=== PATIENT | female | born 1935 | race Caucasian/White ===

== ENCOUNTER 2019-06-05 12:50 | Outpatient (RCR) | payer MEDICARE, OTHER, SELFPAY ==
[2019-06-05 15:26] LABS: Basophils # 0.1 10^3/uL (0.0-0.1); Basophils % 0.3 %; Eosinophils # 0.2 10^3/uL (0.0-0.8); Eosinophils % 0.9 %; Lymphocytes % 74.9 %; Mean Corpuscular HGB Conc 31.4 g/dL (30.0-36.0); Mean Corpuscular Hemoglobin 31.4 pg (28.0-34.0); Mean Platelet Volume 12.2 fL (7.4-10.4); Monocytes # 0.7 10^3/uL (0.2-0.9); Monocytes % 2.7 %; Neutrophils # 5.6 10^3/uL (1.8-7.7); Nucleated Red Blood Cells % 0 %; Platelet Count 197 10^3/cmm (130-400); White Blood Count 26.7 10^3/uL (4.0-10.0)
[2019-06-05 22:53] LABS: Alanine Aminotransferase 21 U/L (0-33); Albumin Level 4.8 g/dL (3.5-5.2); Alkaline Phosphatase 53 IU/L (35-105); Anion Gap 19.1 (5-19); Aspartate Amino Transferase 25 U/L (0-32); Blood Urea Nitrogen 33 mg/dL (8-23); Calcium 10.5 mg/Dl (8.8-10.2); Carbon Dioxide 30 mmol/L (22-29); Chloride 95 mmol/L (98-107); Glucose 93 mg/dL (74-106); Lactate Dehydrogenase 206 U/L (135-214); Potassium 3.1 mmol/L (3.5-5.1); Sodium 141 mmol/L (136-145); Total Bilirubin 0.4 mg/dL (0.15-1.2); Total Protein 6.8 g/dL (6.6-8.7)
[2019-06-06 04:58] LABS: Iron 75 ug/dL (37-145); Percent Saturation 22.7 % (20-50); Total Iron Binding Capacity 330 mg/dL; Unsaturated Iron Binding 255 ug/dL (112-347)
== END 2019-07-04 23:59 | disposition home or self-care (01) ==
LOC: ONCMED 12:50
PROVIDERS: Family Provider Electrodiagnostic Medicine; Visit Provider Internal Medicine Medical Oncology
DX: C91.10 Chronic lymphocytic leukemia of B-cell type not having achieved remission (principal)
CPT/HCPCS: 80053; 83010; 83540; 83550; 83615; 85025; 85045

== ENCOUNTER 2019-07-30 05:49 | Outpatient (RCR) | payer MEDICARE, OTHER, SELFPAY ==
[2019-07-30 09:41] LABS: Basophils % 0.2 %; Eosinophils # 0.2 10^3/uL (0.0-0.8); Eosinophils % 0.7 %; Hematocrit 35.7 % (37.0-47.0); Hemoglobin 11.8 g/dL (11.5-15.3); Lymphocytes # 19.3 10^3/uL (0.8-4.8); Lymphocytes % 74.1 %; Mean Corpuscular HGB Conc 33.1 g/dL (30.0-36.0); Mean Corpuscular Hemoglobin 31.7 pg (28.0-34.0); Mean Platelet Volume 11.3 fL (7.4-10.4); Monocytes # 0.8 10^3/uL (0.2-0.9); Monocytes % 3.1 %; Neutrophils # 5.7 10^3/uL (1.8-7.7); Neutrophils % 21.7 %; Nucleated Red Blood Cells % 0 %; Platelet Count 191 10^3/cmm (130-400); Red Blood Count 3.72 10^6/uL (4.1-5.3); Red Cell Distribution Width 12.9 % (12.1-15.1); White Blood Count 26.1 10^3/uL (4.0-10.0)
[2019-07-30 09:57] LABS: Alanine Aminotransferase 20 U/L (0-33); Albumin Level 4.2 g/dL (3.5-5.2); Alkaline Phosphatase 56 IU/L (35-105); Anion Gap 16.5 (5-19); Aspartate Amino Transferase 23 U/L (0-32); Blood Urea Nitrogen 27 mg/dL (8-23); Calcium 10.3 mg/dL (8.5-10.5); Carbon Dioxide 28 mmol/L (22-29); Chloride 96 mmol/L (98-107); Globulin 2.7 g/dL (1.3-4.6); Glucose 109 mg/dL (65-115); Iron 86 ug/dL (37-145); Lactate Dehydrogenase 169 U/L (135-214); Percent Saturation 27.5 % (20-50); Potassium 3.5 mmol/L (3.5-5.1); Sodium 137 mmol/L (136-145); Total Bilirubin 0.6 mg/dL (0.15-1.2); Total Iron Binding Capacity 312 mcg/dl; Total Protein 6.9 g/dL (6.6-8.7); Unsaturated Iron Binding 226 ug/dL (112-347)
[2019-07-30 10:24] LABS: Slide Review Slide Review Perform
--- NOTE | 2019-07-31 07:32 | ONC FU_ITS ---
Dr. Peck Patient Follow-Up Note Patient: Carlota Sesay Unit #: [id number]: 1935 Dicatated By: Feroz Peck M.D.Date of Visit:Jul 30, 2019 Onc Med Follow-up/Prog Note Chief Complaint: Chronic lymphocytic leukemia. History of Present Illness: This is an 84 year-old woman with chronic lymphocytic leukemia, Varghese stage 0 at initial diagnosis in December 2008. She had presented with a mild leukocytosis. 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 By clinical evaluation she had early stage disease. Observation/expectant management was recommended. Her other medical illnesses include hypertension, hypercholesterolemia, and mild chronic kidney disease. She also has fibromyalgia and she has osteoporosis with associated kyphosis and scoliosis. A bone density study in May 2014 showed a T score of -3.1 in the lumbar spine, -2.9 in the left femoral neck, and -3.1 in the right femoral neck. She started treatment with Prolia in March 2015. In February 2017 she had presented with fairly acute onset of lower back pain. X-ray of the lumbar spine showed disc space narrowing at L4-L5. MRI of the lumbar spine and 02/22/2017 showed subacute L4 inferior endplate compression fracture of about 50%. There was mild to moderate central canal stenosis L4-L5 secondary to the compression fracture, to disc bulging, and to facet joint and ligamentum flavum hypertrophy. She underwent lumbar laminectomy in March 2017. INTERIM HISTORY: On her followup in April 2017 her white blood cell count had increased to 27,300 and her hemoglobin was down slightly to 11.6 g. She was still recovering from the surgery. She otherwise appeared stable clinically, and I opted to just continue her on observation/expectant management. During subsequent follow-up her blood counts had basically remained stable. She is seen for a scheduled visit. She continues have limited activity, mainly due to the back pain. Her ECOG score 3. She has good appetite. She has no fever, night sweats, or hot flashes. She has no shortness of breath, cough, or chest pain. She has no GI or complaints. She has pain in the lower back which radiates into the left leg. She also complains that she has arthritis all over. She has no focal neurologic symptoms. She does complain that she is sometimes shaky. Medications: Acetaminophen 2 Tablet (of 325 mg) Oral b.i.d. PRN, AmLODIPine Besylate 10 mg - Take 1 Tablet Oral daily, Atorvastatin Calcium 1 Tablet (of 20 mg) Oral daily, Chlorthalidone 1 Tablet (of 25 mg) Oral daily, Cholecalciferol 1 (2000 Units) Tablet Oral daily, Furosemide 1 Tablet (of 20 mg) Oral daily, Glucosamine Chondr 1500 Complx Take 1 Capsule Oral daily, Metoprolol Succinate ER 1 Tablet (of 100 mg) Tablet SR 24 HR Oral daily, Olmesartan Medoxomil 1 Tablet (of 40 mg) Oral daily, PreserVision AREDS 2 Tablet Oral daily, Prolia 1 (60 mg/mL) Subcutaneous q 26 weeks Allergies: No Known Allergies. Review of Systems: Constitutional - Her energy is low. She is mainly sedentary at home. Her appetite is good and her weight is down slightly. No fever, chills, hot flashes, or night sweats. ECOG score is 3, ENMT - No sinus congestion/drainage. No mouth sores. No sore throat or difficulty swallowing, Hematologic/Lymphatic - She bruises easily, Respiratory - No shortness of breath. No cough. No pleuritic pain or hemoptysis, Cardiovascular - No angina pain. No palpitations, Gastrointestinal - No nausea or vomiting. No heartburn or acid reflux. No diarrhea or constipation. No blood in the stool or black stools, Genitourinary (F) - No dysuria or hematuria. No urinary frequency. No urgency or incontinence, Musculoskeletal - She has generalized arthritis. Most of her pain is in her back and left leg. She is unable to stand for a prolonged period of time. It has been worse with the colder weather, Integumentary - No skin complications, Neurologic - No headache or dizziness. No numbness/paresthesias or other focal neurologic symptoms, Psychiatric - No anxiety or depression. No insomnia. Vital Signs: Performed on Jul 30, 2019 13:34 Height - 66.50 in Weight - 151.4 lbs (LOW) BSA - 1.79 sq.m BMI - 24.07 Temperature - 98.4 F Pulse - 68 /min Respiration - 20 /min BP - 187/76 mm(hg) (HIGH) O2 Sat - 98 % Pain - 6 Physical Examination: Constitutional - She appears somewhat frail, but not acutely ill, Eyes - Sclerae nonicteric. Conjunctivae clear, ENMT - No lesions noted in the oral cavity, Hematologic/Lymphatic - No cervical, clavicular, or axillary adenopathy, Respiratory - Lungs are clear with good air movement bilaterally, Cardiovascular - Heart rhythm is regular. There is no murmur, gallop, or rub noted, Abdomen - Mildly distended but soft. Liver and spleen are not enlarged. There is no abdominal mass or ascites noted and there is no inguinal adenopathy, Extremities - No edema, Neurologic - No focal neurologic deficits noted. Lab/Imaging: Test performed on Jul 30, 2019 09:30 Iron 86 ug/dL LDH (Total) 169 U/L Sodium 137 mmol/L Potassium 3.5 mmol/L Chloride 96 mmol/L CO2 28 mmol/L UIBC 226 ug/dL Anion Gap 16.5 BUN 27 mg/dL Creatinine 1.3 mg/dL Cr Clearance (Est) 34.92 mL/min Glucose 109 mg/dL Calcium 10.3 mg/dL Protein, Total 6.9 g/dL Albumin 4.2 g/dL Globulin 2.7 g/dL Bilirubin, Total 0.6 mg/dL ALT (SGPT) 20 U/L AST (SGOT) 23 U/L Alkaline Phosphatase 56 IU/L WBC 26.1 10 3/uL RBC 3.72 10 6/uL HGB 11.8 g/dL HCT 35.7 % MCV 96.0 fL MCH 31.7 pg MCHC 33.1 g/dL RDW 12.9 % Platelet Count 191 10 3/cmm MPV 11.3 fL Neutrophils 5.7 10 3/uL Lymphocytes 19.3 10 3/uL Monocytes 0.8 10 3/uL Eosinophils 0.2 10 3/uL Basophils 0.0 10 3/uL Neutrophil % 21.7 % Lymphocyte % 74.1 % Monocyte % 3.1 % Eosinophil % 0.7 % Basophils % 0.2 % CBC Slide Review Slide Review Perform SLIDE REVIEW AGREES WITH AUTOMATED RESULTS ST Test performed on May 05, 2019 09:25 % Iron Saturation 26.8 % Impression: 1. The patient has early stage chronic lymphocytic leukemia, initially diagnosed in 2008. She has just been followed on observation. Her other medical illnesses include: 2. Hypertension. 3. Hyperlipidemia. 4. Chronic kidney disease. 5. Osteoporosis. 6. Fibromyalgia. A CBC in May 2015 had shown a significant increase in her white blood cell count, to 37,000 compared to white blood cell count of 11,800 in January. The specific cause for that was not determined. As of 09/12/2016 the white blood cell count was back down to 16,000, and she just continued on observation. In February 2017 she suffered an L4 vertebral compression fracture. There was associated disc protrusion and mild to moderate central canal stenosis. She underwent lumbar laminectomy in March 2017. On her followup visit in April her white count had increased to 27,000 and her hemoglobin was slightly low 11.6 g. She otherwise appeared stable clinically, and she continued on observation/expectant management. During subsequent follow-up she did show gradual improvement in her clinical status, though she continues to have very limited activity. She has been mildly anemic, but her hemoglobin/hematocrit levels have remained stable. Her lymphocyte count had returned to baseline, and that also remains stable. She has continued to have limited activity due to the problems with her back and left leg. During followup there has been a gradual increase in her lymphocytosis, and she has become mildly anemic. In the absence of any evidence of iron deficiency, it appears that the anemia is most likely due to the chronic lymphocytic leukemia. Plan: She continues on observation/expectant management. She will be scheduled for a follow-up visit in 4 months, at which time she will be due for her next Prolia injection. Signed By: Feroz Peck M.D. <<Signature on File>>
== END 2019-08-02 23:59 | disposition home or self-care (01) ==
LOC: ONCMED 05:49
PROVIDERS: Family Provider Electrodiagnostic Medicine; Visit Provider Internal Medicine Medical Oncology
DX: C91.10 Chronic lymphocytic leukemia of B-cell type not having achieved remission (principal); M81.0 Age-related osteoporosis without current pathological fracture; E78.00 Pure hypercholesterolemia, unspecified; I12.9 Hypertensive chronic kidney disease with stage 1 through stage 4 chronic kidney disease, or unspecified chronic kidney disease; N18.2 Chronic kidney disease, stage 2 (mild); M79.7 Fibromyalgia
CPT/HCPCS: 80053; 83010; 83540; 83550; 83615; 85025; 85045; G0463

== ENCOUNTER 2019-08-22 13:53 | Outpatient (CLI) | payer MEDICARE, OTHER, SELFPAY ==
--- NOTE | 2019-08-22 14:08 | XR_ITS ---
WS: [id number] Lumbar spine, 3 views, 08/22/2019 Clinical Data: BACK PAIN, ACCIDENTAL FALL Comparison: Lumbar spine, 02/15/2017. Findings: No new compression fractures or subluxation is seen. No disc space narrowing is seen. The transverse processes and SI joints are normal. There is a slight dextroscoliosis. There is a posterior lumbar fusion at the L4-L5 level. There are bilateral pedicle screws connected w ith rods There is an old compression fracture with loss of more than 50% of the vertebral body height of L4. There is retropulsion of the posterior inferior aspect of L4 is 0.5 cm. There is an old compr ession fracture of the T11 vertebral body. XR/XR lumbar spine 2-3V* [id number] Impression: 1. Posterior lumbar fusion at L4-L5 which appears stable. 2. Old compression fracture of L4 and also of T11. 3. Osteoporosis. 4. Subluxation of the posterior inferior aspect of L4 is 0.5 cm.
--- NOTE | 2019-08-22 14:08 | XR_ITS ---
WS: [id number] Thoracic spine, 3 views, today Clinical Data: BACK PAIN ACCIDENTAL FALL Comparison: None. Findings: There is osteoporosis and osteoarthritis. There is a slight levoscoliosis. There is disc space narrowing at T11-T12. The paravertebral areas are normal. There is slight loss of the vertebral body height of T12 which could represent a minimal fracture of the superior margin of the vertebral body. XR/XR thoracic spine 3V* [id number] Impression: 1. Slight loss of superior vertebral body height of the T12 vertebral body whic h could indicate a minimal fracture. 2. Degenerative disc disease at T11-T12. 3. Osteoporosis and osteoarthritis.
== END 2019-08-22 13:54 | disposition home or self-care (01) ==
LOC: RADWPI 13:58
PROVIDERS: Family Provider Electrodiagnostic Medicine; PCP Family Medicine; Visit Provider Family Medicine
DX: M54.6 Pain in thoracic spine (principal); M47.894 Other spondylosis, thoracic region; M81.0 Age-related osteoporosis without current pathological fracture; Z98.1 Arthrodesis status
CPT/HCPCS: 72072; 72100

== ENCOUNTER 2019-09-09 10:15 | Outpatient (CLI) | payer MEDICARE, OTHER, SELFPAY ==
--- NOTE | 2019-09-09 | MR_ITS ---
WS: [id number] MRI THORACIC SPINE WITHOUT CONTRAST TECHNIQUE: Sagittal T1, T2 and STIR imaging. Axial T2 imaging. Noncontrast imaging obtained. CLINICAL INFORMATION: COMPRESSION FRACTURE, THORACIC VERTEBRAE COMPARISON: None. FINDINGS: Moderate thoracic kyphosis. Cord signal is normal. T11 compression fracture with biconcave compressio n loss of approximately 60% vertebral body height centrally. Moderate repulsion of the posterior supe rior cortex with mild to moderate central canal stenosis and slight contact of the thoracic cord. Cor d signal is normal. Findings consistent with acute compression. Fracture appears to extend into the r ight proximal pedicle with edema extending into both pedicles. No other acute appearing compression fractures. Small disc protrusions the mid thoracic spine with sl ight effacement of the ventral thecal sac more prominent at T7-T8, T8-T9. Small bilateral pleural effusions. Partially visualized T2 hyperintense lesions in the liver likely h epatic cysts. MR/MR thoracic spin wo con* [id number] IMPRESSION: 1. Acute compression fracture T11 vertebral body with loss of approximately 60 % vertebral body height centrally. Biconcave compression. 2. Retropulsion of the posterior superior cortex with mild/moderate central ca nal stenosis and slight contact of the thoracic cord. Cord signal is normal. 3. Fracture extends into the right proximal T11 pedicle with edema extending i nto both pedicles. 4. A few small central protrusions more prominent at T8-T9.
--- NOTE | 2019-09-09 | MR_ITS ---
WS: [id number] MRI LUMBAR SPINE NONCONTRAST TECHNIQUE: Sagittal T1, T2 and STIR imaging. Axial T1 and T2 imaging. CLINICAL INFORMATION: BACK PAIN, COMPARISON: MRI February 22, 2017 FINDINGS: Mild lumbar curve. Postoperative changes pedicle screw fixation L4-5. Chronic compression of the L4 v ertebral body. Acute compression fracture T11 vertebral body with fracture cleft and moderate retropu lsion described on the thoracic spine MRI. This results in mild to moderate central canal stenosis an d slightly contacts the thoracic cord. No acute appearing lumbar spine compression fractures. Edema within the distal midline sacrum extending into the coccyx consistent with posttraumatic fractu re with edema. Mild irregularity at the sacrococcygeal junction. Edema extends into the left sacral a la. These findings are only partially included. Presacral soft tissue edema. L1-L2: Minimal annular bulging. Mild facet arthropathy. Spinal canal and foramen are patent. L2-L3: Mild disc bulging with narrowing of the subarticular recess bilaterally. Moderate facet arthro nando. Mild right and no significant left foraminal narrowing. L3-L4: Mild disc bulging with moderate central canal stenosis. Moderate facet arthropathy with small facet effusions. Moderate right and mild left foraminal narrowing. L4-L5: Postoperative changes pedicle screw fixation L4-5. Chronic compression L4 vertebral body sligh tly progressed from 2017. Disc osteophyte complex at this level with chronic retropulsion results in mild central canal stenosis. Partially decompressive laminectomy Mild to moderate bilateral foraminal narrowing. Moderate facet arthropathy. L5-S1: Mild disc bulging and osteophytic ridging. Moderate facet arthropathy. Small facet effusions. Mild right and no significant left foraminal narrowing. Partially visualized cholelithiasis with prominent gallstone measuring 1.8 cm. MR/MR lumbar spine wo con* [id number] IMPRESSION: 1. Acute compression fracture involving the T11 vertebral body with mild to mo derate central canal stenosis and fracture cleft. Loss of approximately 60% andrey tebral body height described on the thoracic spine MRI. Edema extends into both pedicles. 2. Edema involving the distal sacrum extending into the sacrococcygeal junctio n consistent with posttraumatic fracture or insufficiency fracture extending in to the left sacral ala. This is only partially visualized. Mild presacral soft tissue edema. 3. Chronic compression L4 vertebral body with mild central canal stenosis and prior partial decompressive laminectomy. Pedicle screw fixation L4-5. 4. Moderate central canal stenosis L3-4 due to disc bulging with facet arthrop athy and ligament flavum hypertrophy. Moderate right L3-4 foraminal narrowing. 5. Mild to moderate bilateral L4-5 foraminal narrowing. 6. Cholelithiasis
== END 2019-09-09 10:16 | disposition home or self-care (01) ==
LOC: RADSHAW 10:15
PROVIDERS: Family Provider Electrodiagnostic Medicine; PCP Electrodiagnostic Medicine; Visit Provider Electrodiagnostic Medicine
DX: M48.54XA Collapsed vertebra, not elsewhere classified, thoracic region, initial encounter for fracture (principal); X58.XXXA Exposure to other specified factors, initial encounter; M51.24 Other intervertebral disc displacement, thoracic region
CPT/HCPCS: 72146; 72148

== ENCOUNTER 2019-11-19 06:47 | Outpatient (RCR) | payer MEDICARE, OTHER, SELFPAY ==
[2019-11-18 10:35] LABS: Basophils % 0.2 %; Eosinophils # 0.3 10^3/uL (0.0-0.8); Eosinophils % 1.5 %; Hematocrit 33.4 % (37.0-47.0); Hemoglobin 10.4 g/dL (11.5-15.3); Lymphocytes % 59.3 %; Mean Corpuscular HGB Conc 31.1 g/dL (30.0-36.0); Mean Corpuscular Hemoglobin 30.3 pg (28.0-34.0); Mean Corpuscular Volume 97.4 fL (81-99); Mean Platelet Volume 11.9 fL (7.4-10.4); Monocytes # 0.9 10^3/uL (0.2-0.9); Monocytes % 4.7 %; Neutrophils # 6.4 10^3/uL (1.8-7.7); Neutrophils % 34.1 %; Nucleated Red Blood Cells % 0 %; Platelet Count 171 10^3/cmm (130-400); Red Blood Count 3.43 10^6/uL (4.1-5.3); Red Cell Distribution Width 14.1 % (12.1-15.1); White Blood Count 18.6 10^3/uL (4.0-10.0)
[2019-11-18 11:22] LABS: 25 Hydroxy Vitamin D 67 ng/mL (30-100); Alanine Aminotransferase 17 U/L (0-33); Albumin Level 4.1 g/dL (3.5-5.2); Alkaline Phosphatase 58 IU/L (35-105); Anion Gap 17.7 (5-19); Aspartate Amino Transferase 19 U/L (0-32); Blood Urea Nitrogen 35 mg/dL (8-23); Calcium 9.7 mg/dL (8.5-10.5); Carbon Dioxide 30 mmol/L (22-29); Chloride 100 mmol/L (98-107); Globulin 2.4 g/dL (1.3-4.6); Glucose 109 mg/dL (65-115); Iron 66 ug/dL (37-145); Lactate Dehydrogenase 199 U/L (135-214); Osmolality Calculated 296 mOsm/kg (285-295); Percent Saturation 25.7 % (20-50); Potassium 3.7 mmol/L (3.5-5.1); Sodium 144 mmol/L (136-145); Total Bilirubin 0.5 mg/dL (0.15-1.2); Total Iron Binding Capacity 256 mcg/dl; Total Protein 6.5 g/dL (6.6-8.7); Unsaturated Iron Binding 190 ug/dL (112-347)
[2019-11-19] MEDS: denosumab 60 mg SDV SUBCUT (13:22)
--- NOTE | 2019-11-23 14:02 | ONC FU_ITS ---
Dr. Peck Patient Follow-Up Note Patient: Carlota Sesay Unit #: [id number]: [id number] Dicatated By: Feroz Peck M.D.Date of Visit:Nov 19, 2019 Onc Med Follow-up/Prog Note Chief Complaint: Chronic lymphocytic leukemia. History of Present Illness: This is an 84 year-old woman with chronic lymphocytic leukemia, Varghese stage 0 at initial diagnosis in December 2008. She had presented with a mild leukocytosis. 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 By clinical evaluation she had early stage disease. Observation/expectant management was recommended. Her other medical illnesses include hypertension, hypercholesterolemia, and mild chronic kidney disease. She also has fibromyalgia and she has osteoporosis with associated kyphosis and scoliosis. A bone density study in May 2014 showed a T score of -3.1 in the lumbar spine, -2.9 in the left femoral neck, and -3.1 in the right femoral neck. She started treatment with Prolia in March 2015. In February 2017 she had presented with fairly acute onset of lower back pain. X-ray of the lumbar spine showed disc space narrowing at L4-L5. MRI of the lumbar spine and 02/22/2017 showed subacute L4 inferior endplate compression fracture of about 50%. There was mild to moderate central canal stenosis L4-L5 secondary to the compression fracture, to disc bulging, and to facet joint and ligamentum flavum hypertrophy. She underwent lumbar laminectomy in March 2017. INTERIM HISTORY: On her followup in April 2017 her white blood cell count had increased to 27,300 and her hemoglobin was down slightly to 11.6 g. She was still recovering from the surgery. She otherwise appeared stable clinically, and I opted to just continue her on observation/expectant management. During subsequent follow-up her blood counts had basically remained stable. As of May 2019 there was again a significant increase in her white blood cell count, to 60,000. Hemoglobin was slightly low at 10.9 g but with normal platelet count of 221,000. On her repeat CBC in June 2019 the white count had come back down to 26,000. She is seen for a scheduled visit. She has continued to have very limited activity due to pain in her back and left leg. She gets around going from chair to chair. Her ECOG score is 3. She has good appetite. She has no fever or night sweats. She has no shortness of breath, cough, or chest pain. She has no GI/ complaints other than acid reflux, but that is being managed adequately with medication. Her pain is mainly in the left leg. She has no associated neurologic symptoms. She is having some depression, mainly related to her inactivity. Medications: Acetaminophen 2 Tablet (of 325 mg) Oral b.i.d. PRN, AmLODIPine Besylate 10 mg - Take 1 Tablet Oral daily, Atorvastatin Calcium 1 Tablet (of 20 mg) Oral daily, Chlorthalidone 1 Tablet (of 25 mg) Oral daily, Cholecalciferol 1 (2000 Units) Tablet Oral daily, Furosemide 1 Tablet (of 20 mg) Oral daily, Gabapentin 2 Capsule (of 100 mg) Oral t.i.d., Glucosamine Chondr 1500 Complx Take 1 Capsule Oral daily, hydrALAZINE HCl 1 Tablet (of 50 mg) Oral b.i.d., Metoprolol Succinate ER 1 Tablet (of 100 mg) Tablet SR 24 HR Oral daily, Olmesartan Medoxomil 1 Tablet (of 40 mg) Oral daily, Omeprazole 1 Caplet (of 40 mg) Capsule Delayed Release Oral daily, PreserVision AREDS 2 Tablet Oral daily, Prolia 1 (60 mg/mL) Subcutaneous q 26 weeks Allergies: No Known Allergies. Review of Systems: Constitutional - She has no energy. She is mainly sitting in her chair at home. She has activity restriction due to her leg pain. She ambulates only with a wheeled walker. Her appetite is good and weight is down a few pounds. No fever, night sweats, or hot flashes. ECOG score is 3, ENMT - No sinus congestion/drainage. No mouth sores. No sore throat or difficulty swallowing, Hematologic/Lymphatic - No abnormal bruising or bleeding, Respiratory - No shortness of breath. No cough. No pleuritic pain or hemoptysis, Cardiovascular - No angina pain. No palpitations, Gastrointestinal - No nausea or vomiting. She was having frequent heartburn, her PCP started her on omeprazole yesterday. No diarrhea or constipation. No blood in the stool or black stools, Genitourinary (F) - No dysuria or hematuria. No urinary frequency. No urgency or incontinence, Musculoskeletal - She is having pain in her left leg related to a pinched nerve in her back, Integumentary - No skin complications, Neurologic - No headache. She occasionally has dizziness. No numbness or tingling. No other focal neurologic symptoms, Psychiatric - She has anxiety/depression. No insomnia. Vital Signs: Performed on Nov 19, 2019 12:44 Height - 66.50 in Weight - 148.4 lbs (LOW) BSA - 1.77 sq.m BMI - 23.59 Temperature - 98.5 F Pulse - 68 /min Respiration - 20 /min BP - 162/69 mm(hg) (HIGH) O2 Sat - 98 % Pain - 8 Physical Examination: Constitutional - She appears generally weak and frail, Eyes - Sclerae nonicteric. Conjunctivae clear, ENMT - No lesions noted in the oral cavity, Hematologic/Lymphatic - No cervical, clavicular, or axillary adenopathy, Respiratory - Lungs are clear with good air movement bilaterally, Cardiovascular - Heart rhythm is regular. There is no murmur, gallop, or rub noted, Abdomen - Soft. Liver and spleen are not enlarged. There is no abdominal mass or ascites noted and there is no inguinal adenopathy, Extremities - No edema, Neurologic - No focal neurologic deficits noted. Lab/Imaging: CBC shows hemoglobin 10.4 g, white blood cell count 18,600, and platelet count 171,000. Comprehensive metabolic profile is unremarkable except for elevated BUN and creatinine at 35 and 1.7 mg/dL. LDH is normal at 199 U/L. Her serum iron studies show normal transferrin saturation at 25%. Impression: 1. The patient has early stage chronic lymphocytic leukemia, initially diagnosed in 2008. She has just been followed on observation. Her other medical illnesses include: 2. Hypertension. 3. Hyperlipidemia. 4. Chronic kidney disease. 5. Osteoporosis. 6. Fibromyalgia. A CBC in May 2015 had shown a significant increase in her white blood cell count, to 37,000 compared to white blood cell count of 11,800 in January. The specific cause for that was not determined. As of 09/12/2016 the white blood cell count was back down to 16,000, and she just continued on observation. In February 2017 she suffered an L4 vertebral compression fracture. There was associated disc protrusion and mild to moderate central canal stenosis. She underwent lumbar laminectomy in March 2017. On her followup visit in April her white count had increased to 27,000 and her hemoglobin was slightly low 11.6 g. She otherwise appeared stable clinically, and she continued on observation/expectant management. During subsequent follow-up she did show gradual improvement in her clinical status, though she continued to have very limited activity. As of May 2019 there was a significant increase in her white blood cell count, to 60,000, but her subsequent studies have been back to baseline. She has continued to have a mild anemia. Her platelet count remains normal. Plan: She continues on observation/expectant management for the chronic lymphocytic leukemia. She will be given Prolia 60 mg by subcutaneous injection for the osteoporosis. She will be scheduled for a follow-up visit in 3 months. Signed By: Feroz Peck M.D. <<Signature on File>>
== END 2019-12-02 23:59 | disposition home or self-care (01) ==
LOC: ONCMED 06:47
PROVIDERS: PCP Electrodiagnostic Medicine; Visit Provider Internal Medicine Medical Oncology
DX: Z08 Encounter for follow-up examination after completed treatment for malignant neoplasm (principal); Z85.6 Personal history of leukemia; M81.0 Age-related osteoporosis without current pathological fracture; I10 Essential (primary) hypertension; E78.5 Hyperlipidemia, unspecified; N18.9 Chronic kidney disease, unspecified; M79.7 Fibromyalgia
CPT/HCPCS: 80053; 82306; 83540; 83550; 83615; 85025; 96372; 99214; J0897

== ENCOUNTER 2019-12-03 09:29 | Outpatient (CLI) | payer MEDICARE, OTHER, SELFPAY ==
--- NOTE | 2019-12-03 09:37 | XR_ITS ---
WS: [id number] LEFT RIBS, MULTIPLE VIEWS WITH PA CHEST HISTORY: RIB PAIN, LEFT, COMPRESSION FRACTURE, THORACIC VERTEBRA COMPARISON: None available. Lungs and mediastinum: Minimal blunting of the LEFT costophrenic angle. No pneumothorax. Ribs: Multiple rib fractures are identified in the lateral thorax. There are numerous contiguous rib fractures. Rib fractures posteriorly are displaced and extend from the fourth rib the ninth rib. Sev eral of these ribs are fractured in anteriorly also. There are at least 3 contiguous rib fractures an teriorly. XR/XR ribs LT mn 3V w [id number] IMPRESSION: 1. Numerous contiguous, displaced left-sided rib fractures. Several ribs are f ractured posteriorly and anterolaterally. Fractures are contiguous posteriorly from the fourth and ninth rib. Anterolateral rib fractures involving at least 3 contiguous ribs. Suspect third through fifth rib fractures. 2. No pneumothorax. 3. Minimal blunting of the LEFT costophrenic angle is probably from hemothorax .
--- NOTE | 2019-12-03 09:37 | XR_ITS ---
WS: [id number] THORACIC SPINE TECHNIQUE: AP and lateral views are performed. HISTORY: RIB PAIN, LEFT, COMPRESSION FRACTURE, THORACIC VERTEBRA COMPARISON: 08/22/2019 New burst fracture at T12. Vertebral planar compression with 3.9 mm retropulsion of the posterior sup erior endplate. Fracture is new since 08/22/2019. Increase in thoracic kyphosis with osteopenia. Reverse S-shaped thoracolumbar scoliosis. XR/XR thoracic spine 3V* [id number] IMPRESSION: 1. Burst fracture at T12 with 3.9 mm retropulsion of the posterior superior en dplate. Loss of vertebral body height approaching 90%. Fracture is new since . 2. Increase in thoracic kyphosis and osteopenia.
== END 2019-12-03 09:30 | disposition home or self-care (01) ==
LOC: RADOUTREAD 09:34 → RADWPI 09:36
PROVIDERS: Family Provider Electrodiagnostic Medicine; PCP Electrodiagnostic Medicine; Visit Provider Electrodiagnostic Medicine
DX: S22.081A Stable burst fracture of T11-T12 vertebra, initial encounter for closed fracture (principal); S22.42XA Multiple fractures of ribs, left side, initial encounter for closed fracture; X58.XXXA Exposure to other specified factors, initial encounter
CPT/HCPCS: 71101; 72072

== ENCOUNTER 2019-12-04 18:26 | Inpatient (IN) | payer MEDICARE, OTHER, SELFPAY ==
[2019-12-04 18:57] VITALS: BP 158/74; PULSE 77; RESP 16; TEMP 37.6; O2SAT 93; BMI 23.3
--- NOTE | 2019-12-04 19:40 | XR_ITS ---
WS: [id number] CHEST XRAY TECHNIQUE: Portable chest. CLINICAL INFORMATION: fall/injury COMPARISON: December 03, 2019 FINDINGS: Heart: Normal cardiac silhouette. Lungs: Moderate chronic emphysematous changes. Small left greater than right pleural effusions. Bibas ilar atelectasis. No pneumothorax. Bones: Mild thoracic curve convex left. Minimally displaced left upper and mid posterior rib fracture s. XR/XR chest 1V portable [id number] IMPRESSION: 1. Minimally displaced left upper and mid posterior rib fractures. 2. Small left greater than right pleural effusions. No pneumothorax.
[2019-12-04 20:04] VITALS: RESP 18
[2019-12-04] MEDS: morphine 4 mg/mL SDV 1 mL 2 MG IVP (20:04)
[2019-12-04] MEDS: sodium chloride 0.9% 1,000 ML 100 ML IV (20:04)
[2019-12-04 20:08] VITALS: BP 184/80; PULSE 84; RESP 18; TEMP 37.3; O2SAT 94
[2019-12-04 20:10] LABS: Basophils # 0.1 10^3/uL (0.0-0.1); Basophils % 0.2 %; Eosinophils # 0.1 10^3/uL (0.0-0.8); Eosinophils % 0.3 %; Hematocrit 34.3 % (37.0-47.0); Hemoglobin 10.6 g/dL (11.5-15.3); Lymphocytes # 19.4 10^3/uL (0.8-4.8); Lymphocytes % 62.7 %; Mean Corpuscular HGB Conc 30.9 g/dL (30.0-36.0); Mean Corpuscular Volume 97.2 fL (81-99); Mean Platelet Volume 11.2 fL (7.4-10.4); Monocytes # 1.6 10^3/uL (0.2-0.9); Monocytes % 5.1 %; Neutrophils # 9.7 10^3/uL (1.8-7.7); Neutrophils % 31.3 %; Nucleated Red Blood Cells % 0 %; Platelet Count 226 10^3/cmm (130-400); Red Blood Count 3.53 10^6/uL (4.1-5.3); Red Cell Distribution Width 14.4 % (12.1-15.1)
[2019-12-04 20:15] LABS: INR 0.96 (0.8-1.2)
--- NOTE | 2019-12-04 20:20 | CTR_ITS ---
PROCEDURE INFORMATION: Exam: CT Thoracic Spine Without Contrast Exam date and time: 12/04/2019 8:32 PM Age: 84 years old Clinical indication: Injury or trauma; Fall; Initial encounter; Blunt trauma (contusions or hematomas); Additional info: Fall/injury TECHNIQUE: Imaging protocol: Computed tomography images of the thoracic spine without contrast. Radiation optimization: All CT scans at this facility use at least one of these dose optimization techniques: automated exposure control; mA and/or kV adjustment per patient size (includes targeted exams where dose is matched to clinical indication); or iterative reconstruction. COMPARISON: MR thoracic spin wo con* [id number] 09/09/2019 11:12 AM RADIATION DOSE METRICS: Total DLP (mGy-cm): 1591.39 FINDINGS: Vertebrae: There is levoscoliosis. Unchanged chronic fracture deformity of T11 is noted. No acute fracture of the thoracic spine. Unchanged kyphosis. Discs/Spinal canal/Neural foramina: There are diffuse moderate to severe degenerative changes. Other bones/joints: There is osteopenia. There are overriding fractures of multiple left ribs including the posterior left 5th through 9th ribs. No acute right rib fracture. Soft tissues: Unremarkable. Lungs: Nonspecific bibasilar opacity is present, consistent with atelectasis, edema, or pneumonia. Pleural space: There is a moderate size left pleural effusion. CT/CT thoracic spin wo con* [id number] IMPRESSION: 1. Acute overriding fractures of the left 5th through 9th ribs. 2. Nonspecific bibasilar opacity is present, consistent with atelectasis, edema, or pneumonia. 3. No acute fracture of the thoracic vertebra. Unchanged old fracture deformity of T11 with kyphosis. 4. Left pleural effusion. Radiation Dose CTDIVOL = (mGy): DLP = 1591.39 (mGy-cm)
--- NOTE | 2019-12-04 20:20 | CTR_ITS ---
PROCEDURE INFORMATION: Exam: CT Chest Without Contrast Exam date and time: 12/04/2019 8:32 PM Age: 84 years old Clinical indication: Injury or trauma; Fall; Initial encounter; Generalized; Blunt trauma (contusions or hematomas); Prior surgery; Surgery type: Back, hysterectomy TECHNIQUE: Imaging protocol: Computed tomography of the chest without contrast. Radiation optimization: All CT scans at this facility use at least one of these dose optimization techniques: automated exposure control; mA and/or kV adjustment per patient size (includes targeted exams where dose is matched to clinical indication); or iterative reconstruction. COMPARISON: No relevant prior studies available. RADIATION DOSE METRICS: Total DLP (mGy-cm): 1755.59 FINDINGS: Lungs: Nonspecific bibasilar consolidation is present, consistent with atelectasis, edema, or pneumonia. There are moderate emphysematous changes. Pleural space: There is a small to moderate size left pleural effusion and trace right pleural effusion. There is no pneumothorax. Heart: The heart is enlarged. The heart is enlarged. Aorta: Unremarkable. No aortic aneurysm. Lymph nodes: Unremarkable. No enlarged lymph nodes. Bones/joints: There is kyphosis with unchanged fracture of T11 is compared to the prior thoracic MRI of September 09, 2019. Unchanged retropulsed bone at the T11 fracture. There are overriding fractures of the posterior left 5th through 10th ribs. Nondisplaced fractures of the anterior lateral left 3rd through 6th ribs are noted. The bilateral scapula are intact. No acute right rib fracture. No acute fracture in the thoracic spine or sternum. Soft tissues: Unremarkable. IMPRESSION: 1. Nonspecific bibasilar consolidation is present, consistent with atelectasis, edema, or pneumonia. There is a left pleural effusion. No pneumothorax. 2. There are overriding fractures of the posterior left 5th through 10th ribs. Nondisplaced fractures of the anterior lateral left 3rd through 6th ribs are noted. PROCEDURE INFORMATION: Exam: CT Abdomen And Pelvis Without Contrast Exam date and time: 12/04/2019 8:32 PM Age: 84 years old Clinical indication: Injury or trauma; Fall; Initial encounter; Generalized; Blunt trauma (contusions or hematomas); Prior surgery; Surgery type: Back, hysterectomy TECHNIQUE: Imaging protocol: Computed tomography of the abdomen and pelvis without contrast. Radiation optimization: All CT scans at this facility use at least one of these dose optimization techniques: automated exposure control; mA and/or kV adjustment per patient size (includes targeted exams where dose is matched to clinical indication); or iterative reconstruction. COMPARISON: No relevant prior studies available. RADIATION DOSE METRICS: Total DLP (mGy-cm): 1755.59 FINDINGS: Liver: There are several liver cysts with the largest measuring 4.5 cm in size image 15. Gallbladder and bile ducts: There is cholelithiasis. No cholecystitis. There is no common bile duct dilation. Pancreas: Normal. No ductal dilation. Spleen: Normal. No splenomegaly. Adrenals: Normal. No mass. Kidneys and ureters: There is no evidence of hydronephrosis. There is no evidence of renal calcifications. Stomach and bowel: There is no evidence of intestinal perforation or obstruction. Appendix: No evidence of appendicitis. Intraperitoneal space: Unremarkable. No free air. No significant fluid collection. Vasculature: The aorta demonstrates moderate atherosclerotic calcification. Lymph nodes: Unremarkable.No enlarged lymph nodes. Bladder: Unremarkable as visualized. Reproductive: Unremarkable as visualized. Bones/joints: There is unchanged chronic compression fracture deformity of L4 with retropulsed bone as compared to the prior lumbar MRI of September 09, 2019. There is a satisfactory appearance of the postoperative changes in the lower lumbar spine. No acute fracture in the sacrum or pelvis. No acute hip fracture. Old healed transverse fracture of the sacrum is noted. This is healed compared to the old MRI. Soft tissues: There is abundant edema and hyperdensity in the subcutaneous fat lateral to the left hip compatible with hematoma and contusion. CT/CT chest abd pel wo con IMPRESSION: 1. There is abundant edema and hyperdensity in the subcutaneous fat lateral to the left hip compatible with hematoma and contusion. No acute hip fracture. Unchanged chronic fracture deformity of L4 is noted as compared to the prior old MRI. 2. The solid organs are intact. No free fluid and no free intraperitoneal air. Radiation Dose CTDIVOL = (mGy): DLP = 1755.59~1755.59 (mGy-cm)
--- NOTE | 2019-12-04 20:20 | CTR_ITS ---
PROCEDURE INFORMATION: Exam: CT Head Without Contrast Exam date and time: 12/04/2019 8:32 PM Age: 84 years old Clinical indication: Injury or trauma; Fall; Initial encounter; Concussion / head injury; Without loss of consciousness TECHNIQUE: Imaging protocol: Computed tomography of the head without contrast. Radiation optimization: All CT scans at this facility use at least one of these dose optimization techniques: automated exposure control; mA and/or kV adjustment per patient size (includes targeted exams where dose is matched to clinical indication); or iterative reconstruction. COMPARISON: No relevant prior studies available. RADIATION DOSE METRICS: Total DLP (mGy-cm): 869.37 FINDINGS: Brain: There is volume loss and periventricular low density compatible with chronic small vessel disease changes. There is no acute hemorrhage, edema or mass effect. Ventricles: Normal. No ventriculomegaly. Bones/joints: Unremarkable. No acute fracture. Sinuses: There is mild mucosal thickening in the sinuses. No air-fluid levels. Mastoid air cells: There is patchy opacification the right mastoid air cells. The left mastoid air cells are clear. Soft tissues: Unremarkable. CT/CT head wo con* [id number] IMPRESSION: No acute intracranial abnormality. Radiation Dose CTDIVOL = (mGy): DLP = 869.37 (mGy-cm)
--- NOTE | 2019-12-04 20:20 | CTR_ITS ---
PROCEDURE INFORMATION: Exam: CT Lumbar Spine Without Contrast Exam date and time: 12/04/2019 8:32 PM Age: 84 years old Clinical indication: Injury or trauma; Fall; Initial encounter; Blunt trauma (contusions or hematomas); Prior surgery; Surgery date: 6+ months; Surgery type: Lower back; Additional info: Fall/injury TECHNIQUE: Imaging protocol: Computed tomography images of the lumbar spine without contrast. Radiation optimization: All CT scans at this facility use at least one of these dose optimization techniques: automated exposure control; mA and/or kV adjustment per patient size (includes targeted exams where dose is matched to clinical indication); or iterative reconstruction. COMPARISON: MR lumbar spine wo con* [id number] 09/09/2019 11:39 AM RADIATION DOSE METRICS: Total DLP (mGy-cm): 2329.82 FINDINGS: Vertebrae: There is unchanged fracture deformity of T11 is compared to the old lumbar MRI. Unchanged old fracture of L4 is also noted. Both the fracture of T11 and L4 involve the anterior and middle columns with unchanged retropulsed bone. No acute fracture is identified in the lumbar spine. There is diffuse osteopenia. No subluxation. Discs/Spinal canal/Neural foramina: Postoperative changes at L4-L5 are noted and have a satisfactory appearance. There is unchanged stenosis of the spinal canal posterior to the fracture deformities of T11 and L4. Pleural space: There is a left pleural effusion. Reproductive: No acute fracture in the visualized sacrum or pelvis. Soft tissues: Unremarkable. CT/CT lumbar spine wo con* [id number] IMPRESSION: Unchanged old fractures of T11 and L4. No new fracture or bony destruction. Unchanged stenosis of the spinal canal posterior to the fractures of T11 and L4 compared to the prior MRI. Radiation Dose CTDIVOL = (mGy): DLP = 2329.82 (mGy-cm)
[2019-12-04 20:21] LABS: Alanine Aminotransferase 15 U/L (0-33); Albumin Level 4.8 g/dL (3.5-5.2); Alkaline Phosphatase 80 IU/L (35-105); Anion Gap 18.6 (5-19); Blood Urea Nitrogen 39 mg/dL (8-23); Calcium 8.4 mg/dL (8.5-10.5); Carbon Dioxide 26 mmol/L (22-29); Chloride 94 mmol/L (98-107); Globulin 2.3 g/dL (1.3-4.6); Glucose 130 mg/dL (65-115); Osmolality Calculated 279 mOsm/kg (285-295); Potassium 3.6 mmol/L (3.5-5.1); Sodium 135 mmol/L (136-145); Total Bilirubin 0.9 mg/dL (0.15-1.2); Total Protein 7.1 g/dL (6.6-8.7)
[2019-12-04 20:37] LABS: Aspartate Amino Transferase 21 U/L (0-32)
[2019-12-04 20:43] LABS: White Blood Count 30.9 10^3/uL (4.0-10.0)
[2019-12-04 20:44] LABS: Slide Review Slide Review Perform
[2019-12-04 21:05] VITALS: BP 180/74; PULSE 90; RESP 20; O2SAT 92
--- NOTE | 2019-12-04 21:18 | ED_ITS ---
HPI - Fall General: Chief Complaint: Fall Stated Complaint: FALL Time Seen by Provider: 12/04/19 19:21 Source: patient Mode of arrival: ambulatory Limitations: no limitations History of Present Illness: HPI Narrative: Carlota is a nice 84-year-old female who comes in after she fell at home. She states she fell at 4 AM Sunday morning after she got tangled up with her walker. She went and saw Dr. Lin who ordered outpatient x-rays who thought there was several rib fractures and because of this she was sent to the ER. The patient says it hurts to take a deep breath or hurts to move in certain positions. Otherwise she denies any complaints such as head injury or otherwise. Patient denies being on blood thinners and states primarily she has pain when she moves or takes a deep breath. She denies any abdominal or low back pain. Associated symptoms-after fall: Denies abdominal pain, confusion, difficulty walking, headache(s), hematuria, lightheadedness, neck pain or vertigo Review of Systems Const: Denies: fever(s), chills, body aches, fatigue, malaise or diaphoresis Eyes: Denies: change in vision, blurry vision, blind spots, photophobia, eye discharge or eye redness ENMT: Denies: throat pain, odynophagia, hoarseness, swelling of lips/tongue, oral sores, ear or mastoid pain, ear discharge, change in hearing or nasal discharge Card: Denies: palpitations, irregular heart rhythm, edema, lightheadedness, syncope, pre-syncope, dyspnea on exertion or orthopnea Resp: Denies: dyspnea, productive cough, non-productive cough, wheezing, hemoptysis or chest congestion GI: Denies: abdominal pain, nausea, vomiting, hematemesis, coffee ground emesis, heartburn, diarrhea, constipation, GI cramping, hematochezia or melena : Denies: flank pain, dysuria, urinary frequency, urinary urgency or hematuria Musc: Denies: neck pain, back pain, extremity pain, extremity swelling, joint pain, joint swelling, joint redness, joint warmth or joint stiffness Skin/Breast: Denies: rash, pruritus, erythema, skin tenderness or jaundice Neuro: Denies: headache(s), numbness in extremities, weakness in extremities, sensory changes, lack of coordination, difficulty walking, dizziness, vertigo, confusion, Slurred speech present or seizure-like activity Tony/Lymph: Denies: easy bruising, easy bleeding, petechiae, purpura or enlarged lymph nodes All/Imm: Denies: urticaria, throat swelling, tongue swelling, facial swelling or acute wheezing PFSH ED PFSH: Medical History CKD (chronic kidney disease) CLL (chronic lymphocytic leukemia) Essential hypertension Fibromyalgia Hyperlipidemia Osteoporosis Surgical History Previous back surgery S/P cataract extraction S/P hysterectomy Family History Denies family history of Clotting disorder Hypertension Social History Smoking and tobacco status: never smoked Alcohol intake: never Household members: spouse Marital status: service: No Current occupational status: retired Current gender identity: Female Yuki/Rastafari: [employer] Physical Exam Const: COMMON NORMALS: no acute distress, patient oriented x3, no limitations, healthy appearing and well nourished GENERAL APPEARANCE: cooperative, well kempt and well developed HENMT: COMMON NORMALS: normocephalic, atraumatic, external ears normal, EAC's normal and Normal external nose present HEAD & SCALP: normal to inspection, normocephalic and atraumatic FACE & SINUS: normal facial exam and face symmetric NOSE: Normal external nose present and Normal nares present EXTERNAL EAR: Yes external ears normal EXTERNAL AUDITORY CANAL: EAC's normal MOUTH: Normal oral and palatal mucosa present, lip normal and tongue normal Eye: COMMON NORMALS: Equal, round and reactive pupils present and conjunctivae normal GENERAL EYE: appearance normal, both eyes and all related structures ALIGNMENT: Yes alignment normal PERIORBITAL: periorbital findings normal EYELID: eyelids normal CONJUNCTIVA: Yes conjunctivae normal SCLERA: sclerae normal PUPIL: Yes Equal, round and reactive pupils present Neck/C-Spine: COMMON NORMALS: full ROM, no lymphadenopathy, supple, no meningeal signs and no JVD GENERAL: Yes normal visual inspection and Yes trachea midline Chest: OTHER: Tenderness to palpation but no crepitance noted along left-sided chest wall. Resp: COMMON NORMALS: normal respiratory effort, No retractions and No use of accessory muscles EFFORT & INSPECTION: Yes able to speak in complete sentences and Yes symmetric chest movement AUSCULTATION: no crackles, no rales, no rhonchi and no wheezes Cardio: COMMON NORMALS: no JVD, regular rate, regular rhythm, S1 normal heart sound present and S2 normal heart sound present RATE: regular rate RHYTHM: regular rhythm HEART SOUNDS: S1 normal heart sound present, S2 normal heart sound present, no click, no gallops, no murmurs, no rubs and abnormal split S2 GI: COMMON NORMALS: Soft to palpation and No hepatosplenomegaly present PALPATION: Yes Soft to palpation, No Tenderness to palpation present (GI), No Guarding due to palpation present (GI), No Rigid due to palpation, Yes No hepatosplenomegaly present, No Hernia present, No Palpable mass present and No Pulsatile mass present : COMMON NORMALS: Yes no CVA tenderness BLADDER/KIDNEY EXAM: Yes no CVA tenderness EXTERNAL FEMALE EXAM: No Hernia present Back/Pelvis: COMMON NORMALS: no CVA tenderness, thoracic and lumbar spine normal to inspection, no thoracic nor lumbar tenderness and thoraco-lumbar ROM normal Extremity: COMMON NORMALS: normal to inspection, full ROM, capillary refill normal, no joint enlargement, no clubbing, cyanosis or edema and no calf tenderness NARRATIVE EXTREMITY EXAM: Swelling and ecchymosis noted to the left hip. Neuro: COMMON NORMALS: patient oriented x3, CN's II-XII intact bilaterally, moves all extremities, no focal motor deficits and no sensory deficits noted MENINGEAL SIGNS: Yes no meningeal signs SPEECH: speech normal Psych: COMMON NORMALS: mental status grossly normal, Normal thought process present, cooperative, normal affect, speech normal and activity/motor behavior normal APPEARANCE: Yes well kempt SPEECH: Yes normal speech THOUGHT PROCESS: Normal thought process present Skin: COMMON NORMALS: no rashes or lesions noted, turgor normal, no jaundice, no petechiae and no mottling GENERAL SKIN EXAM: no rashes or lesions noted and turgor normal Course Vital Signs: Vital signs: Vital Signs Temperature 99.1 F 12/04/19 20:08 Pulse Rate 90 12/04/19 21:05 Respiratory Rate 20 H 12/04/19 22:43 Blood Pressure 180/74 12/04/19 21:05 Pulse Oximetry 92 12/04/19 22:43 MDM - Fall MDM Narrative: Medical decision making narrative: Patient had a mechanical fall at 4 AM Sunday morning. Outpatient x-rays revealed rib fractures but the acute thoracic spine fractures are old. The patient has severe pain anytime she tries to move or take a deep breath. CT scan shows a possible small hemothorax but not amenable to chest tube drainage. There are multiple rib fractures. I reviewed the case in full twice with Dr. Zuleta and he is agreeable to consult and agrees at this time this far out the patient likely just needs pain control, pulmonary toilet and oxygen support. The patient does not have a flail segment clinically. Patient is stable in bed but I believe she is going to need a good deal of respiratory therapy and incentive spirometry so she can maintain her oxygen adequately. Her white count is significantly elevated but that is likely chronic due to her CLL. The case was reviewed in full with Dr. Ramsey and he is agreeable to admission and Dr. Zuleta has been consulted. Lab Data: Attestation: I reviewed the patient's lab results. Labs: Lab Results 12/04/19 12/04/19 12/04/19 Range/Units 20:00 20:00 20:00 WBC 30.9 H* (4.0-10.0) 10^3/ uL RBC 3.53 L (4.1-5.3) 10^6/u L Hgb 10.6 L (11.5-15.3) g/dL Hct 34.3 L (37.0-47.0) % MCV 97.2 (81-99) fL MCH 30.0 (28.0-34.0) pg MCHC 30.9 (30.0-36.0) g/dL RDW 14.4 (12.1-15.1) % Plt Count 226 (130-400) 10^3/c mm MPV 11.2 H (7.4-10.4) fL Neut % (Auto) 31.3 % Lymph % (Auto) 62.7 % Willacy % (Auto) 5.1 % Eos % (Auto) 0.3 % Baso % (Auto) 0.2 % Neut # (Auto) 9.7 H (1.8-7.7) 10^3/u L Lymph # (Auto) 19.4 H (0.8-4.8) 10^3/u L Willacy # (Auto) 1.6 H (0.2-0.9) 10^3/u L Eos # (Auto) 0.1 (0.0-0.8) 10^3/u L Baso # (Auto) 0.1 (0.0-0.1) 10^3/u L Nucleated RBC % (a uto) 0 % Nucleated RBCs # 0.0 /100WBC PT 13.10 (10.5-13.3) SECO NDS INR 0.96 (0.8-1.2) Sodium 135 L (136-145) mmol/L Potassium 3.6 (3.5-5.1) mmol/L Chloride 94 L (98-107) mmol/L Carbon Dioxide 26 (22-29) mmol/L Anion Gap 18.6 (5-19) BUN 39 H (8-23) mg/dL Creatinine 2.1 H (0.5-0.9) mg/dL Glucose 130 H (65-115) mg/dL Calculated Osmolal ity 279 L (285-295) mOsm/k g Calcium 8.4 L (8.5-10.5) mg/dL Total Bilirubin 0.9 (0.15-1.2) mg/dL AST 21 (0-32) U/L ALT 15 (0-33) U/L Alkaline Phosphata se 80 (35-105) IU/L Total Protein 7.1 (6.6-8.7) g/dL Albumin 4.8 (3.5-5.2) g/dL Globulin 2.3 (1.3-4.6) g/dL Urine Color (Yellow) Urine Appearance (CLEAR) Urine pH (5-7) Ur Specific Gravit y (1.005-1.030) Urine Protein (Negative) Urine Glucose (UA) (Normal) Urine Ketones (Negative) Urine Blood (Negative) Urine Nitrate (Negative) Urine Bilirubin (NEGATIVE) Urine Urobilinogen (Negative) mg/dL Ur Leukocyte Melissa ase (Negative) Urine RBC (0-2) /hpf Urine WBC (0-5) /hpf Ur Squamous Epith Cells (0-5) Urine Bacteria (NONE) Hyaline Casts Urine Mucus 12/04/19 Range/Units 22:13 WBC (4.0-10.0) 10^3/ uL RBC (4.1-5.3) 10^6/u L Hgb (11.5-15.3) g/dL Hct (37.0-47.0) % MCV (81-99) fL MCH (28.0-34.0) pg MCHC (30.0-36.0) g/dL RDW (12.1-15.1) % Plt Count (130-400) 10^3/c mm MPV (7.4-10.4) fL Neut % (Auto) % Lymph % (Auto) % Willacy % (Auto) % Eos % (Auto) % Baso % (Auto) % Neut # (Auto) (1.8-7.7) 10^3/u L Lymph # (Auto) (0.8-4.8) 10^3/u L Willacy # (Auto) (0.2-0.9) 10^3/u L Eos # (Auto) (0.0-0.8) 10^3/u L Baso # (Auto) (0.0-0.1) 10^3/u L Nucleated RBC % (a uto) % Nucleated RBCs # /100WBC PT (10.5-13.3) SECO NDS INR (0.8-1.2) Sodium (136-145) mmol/L Potassium (3.5-5.1) mmol/L Chloride (98-107) mmol/L Carbon Dioxide (22-29) mmol/L Anion Gap (5-19) BUN (8-23) mg/dL Creatinine (0.5-0.9) mg/dL Glucose (65-115) mg/dL Calculated Osmolal ity (285-295) mOsm/k g Calcium (8.5-10.5) mg/dL Total Bilirubin (0.15-1.2) mg/dL AST (0-32) U/L ALT (0-33) U/L Alkaline Phosphata se (35-105) IU/L Total Protein (6.6-8.7) g/dL Albumin (3.5-5.2) g/dL Globulin (1.3-4.6) g/dL Urine Color Yellow (Yellow) Urine Appearance Clear (CLEAR) Urine pH 5 (5-7) Ur Specific Gravit y 1.015 (1.005-1.030) Urine Protein Neg (Negative) Urine Glucose (UA) Norm (Normal) Urine Ketones Negative (Negative) Urine Blood Neg (Negative) Urine Nitrate Negative (Negative) Urine Bilirubin Neg (NEGATIVE) Urine Urobilinogen Norm (Negative) mg/dL Ur Leukocyte Melissa ase Negative (Negative) Urine RBC 0-4 H (0-2) /hpf Urine WBC 10-15 H (0-5) /hpf Ur Squamous Epith Cells 0-4 H (0-5) Urine Bacteria Trace (NONE) Hyaline Casts 0-4 H Urine Mucus Trace Imaging Data^: CXR: My impression: Left-sided pleural effusion and multiple rib fractures present. No obvious pneumothorax. CT Head: Radiologist's impression: [place] [address] CT Scan Report Signed Patient: Carlota Sesay Unit #: [id number] : 1935 Age/Sex: 84 / F ADM Date: 12/04/19 Loc: ER Room/Bed: Attending Dr: Ordering Provider/Ordering MD: Brunilda Aguirre DO Date of Service: 12/04/19 Procedure(s): CT head wo con* [id number] Accession Number(s): [id number] Report Number: [id number] PROCEDURE INFORMATION: Exam: CT Head Without Contrast Exam date and time: 12/04/2019 8:32 PM Age: 84 years old Clinical indication: Injury or trauma; Fall; Initial encounter; Concussion / head injury; Without loss of consciousness TECHNIQUE: Imaging protocol: Computed tomography of the head without contrast. Radiation optimization: All CT scans at this facility use at least one of these dose optimization techniques: automated exposure control; mA and/or kV adjustment per patient size (includes targeted exams where dose is matched to clinical indication); or iterative reconstruction. COMPARISON: No relevant prior studies available. RADIATION DOSE METRICS: Total DLP (mGy-cm): 869.37 FINDINGS: Brain: There is volume loss and periventricular low density compatible with chronic small vessel disease changes. There is no acute hemorrhage, edema or mass effect. Ventricles: Normal. No ventriculomegaly. Bones/joints: Unremarkable. No acute fracture. Sinuses: There is mild mucosal thickening in the sinuses. No air-fluid levels. Mastoid air cells: There is patchy opacification the right mastoid air cells. The left mastoid air cells are clear. Soft tissues: Unremarkable. CT/CT head wo con* [id number] IMPRESSION: No acute intracranial abnormality. Radiation Dose CTDIVOL = (mGy): DLP = 869.37 (mGy-cm) Dictated By: Destiny Moody Signed By: Destiny Moody Signed Date/Time: 12/04/192055 DD/ 54 CT Chest/Abdomen/Pelvis: Radiologist's impression: [place] [address] CT Scan Report Signed Patient: Carlota Sesay Unit #: [id number] : 1935 Age/Sex: 84 / F ADM Date: 12/04/19 Loc: ER Room/Bed: Attending Dr: Ordering Provider/Ordering MD: Brunilda Aguirre DO Date of Service: 12/04/19 Procedure(s): CT chest abd pel wo con Accession Number(s): [id number] Report Number: [id number] PROCEDURE INFORMATION: Exam: CT Chest Without Contrast Exam date and time: 12/04/2019 8:32 PM Age: 84 years old Clinical indication: Injury or trauma; Fall; Initial encounter; Generalized; Blunt trauma (contusions or hematomas); Prior surgery; Surgery type: Back, hysterectomy TECHNIQUE: Imaging protocol: Computed tomography of the chest without contrast. Radiation optimization: All CT scans at this facility use at least one of these dose optimization techniques: automated exposure control; mA and/or kV adjustment per patient size (includes targeted exams where dose is matched to clinical indication); or iterative reconstruction. COMPARISON: No relevant prior studies available. RADIATION DOSE METRICS: Total DLP (mGy-cm): 1755.59 FINDINGS: Lungs: Nonspecific bibasilar consolidation is present, consistent with atelectasis, edema, or pneumonia. There are moderate emphysematous changes. Pleural space: There is a small to moderate size left pleural effusion and trace right pleural effusion. There is no pneumothorax. Heart: The heart is enlarged. The heart is enlarged. Aorta: Unremarkable. No aortic aneurysm. Lymph nodes: Unremarkable. No enlarged lymph nodes. Bones/joints: There is kyphosis with unchanged fracture of T11 is compared to the prior thoracic MRI of September 09, 2019. Unchanged retropulsed bone at the T11 fracture. There are overriding fractures of the posterior left 5th through 10th ribs. Nondisplaced fractures of the anterior lateral left 3rd through 6th ribs are noted. The bilateral scapula are intact. No acute right rib fracture. No acute fracture in the thoracic spine or sternum. Soft tissues: Unremarkable. IMPRESSION: 1. Nonspecific bibasilar consolidation is present, consistent with atelectasis, edema, or pneumonia. There is a left pleural effusion. No pneumothorax. 2. There are overriding fractures of the posterior left 5th through 10th ribs. Nondisplaced fractures of the anterior lateral left 3rd through 6th ribs are noted. PROCEDURE INFORMATION: Exam: CT Abdomen And Pelvis Without Contrast Exam date and time: 12/04/2019 8:32 PM Age: 84 years old Clinical indication: Injury or trauma; Fall; Initial encounter; Generalized; Blunt trauma (contusions or hematomas); Prior surgery; Surgery type: Back, hysterectomy TECHNIQUE: Imaging protocol: Computed tomography of the abdomen and pelvis without contrast. Radiation optimization: All CT scans at this facility use at least one of these dose optimization techniques: automated exposure control; mA and/or kV adjustment per patient size (includes targeted exams where dose is matched to clinical indication); or iterative reconstruction. COMPARISON: No relevant prior studies available. RADIATION DOSE METRICS: Total DLP (mGy-cm): 1755.59 FINDINGS: Liver: There are several liver cysts with the largest measuring 4.5 cm in size image 15. Gallbladder and bile ducts: There is cholelithiasis. No cholecystitis. There is no common bile duct dilation. Pancreas: Normal. No ductal dilation. Spleen: Normal. No splenomegaly. Adrenals: Normal. No mass. Kidneys and ureters: There is no evidence of hydronephrosis. There is no evidence of renal calcifications. Stomach and bowel: There is no evidence of intestinal perforation or obstruction. Appendix: No evidence of appendicitis. Intraperitoneal space: Unremarkable. No free air. No significant fluid collection. Vasculature: The aorta demonstrates moderate atherosclerotic calcification. Lymph nodes: Unremarkable.No enlarged lymph nodes. Bladder: Unremarkable as visualized. Reproductive: Unremarkable as visualized. Bones/joints: There is unchanged chronic compression fracture deformity of L4 with retropulsed bone as compared to the prior lumbar MRI of September 09, 2019. There is a satisfactory appearance of the postoperative changes in the lower lumbar spine. No acute fracture in the sacrum or pelvis. No acute hip fracture. Old healed transverse fracture of the sacrum is noted. This is healed compared to the old MRI. Soft tissues: There is abundant edema and hyperdensity in the subcutaneous fat lateral to the left hip compatible with hematoma and contusion. CT/CT chest abd pel wo con IMPRESSION: 1. There is abundant edema and hyperdensity in the subcutaneous fat lateral to the left hip compatible with hematoma and contusion. No acute hip fracture. Unchanged chronic fracture deformity of L4 is noted as compared to the prior old MRI. 2. The solid organs are intact. No free fluid and no free intraperitoneal air. Radiation Dose CTDIVOL = (mGy): DLP = 1755.59 1755.59 (mGy-cm) Dictated By: Destiny Moody Signed By: Destiny Moody Signed Date/Time: 12/04/192132 DD/ 31 CT Thoracic Spine: Radiologist's impression: [place] [address] CT Scan Report Signed Patient: Carlota Sesay Unit #: [id number] : 1935 Age/Sex: 84 / F ADM Date: 12/04/19 Loc: ER Room/Bed: Attending Dr: Ordering Provider/Ordering MD: Brunilda Aguirre DO Date of Service: 12/04/19 Procedure(s): CT thoracic spin wo con* [id number] Accession Number(s): [id number] Report Number: [id number] PROCEDURE INFORMATION: Exam: CT Thoracic Spine Without Contrast Exam date and time: 12/04/2019 8:32 PM Age: 84 years old Clinical indication: Injury or trauma; Fall; Initial encounter; Blunt trauma (contusions or hematomas); Additional info: Fall/injury TECHNIQUE: Imaging protocol: Computed tomography images of the thoracic spine without contrast. Radiation optimization: All CT scans at this facility use at least one of these dose optimization techniques: automated exposure control; mA and/or kV adjustment per patient size (includes targeted exams where dose is matched to clinical indication); or iterative reconstruction. COMPARISON: MR thoracic spin wo con* [id number] 09/09/2019 11:12 AM RADIATION DOSE METRICS: Total DLP (mGy-cm): 1591.39 FINDINGS: Vertebrae: There is levoscoliosis. Unchanged chronic fracture deformity of T11 is noted. No acute fracture of the thoracic spine. Unchanged kyphosis. Discs/Spinal canal/Neural foramina: There are diffuse moderate to severe degenerative changes. Other bones/joints: There is osteopenia. There are overriding fractures of multiple left ribs including the posterior left 5th through 9th ribs. No acute right rib fracture. Soft tissues: Unremarkable. Lungs: Nonspecific bibasilar opacity is present, consistent with atelectasis, edema, or pneumonia. Pleural space: There is a moderate size left pleural effusion. CT/CT thoracic spin wo con* [id number] IMPRESSION: 1. Acute overriding fractures of the left 5th through 9th ribs. 2. Nonspecific bibasilar opacity is present, consistent with atelectasis, edema, or pneumonia. 3. No acute fracture of the thoracic vertebra. Unchanged old fracture deformity of T11 with kyphosis. 4. Left pleural effusion. Radiation Dose CTDIVOL = (mGy): DLP = 1591.39 (mGy-cm) Dictated By: Destiny Moody Signed By: Destiny Moody Signed Date/Time: 12/04/192099 DD/ 58 CT Lumbar Spine: Radiologist's impression: [address] [address] [address] Scan Report Signed Patient: Carlota Sesay Unit #: [id number] : 1935 Age/Sex: 84 / F ADM Date: 12/04/19 Loc: ER Room/Bed: Attending Dr: Ordering Provider/Ordering MD: Brunilda Aguirre DO Date of Service: 12/04/19 Procedure(s): CT lumbar spine wo con* [id number] Accession Number(s): [id number] Report Number: [id number] PROCEDURE INFORMATION: Exam: CT Lumbar Spine Without Contrast Exam date and time: 12/04/2019 8:32 PM Age: 84 years old Clinical indication: Injury or trauma; Fall; Initial encounter; Blunt trauma (contusions or hematomas); Prior surgery; Surgery date: 6+ months; Surgery type: Lower back; Additional info: Fall/injury TECHNIQUE: Imaging protocol: Computed tomography images of the lumbar spine without contrast. Radiation optimization: All CT scans at this facility use at least one of these dose optimization techniques: automated exposure control; mA and/or kV adjustment per patient size (includes targeted exams where dose is matched to clinical indication); or iterative reconstruction. COMPARISON: MR lumbar spine wo con* [id number] 09/09/2019 11:39 AM RADIATION DOSE METRICS: Total DLP (mGy-cm): 2329.82 FINDINGS: Vertebrae: There is unchanged fracture deformity of T11 is compared to the old lumbar MRI. Unchanged old fracture of L4 is also noted. Both the fracture of T11 and L4 involve the anterior and middle columns with unchanged retropulsed bone. No acute fracture is identified in the lumbar spine. There is diffuse osteopenia. No subluxation. Discs/Spinal canal/Neural foramina: Postoperative changes at L4-L5 are noted and have a satisfactory appearance. There is unchanged stenosis of the spinal canal posterior to the fracture deformities of T11 and L4. Pleural space: There is a left pleural effusion. Reproductive: No acute fracture in the visualized sacrum or pelvis. Soft tissues: Unremarkable. CT/CT lumbar spine wo con* [id number] IMPRESSION: Unchanged old fractures of T11 and L4. No new fracture or bony destruction. Unchanged stenosis of the spinal canal posterior to the fractures of T11 and L4 compared to the prior MRI. Radiation Dose CTDIVOL = (mGy): DLP = 2329.82 (mGy-cm) Dictated By: Destiny Moody Signed By: Destiny Moody Signed Date/Time: 12/04/192102 DD/ 00 Lt. Hip: My impression: Lt. Hip -no acute fractures. Discharge Plan Discharge Patient Disposition: Placed in Observation Admit Provider: Bakari Ramsey Clinical Impression: Hemothorax on left Fracture, ribs Qualifiers: Encounter type: initial encounter Rib fracture type: multiple ribs Fracture type: closed Laterality: left Qualified Code(s): S22.42XA - Multiple fractures of ribs, left side, initial encounter for closed fracture Condition: Stable Referrals: Nithin Lin DO [Primary Care Provider] - Coding Level of Care Code ED Compounding Assistant for Chg Fwd Exam Comprehensive
--- NOTE | 2019-12-04 22:24 | XR_ITS ---
WS: [id number] HIP WITH PELVIS LEFT TECHNIQUE: 3 views of the left hip with pelvis CLINICAL INFORMATION: fall/injury COMPARISON: None. FINDINGS: Postoperative changes pedicle screw fixation L4-5 interconnecting rods. Left hip is normal in appeara nce. Soft tissue edema. XR/XR hip LT 2-3V wo/w pel* [id number] IMPRESSION: Normal left hip
--- NOTE | 2019-12-04 22:28 | P.HP_ITS ---
Providers/Chief Complaint Primary Care Provider: Nithin Lin DO Chief Complaint: FALL History of Present Illness Carlota Sesay is a 84 year old female who carries history of CLL, hypertension, fibromyalgia came in after sustaining a fall on Sunday for worsening left-sided pain. Patient is stating that she was using her walker when she lost her balance and fell on her walker, immediately started experiencing excruciating pain on the left side, she waited about 24 hours because her PCP was not in the office, she was evaluated yesterday, chest x-ray showed rib fracture. For worsening left-sided rib cage pain she came to the hospital. She is denying fever, nausea, vomiting, diarrhea. Her breathing is shallow. In the ER she has been giving 1 mg of morphine. She is complaining of left-sided hip pain, she has noticed a lot of bruising. She is able to tolerate weight on her leg. Imaging in the ER revealed fracture of left rib 5 through 9 Hematoma of left hip without any acute fracture Old T1 fracture Left-sided pleural effusion Hemodynamically stable No Splenic injury Review of Systems Const: Reports: body aches and fatigue; Denies: fever(s) or chills Eyes: Denies: change in vision or blurry vision ENMT: Denies: throat pain Card: Denies: chest pain Resp: Reports: dyspnea and pain on inspiration GI: Denies: abdominal pain or nausea : Denies: flank pain Musc: Reports: joint pain, joint swelling and joint redness Skin/Breast: Reports: skin pain, skin tenderness and changes in skin color; Denies: rash Neuro: Denies: headache(s) Psych: Denies: anxiety or depression Endo: Denies: polyuria Tony/Lymph: Reports: easy bruising; Denies: easy bleeding All/Imm: Denies: urticaria Medications/Allergies Home Medications Medication Instructions Recorded Confirmed Last Taken Type amlodipine 10 mg tablet 10 mg PO BEDTIME tab 06/18/19 12/04/19 12/03/19 History atorvastatin 20 mg tablet 20 mg PO DAILY tab 06/18/19 12/04/19 12/04/19 History glucosamine HCl 1,500 mg tablet 1,500 mg PO DAILY tab 06/18/19 12/04/19 12/04/19 History metoprolol succinate 100 mg 100 mg PO DAILY tab 06/18/19 12/04/19 12/03/19 History tablet,extended release 24 hr vit 1 cap PO DAILY cap 06/18/19 12/04/19 12/04/19 History C,E,zinc,Dr-zgcnr-7-lutein-zeaxanthin 250 mg-2.5 mg-0.5 mg capsule furosemide 20 mg tablet 20 mg PO DAILY tab 06/19/19 12/04/19 12/04/19 History hydralazine 50 mg tablet 50 mg PO BID #180 tab 06/19/19 12/04/19 12/04/19 Rx chlorthalidone 25 mg tablet 25 mg PO DAILY 90 Days #90 tab 07/21/19 12/04/19 12/04/19 Rx acetaminophen [Tylenol] 650 mg PO BID 12/04/19 12/04/19 12/04/19 History cholecalciferol (vitamin D3) 50 mcg PO DAILY 12/04/19 12/04/19 12/04/19 History [Vitamin D3] denosumab [Prolia] See Rx Instructions .ROUTE .COMPLEX 12/04/19 12/04/19 Unknown History gabapentin 200 mg PO TID 12/04/19 12/04/19 12/04/19 History olmesartan [Benicar] 40 mg PO DAILY 12/04/19 12/04/19 12/04/19 History omeprazole 40 mg PO QAM 12/04/19 12/04/19 12/04/19 History Allergies Allergy/AdvReac Type Severity Reaction Status Date / Time No Known Allergies Allergy Verified 12/04/19 21:56 PFSH Acute PFSH: Medical History CKD (chronic kidney disease) CLL (chronic lymphocytic leukemia) Essential hypertension Fibromyalgia Hyperlipidemia Osteoporosis Surgical History Previous back surgery S/P cataract extraction S/P hysterectomy Family History Denies family history of Clotting disorder Hypertension Social History Smoking and tobacco status: never smoked Alcohol intake: never Household members: spouse Marital status: service: No Current occupational status: retired Current gender identity: Female Yuki/Rastafarian: Rastafarian Vitals/I&O/Wt Last Vital Signs Temp 99.1 F 12/04/19 20:08 Pulse 90 12/04/19 21:05 Resp 20 H 12/04/19 21:05 BP 180/74 12/04/19 21:05 Pulse Ox 92 12/04/19 21:05 Weight last 48 hrs Weight 65.771 kg Physical Exam Narrative: EXAM NARRATIVE: Head to toe examination Patient is laying in her bed in acute distress because of left-sided rib cage pain which gets worse on inspiration S1-S2 no tachycardia or heart failure Abdomen soft nontender nondistended Neurologically nonfocal exam Lungs bilateral breath sounds with diminished air entry on the left side EOMI, PERRLA Left hip hematoma No active bleeding, no gross fractures No vascular compromise Appropriate mood and affect No sign ischemia gangrene ulcer on skin Data : 12/04/19 20:00 12/04/19 20:00 A&P Assessment and plan (1) Fracture, ribs: Status: Acute Qualifiers: Encounter type: initial encounter Fracture type: closed Laterality: left Rib fracture type: multiple ribs Qualified Code(s): S22.42XA - Multiple fractures of ribs, left side, initial encounter for closed fracture (2) Essential hypertension: Status: Acute (3) Hyperlipidemia: Status: Acute Qualifiers: Hyperlipidemia type: familial hypercholesterolemia Qualified Code(s): E78.01 - Familial hypercholesterolemia (4) Pleural effusion: Status: Acute (5) Hematoma: Status: Acute (6) Compression fracture: Status: Acute Additional A&P Information Adjacent left-sided rib fractures 5-9 Patient sustained a fall, no syncopal or seizure event No splenic Hemoglobin stable Pleurisy Adequate analgesic control with Dilaudid 2 mg IV every 4hr, bowel regimen Incentive spirometry, pulmonary toilet Currently saturating well on 2 L nasal cannula, taking shallow breaths Left-sided pleural effusion Currently hemodynamically stable, hemoglobin stable, concern for hemothorax Dr. Zuleta is available if needed Would avoid DVT prophylaxis with anticoagulation Left hip hematoma without any fracture CLL No splenomegaly on exam or CT abdomen No splenic injury Full code DVT prophylaxis SCD Cardiac diet Attestations Medical Necessity Statement*: Anticipating discharge in less than 48 hours continued management for pain management for rib fracture Time Spent in Patient Care: (>than 50% of time spent in counselling and/or direct pt care on unit) . 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
[2019-12-04 22:35] LABS: Bilirubin Urine Neg (NEGATIVE); Blood Urine Neg (Negative); Glucose Urine UA Norm (Normal); Ketones Urine Negative (Negative); Leukocyte Esterase Urine Negative (Negative); Nitrate Urine Negative (Negative); Protein Urine Neg (Negative); Specific Gravity, Urine 1.015 (1.005-1.030); Urine Appearance Clear (CLEAR); Urine Color Yellow (Yellow); Urobilinogen Urine Norm (Negative); pH Urine 5 (5-7)
[2019-12-04 22:37] LABS: RBC Urine 0-4 /hpf (0-2)
[2019-12-04 22:38] LABS: Add Urine Culture? No; Bacteria Urine TRACE; Hyaline Casts Urine 0-4; Mucus Urine TRACE; Squamous Epithelial Cell Urine 0-4 (0-5)
[2019-12-04 22:43] VITALS: RESP 20; O2SAT 92
[2019-12-04] MEDS: HYDROmorphone 1 mg/mL INJ 1 mL 2 MG IVP (22:43)
[2019-12-05] VITALS (13 sets, daily range): BP systolic 150–188; BP diastolic 65–77; PULSE 68–91; RESP 6–22; TEMP 36.5–37.2; O2SAT 90–98
[2019-12-05] MEDS: HYDROmorphone 1 mg/mL INJ 1 mL 2 MG IVP (02:01)
[2019-12-05] MEDS: sodium chloride 0.9% 1,000 ML 75 ML IV (02:01)
--- NOTE | 2019-12-05 02:56 | PC.NURSE ---
Respirations Pt. respirations following Dilaudid administration have decreased down to 5-6bpm. Pt. is easily awakened and talks to staff. Patient does seem to have slight confusion from pain medication and from being exhausted. Pt. is on continuous pulse ox and O2 at 3L/NC satting in the upper 90s.
[2019-12-05 05:41] LABS: Basophils % 0.2 %; Eosinophils % 0.1 %; Hematocrit 32.3 % (37.0-47.0); Lymphocytes # 13.5 10^3/uL (0.8-4.8); Lymphocytes % 57.3 %; Mean Platelet Volume 11.3 fL (7.4-10.4); Monocytes # 1.1 10^3/uL (0.2-0.9); Monocytes % 4.7 %; Neutrophils # 8.8 10^3/uL (1.8-7.7); Neutrophils % 37.4 %; Nucleated Red Blood Cells % 0 %; Platelet Count 196 10^3/cmm (130-400); Red Blood Count 3.33 10^6/uL (4.1-5.3); Red Cell Distribution Width 13.9 % (12.1-15.1); White Blood Count 23.5 10^3/uL (4.0-10.0)
[2019-12-05 06:07] LABS: Anion Gap 17.4 (5-19); Blood Urea Nitrogen 32 mg/dL (8-23); Calcium 7.5 mg/dL (8.5-10.5); Carbon Dioxide 26 mmol/L (22-29); Chloride 99 mmol/L (98-107); Glucose 145 mg/dL (65-115); Osmolality Calculated 288 mOsm/kg (285-295); Potassium 3.4 mmol/L (3.5-5.1); Sodium 139 mmol/L (136-145)
[2019-12-05] MEDS: sennosides-docusate Tablet 1 TAB PO ×2 (08:57→18:09)
[2019-12-05] MEDS: metoprolol succinate ER (24 HR) 100 mg Tablet PO (08:57)
[2019-12-05] MEDS: gabapentin 100 mg Capsule 200 MG PO ×3 (08:57→21:07)
[2019-12-05] MEDS: atorvastatin 40 mg Tablet 20 MG PO (08:58)
[2019-12-05] MEDS: pantoprazole DR 40 mg Tablet PO (08:59)
[2019-12-05] MEDS: hyDRALAzine 50 mg Tablet PO ×2 (09:09→18:09)
[2019-12-05] MEDS: losartan 50 mg Tablet 100 MG PO (09:09)
--- NOTE | 2019-12-05 10:10 | PC.CHAP ---
Pastoral Care Encounter/Spiritual Assessment Type of Contact [] Declined marine reporter visit [] Patient/Family/Request visit [] Outpatient visit [] Follow-up visit [] Physician referral [] Code/Alert [x] Routine visit [] Staff referral [] Actively dying [] Patient sleeping [] Family support [] [] Out of room [] Palliative care [] [] Receiving care in room [] Pre-surgical visit [] Trauma [] Long length of stay [] ICU visit [] Other: Relational/Emotional Strength [] Patient feels connected with others/family/visitors/staff [] Distress [] Loneliness/isolation [] Abandonment Spirituality of Patient [] Person of Yuki [] Attends Orthodoxy of their Yuki [] Believes in Prayer [] Reads Bible or Evangelical materials [] There are Spiritual issues to be addressed Night Filler Interventions [x] Prayer [x] Active listening [x] Non-anxious presence [x] Spiritual/emotional support [] Crisis/trauma care [] Spiritual counseling [] Bereavement support [] Provided bereavement packet [] Provided Bible/devotional materials [] Provided toy/stuffed animal, coloring book to patient or family member [] Provided Communion [] Anointing/[place] [] Salvation [x] Completed spiritual assessment [] Other: Impact on Illness or Injury [] Angry [] Fearful [] Anxious [] Often cries [] Exhaustion [] Unable to work [] Unable to attend religion [] Unable to walk/stand [] Unable to read [] Unable to drive [] Unable to eat/drink [] Unable to sleep [] Unable to be with family [] Patient intubated [] Other: Summary patient seems somewhat confused. broken ribs from fall. good spirits Time spent with patient 15 min
--- NOTE | 2019-12-05 10:36 | P.CONIM_ITS ---
Providers/Reason For Consult Consulting Physican/Specialty*: Dr. Zuleta, cardiothoracic surgery Reason for Consult*: Multiple traumatic rib fractures Requesting Physcian: Dr. Marte Attending Physician: Kenton Crawford Primary Care Provider: Nithin Lin DO History of Present Illness History of Present Illness Carlota Sesay is a 84 year old female who was admitted following presentation with dyspnea and left-sided chest wall discomfort. Apparently, she fell out of bed in the early hours of Sunday striking her wheelchair at bedside. She had acute left-sided chest discomfort and dyspnea though she felt this was related only to contusion. As symptoms did not improve, she subsequently presented with stable vital signs and and underwent extensive evaluation including several radiographic studies. These revealed: CT scan of chest December 2: 1. Nonspecific bibasilar consolidation is present, consistent with atelectasis, edema, or pneumonia. There is a left pleural effusion. No pneumothorax. 2. There are overriding fractures of the posterior left 5th through 10th ribs. Nondisplaced fractures of the anterior lateral left 3rd through 6th ribs are noted. CT scan of abdomen December 2: 1. There is abundant edema and hyperdensity in the subcutaneous fat lateral to the left hip compatible with hematoma and contusion. No acute hip fracture. Unchanged chronic fracture deformity of L4 is noted as compared to the prior old MRI. 2. The solid organs are intact. No free fluid and no free intraperitoneal air. CT scan of lumbar spine December 2: Unchanged old fractures of T11 and L4. No new fracture or bony destruction. Unchanged stenosis of the spinal canal posterior to the fractures of T11 and L4 compared to the prior MRI. CT scan of thoracic spine December 2: 1. Acute overriding fractures of the left 5th through 9th ribs. 2. Nonspecific bibasilar opacity is present, consistent with atelectasis, edema, or pneumonia. 3. No acute fracture of the thoracic vertebra. Unchanged old fracture deformity of T11 with kyphosis. 4. Left pleural effusion. Ms. Sesay has been resting comfortably on the medical surgical paige. She appears reasonably comfortable though would benefit from more pulmonary toilet and being up out of bed in chair. Vital signs remained stable. I have personally reviewed the radiographic studies. Review of Systems Card: Reports: chest pain (Left chest wall consistent with the noted rib fractures) Resp: Reports: dyspnea; Denies: productive cough or hemoptysis Musc: Reports: joint pain (Left hip discomfort since fall) Neuro: Denies: headache(s), confusion or seizure-like activity Meds/Allergies Home Medications and Allergies Home Medications Medication Instructions Recorded Confirmed Last Taken Type amlodipine 10 mg tablet 10 mg PO BEDTIME tab 06/18/19 12/04/19 12/03/19 History atorvastatin 20 mg tablet 20 mg PO DAILY tab 06/18/19 12/04/19 12/04/19 History glucosamine HCl 1,500 mg tablet 1,500 mg PO DAILY tab 06/18/19 12/04/19 12/04/19 History metoprolol succinate 100 mg 100 mg PO DAILY tab 06/18/19 12/04/19 12/03/19 History tablet,extended release 24 hr vit 1 cap PO DAILY cap 06/18/19 12/04/19 12/04/19 History C,E,zinc,Go-uenwo-0-lutein-zeaxanthin 250 mg-2.5 mg-0.5 mg capsule furosemide 20 mg tablet 20 mg PO DAILY tab 06/19/19 12/04/19 12/04/19 History hydralazine 50 mg tablet 50 mg PO BID #180 tab 06/19/19 12/04/19 12/04/19 Rx chlorthalidone 25 mg tablet 25 mg PO DAILY 90 Days #90 tab 07/21/19 12/04/19 12/04/19 Rx acetaminophen [Tylenol] 650 mg PO BID 12/04/19 12/04/19 12/04/19 History cholecalciferol (vitamin D3) 50 mcg PO DAILY 12/04/19 12/04/19 12/04/19 History [Vitamin D3] denosumab [Prolia] See Rx Instructions .ROUTE .COMPLEX 12/04/19 12/04/19 Unknown History gabapentin 200 mg PO TID 12/04/19 12/04/19 12/04/19 History olmesartan [Benicar] 40 mg PO DAILY 12/04/19 12/04/19 12/04/19 History omeprazole 40 mg PO QAM 12/04/19 12/04/19 12/04/19 History Allergies Allergy/AdvReac Type Severity Reaction Status Date / Time No Known Allergies Allergy Verified 12/04/19 21:56 Current Medications Current Medications Generic Name Dose Route Start Last Admin Trade Name Freq PRN Reason Stop Dose Admin Atorvastatin Calcium 20 mg 12/05/19 09:00 12/05/19 08:58 Lipitor PO 20 mg DAILY SCOTT Administration Gabapentin 200 mg 12/05/19 09:00 12/05/19 08:57 Neurontin PO 200 mg TID SCOTT Administration Hydralazine HCl 50 mg 12/05/19 09:00 12/05/19 09:09 Apresoline PO 50 mg BID SCOTT Administration Sodium Chloride 1,000 mls @ 100 mls/hr 12/04/19 20:00 12/04/19 20:04 Sodium Chloride 0.9% IV 100 mls/hr .Q10H SCOTT Administration Sodium Chloride 1,000 mls @ 75 mls/hr 12/05/19 01:28 12/05/19 02:01 Sodium Chloride 0.9% IV 75 mls/hr .[id number] SCOTT Administration Lidocaine 1 patch 12/05/19 09:00 12/05/19 09:10 Lidoderm 5% Patch TOPICAL Not Given [id number] SCOTT Losartan Potassium 100 mg 12/05/19 09:00 12/05/19 09:09 Cozaar PO 100 mg DAILY SCOTT Administration Metoprolol Succinate 100 mg 12/05/19 09:00 12/05/19 08:57 Toprol Xl PO 100 mg DAILY SCOTT Administration Pantoprazole Sodium 40 mg 12/05/19 06:00 12/05/19 08:59 Protonix PO 40 mg QAM SCOTT Administration Senna/Docusate Sodium 1 tab 12/05/19 09:00 12/05/19 08:57 Senna-S PO 1 tab BID SCOTT Administration PFSH Acute PFSH: Medical History CKD (chronic kidney disease) CLL (chronic lymphocytic leukemia) Essential hypertension Fibromyalgia Hyperlipidemia Osteoporosis Surgical History Previous back surgery S/P cataract extraction S/P hysterectomy Family History Denies family history of Clotting disorder Hypertension Social History Smoking and tobacco status: never smoked Alcohol intake: never Household members: spouse Marital status: service: No Current occupational status: retired Current gender identity: Female Yuki/Gnosticist: Yarsani Vitals/I&O/Wt Last Vital Signs Temp 97.8 F 12/05/19 07:52 Pulse 81 12/05/19 07:52 Resp 16 12/05/19 07:52 BP 188/73 12/05/19 09:09 Pulse Ox 94 12/05/19 07:52 12/04/19 12/05/19 12/05/19 22:59 06:59 14:59 Intake Total 60 / 60 240 / 240 Output Total Balance 60 / 60 220 / 220 Weight last 48 hrs Weight 145 lb Physical Exam Const: COMMON NORMALS: patient oriented x3 and alert ORIENTATION/CONSCIOUSNESS: Yes oriented to person, Yes oriented to place and Yes oriented to time HENMT: COMMON NORMALS: normocephalic HEAD & SCALP: normocephalic and cranial bruits Neck/C-Spine: COMMON NORMALS: no lymphadenopathy, supple, no JVD and No carotid bruits; negative for full ROM GENERAL: Yes trachea midline CERVICAL SPINE: Yes cervical ROM normal Chest: COMMONS NORMALS: normal palpation of entire chest wall; negative for normal inspection of the chest CHEST: Yes abnormal inspection of the chest and No Sternal flail present OTHER: Market ecchymoses along the lateral mid and lower chest wall with no tenderness to palpation. No subcutaneous emphysema. Minimal abrasion. Resp: COMMON NORMALS: normal respiratory effort, No use of accessory muscles, clear to auscultation bilaterally and percussion normal EFFORT & INSPECTION: Yes able to speak in complete sentences and Yes symmetric chest movement AUSCULTATION: clear to auscultation bilaterally PERCUSSION: percussion normal Cardio: COMMON NORMALS: no JVD, regular rate, regular rhythm, S1 normal heart sound present, S2 normal heart sound present, No gallops present (Cardio), No murmurs present (Cardio), No rub (Cardio) and Peripheral pulses 2+ throughout JUGULAR VENOUS DISTENTION: no JVD RATE: regular rate RHYTHM: regular rhythm HEART SOUNDS: S1 normal heart sound present and S2 normal heart sound present PERIPHERAL PULSES: Peripheral pulses 2+ throughout Extremity: NARRATIVE EXTREMITY EXAM: Left hip tenderness with palpation and modest lateral ecchymoses Neuro: COMMON NORMALS: patient oriented x3, no focal motor deficits and no sensory deficits noted SENSORIUM/ORIENTATION: Yes alert, Yes oriented to person, Yes oriented to place and Yes oriented to time GAIT: Yes Unable to assess gait A&P Assessment and plan (1) Fracture, ribs: Multiple left-sided rib fractures related to fall approximate 48 hours ago. Modest probable left hemothorax. Some the bleeding appears to probably be extrapleural and related to rib fractures. Her development of probable pulmonary contusion with associated atelectasis. Recommendation: Patient will need aggressive pulmonary toilet, which might be uncomfortable for her. She also should be out of bed in chair as much as reasonably possible. I would consider the use of a lounger chair if possible to assist with the position changes and provide more comfort. Status: Acute Qualifiers: Encounter type: initial encounter Fracture type: closed Laterality: left Rib fracture type: multiple ribs Qualified Code(s): S22.42XA - Multiple fractures of ribs, left side, initial encounter for closed fracture Consult Attestations Medical Necessity Statement: Multiple traumatic rib fractures with associated small hemothorax, pulmonary contusion, and atelectasis. 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
--- NOTE | 2019-12-05 11:20 | PC.NURSE ---
Spoke with Arsalan patient's and updated him on patient's condition. Arsalan states he will call patient later
--- NOTE | 2019-12-05 12:43 | PM.PN ---
Subjective Subjective: Interval history: She is in pain in her left chest, but otherwise doing okay. Breathing feels comfortable with the nasal cannula. Instructed her on how to use incentive respirometer. Vitals/I&O/Wt Last Vital Signs Temp 98.1 F 12/05/19 11:55 Pulse 85 12/05/19 11:55 Resp 16 12/05/19 11:55 BP 150/65 12/05/19 11:55 Pulse Ox 92 12/05/19 11:55 12/04/19 12/05/19 12/05/19 22:59 06:59 14:59 Intake Total 60 / 60 240 / 240 Output Total 320 / 320 Balance 60 / 60 -80 / -80 Weight last 48 hrs Weight 65.771 kg Physical Exam Const: COMMON NORMALS: no acute distress and patient oriented x3 GENERAL APPEARANCE: frail appearing HENMT: COMMON NORMALS: oropharynx normal Neck/C-Spine: COMMON NORMALS: no JVD Chest: OTHER: Tender L side in multiple locations. Pain on deep inspiration. Resp: COMMON NORMALS: normal respiratory effort and clear to auscultation bilaterally AUSCULTATION: clear to auscultation bilaterally Cardio: COMMON NORMALS: no JVD, regular rhythm, S1 normal heart sound present, S2 normal heart sound present and No murmurs present (Cardio) RHYTHM: regular rhythm HEART SOUNDS: S1 normal heart sound present and S2 normal heart sound present GI: COMMON NORMALS: Normal to inspection, nondistended, normoactive bowel sounds present, Soft to palpation and non-tender PALPATION: Yes Soft to palpation Extremity: COMMON NORMALS: no joint enlargement and no pedal edema Neuro: COMMON NORMALS: patient oriented x3 and moves all extremities Skin: COMMON NORMALS: no rashes or lesions noted GENERAL SKIN EXAM: no rashes or lesions noted Data : 12/05/19 04:56 12/05/19 04:56 A&P Assessment and plan (1) Fracture, ribs: Appreciate thoracic surgery recommendations. Concern for pulmonary contusion. Monitor oxygenation and condition closely. Will admit as this is a potentially dangerous condition. Continue oxygen support. Mobilize as tolerating. Given multiple rib fractures, hypoxia, overall frailty, would benefit from rehabilitation prior to discharge home. Will request discharge planning consult. She is agreeable to consider this option. Instructed her on use of incentive spirometry. Continue pain control. Monitor for any signs of PNA. Status: Acute Qualifiers: Encounter type: initial encounter Fracture type: closed Laterality: left Rib fracture type: multiple ribs Qualified Code(s): S22.42XA - Multiple fractures of ribs, left side, initial encounter for closed fracture (2) Essential hypertension: Monitor blood pressures. Discontinue IV fluids. Status: Acute (3) Hyperlipidemia: Status: Acute Qualifiers: Hyperlipidemia type: familial hypercholesterolemia Qualified Code(s): E78.01 - Familial hypercholesterolemia (4) Pleural effusion: Suspected hemothorax. Appreciate thoracic surgery assessment. Status: Acute (5) Hematoma: Left hip hematoma. Symptomatic management this time. Monitor for expansion. SCDs for DVT prophylaxis. Status: Acute (6) Compression fracture: L4 compression fracture suspected possibly chronic. Continue conservative management at this time as above. Would benefit from rehabilitation. Status: Acute Additional A&P Information Adjacent left-sided rib fractures 5-9 CLL CKD Attestations Medical Necessity Statement*: Requiring admission of over 2 midnights due to extensive rib fractures on the left side, with underlying hemothorax, and concern for pulmonary contusion, with hypoxia, overall frailty requiring ongoing reassessments. 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
[2019-12-05] MEDS: lidocaine 5% Patch 1 PATCH TOPICAL (14:30)
[2019-12-05] MEDS: amlodipine 10 mg Tablet PO (21:07)
[2019-12-05] MEDS: HYDROmorphone 1 mg/mL INJ 1 mL IVP (21:18)
[2019-12-06] VITALS (9 sets, daily range): BP systolic 113–167; BP diastolic 69–80; PULSE 70–84; RESP 16–18; TEMP 36.9–37.4; O2SAT 90–96
[2019-12-06 05:48] LABS: Basophils % 0.2 %; Eosinophils # 0.1 10^3/uL (0.0-0.8); Eosinophils % 0.3 %; Hematocrit 30.3 % (37.0-47.0); Hemoglobin 9.4 g/dL (11.5-15.3); Lymphocytes # 14.9 10^3/uL (0.8-4.8); Lymphocytes % 64.8 %; Mean Corpuscular Hemoglobin 29.7 pg (28.0-34.0); Mean Corpuscular Volume 95.9 fL (81-99); Mean Platelet Volume 11.7 fL (7.4-10.4); Monocytes # 1.4 10^3/uL (0.2-0.9); Monocytes % 5.9 %; Neutrophils # 6.6 10^3/uL (1.8-7.7); Neutrophils % 28.5 %; Nucleated Red Blood Cells % 0 %; Platelet Count 187 10^3/cmm (130-400); Red Blood Count 3.16 10^6/uL (4.1-5.3); Red Cell Distribution Width 13.8 % (12.1-15.1); White Blood Count 23.1 10^3/uL (4.0-10.0)
[2019-12-06] MEDS: pantoprazole DR 40 mg Tablet PO (05:52)
[2019-12-06 07:26] LABS: Anion Gap 15.8 (5-19); Blood Urea Nitrogen 26 mg/dL (8-23); Carbon Dioxide 26 mmol/L (22-29); Chloride 100 mmol/L (98-107); Glucose 95 mg/dL (65-115); Osmolality Calculated 285 mOsm/kg (285-295); Sodium 139 mmol/L (136-145)
--- NOTE | 2019-12-06 07:26 | PM.PN ---
Subjective Subjective: Interval history: Ms. Sesay is resting well and sleeping on rounds this morning. Monitor reports heart rate of 72 and O2 saturation of 93%. Nursing service reports no difficulties overnight. Vitals/I&O/Wt Last Vital Signs Temp 99.3 F 12/06/19 04:00 Pulse 78 12/06/19 04:00 Resp 17 12/06/19 04:00 BP 162/76 12/06/19 04:00 Pulse Ox 93 12/06/19 04:00 12/05/19 12/06/19 12/06/19 22:59 06:59 14:59 Intake Total 200 / 560 Output Total 700 / 1020 Balance -500 / -460 Weight last 48 hrs Weight 145 lb Data : 12/06/19 03:17 12/06/19 03:35 A&P Assessment and plan (1) Fracture, ribs: Multiple traumatic rib fractures on the left secondary to fall approximate 4 days ago. I would recommend repeating chest x-ray today. I will place this order. Continue pulmonary toilet. Up in chair and ambulate with assistance as much as possible. Frequent use of incentive spirometry. 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
--- NOTE | 2019-12-06 07:31 | XRR_ITS ---
PROCEDURE INFORMATION: Exam: XR Chest, 1 View Exam date and time: 12/06/2019 7:32 AM Age: 84 years old Clinical indication: Condition or disease; Other: Multiple rib FX from fall 4 days ago resulted in hemothorax; Additional info: Multiple rib fractures from fall with hemothorax, 4 days ago TECHNIQUE: Imaging protocol: XR of the chest Views: 1 view. COMPARISON: CR XR chest 1V portable [id number] 12/04/2019 8:01 PM FINDINGS: Lungs: Alveolar airspace consolidation within the left lower lobe. Left pleural effusion some of which is layering. Pleural space: See Lungs finding. Heart/Mediastinum: The cardiac silhouette appears enlarged, some of which is magnification related to the AP projection. Bones/joints: Rib fractures inferior aspect normal left hemithorax previously described. XR/XR chest 1V portable [id number] IMPRESSION: Alveolar airspace consolidation within the left lower lobe. Left pleural effusion some of which is layering.
[2019-12-06 07:35] LABS: Potassium 2.8 mmol/L (3.5-5.1)
[2019-12-06] MEDS: potassium chloride oral liq 20 mEq/15 mL UDC 40 MEQ PO ×2 (08:12→20:27)
[2019-12-06] MEDS: HYDROcodone-acetaminophen 5-325 mg Tablet 1 TAB PO ×2 (08:14→20:26)
[2019-12-06] MEDS: gabapentin 100 mg Capsule 200 MG PO ×3 (08:15→20:26)
[2019-12-06] MEDS: atorvastatin 40 mg Tablet 20 MG PO (08:15)
[2019-12-06] MEDS: hyDRALAzine 50 mg Tablet PO ×2 (08:16→17:13)
[2019-12-06] MEDS: losartan 50 mg Tablet 100 MG PO (08:16)
[2019-12-06] MEDS: sennosides-docusate Tablet 1 TAB PO (08:16)
[2019-12-06] MEDS: lidocaine 5% Patch 1 PATCH TOPICAL (08:16)
[2019-12-06] MEDS: metoprolol succinate ER (24 HR) 100 mg Tablet PO (08:16)
[2019-12-06 09:28] LABS: Albumin Level 3.7 g/dL (3.5-5.2); Magnesium 2.6 mg/dL (1.7-2.3)
--- NOTE | 2019-12-06 09:28 | PC.NURSE ---
Patient up to the bedside commode with one assist. Patient tolerated well.
--- NOTE | 2019-12-06 13:02 | PC.CHAP ---
Pastoral Care Encounter/Spiritual Assessment Type of Contact [] Declined staffing mgr visit [] Patient/Family/Request visit [] Outpatient visit [] Follow-up visit [] Physician referral [] Code/Alert [] Routine visit [] Staff referral [] Actively dying [X] Patient sleeping [] Family support [] [] Out of room [] Palliative care [] [] Receiving care in room [] Pre-surgical visit [] Trauma [] Long length of stay [] ICU visit [] Other: Relational/Emotional Strength [] Patient feels connected with others/family/visitors/staff [] Distress [] Loneliness/isolation [] Abandonment Spirituality of Patient [] Person of Yuki [] Attends Yarsanism of their Yuki [] Believes in Prayer [] Reads Bible or Confucianist materials [] There are Spiritual issues to be addressed Grain Origination Specialist Interventions [] Prayer [] Active listening [] Non-anxious presence [] Spiritual/emotional support [] Crisis/trauma care [] Spiritual counseling [] Bereavement support [] Provided bereavement packet [] Provided Bible/devotional materials [] Provided toy/stuffed animal, coloring book to patient or family member [] Provided Communion [] Anointing/[place] [] Salvation [] Completed spiritual assessment [] Other: Impact on Illness or Injury [] Angry [] Fearful [] Anxious [] Often cries [] Exhaustion [] Unable to work [] Unable to attend jainism [] Unable to walk/stand [] Unable to read [] Unable to drive [] Unable to eat/drink [] Unable to sleep [] Unable to be with family [] Patient intubated [] Other: Summary FOLLOW UP NEXT SHIFT Time spent with patient
--- NOTE | 2019-12-06 18:49 | P.PN_ITS ---
Subjective Subjective: Interval history: Still bothered by pain with deep inspiration, movement. Denies cough. Vitals/I&O/Wt Last Vital Signs Temp 98.4 F 12/06/19 16:00 Pulse 76 12/06/19 16:00 Resp 18 12/06/19 16:00 BP 160/74 12/06/19 16:00 Pulse Ox 91 12/06/19 16:00 12/06/19 12/06/19 12/06/19 06:59 14:59 22:59 Intake Total 200 / 560 360 / 360 360 / 720 Output Total 700 / 1020 2 / 2 Balance -500 / -460 360 / 360 358 / 718 Weight last 48 hrs Weight 65.771 kg Physical Exam Const: COMMON NORMALS: no acute distress and patient oriented x3 GENERAL APPEARANCE: frail appearing HENMT: COMMON NORMALS: oropharynx normal Neck/C-Spine: COMMON NORMALS: no JVD Chest: OTHER: Tender L side in multiple locations. Pain on deep inspiration. Resp: COMMON NORMALS: normal respiratory effort and clear to auscultation bilaterally AUSCULTATION: clear to auscultation bilaterally Cardio: COMMON NORMALS: no JVD, regular rhythm, S1 normal heart sound present, S2 normal heart sound present and No murmurs present (Cardio) RHYTHM: regular rhythm HEART SOUNDS: S1 normal heart sound present and S2 normal heart sound present GI: COMMON NORMALS: Normal to inspection, nondistended, normoactive bowel sounds present, Soft to palpation and non-tender PALPATION: Yes Soft to palpation Extremity: COMMON NORMALS: no joint enlargement and no pedal edema Neuro: COMMON NORMALS: patient oriented x3 and moves all extremities Skin: COMMON NORMALS: no rashes or lesions noted GENERAL SKIN EXAM: no rashes or lesions noted Data : 12/06/19 03:17 12/06/19 03:35 A&P Assessment and plan (1) Fracture, ribs: Encouraged her to mobilize up to chair. Continue incentive spirometry. Will request PT evaluation. Appreciate thoracic surgery recommendations. Concern for pulmonary contusion. Monitor oxygenation and condition closely. Continue oxygen support. Mobilize as tolerating. Given multiple rib fractures, hypoxia, overall frailty, would benefit from rehabilitation prior to discharge home. Instructed her on use of incentive spirometry. Continue pain control. Monitor for any signs of PNA. With persistent leukocytosis, although afebrile, without any cough. Status: Acute Qualifiers: Encounter type: initial encounter Fracture type: closed Laterality: le ft Rib fracture type: multiple ribs Qualified Code(s): S22.42XA - Multiple fractures of ribs, left side, initial encounter for closed fracture (2) Essential hypertension: Monitor blood pressures. Better after stopping fluids. Status: Acute (3) Hyperlipidemia: Status: Acute Qualifiers: Hyperlipidemia type: familial hypercholesterolemia Qualified Code(s): E78.01 - Familial hypercholesterolemia (4) Pleural effusion: Suspected hemothorax. Appreciate thoracic surgery assessment. Status: Acute (5) Hematoma: Left hip hematoma. Symptomatic management this time. Monitor for expansion. SCDs for DVT prophylaxis. Status: Acute (6) Compression fracture: L4 compression fracture suspected possibly chronic. Continue conservative management at this time as above. Would benefit from rehabilitation. Status: Acute Additional A&P Information Seveer hypokalemia: replace. Mg checked, is not low. 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 Coding Level of Care Code Acute Chemist Instrumentation for [facility] Fwd Diagnoses Fracture, ribs S22.42XA Encounter type: initial encounter Fracture type: closed Laterality: left Rib fracture type: multiple ribs Essential hypertension I10 Hyperlipidemia E78.01 Hyperlipidemia type: familial hypercholesterolemia Pleural effusion J90 Hematoma T14.8XXA Compression fracture
[2019-12-06] MEDS: amlodipine 10 mg Tablet PO (20:25)
[2019-12-06] MEDS: magnesium sulfate premix 2 GM/50 ML PIGGYBACK IV (20:25)
[2019-12-07] VITALS (8 sets, daily range): BP systolic 137–151; BP diastolic 66–73; PULSE 70–74; RESP 16–20; TEMP 36.7–36.9; O2SAT 92–96
[2019-12-07] MEDS: HYDROcodone-acetaminophen 5-325 mg Tablet 1 TAB PO ×2 (00:21→14:37)
[2019-12-07 05:21] LABS: Basophils # 0.1 10^3/uL (0.0-0.1); Basophils % 0.2 %; Eosinophils # 0.3 10^3/uL (0.0-0.8); Hematocrit 32.3 % (37.0-47.0); Hemoglobin 10.1 g/dL (11.5-15.3); Lymphocytes # 18.6 10^3/uL (0.8-4.8); Lymphocytes % 71.4 %; Mean Corpuscular HGB Conc 31.3 g/dL (30.0-36.0); Mean Corpuscular Hemoglobin 30.5 pg (28.0-34.0); Mean Corpuscular Volume 97.6 fL (81-99); Mean Platelet Volume 11.7 fL (7.4-10.4); Monocytes # 1.3 10^3/uL (0.2-0.9); Monocytes % 4.9 %; Neutrophils # 5.8 10^3/uL (1.8-7.7); Neutrophils % 22.2 %; Nucleated Red Blood Cells % 0 %; Platelet Count 204 10^3/cmm (130-400); Red Blood Count 3.31 10^6/uL (4.1-5.3)
[2019-12-07 05:42] LABS: Anion Gap 16.6 (5-19); Blood Urea Nitrogen 23 mg/dL (8-23); Calcium 7.2 mg/dL (8.5-10.5); Carbon Dioxide 25 mmol/L (22-29); Chloride 101 mmol/L (98-107); Glucose 106 mg/dL (65-115); Osmolality Calculated 285 mOsm/kg (285-295); Potassium 3.6 mmol/L (3.5-5.1); Sodium 139 mmol/L (136-145)
[2019-12-07] MEDS: pantoprazole DR 40 mg Tablet PO (05:44)
[2019-12-07 08:06] LABS: Slide Review Slide Review Perform
[2019-12-07] MEDS: metoprolol succinate ER (24 HR) 100 mg Tablet PO (08:21)
[2019-12-07] MEDS: sennosides-docusate Tablet 1 TAB PO (08:21)
[2019-12-07] MEDS: atorvastatin 40 mg Tablet 20 MG PO (08:21)
[2019-12-07] MEDS: gabapentin 100 mg Capsule 200 MG PO ×3 (08:21→22:02)
[2019-12-07] MEDS: hyDRALAzine 50 mg Tablet PO ×2 (08:21→17:11)
[2019-12-07] MEDS: losartan 50 mg Tablet 100 MG PO (08:21)
[2019-12-07] MEDS: lidocaine 5% Patch 1 PATCH TOPICAL ×2 (08:22→22:03)
--- NOTE | 2019-12-07 14:51 | PM.PN ---
Subjective Subjective: Interval history: She is very gradually improving. Making more progress on the status parameter. Pain is still there, but is slightly less limiting to her now. With assistance from physical therapy walked over to the chair from the bed. Happy about making progress. Vitals/I&O/Wt Last Vital Signs Temp 98.1 F 12/07/19 12:00 Pulse 74 12/07/19 12:00 Resp 18 12/07/19 12:00 BP 137/68 12/07/19 12:00 Pulse Ox 92 12/07/19 12:00 12/06/19 12/07/19 12/07/19 22:59 06:59 14:59 Intake Total 360 / 720 480 / 1200 480 / 480 Output Total / 350 / 352 250 / 250 Balance 358 / 718 130 / 848 230 / 230 Physical Exam Const: COMMON NORMALS: no acute distress and patient oriented x3 GENERAL APPEARANCE: frail appearing HENMT: COMMON NORMALS: oropharynx normal Neck/C-Spine: COMMON NORMALS: no JVD Chest: OTHER: Tender L side in multiple locations. Pain on deep inspiration. Resp: COMMON NORMALS: normal respiratory effort and clear to auscultation bilaterally AUSCULTATION: clear to auscultation bilaterally Cardio: COMMON NORMALS: no JVD, regular rhythm, S1 normal heart sound present, S2 normal heart sound present and No murmurs present (Cardio) RHYTHM: regular rhythm HEART SOUNDS: S1 normal heart sound present and S2 normal heart sound present GI: COMMON NORMALS: Normal to inspection, nondistended, normoactive bowel sounds present, Soft to palpation and non-tender PALPATION: Yes Soft to palpation Extremity: COMMON NORMALS: no joint enlargement and no pedal edema Neuro: COMMON NORMALS: patient oriented x3 and moves all extremities Skin: COMMON NORMALS: no rashes or lesions noted GENERAL SKIN EXAM: no rashes or lesions noted Data : 12/07/19 03:54 12/07/19 03:54 A&P Assessment and plan (1) Fracture, ribs: Gradually improving. She is trying to work with incentive spirometry. With PT. Up to chair today. Appreciate thoracic surgery recommendations. Concern for pulmonary contusion. Monitor oxygenation and condition closely. Weaning off oxygen to room air. Given multiple rib fractures, hypoxia, overall frailty, would benefit from rehabilitation prior to discharge home. Continue pain control. Monitor for any signs of PNA. With persistent leukocytosis, although afebrile, without any cough. Diminished lung sounds at L base. Suspected small hemothorax. Repeat CXR in AM. Status: Acute Qualifiers: Encounter type: initial encounter Fracture type: closed Laterality: left Rib fracture type: multiple ribs Qualified Code(s): S22.42XA - Multiple fractures of ribs, left side, initial encounter for closed fracture (2) Essential hypertension: Monitor blood pressures. Better after stopping fluids. Status: Acute (3) Hyperlipidemia: Status: Acute Qualifiers: Hyperlipidemia type: familial hypercholesterolemia Qualified Code(s): E78.01 - Familial hypercholesterolemia (4) Pleural effusion: Suspected hemothorax. Appreciate thoracic surgery assessment. Status: Acute (5) Hematoma: Left hip hematoma. Symptomatic management this time. Monitor for expansion. SCDs for DVT prophylaxis. Status: Acute (6) Compression fracture: L4 compression fracture suspected possibly chronic. Continue conservative management at this time as above. Would benefit from rehabilitation. Status: Acute Additional A&P Information Seveer hypokalemia: replaced. Mg not low. 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 Disposition arrangements. 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
[2019-12-07] MEDS: amlodipine 10 mg Tablet PO (22:03)
[2019-12-08] VITALS (8 sets, daily range): BP systolic 122–183; BP diastolic 60–76; PULSE 69–87; RESP 16–18; TEMP 36.6–37.5; O2SAT 90–97
[2019-12-08 05:56] LABS: Basophils # 0.1 10^3/uL (0.0-0.1); Basophils % 0.2 %; Eosinophils # 0.3 10^3/uL (0.0-0.8); Eosinophils % 1.2 %; Hematocrit 32.9 % (37.0-47.0); Hemoglobin 10.2 g/dL (11.5-15.3); Lymphocytes # 21.6 10^3/uL (0.8-4.8); Lymphocytes % 75.3 %; Mean Corpuscular Hemoglobin 29.7 pg (28.0-34.0); Mean Corpuscular Volume 95.9 fL (81-99); Mean Platelet Volume 11.4 fL (7.4-10.4); Monocytes # 1.1 10^3/uL (0.2-0.9); Monocytes % 3.8 %; Neutrophils # 5.6 10^3/uL (1.8-7.7); Neutrophils % 19.3 %; Nucleated Red Blood Cells % 0 %; Platelet Count 219 10^3/cmm (130-400); Red Blood Count 3.43 10^6/uL (4.1-5.3); Red Cell Distribution Width 13.8 % (12.1-15.1); White Blood Count 28.7 10^3/uL (4.0-10.0)
--- NOTE | 2019-12-08 06:00 | XR_ITS ---
WS: [id number] PORTABLE CHEST HISTORY: Hypoxia COMPARISON: 12/06/2019 Increased haziness and consolidation over the LEFT lung. Similar to 12/06/2019 but increased since 2019. Small layering LEFT pleural effusion. Tiny LEFT apical pneumothorax is not excluded. RIGHT lung is clear. Cardiac size: Normal. Mediastinum/Aorta: Mild atherosclerosis aorta. Osteopenia. Patient has known left-sided rib fractures. XR/XR chest 1V portable [id number] IMPRESSION: 1. Layering LEFT pleural effusion. Stable since 12/06/2019 with slight increase since 12/04/2019. 2. Tiny LEFT apical pneumothorax is suspected. 3. Known LEFT rib fractures.
[2019-12-08 06:10] LABS: Anion Gap 16.6 (5-19); Blood Urea Nitrogen 21 mg/dL (8-23); Calcium 7.4 mg/dL (8.5-10.5); Carbon Dioxide 25 mmol/L (22-29); Chloride 97 mmol/L (98-107); Glucose 110 mg/dL (65-115); Osmolality Calculated 277 mOsm/kg (285-295); Potassium 3.6 mmol/L (3.5-5.1); Sodium 135 mmol/L (136-145)
[2019-12-08] MEDS: pantoprazole DR 40 mg Tablet PO (06:34)
--- NOTE | 2019-12-08 10:32 | PC.SOCIAL ---
Pg 2 IMM Explained to pt Pg 2 IMM. Pt verbally understands. Provided pt a copy. Signed, dated, & timed a copy & placed in pt's chart.
[2019-12-08] MEDS: hyDRALAzine 50 mg Tablet PO ×2 (10:35→18:11)
[2019-12-08] MEDS: metoprolol succinate ER (24 HR) 100 mg Tablet PO (10:36)
[2019-12-08] MEDS: sennosides-docusate Tablet 1 TAB PO (10:36)
[2019-12-08] MEDS: gabapentin 100 mg Capsule 200 MG PO ×3 (10:41→21:27)
[2019-12-08] MEDS: losartan 50 mg Tablet 100 MG PO (10:41)
[2019-12-08] MEDS: atorvastatin 40 mg Tablet 20 MG PO (10:42)
[2019-12-08] MEDS: lidocaine 5% Patch 1 PATCH TOPICAL (10:42)
[2019-12-08 16:00] LABS: Add Urine Microscopic? NO
[2019-12-08 16:26] LABS: Bilirubin Urine Neg (NEGATIVE); Blood Urine Neg (Negative); Glucose Urine UA Norm (Normal); Ketones Urine Negative (Negative); Leukocyte Esterase Urine Negative (Negative); Nitrate Urine Negative (Negative); Protein Urine Neg (Negative); Urine Appearance Clear (CLEAR); Urine Color Yellow (Yellow); Urobilinogen Urine Norm (Negative); pH Urine 6 (5-7)
--- NOTE | 2019-12-08 17:09 | PM.PN ---
Subjective Subjective: Interval history: This morning patient sitting up in bed, states that she is doing a bit better, but has left-sided chest wall pain when laughing or speaking or taking deep breaths, overall improving, awaiting long-term placement, no fevers, no chills Vitals/I&O/Wt Last Vital Signs Temp 99.2 F 12/08/19 12:00 Pulse 77 12/08/19 16:54 Resp 16 12/08/19 16:54 BP 139/66 12/08/19 12:00 Pulse Ox 95 12/08/19 16:54 Physical Exam Const: COMMON NORMALS: no acute distress and patient oriented x3 HENMT: COMMON NORMALS: normocephalic HEAD & SCALP: normocephalic Neck/C-Spine: COMMON NORMALS: no JVD Resp: COMMON NORMALS: normal respiratory effort, No retractions, No use of accessory muscles and clear to auscultation bilaterally AUSCULTATION: clear to auscultation bilaterally Cardio: COMMON NORMALS: no JVD, regular rate, regular rhythm, S1 normal heart sound present and S2 normal heart sound present RATE: regular rate RHYTHM: regular rhythm HEART SOUNDS: S1 normal heart sound present and S2 normal heart sound present GI: COMMON NORMALS: Normal to inspection, nondistended, normoactive bowel sounds present, Soft to palpation, non-tender, No hepatosplenomegaly present, no masses and no bruits PALPATION: Yes Soft to palpation and Yes No hepatosplenomegaly present Extremity: COMMON NORMALS: capillary refill normal, no clubbing, cyanosis or edema, no calf tenderness and no pedal edema Neuro: COMMON NORMALS: patient oriented x3 Psych: COMMON NORMALS: mental status grossly normal Data : 12/08/19 05:12 12/08/19 05:12 A&P Assessment and plan (1) Fracture, ribs: Gradually improving. She is trying to work with incentive spirometry. With PT. Up to chair today. Appreciate thoracic surgery recommendations. Concern for pulmonary contusion. Monitor oxygenation and condition closely. Weaning off oxygen to room air. Given multiple rib fractures, hypoxia, overall frailty, would benefit from rehabilitation prior to discharge home. Continue pain control with [place] Monitor for any signs of PNA. With persistent leukocytosis, although afebrile, without any cough. Diminished lung sounds at L base. Suspected small hemothorax. Repeat CXR in AM. Status: Acute Qualifiers: Encounter type: initial encounter Fracture type: closed Laterality: left Rib fracture type: multiple ribs Qualified Code(s): S22.42XA - Multiple fractures of ribs, left side, initial encounter for closed fracture (2) Essential hypertension: Monitor blood pressures. Better after stopping fluids. Status: Acute (3) Hyperlipidemia: Status: Acute Qualifiers: Hyperlipidemia type: familial hypercholesterolemia Qualified Code(s): E78.01 - Familial hypercholesterolemia (4) Pleural effusion: Suspected hemothorax. Appreciate thoracic surgery assessment. Status: Acute (5) Hematoma: Left hip hematoma. Symptomatic management this time. Monitor for expansion. SCDs for DVT prophylaxis. Status: Acute (6) Compression fracture: L4 compression fracture suspected possibly chronic. Continue conservative management at this time as above. Would benefit from rehabilitation. Status: Acute Additional A&P Information Seveer hypokalemia: replaced. Mg not low. 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
[2019-12-08] MEDS: amlodipine 10 mg Tablet PO (21:27)
[2019-12-09] VITALS: BP 133/70; PULSE 78; RESP 18; TEMP 36.6; O2SAT 95
--- NOTE | 2019-12-09 | US_ITS ---
WS: [id number] Ultrasound chest. HISTORY: Evaluate for pleural fluid. Ultrasound is performed of the LEFT chest. There is a small complex LEFT pleural effusion. There are a few septations and atelectatic lung moving within the fluid. US/US chest [id number] IMPRESSION: 1. Small complex LEFT pleural effusion. 2. Dr. Thomas has canceled the LEFT thoracentesis at this time.
[2019-12-09 01:06] VITALS: PULSE 78; RESP 17; O2SAT 96
[2019-12-09 04:00] VITALS: BP 132/80; PULSE 70; RESP 18; TEMP 36.4; O2SAT 92
[2019-12-09 04:26] LABS: Basophils # 0.1 10^3/uL (0.0-0.1); Basophils % 0.2 %; Eosinophils # 0.3 10^3/uL (0.0-0.8); Eosinophils % 1.1 %; Hematocrit 32.1 % (37.0-47.0); Hemoglobin 10.1 g/dL (11.5-15.3); Lymphocytes # 23.7 10^3/uL (0.8-4.8); Lymphocytes % 77.9 %; Mean Corpuscular HGB Conc 31.5 g/dL (30.0-36.0); Mean Corpuscular Hemoglobin 30.3 pg (28.0-34.0); Mean Corpuscular Volume 96.4 fL (81-99); Mean Platelet Volume 11.3 fL (7.4-10.4); Monocytes # 1.1 10^3/uL (0.2-0.9); Monocytes % 3.7 %; Neutrophils # 5.1 10^3/uL (1.8-7.7); Neutrophils % 16.9 %; Nucleated Red Blood Cells % 0 %; Platelet Count 248 10^3/cmm (130-400); Red Blood Count 3.33 10^6/uL (4.1-5.3); Red Cell Distribution Width 13.7 % (12.1-15.1)
[2019-12-09 05:12] LABS: Alanine Aminotransferase 21 U/L (0-33); Albumin Level 3.7 g/dL (3.5-5.2); Alkaline Phosphatase 70 IU/L (35-105); Anion Gap 13.4 (5-19); Aspartate Amino Transferase 24 U/L (0-32); Blood Urea Nitrogen 18 mg/dL (8-23); Calcium 7.8 mg/dL (8.5-10.5); Carbon Dioxide 26 mmol/L (22-29); Chloride 100 mmol/L (98-107); Globulin 2.3 g/dL (1.3-4.6); Glucose 104 mg/dL (65-115); Magnesium 3.2 mg/dL (1.7-2.3); Osmolality Calculated 279 mOsm/kg (285-295); Phosphorus 2.7 mg/dL (2.5-4.5); Potassium 3.4 mmol/L (3.5-5.1); Sodium 136 mmol/L (136-145); Total Bilirubin 0.8 mg/dL (0.15-1.2)
[2019-12-09] MEDS: pantoprazole DR 40 mg Tablet PO (05:44)
[2019-12-09 06:21] LABS: Slide Review Slide Review Perform; White Blood Count 30.5 10^3/uL (4.0-10.0)
[2019-12-09 07:48] VITALS: BP 175/73; PULSE 75; RESP 16; TEMP 37.2; O2SAT 96
[2019-12-09] MEDS: losartan 50 mg Tablet 100 MG PO (09:00)
[2019-12-09] MEDS: lidocaine 5% Patch 1 PATCH TOPICAL (09:00)
[2019-12-09] MEDS: metoprolol succinate ER (24 HR) 100 mg Tablet PO (09:01)
[2019-12-09] MEDS: sennosides-docusate Tablet 1 TAB PO (09:01)
[2019-12-09] MEDS: gabapentin 100 mg Capsule 200 MG PO (09:01)
[2019-12-09] MEDS: hyDRALAzine 50 mg Tablet PO (09:02)
[2019-12-09] MEDS: atorvastatin 40 mg Tablet 20 MG PO (09:02)
[2019-12-09 11:08] VITALS: BP 155/67; PULSE 82; RESP 18; TEMP 36.7; O2SAT 95
--- NOTE | 2019-12-09 12:07 | PM.DCS ---
Discharge Providers Date of Admission: 12/05/19 13:15 Date of Discharge: December 09, 2019 Attending Provider at Admission: Bakari Ramesy MD Attending Provider at Discharge: Franko Aguilar MD Primary Care Provider: Nithin Lin DO Diagnoses at Discharge Discharge Diagnosis (1) Fracture, ribs: Status: Acute Qualifiers: Encounter type: initial encounter Fracture type: closed Laterality: left Rib fracture type: multiple ribs Qualified Code(s): S22.42XA - Multiple fractures of ribs, left side, initial encounter for closed fracture (2) Essential hypertension: Status: Acute (3) Hyperlipidemia: Status: Acute Qualifiers: Hyperlipidemia type: familial hypercholesterolemia Qualified Code(s): E78.01 - Familial hypercholesterolemia (4) Pleural effusion: Status: Acute (5) Hematoma: Status: Acute (6) Compression fracture: Status: Acute Reason for Visit Reason for Visit: FALL Hospital Course Discharge Summary: This is a 84-year-old female with a past medical history of chronic lymphocytic leukemia, hypertension, fibromyalgia who presents [facility] after sustaining a fall with left-sided chest pain. Patient was admitted to [facility] for left-sided rib fractures, L4 compression fracture, left-sided hemothorax, concerns for pulmonary contusion. Fractures on the left with posterior left fifth through 10th ribs, Nondisplaced fracture of the anterior lateral 3rd-6th ribs, with left hemothorax, pulmonary contusion. Patient was monitored on the general medical floors, remained afebrile, did not require any oxygen, pain was well controlled, she clinically improved. Upon discharge, she was still to some degree having chest wall pain during respirations, but all in all doing well. [facility], she will receive rehab, discharge to the [facility] with pain control, instructions on an aggressive incentive spirometer use, and follow-ups as scheduled. For her left-sided hemothorax, Dr. Zuleta was consulted, initially she was considered for medical management, but given her persistent left hemothorax ultrasound of the thorax was ordered, I went over this with Dr. Meyer, it seems like on the left side she has 100 to 200 cc of complex fluid, likely representing hemothorax. Patient also had a small apical pneumothorax. Patient will at this point was clinically doing well, not requiring any oxygen, remained afebrile. given the risks and benefits, and as she was doing well currently, after discussion with the patient, we elected for medical management, with repeat chest x-ray and ultrasound of the thorax in 1 week with a close follow-up with Dr. Zuleta as outpatient. For her chronic lymphocytic leukemia, patient's white blood cell count got as high as 30,000, primary lymphocytic, I spoke to Dr. Peck, he will see her as outpatient. Physical Exam Const: COMMON NORMALS: no acute distress and patient oriented x3 HENMT: COMMON NORMALS: normocephalic HEAD & SCALP: normocephalic Neck/C-Spine: COMMON NORMALS: no JVD Resp: COMMON NORMALS: normal respiratory effort, No retractions, No use of accessory muscles and clear to auscultation bilaterally AUSCULTATION: clear to auscultation bilaterally Cardio: COMMON NORMALS: no JVD, regular rate, regular rhythm, S1 normal heart sound present and S2 normal heart sound present RATE: regular rate RHYTHM: regular rhythm HEART SOUNDS: S1 normal heart sound present and S2 normal heart sound present GI: COMMON NORMALS: Normal to inspection, nondistended, normoactive bowel sounds present, Soft to palpation, non-tender, No hepatosplenomegaly present, no masses and no bruits PALPATION: Yes Soft to palpation and Yes No hepatosplenomegaly present Extremity: COMMON NORMALS: capillary refill normal, no clubbing, cyanosis or edema, no calf tenderness and no pedal edema Neuro: COMMON NORMALS: patient oriented x3 Psych: COMMON NORMALS: mental status grossly normal Discharge Data Data Completed and Pending: Completed Studies During Hospitalization Category Date Time Status CT chest abd pel wo con Stat Cat Scan 12/04/19 20:[address] head wo con* 7 0450 Stat Cat Scan 12/04/19 20:[address] lumbar spine w o con* 40396 Stat Cat Scan 12/04/19 20:[address] thoracic spin wo con* [id number] Stat Cat Scan 12/04/19 20:20 Completed XR chest 1V [place] ble [id number] Routine Exams 12/06/19 07:31 Completed XR chest 1V [place] ble [id number] Routine Exams 12/08/19 06:00 Completed XR chest 1V [place] ble [id number] Stat Exams 12/04/19 19:40 Completed XR hip LT 2-3V wo /w pel* [id number] Stat Exams 12/04/19 22:24 Completed [place] chest 23635 Ro utine Ultrasound 12/09/19 Completed Pending at discharge Category Date Time Status Complete Blood Co unt w/Auto AM LABS Lab 12/10/19 04:00 Ordered Complete Blood Co unt w/Auto AM LABS Lab 12/11/19 04:00 Ordered Comprehensive Met abolic Panel AM LA BS Lab 12/10/19 04:00 Ordered Comprehensive Met abolic Panel AM LA BS Lab 12/11/19 04:00 Ordered Magnesium AM LABS Lab 12/10/19 04:00 Ordered Magnesium AM LABS Lab 12/11/19 04:00 Ordered Phosphorus AM LAB S Lab 12/10/19 04:00 Ordered Phosphorus AM LAB S Lab 12/11/19 04:00 Ordered Labs from last 24 hours 12/09/19 12/09/19 12/08/19 03:12 03:12 15:00 WBC 30.5 H* RBC 3.33 L Hgb 10.1 L Hct 32.1 L MCV 96.4 MCH 30.3 MCHC 31.5 RDW 13.7 Plt Count 248 MPV 11.3 H Neut % (Auto) 16.9 Lymph % (Auto) 77.9 Cochran % (Auto) 3.7 Eos % (Auto) 1.1 Baso % (Auto) 0.2 Neut # (Auto) 5.1 Lymph # (Auto) 23.7 H Cochran # (Auto) 1.1 H Eos # (Auto) 0.3 Baso # (Auto) 0.1 Nucleated RBC % (a uto) 0 Nucleated RBCs # 0.0 Sodium 136 Potassium 3.4 L Chloride 100 Carbon Dioxide 26 Anion Gap 13.4 BUN 18 Creatinine 1.1 H Glucose 104 Calculated Osmolal ity 279 L Calcium 7.8 L Phosphorus 2.7 Magnesium 3.2 H Total Bilirubin 0.8 AST 24 ALT 21 Alkaline Phosphata se 70 Total Protein 6.0 L Albumin 3.7 Globulin 2.3 Urine Color Yellow Urine Appearance Clear Urine pH 6 Ur Specific Gravit y 1.010 Urine Protein Neg Urine Glucose (UA) Norm Urine Ketones Negative Urine Blood Neg Urine Nitrate Negative Urine Bilirubin Neg Urine Urobilinogen Norm Ur Leukocyte Melissa ase Negative Vitals: Last Vital Signs Temp 98.0 F 12/09/19 11:08 Pulse 82 12/09/19 11:08 Resp 18 12/09/19 11:08 BP 155/67 12/09/19 11:08 Pulse Ox 95 12/09/19 11:08 Discharge Plan Discharge Patient Disposition: Xfer SNF Condition: Stable Prescriptions: New hydrocodone-acetaminophen 5-325 mg Tablet 1 tab PO Q6H PRN (Reason: Moderate Pain) 7 Days Qty: 28 RF: 0 Lidoderm 5 % Adhesive Patch,Medicated 1 patch topical O12O12 PRN (Reason: pain) 15 Days Qty: 3 RF: 0 Continued amlodipine 10 mg tablet 10 mg PO BEDTIME RF: 0 metoprolol succinate 100 mg tablet extended release 24 hr 100 mg PO DAILY RF: 0 atorvastatin 20 mg tablet 20 mg PO DAILY RF: 0 glucosamine HCl 1,500 mg tablet 1,500 mg PO DAILY RF: 0 vit C,E,Zn,Wc-oqcjr9-ihe-zeax 250-2.5-0.5 mg capsule 1 cap PO DAILY RF: 0 hydralazine 50 mg tablet 50 mg PO BID Qty: 180 RF: 4 chlorthalidone 25 mg tablet 25 mg PO DAILY 90 Days Qty: 90 RF: 3 Tylenol 325 mg Tablet 650 mg PO BID RF: 0 omeprazole 40 mg capsule,delayed release(DR/EC) 40 mg PO QAM RF: 0 gabapentin 100 mg capsule 200 mg PO TID RF: 0 Vitamin D3 50 mcg (2,000 unit) Tablet 50 mcg PO DAILY RF: 0 Prolia 60 mg/mL Syringe See Rx Instructions .ROUTE .COMPLEX RF: 0 Benicar 40 mg tablet 40 mg PO DAILY RF: 0 Held furosemide 20 mg tablet 20 mg PO DAILY RF: 0 Hold Instructions: Resume on 12/16/19. until creatinine normalizes Discharge Orders: Discharge Order (Routine); Ordered 12/09/19 Ordered By: Franko Aguilar Other Ambulatory Orders: Complete Blood Count w/Auto (Routine) Timeframe: 1 Week Location: Determined by Patient Ordered By: Franko Aguilar Comprehensive Metabolic Panel (Routine) Timeframe: 1 Week Facility: [facility] - Location: Lab - Main Lab Ordered By: Franko Aguilar XR chest 2V* 87669 (Routine) Timeframe: 1 Week Facility: [facility] - Location: Radiology [place] [facility] Ordered By: Franko Aguilar US thoracentesis 19462 (Routine) Timeframe: 1 Week Facility: [facility] - Location: Radiology Ordered By: Franko Aguilar Referrals: Ángel Zuleta MD [Physician] - 2 weeks Feroz Peck MD [Hospitalist] - 1 month ([facility]) Nithin Lin DO [Primary Care Provider] - Discharge Diet: Regular Discharge Activity: Resume usual activity Patient Instructions: Hydrocodone/Acetaminophen (By mouth), Lidocaine Patch (On the skin), Fractures - Rib Activity Restrictions/Additional Instructions: -If you have fevers, shortness of breath, please come back to the emergency room -Please use [place] and lidocaine sparingly Please follow-up with Dr. 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
--- NOTE | 2019-12-09 15:18 | PC.NURSE ---
let know that pt would be moving to [facility] soon. States he will meet them there with her cell phone and ipad
--- NOTE | 2019-12-09 15:21 | PC.NURSE ---
report called to Marek Paez
== END 2019-12-09 15:00 | disposition skilled nursing facility (03) | DRG 183 ==
LOC: ER 22:38 → MEDSURG 22:40
PROVIDERS: Emergency Medicine; Internal Medicine; Admitting Provider Internal Medicine; PCP Electrodiagnostic Medicine; Visit Provider Family Medicine
DX: S22.42XA Multiple fractures of ribs, left side, initial encounter for closed fracture (principal); S27.1XXA Traumatic hemothorax, initial encounter; J90 Pleural effusion, not elsewhere classified; M48.50XA Collapsed vertebra, not elsewhere classified, site unspecified, initial encounter for fracture; C91.11 Chronic lymphocytic leukemia of B-cell type in remission; N17.9 Acute kidney failure, unspecified; W19.XXXA Unspecified fall, initial encounter; E78.01 Familial hypercholesterolemia; M79.7 Fibromyalgia; E86.0 Dehydration; N18.9 Chronic kidney disease, unspecified; I12.9 Hypertensive chronic kidney disease with stage 1 through stage 4 chronic kidney disease, or unspecified chronic kidney disease; M81.0 Age-related osteoporosis without current pathological fracture
CPT/HCPCS: 12345; 32555; 36415; 70450; 71045; 71101; 71250; 72072; 72128; 72131; 73502; 74176; 76604; 80048; 80053; 81001; 81003; 82040; 83735; 84100; 85025; 85610; 94660; 94762; 96375; 97110; 97116; 97161; 97530; 99283; G0378; J1170; J2270; J3475; J7030

== ENCOUNTER → 2019-12-16 10:39 | Day surgery (SDC) | payer MEDICARE, OTHER, SELFPAY ==
[2019-12-16 12:30] VITALS: BP 169/94; PULSE 75; RESP 20; TEMP 36.2; O2SAT 97
[2019-12-16 13:08] VITALS: BMI 23.3
[2019-12-16 13:13] LABS: Hematocrit 32.3 % (37.0-47.0); Hemoglobin 9.9 g/dL (11.5-15.3); Mean Corpuscular HGB Conc 30.7 g/dL (30.0-36.0); Mean Corpuscular Hemoglobin 30.7 pg (28.0-34.0); Mean Platelet Volume 10.4 fL (7.4-10.4); Platelet Count 303 10^3/cmm (130-400); Red Blood Count 3.23 10^6/uL (4.1-5.3); Red Cell Distribution Width 14.4 % (12.1-15.1)
--- NOTE | 2019-12-16 13:14 | US_ITS ---
WS: [id number] ULTRASOUND-GUIDED THORACENTESIS CLINICAL INFORMATION: FRACTURED RIBS COMPARISON: None. PROCEDURE: Informed consent: The risks, benefits, and alternatives of the procedure were discussed with the nani ent. Verbal and written consent was obtained. Timeout: A timeout was performed to confirm the correct patient, procedure, and site. Site: Left chest Preparation: A suitable skin site was identified. The patient was prepped and draped in usual sterile fashion. Lidocaine 1% was used for local anesthesia. Catheter: 4 [place] One-Step catheter. Fluid Volume: 300 ml Color: Bloody dark red. Discarded safely. Complications: None. Patient disposition: Discharged from the department in stable condition. / thoracentesis [id number] IMPRESSION: 1. Uncomplicated ultrasound-guided thoracentesis with removal of 300 cc bloody fluid 2. Postthoracentesis radiograph demonstrates improved left pleural effusion. N o visualized pneumothorax.
--- NOTE | 2019-12-16 13:49 | XR_ITS ---
WS: [id number] CHEST XRAY TECHNIQUE: Portable chest. CLINICAL INFORMATION: POST THORACENTESIS COMPARISON: December 08, 2019 FINDINGS: Heart: Normal cardiac silhouette. Lungs: Improved small left pleural effusion with left basilar atelectasis. Previously described tiny pneumothorax not definitely visualized today. No progressed pneumothorax. Stable previously described left lateral rib fractures. Right lung is well aerated. Bones: Normal visualized bony structures. XR/XR chest 1V portable [id number] IMPRESSION: 1. Improved small left pleural effusion with left basilar atelectasis. 2. No visualized pneumothorax. 3. Stable left lateral rib fractures.
[2019-12-16 13:55] LABS: White Blood Count 32.1 10^3/uL (4.0-10.0)
[2019-12-16 13:58] LABS: Absolute Eosinophils 0.6 10^3/cmm (0.0-0.7); Absolute Segmented Neutrophil 6.7 10/cmm (1.6-7.1); Band Neutrophils Absolute 1.3 10^3/cmm (0.0-1.2); Basophils Absolute 0.3 10^3/cmm (0.0-0.2); Eosinophils 2 %; Lymphocytes 64 %; Monocytes Absolute 2.6 10^3/cmm (0.1-0.6); Platelet Estimate Normal (Normal); Segmented Neutrophils 21 %; Total Cells Counted 100 (0-100)
--- NOTE | 2019-12-16 14:22 | SUR.OPER ---
1420. THORACENTESIS PERFORMED BY DOCTOR GARCÍA. PATIENT TOLARED WELL. NO DYSPNEA NOTED. STERILE OCCLUSIVE DRESSING APPLIED. CHEST X RAY PERFORMED.
[2019-12-16 14:37] LABS: Alanine Aminotransferase 23 U/L (0-33); Albumin Level 4.4 g/dL (3.5-5.2); Alkaline Phosphatase 83 IU/L (35-105); Anion Gap 16.1 (5-19); Aspartate Amino Transferase 21 U/L (0-32); Blood Urea Nitrogen 28 mg/dL (8-23); Calcium 8.8 mg/dL (8.5-10.5); Carbon Dioxide 25 mmol/L (22-29); Chloride 102 mmol/L (98-107); Globulin 1.8 g/dL (1.3-4.6); Glucose 102 mg/dL (65-115); Osmolality Calculated 283 mOsm/kg (285-295); Potassium 5.1 mmol/L (3.5-5.1); Sodium 138 mmol/L (136-145); Total Bilirubin 0.4 mg/dL (0.15-1.2); Total Protein 6.2 g/dL (6.6-8.7)
[2019-12-16 14:44] VITALS: BP 140/92; PULSE 71; RESP 18; TEMP 36.6; O2SAT 97
--- NOTE | 2019-12-16 15:30 | SUR.PREOP ---
DISCHARGED IN STABLE CONDITION VIA [facility]. REPORT GIVEN TO [facility] RN.
== END ==
PROVIDERS: Family Medicine; PCP Electrodiagnostic Medicine; Visit Provider Radiology Neuroradiology
DX: S22.39XA Fracture of one rib, unspecified side, initial encounter for closed fracture (principal); X58.XXXA Exposure to other specified factors, initial encounter
CPT/HCPCS: 32555; 36415; 71045; 80053; 85007; 85027

== ENCOUNTER 2019-12-25 11:55 | Inpatient (IN) | payer MEDICARE, OTHER, SELFPAY ==
[2019-12-25] VITALS (17 sets, daily range): BP systolic 108–205; BP diastolic 65–110; PULSE 80–93; RESP 16–29; TEMP 36.6–37.4; O2SAT 91–97; BMI 26.2
--- NOTE | 2019-12-25 | SCC_ITS ---
Procedure Done: Left pleural [place] drain placement 27.3 seconds of fluoroscopic guidance, for a cumulative dose of 3.59 mGy, was provided to Dr. Zuleta by the radiology department. C-arm images of the chest were saved for the patient's permanent record. [facility] CENTERAdilia
--- NOTE | 2019-12-25 11:05 | XR_ITS ---
WS: [id number] PA chest, 12/25/2019 Clinical Data: dyspnea Comparison: Portable chest, 12/16/2019. Findings: The left pleural effusion has increased significantly and the inferior two thirds of the le ft lung are obscured. The right lung remains clear. The heart size is difficult to evaluate. The aort ic arch shows calcification. There is a levoscoliosis. There may be a hiatal hernia. The patient has had a lumbar fusion and the superior aspects of the rods are visible. XR/XR chest 1V 19540 Impression: 1. Significant increase in left pleural effusion. 2. Atherosclerosis and hiatal hernia.
--- NOTE | 2019-12-25 11:37 | ECG_ITS ---
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 Measurements Intervals [place] Rate: -1 P: NE: -1 QRS: 0 QRSD: -1 T: 0 QT: -1 QTc: Interpretive Statements Sinus rhythm Normal axis and intervals WARNING: DATA QUALITY MAY AFFECT INTERPRETATION No previous ECG available for comparison Electronically Signed On 12-25-2019 17:12:10 CDT by Baron Gunn M.D. [id number]
--- NOTE | 2019-12-25 11:41 | P.HP_ITS ---
Providers/Chief Complaint Primary Care Provider: Nithin Lin DO Chief Complaint: DYSPNEA History of Present Illness Carlota Sesay is an 84 year old female whom I was seen today in heart care clinic upon follow-up for multiple rib fractures. Original presenting CT scan of December 03 revealed overriding fracture of the posterior left fifth through 10th ribs on the left side. There was also nondisplaced fractures of the anterior lateral third through sixth ribs. I was originally consulted back on December 03 after her presentation with these multiple rib fractures on the left side after a fall. She was hospitalized from December 03 through December 08. She developed a very small effusion and some atelectasis which improved with pulmonary toilet. She was discharged to [facility] nursing [facility] and follows up today in clinic. She has given a recent history of several days of increasing shortness of breath and I suspected that she may have an delayed effusion. Indeed, chest x-ray, single view today, revealed moderately large left pleural effusion encompassing about half of the left hemithorax. I have recommended direct admission for planned left pleural drain versus left chest tube placement for the delayed traumatic probable left hemothorax. She presents today in a wheelchair and is surprisingly comfortable though clearly has some dyspnea with prolonged conversation and she stated with any type of activity, particular over the past 3 days. Review of Systems Const: Denies: fever(s), chills, change in appetite, change in weight, fatigue or night sweats Eyes: Denies: change in vision or blurry vision ENMT: Denies: odynophagia or hoarseness Card: Reports: dyspnea on exertion; Denies: palpitations or irregular heart rhythm Resp: Reports: dyspnea and non-productive cough; Denies: hemoptysis GI: Denies: abdominal pain : Denies: dysuria, urinary frequency, urinary urgency or urinary hesitancy Musc: Denies: extremity pain or extremity swelling Skin/Breast: Denies: rash Neuro: Denies: headache(s), numbness in extremities, weakness in extremities or sensory changes Psych: Denies: anxiety, depression or change in appetite Endo: Denies: polyuria, polydipsia or cold intolerance Tony/Lymph: Reports: petechiae and other (Left chest wall ecchymosis); Denies: easy bruising, easy bleeding or enlarged lymph nodes Medications/Allergies Home Medications Medication Instructions Recorded Confirmed Last Taken Type amlodipine 10 mg tablet 10 mg PO BEDTIME tab 06/18/19 12/16/19 12/16/19 12:34 History atorvastatin 20 mg tablet 20 mg PO DAILY tab 06/18/19 12/16/19 12/15/19 20:00 History glucosamine HCl 1,500 mg tablet 1,500 mg PO DAILY tab 06/18/19 12/16/19 12/16/19 08:00 History metoprolol succinate 100 mg 100 mg PO DAILY tab 06/18/19 12/16/19 12/16/19 08:00 History tablet,extended release 24 hr vit 1 cap PO DAILY cap 06/18/19 12/16/19 12/04/19 History C,E,zinc,Du-qhxgd-0-lutein-zeaxanthin 250 mg-2.5 mg-0.5 mg capsule furosemide 20 mg tablet 20 mg PO DAILY tab 06/19/19 12/16/19 12/16/19 08:00 History hydralazine 50 mg tablet 50 mg PO BID #180 tab 06/19/19 12/16/19 12/16/19 08:00 Rx chlorthalidone 25 mg tablet 25 mg PO DAILY 90 Days #90 tab 07/21/19 12/16/19 12/16/19 08:00 Rx Prolia See Rx Instructions .ROUTE .COMPLEX 12/04/19 12/16/19 Unknown History acetaminophen [Tylenol] 650 mg PO BID 12/04/19 12/16/19 12/16/19 08:00 History cholecalciferol (vitamin D3) 50 mcg PO DAILY 12/04/19 12/16/19 12/16/19 12:43 History [Vitamin D3] gabapentin 200 mg PO TID 12/04/19 12/16/19 12/16/19 08:00 History olmesartan [Benicar] 40 mg PO DAILY 12/04/19 12/16/19 12/16/19 08:00 History omeprazole 40 mg PO QAM 12/04/19 12/16/19 12/16/19 08:00 History Allergies Allergy/AdvReac Type Severity Reaction Status Date / Time No Known Allergies Allergy Verified 12/04/19 21:56 PFSH Acute PFSH: Medical History (Updated 12/10/19 @ 00:00 by ) CKD (chronic kidney disease) CLL (chronic lymphocytic leukemia) Essential hypertension Fibromyalgia Hyperlipidemia Osteoporosis Surgical History Previous back surgery S/P cataract extraction S/P hysterectomy Family History Denies family history of Clotting disorder Hypertension Social History Smoking and tobacco status: never smoked Alcohol intake: never Household members: spouse Marital status: service: No Current occupational status: retired Current gender identity: Female Yuki/Buddhism: Mormonism Vitals/I&O/Wt Weight last 48 hrs Weight 154 lb Physical Exam HENMT: COMMON NORMALS: normocephalic and atraumatic HEAD & SCALP: normal to inspection, normocephalic and atraumatic Neck/C-Spine: COMMON NORMALS: no lymphadenopathy and No carotid bruits; negative for full ROM (Decreased range of motion) GENERAL: Yes trachea midline CAROTIDS: No bruit Chest: COMMONS NORMALS: normal inspection of the chest (No chest wall ecchymosis); negative for normal palpation of entire chest wall (Left chest wall tenderness) Resp: COMMON NORMALS: negative for clear to auscultation bilaterally and negative for percussion normal AUSCULTATION: not clear to auscultation bilaterally and diminished lung sounds on the left PERCUSSION: percussion abnormal and dullness Mid: left and Lower: left Cardio: COMMON NORMALS: regular rate and regular rhythm Extremity: COMMON NORMALS: no clubbing, cyanosis or edema Neuro: COMMON NORMALS: no focal motor deficits and no sensory deficits noted A&P Assessment and plan (1) Pleural effusion: Delayed traumatic left pleural effusion status post multiple rib fractures back during early hospitalization of December 04. Plan: We will have Ms. Sesay directly admitted from the clinic to the [facility] for planned left chest tube placement versus left pleural drain placement this afternoon. Rationale for this was carefully discussed with her and she is in agreement. She has contacted her by phone here in the clinic and informed him of our plans. He also is in agreement. Status: Acute Attestations Medical Necessity Statement*: Delayed presentation of a traumatic left pleural effusion with multiple rib fractures Time Spent in Patient Care: Greater than 35 minutes Time for initial evaluation and contacting appropriate hospital personnel to allow for direct admission for planned procedure this afternoon. Coding Level of Care Code Acute Public Health Dietitian for Chg Fwd Diagnoses Pleural effusion J90
--- NOTE | 2019-12-25 12:33 | P.CONIM_ITS ---
Providers/Reason For Consult Consulting Physican/Specialty*: Dottie Blackwell DO/Hospitalist Reason for Consult*: Medical management Requesting Physcian: Dr. Zuleta Attending Physician: Ángel Zuleta MD Primary Care Provider: Nithin Lin DO History of Present Illness History of Present Illness Carlota Sesay is a 84 year old female that presented to the hospital for admission from provider clinic after noted to have increasing left-sided pleural effusion. Patient was recently hospitalized from 12/04/2019 to 12/09/2019. She had a fall at home which led to her admission, falling onto her walker and she began noticing increasing left-sided pain, noted to have multiple rib fractures, left-sided pleural effusion, and pulmonary contusion. Dr. Zuleta was consulted due to concern for her traumatic event with multiple left-sided rib fractures and left-sided pleural effusion. Patient was monitored with aggressive pulmonary toilet and pain control and continued to improve and was ultimately discharged to retirement facility, she has remained at retirement facility working with therapies until today. She was seen in follow-up in the clinic setting noted to have concern for increasing effusion and admitted for further evaluation and treatment. Patient denies any recent illness, no fevers or chills. She denies any chest pain. She reports some continued rib pain with deep inspiration. Patient denies any significant cough or sputum production. She denies any abdominal pain or nausea, denies constipation or diarrhea. She reported that she had been doing well working with therapies at retirement facility, continues to have occasional trouble with balance but is improved with therapy. Review of Systems Const: Denies: fever(s) or chills Eyes: Denies: change in vision ENMT: Denies: nasal congestion Card: Reports: other (Chest pain that is related to the ribs, no chest heaviness); Denies: palpitations or edema Resp: Reports: other (Reports pain with deep inspiration and shortness of breath with exertion due to inability to take deep breath); Denies: productive cough or hemoptysis GI: Denies: abdominal pain, nausea, vomiting, diarrhea, constipation, hematochezia or melena : Denies: dysuria or hematuria Musc: Denies: extremity pain or muscle cramps Skin/Breast: Denies: rash or new lesions Neuro: Denies: headache(s) or dizziness Psych: Denies: anxiety or depression Endo: Denies: polyuria or hot flashes Tony/Lymph: Denies: easy bruising or easy bleeding Meds/Allergies Home Medications and Allergies Home Medications Medication Instructions Recorded Confirmed Last Taken Type amlodipine 10 mg tablet 10 mg PO BEDTIME tab 06/18/19 12/16/19 12/16/19 12:34 History atorvastatin 20 mg tablet 20 mg PO DAILY tab 06/18/19 12/16/19 12/15/19 20:00 History glucosamine HCl 1,500 mg tablet 1,500 mg PO DAILY tab 06/18/19 12/16/19 12/16/19 08:00 History metoprolol succinate 100 mg 100 mg PO DAILY tab 06/18/19 12/16/19 12/16/19 08:00 History tablet,extended release 24 hr vit 1 cap PO DAILY cap 06/18/19 12/16/19 12/04/19 History C,E,zinc,Bg-bovqy-6-lutein-zeaxanthin 250 mg-2.5 mg-0.5 mg capsule furosemide 20 mg tablet 20 mg PO DAILY tab 06/19/19 12/16/19 12/16/19 08:00 History hydralazine 50 mg tablet 50 mg PO BID #180 tab 06/19/19 12/16/19 12/16/19 08:00 Rx chlorthalidone 25 mg tablet 25 mg PO DAILY 90 Days #90 tab 07/21/19 12/16/19 12/16/19 08:00 Rx Prolia See Rx Instructions .ROUTE .COMPLEX 12/04/19 12/16/19 Unknown History acetaminophen [Tylenol] 650 mg PO BID 12/04/19 12/16/19 12/16/19 08:00 History cholecalciferol (vitamin D3) 50 mcg PO DAILY 12/04/19 12/16/19 12/16/19 12:43 History [Vitamin D3] gabapentin 200 mg PO TID 12/04/19 12/16/19 12/16/19 08:00 History olmesartan [Benicar] 40 mg PO DAILY 12/04/19 12/16/19 12/16/19 08:00 History omeprazole 40 mg PO QAM 12/04/19 12/16/19 12/16/19 08:00 History Allergies Allergy/AdvReac Type Severity Reaction Status Date / Time No Known Allergies Allergy Verified 12/04/19 21:56 PFSH Acute 2 PFSH: Medical History CKD (chronic kidney disease) CLL (chronic lymphocytic leukemia) Essential hypertension Fibromyalgia Hyperlipidemia Osteoporosis Surgical History Previous back surgery S/P cataract extraction S/P hysterectomy Family History Denies family history of Clotting disorder Hypertension Social History Smoking and tobacco status: never smoked Alcohol intake: never Household members: spouse Marital status: service: No Current occupational status: retired Current gender identity: Female Yuki/Anglican: Mosque Vitals/I&O/Wt Weight last 48 hrs Weight 69.853 kg Physical Exam Const: COMMON NORMALS: patient oriented x3 and alert GENERAL APPEARANCE: cooperative ORIENTATION/CONSCIOUSNESS: Yes awake, Yes oriented to person, Yes oriented to place and Yes oriented to time HENMT: COMMON NORMALS: normocephalic and atraumatic HEAD & SCALP: normocephalic and atraumatic Eye: COMMON NORMALS: Equal, round and reactive pupils present PUPIL: Yes Equal, round and reactive pupils present Neck/C-Spine: COMMON NORMALS: supple GENERAL: Yes normal visual inspection Resp: OTHER: No acute respiratory distress, however patient noted to have shallow respirations, diminished breath sounds in the left side of the chest, right side is clear without wheezing or rhonchi Cardio: COMMON NORMALS: regular rate, regular rhythm and No murmurs present (Cardio) RATE: regular rate RHYTHM: regular rhythm GI: COMMON NORMALS: Soft to palpation and non-tender INSPECTION: No abdominal distension AUSCULTATION: Yes normoactive bowel sounds PALPATION: Yes Soft to palpation : COMMON NORMALS: Yes no CVA tenderness BLADDER/KIDNEY EXAM: Yes no CVA tenderness Back/Pelvis: COMMON NORMALS: no CVA tenderness Extremity: COMMON NORMALS: no clubbing, cyanosis or edema and no calf tenderness Neuro: COMMON NORMALS: patient oriented x3, CN's II-XII intact bilaterally, moves all extremities and no focal motor deficits SENSORIUM/ORIENTATION: Yes alert, Yes oriented to person, Yes oriented to place and Yes oriented to time SPEECH: speech normal Psych: COMMON NORMALS: mental status grossly normal and cooperative Skin: COMMON NORMALS: no rashes or lesions noted GENERAL SKIN EXAM: no rashes or lesions noted Data Imaging^: CXR: I personally reviewed and interpreted this imaging study as follows: My impression: Chest x-ray from today reviewed shows large left-sided pleural effusion A&P Assessment and plan (1) Pleural effusion: Large left-sided pleural effusion with left-sided rib fractures Concern for hemothorax We will follow along with primary attending, cardiothoracic surgeon Dr. Zuleta Plan for patient to go to the OR today for drain placement Would recommend pleural fluid studies Patient also has CLL, however no pleural effusion in the past, believe this is secondary to trauma Status: Acute (2) Fracture, ribs: fracture Posterior left ribs 5-10 Nondisplaced fractures of the anterior lateral left 3rd through 6th ribs IS Pain control Status: Acute Qualifiers: Encounter type: initial encounter Fracture type: closed Laterality: left Rib fracture type: multiple ribs Qualified Code(s): S22.42XA - Multiple fractures of ribs, left side, initial encounter for closed fracture (3) Essential hypertension: continue with metoprolol succinate 100 mg daily Amlodipine 10 mg at bedtime Chlorthalidone 25 mg daily We will continue to hold on Lasix 20 mg at this time Status: Acute (4) Hyperlipidemia: Continue home statin Status: Acute Qualifiers: Hyperlipidemia type: familial hypercholesterolemia Qualified Code(s): E78.01 - Familial hypercholesterolemia (5) Compression fracture: Continue PT/OT and pain control Status: Acute (6) Hemothorax on left: S/P thoracentesis on the L by radiology with 300mL bloody dark red fluid Plan as above, will follow up with surgical recommendations from Dr. Zuleta Status: Acute Additional A&P Information Chronic lymphocytic leukemia: Followed closely by Dr. 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 due to anticipated surgery CODE STATUS: Full code Consult Attestations Medical Necessity Statement: Patient requires hospitalization due to concern for hemothorax with increasing left-sided effusion Coding Level of Care Code Acute Computer Security Coordinator for Chg Fwd Exam Comprehensive Diagnoses Pleural effusion J90 Fracture, ribs S22.42XA Encounter type: initial encounter Fracture type: closed Laterality: left Rib fracture type: multiple ribs Essential hypertension I10 Hyperlipidemia E78.01 Hyperlipidemia type: familial hypercholesterolemia Compression fracture Hemothorax on left J94.2
--- NOTE | 2019-12-25 12:54 | P.ANESASSM_ITS ---
Pre-Anesthetic Assessment Pre-Anesthetic Assessment: Height/Weight: Height 1.65 m Weight 71.412 kg Pulse Resp Pulse Ox 80 17 94 12/25/19 12:47 12/25/19 12:47 12/25/19 12:47 Preop Diagnosis: pleural effusion Proposed Procedure: pleural drain cathter Familial anesthetic complications: none Was Beta Beau taken within 24 hours: Yes Last intake: 0800 - oatmeal and orange juice Social: Social History: No alcohol and No tobacco Exam: Pre-Anes Outpt Exam: alert, oriented x 3, clear to auscultation bilaterally and regular rate & rhythm Additional Exam Findings (including area of procedure): L side decrease coaorse Airway: Cervical ROM: WNL MP: 2 Dentition: Full Pulmonary: Comments: hemothorax/L Rib fractures Anesthetic Plan: Anesthesia: MAC Risk of > 500 ml blood loss (7ml/kg in children): No PFSH Anesthesia PFSH: Medical History CKD (chronic kidney disease) CLL (chronic lymphocytic leukemia) Essential hypertension Fibromyalgia Hyperlipidemia Osteoporosis Surgical History Previous back surgery S/P cataract extraction S/P hysterectomy Family History Denies family history of Clotting disorder Hypertension Social History Smoking and tobacco status: never smoked Alcohol intake: never Household members: spouse Marital status: service: No Current occupational status: retired Current gender identity: Female Yuki/Advent: Mandaeism Data Anesthesia Cardiac Studies: No Data to Display
[2019-12-25] MEDS: dextrose 5%-sod chloride 0.45% 1,000 ML 100 ML IV ×2 (13:00→20:39)
[2019-12-25] MEDS: sodium chloride 0.9% 1,000 ML 30 ML IV (15:41)
--- NOTE | 2019-12-25 15:55 | SC_ITS ---
WS: [id number] C-ARM RADIOGRAPHS CHEST; 2 IMAGES HISTORY: jerod drain COMPARISON: 12/26/2019 Intraoperative imaging during [place] drain placement. [place] drain enters the LEFT lateral thorax. De struction of one of the lateral ribs. SC/C-arm FL for Drainage [id number] IMPRESSION: Intraoperative imaging during Jerod drain placement.
[2019-12-25] MEDS: ceFAZolin 1,000 MG in sodium chloride 0.9% (plus) 50 ML 100 MG IV (16:20)
--- NOTE | 2019-12-25 16:56 | XR_ITS ---
WS: [id number] PORTABLE CHEST HISTORY: POST GABRIELLA PLEURAL CATHETER INSERTION COMPARISON: 12/25/2019 Intraoperative imaging of the chest tube with tip directed to the apex. Previously described moderate pleural effusion significantly improved. Minimal persistent atelectasis in the mid and lower LEFT tabatha ng with pleural thickening. RIGHT lung is clear. No pneumothorax. Small residual LEFT pleural effusion. Cardiac size: Mildly enlarged cardiac silhouette. Mediastinum/Aorta: Moderate atherosclerosis aorta. Patient has known LEFT lateral rib fractures. XR/XR chest 1V portable [id number] IMPRESSION: 1. Interval insertion of a LEFT chest tube with tip directed superiorly. 2. Near complete resolution of the LEFT pleural effusion with resolving atelec tasis throughout the LEFT lung.
--- NOTE | 2019-12-25 17:03 | P.OP_ITS ---
Operative Report Date of procedure: December 25, 2019 Pre-op Diagnosis: Left pleural effusion status post traumatic left rib fractures Post-op diagnosis: same Procedure Done: Left pleural [place] drain placement Specimens removed/disposition: 60 cc of pleural fluid collected for cytologic examination Surgeon: Ángel Zuleta Anesthesia: MAC and Local (10 cc 1% lidocaine infiltrated locally) Complications: None: Post procedure chest x-ray pending Findings: Fluoroscopy utilized for needle aspiration, guidewire placement, dilator, and subsequent drain placement. Condition: stable Disposition: PACU Brief History: 84-year-old female presents to clinic today for follow-up of multiple rib fractures from a fall earlier this month. X-ray revealed a moderately large left pleural effusion versus hemothorax. Operative drainage was recommended. Details the risk of the procedure were carefully and frankly discussed. Proper consents have been reviewed and signed. Procedure: The entire left chest was sterilely prepped and draped. 1% lidocaine was infiltrated in the posterior axillary line approximately at the seventh interspace level. Introducer needle was then placed with return of bill- colored pleural fluid. Fluoroscopy was subsequently utilized throughout the procedure for guidewire and dilator advancement and subsequent introducer positioning and [place] catheter drain placement. Lidocaine was utilized to infiltrate the subcutaneous layer continuing anteriorly. A #11 scalpel blade was used to incise the skin on the guidewire and also anteriorly. Tunneler was utilized to pass the drain anteriorly to posteriorly in the subcutaneous fashion. Dilators were then placed over the guidewire to dilate the tract into the pleural space. Dilator and tear away sheath was then placed. Dilator was removed and pleural drain was placed to the tear-away sheath and the tear-away sheath was then removed. Drain was easily aspirated of large volume of pleural fluid, which was mostly serous and minimal sanguinous, totaling 1100 cc. 60 cc was collected for cytology, given her prior history for lymphoma. Once completed, the incisions were closed with 3-0 Vicryl suture. A silk suture was utilized to secure the drain to the skin. Patient tolerated procedure well. Sterile dressings were applied. Ms. Sesay taken to the PACU where a chest x-ray is pending. I did financial services counselor with her at the completion of the procedure.
[2019-12-25] MEDS: fentaNYL 50 mcg/mL INJ 2mL IVP ×2 (17:12→17:17)
[2019-12-25 19:24] LABS: INR 1.03 (0.8-1.2)
[2019-12-25] MEDS: HYDROcodone-acetaminophen 5-325 mg Tablet 1 TAB PO (19:26)
[2019-12-25 19:35] LABS: Basophils # 0.1 10^3/uL (0.0-0.1); Basophils % 0.3 %; Eosinophils # 0.2 10^3/uL (0.0-0.8); Eosinophils % 0.6 %; Hematocrit 34.2 % (37.0-47.0); Hemoglobin 10.2 g/dL (11.5-15.3); Mean Corpuscular HGB Conc 29.8 g/dL (30.0-36.0); Mean Corpuscular Hemoglobin 29.5 pg (28.0-34.0); Mean Corpuscular Volume 98.8 fL (81-99); Mean Platelet Volume 10.8 fL (7.4-10.4); Monocytes # 0.9 10^3/uL (0.2-0.9); Monocytes % 3.8 %; Neutrophils # 8.54 10^3/uL (1.8-7.7); Nucleated Red Blood Cells % 0 %; Platelet Count 268 10^3/cmm (130-400); Red Blood Count 3.46 10^6/uL (4.1-5.3); Red Cell Distribution Width 13.8 % (12.1-15.1); White Blood Count 23.7 10^3/uL (4.0-10.0)
[2019-12-25 19:36] LABS: Alanine Aminotransferase 16 U/L (0-33); Albumin Level 3.9 g/dL (3.5-5.2); Alkaline Phosphatase 77 IU/L (35-105); Anion Gap 14.9 (5-19); Aspartate Amino Transferase 16 U/L (0-32); Blood Urea Nitrogen 24 mg/dL (8-23); Calcium 7.8 mg/dL (8.5-10.5); Carbon Dioxide 25 mmol/L (22-29); Chloride 101 mmol/L (98-107); Glucose 119 mg/dL (65-115); Osmolality Calculated 282 mOsm/kg (285-295); Potassium 3.9 mmol/L (3.5-5.1); Sodium 137 mmol/L (136-145); Total Bilirubin 0.4 mg/dL (0.15-1.2); Total Protein 5.9 g/dL (6.6-8.7)
[2019-12-25 20:37] LABS: Slide Review Slide Review Perform
[2019-12-25] MEDS: hyDRALAzine 20 mg/mL INJ 1 mL 5 MG IVP (20:39)
[2019-12-26] VITALS: BP 146/69; PULSE 92; RESP 17; TEMP 37.2; O2SAT 93
[2019-12-26] MEDS: HYDROcodone-acetaminophen 5-325 mg Tablet 1 TAB PO (03:17)
[2019-12-26 04:00] VITALS: BP 128/69; PULSE 82; RESP 18; TEMP 37.5; O2SAT 95
[2019-12-26] MEDS: pantoprazole DR 40 mg Tablet PO (05:18)
--- NOTE | 2019-12-26 06:00 | XRR_ITS ---
PROCEDURE INFORMATION: Exam: XR Chest, 1 View Exam date and time: 12/26/2019 6:29 AM Age: 84 years old Clinical indication: Condition or disease; Other: Jerod drain placed last night; Patient HX: Left pleural drain placement last p. M. Followup; Additional info: Pod#1 left pleural drain placement TECHNIQUE: Imaging protocol: XR of the chest Views: 1 view. COMPARISON: CR XR chest 1V portable [id number] 12/25/2019 5:05 PM FINDINGS: Tubes, catheters and devices: Stable positioning of left thoracostomy tube. Lungs: Interstitial prominence and chronic granulomatous disease. Asymmetric left-sided airspace/pleural disease. Pleural space: Apical pleural thickening. Heart/Mediastinum: No cardiomegaly. Bones/joints: Osteopenia, degenerative change, and scoliosis. CT detected thoracic spine and rib fractures are poorly visualized on portable radiography. When correlating with the previous study, no significant interval changes are present. XR/XR chest 1V portable [id number] IMPRESSION: Stable appearance of the chest, not significantly changed from 12/25/2019 .
--- NOTE | 2019-12-26 06:50 | PC.NURSE ---
Dr Zuleta manual aspirated 10ml of pleural fluid.
[2019-12-26 07:48] VITALS: BP 142/64; PULSE 82; RESP 17; TEMP 36.7; O2SAT 95
--- NOTE | 2019-12-26 07:56 | PC.NURSE ---
Removed O2 and patient was sating at at 96% on room air, will reassess in 30 mins.
--- NOTE | 2019-12-26 09:01 | PM.DCS ---
Discharge Providers Date of Admission: 12/25/19 11:55 Date of Discharge: December 26, 2019 Attending Provider at Admission: Ángel Zuleta MD Attending Provider at Discharge: Ángel Zuleta MD Primary Care Provider: Nithin Lin DO Diagnoses at Discharge Discharge Diagnosis (1) Pleural effusion: Status: Acute (2) Fracture, ribs: Status: Acute Problem details: Stable Qualifiers: Encounter type: initial encounter Fracture type: closed Laterality: left Rib fracture type: multiple ribs Qualified Code(s): S22.42XA - Multiple fractures of ribs, left side, initial encounter for closed fracture (3) Essential hypertension: Status: Acute (4) Hyperlipidemia: Status: Acute Qualifiers: Hyperlipidemia type: familial hypercholesterolemia Qualified Code(s): E78.01 - Familial hypercholesterolemia (5) Compression fracture: Status: Acute (6) Hemothorax on left: Status: Acute Reason for Visit Reason for Visit: DYSPNEA Hospital Course Hospital Course: Ms. Sesay represented to clinic for f/u of multiple left sided rib fx's from earlier this month. Large left effusion noted. Admitted and left pleural drain placed with recovery of 1.1 liters of serous fluid. Another 350 cc recovered over night. Minimal output upon aspiration this morning. Will discharge back to SNF for daily aspiration until consistently less than 50cc/ day. Then will plan for outpatient removal of drain at [facility] [place] [place] surgical dept. Physical Exam Resp: COMMON NORMALS: normal respiratory effort and clear to auscultation bilaterally (much improved after effusion evacuation) EFFORT & INSPECTION: Yes able to speak in complete sentences AUSCULTATION: clear to auscultation bilaterally (much improved after effusion evacuation) Cardio: COMMON NORMALS: regular rate, regular rhythm, S1 normal heart sound present and No gallops present (Cardio) RATE: regular rate RHYTHM: regular rhythm HEART SOUNDS: S1 normal heart sound present Discharge Data Data Completed and Pending: Completed Studies During Hospitalization Category Date Time Status XR chest 1V [id number] Routine Exams 12/25/19 11:05 Completed XR chest 1V [place] ble [id number] Routine Exams 12/25/19 16:56 Completed Pending at discharge Category Date Time Status XR chest 1V [place] ble [id number] Routine Exams 12/26/19 06:00 Taken Cytology [PTH] Ro utine Pth 12/25/19 16:50 Received Labs from last 24 hours 12/25/19 12/25/19 12/25/19 18:38 18:38 18:38 WBC 23.7 H RBC 3.46 L Hgb 10.2 L Hct 34.2 L MCV 98.8 MCH 29.5 MCHC 29.8 L RDW 13.8 Plt Count 268 MPV 10.8 H Neut % (Auto) 36.0 Lymph % (Auto) 59.0 [place] % (Auto) 3.8 Eos % (Auto) 0.6 Baso % (Auto) 0.3 Neut # (Auto) 8.54 H Lymph # (Auto) 14.0 H [place] # (Auto) 0.9 Eos # (Auto) 0.2 Baso # (Auto) 0.1 Nucleated RBC % (a uto) 0 Nucleated RBCs # 0.0 PT 13.80 H INR 1.03 Sodium 137 Potassium 3.9 Chloride 101 Carbon Dioxide 25 Anion Gap 14.9 BUN 24 H Creatinine 1.4 H GFR Calculation Not Reportable Glucose 119 H Calculated Osmolal ity 282 L Calcium 7.8 L Total Bilirubin 0.4 AST 16 ALT 16 Alkaline Phosphata se 77 Total Protein 5.9 L Albumin 3.9 Globulin 2.0 Vitals: Last Vital Signs Temp 98.1 F 12/26/19 07:48 Pulse 82 12/26/19 07:48 Resp 17 12/26/19 07:48 BP 142/64 12/26/19 07:48 Pulse Ox 95 12/26/19 07:48 Discharge Plan Discharge Patient Disposition: [facility] Condition: Stable Prescriptions: Continued amlodipine 10 mg tablet 10 mg PO BEDTIME RF: 0 metoprolol succinate 100 mg tablet extended release 24 hr 100 mg PO DAILY RF: 0 atorvastatin 20 mg tablet 20 mg PO DAILY RF: 0 glucosamine HCl 1,500 mg tablet 1,500 mg PO DAILY RF: 0 vit C,E,Zn,Th--jng-zeax 250-2.5-0.5 mg capsule 1 cap PO DAILY RF: 0 furosemide 20 mg tablet 20 mg PO DAILY RF: 0 Hold Instructions: Resume on 12/16/19. until creatinine normalizes hydralazine 50 mg tablet 50 mg PO BID Qty: 180 RF: 4 chlorthalidone 25 mg tablet 25 mg PO DAILY 90 Days Qty: 90 RF: 3 acetaminophen [Tylenol] 325 mg Tablet 650 mg PO BID RF: 0 omeprazole 40 mg capsule,delayed release(DR/EC) 40 mg PO QAM RF: 0 gabapentin 100 mg capsule 200 mg PO TID RF: 0 cholecalciferol (vitamin D3) [Vitamin D3] 50 mcg (2,000 unit) Tablet 50 mcg PO DAILY RF: 0 Prolia 60 mg/mL Syringe See Rx Instructions .ROUTE .COMPLEX RF: 0 olmesartan [Benicar] 40 mg tablet 40 mg PO DAILY RF: 0 Discharge Orders: Discharge Order (Routine); Ordered 12/26/19 Ordered By: Ángel Zuleta Discharge Diet: Usual diet Discharge Activity: Resume usual activity Activity Restrictions/Additional Instructions: Nursing staff to sterilely aspirate left pleural drain once daily. Contact office when there is consistently minimal output daily for 3 days, (less than 50 cc daily). We will then plan for outpatient drain removal. Discharge Attestations Time Spent in Discharge Care*: less than 30 min Specific Discharge Activities: Specific discharge activities: educating patient, discussing with pcp/other providers, discussing with director of casework department/social workers/dc planners, documenting/other paperwork and evaluating patient/reviewing data Status at Discharge: Cognitive status at discharge: cognitively intact, Behavioral status at discharge: cooperative, Overall status at discharge: patient is progressing back to baseline Quality Metrics Clinical Quality Measures During this hospital stay, did patient experience: None Coding Level of Care Code Acute Costume Director for Raf De La Cruz Diagnoses Pleural effusion J90 Fracture, ribs S22.42XA Encounter type: initial encounter Fracture type: closed Laterality: left Rib fracture type: multiple ribs Essential hypertension I10 Hyperlipidemia E78.01 Hyperlipidemia type: familial hypercholesterolemia Compression fracture Hemothorax on left J94.2
--- NOTE | 2019-12-26 09:50 | PC.CHAP ---
Pastoral Care Encounter/Spiritual Assessment Type of Contact [] Declined workcell operator visit [] Patient/Family/Request visit [] Outpatient visit [] Follow-up visit [] Physician referral [] Code/Alert [x] Routine visit [] Staff referral [] Actively dying [] Patient sleeping [] Family support [] [] Out of room [] Palliative care [] [] Receiving care in room [] Pre-surgical visit [] Trauma [] Long length of stay [] ICU visit [] Other: Relational/Emotional Strength [] Patient feels connected with others/family/visitors/staff [] Distress [] Loneliness/isolation [] Abandonment Spirituality of Patient [] Person of Yuki [] Attends Islam of their Yuki [] Believes in Prayer [] Reads Bible or Protestant materials [] There are Spiritual issues to be addressed Marine Diesel Technician Interventions [x] Prayer [x] Active listening [x] Non-anxious presence [x] Spiritual/emotional support [] Crisis/trauma care [] Spiritual counseling [] Bereavement support [] Provided bereavement packet [] Provided Bible/devotional materials [] Provided toy/stuffed animal, coloring book to patient or family member [] Provided Communion [] Anointing/[place] [] Salvation [x] Completed spiritual assessment [] Other: Impact on Illness or Injury [] Angry [] Fearful [] Anxious [] Often cries [] Exhaustion [] Unable to work [] Unable to attend adventist [] Unable to walk/stand [] Unable to read [] Unable to drive [] Unable to eat/drink [] Unable to sleep [] Unable to be with family [] Patient intubated [] Other: Summary patient resting well Time spent with patient 5 min
--- NOTE | 2019-12-26 09:50 | PC.CHAP ---
Pastoral Care Encounter/Spiritual Assessment Type of Contact [] Declined tour driver visit [] Patient/Family/Request visit [] Outpatient visit [] Follow-up visit [] Physician referral [] Code/Alert [] Routine visit [] Staff referral [] Actively dying [] Patient sleeping [] Family support [] [] Out of room [] Palliative care [] [] Receiving care in room [] Pre-surgical visit [] Trauma [] Long length of stay [] ICU visit [] Other: Relational/Emotional Strength [] Patient feels connected with others/family/visitors/staff [] Distress [] Loneliness/isolation [] Abandonment Spirituality of Patient [] Person of Yuki [] Attends Moravian of their Yuki [] Believes in Prayer [] Reads Bible or Anabaptist materials [] There are Spiritual issues to be addressed Mining Helper Interventions [] Prayer [] Active listening [] Non-anxious presence [] Spiritual/emotional support [] Crisis/trauma care [] Spiritual counseling [] Bereavement support [] Provided bereavement packet [] Provided Bible/devotional materials [] Provided toy/stuffed animal, coloring book to patient or family member [] Provided Communion [] Anointing/[place] [] Salvation [] Completed spiritual assessment [] Other: Impact on Illness or Injury [] Angry [] Fearful [] Anxious [] Often cries [] Exhaustion [] Unable to work [] Unable to attend christian [] Unable to walk/stand [] Unable to read [] Unable to drive [] Unable to eat/drink [] Unable to sleep [] Unable to be with family [] Patient intubated [] Other: Summary Time spent with patient
--- NOTE | 2019-12-26 09:53 | PM.PN ---
Subjective Subjective: Interval history: Patient awake sitting in the chair at time of exam this morning. She reported that her breathing is feeling better. Continues to have some pain in her ribs with deep inspiration but slowly improving each day. Patient denies any chest pain, no nausea, no abdominal pain. Discussed with patient plan for discharge to the [facility] today, she verbalizes understanding and agrees with plan, no concerns at this time. Vitals/I&O/Wt Last Vital Signs Temp 98.1 F 12/26/19 07:48 Pulse 82 12/26/19 07:48 Resp 17 12/26/19 07:48 BP 142/64 12/26/19 07:48 Pulse Ox 95 12/26/19 07:48 12/25/19 12/26/19 12/26/19 22:59 06:59 14:59 Intake Total 830 / 830 240 / 1070 120 / 120 Output Total 402 / 402 1210 / 1612 Balance 428 / 428 -970 / -542 120 / 120 Weight last 48 hrs Weight 71.412 kg Weight 69.853 kg Physical Exam Const: COMMON NORMALS: patient oriented x3 and alert GENERAL APPEARANCE: cooperative ORIENTATION/CONSCIOUSNESS: Yes awake, Yes oriented to person, Yes oriented to place and Yes oriented to time HENMT: COMMON NORMALS: normocephalic and atraumatic HEAD & SCALP: normocephalic and atraumatic Eye: COMMON NORMALS: Equal, round and reactive pupils present PUPIL: Yes Equal, round and reactive pupils present Neck/C-Spine: COMMON NORMALS: supple GENERAL: Yes normal visual inspection Resp: OTHER: Respirations even and unlabored, improved breath sounds in the left side of the chest, no wheezing or rhonchi Cardio: COMMON NORMALS: regular rate, regular rhythm and No murmurs present (Cardio) RATE: regular rate RHYTHM: regular rhythm GI: COMMON NORMALS: Soft to palpation and non-tender INSPECTION: No abdominal distension AUSCULTATION: Yes normoactive bowel sounds PALPATION: Yes Soft to palpation : COMMON NORMALS: Yes no CVA tenderness BLADDER/KIDNEY EXAM: Yes no CVA tenderness Back/Pelvis: COMMON NORMALS: no CVA tenderness Extremity: COMMON NORMALS: no clubbing, cyanosis or edema and no calf tenderness Neuro: COMMON NORMALS: patient oriented x3, CN's II-XII intact bilaterally, moves all extremities and no focal motor deficits SENSORIUM/ORIENTATION: Yes alert, Yes oriented to person, Yes oriented to place and Yes oriented to time SPEECH: speech normal Psych: COMMON NORMALS: mental status grossly normal and cooperative Skin: COMMON NORMALS: no rashes or lesions noted GENERAL SKIN EXAM: no rashes or lesions noted Data : 12/25/19 18:38 12/25/19 18:38 A&P Assessment and plan (1) Pleural effusion: Patient with drain placement on 12/25/[address] Zuleta Patient improved today with improved chest x-ray findings Due to CLL patient's fluid was sent for cytology Status: Acute (2) Fracture, ribs: fracture Posterior left ribs 5-10 Nondisplaced fractures of the anterior lateral left 3rd through 6th ribs IS Pain control Status: Acute Qualifiers: Encounter type: initial encounter Fracture type: closed Laterality: left Rib fracture type: multiple ribs Qualified Code(s): S22.42XA - Multiple fractures of ribs, left side, initial encounter for closed fracture (3) Essential hypertension: continue with metoprolol succinate 100 mg daily Amlodipine 10 mg at bedtime Chlorthalidone 25 mg daily We will continue to hold on Lasix 20 mg at this time Status: Acute (4) Hyperlipidemia: Continue home statin Status: Acute Qualifiers: Hyperlipidemia type: familial hypercholesterolemia Qualified Code(s): E78.01 - Familial hypercholesterolemia (5) Compression fracture: Continue PT/OT and pain control Status: Acute (6) Hemothorax on left: Resolved Status: Acute Additional A&P Information Chronic lymphocytic leukemia: Followed closely by Dr. Peck Chronic anemia: Hemoglobin stable history of CLL Chronic kidney disease: Baseline creatinine appears to be around 1.5 Chronic compression fracture deformity of L4 with retropulsed bone Left hip contusion, improved Osteoporosis Fibromyalgia Plan for discharge today, discussed with cardiothoracic surgeon, Dr. Zuleta. Patient discharged back to [facility] Attestations Medical Necessity Statement*: Plan for discharge back to [facility] today. Coding Level of Care Code Acute Tank Tester for Chg Fwd Diagnoses Pleural effusion J90 Fracture, ribs S22.42XA Encounter type: initial encounter Fracture type: closed Laterality: left Rib fracture type: multiple ribs Essential hypertension I10 Hyperlipidemia E78.01 Hyperlipidemia type: familial hypercholesterolemia Compression fracture Hemothorax on left J94.2
[2019-12-26 11:07] VITALS: BP 142/64; PULSE 82; RESP 17; TEMP 36.7; O2SAT 95
--- NOTE | 2019-12-26 11:13 | PC.NURSE ---
Patient report called to Ana Laura SCOTT at [facility]
--- NOTE | 2019-12-26 11:19 | PC.NURSE ---
Iv Dc'd , cath intact bleeding controlled with 2x2's and coban
--- NOTE | 2019-12-26 11:24 | PC.NURSE ---
Notified patients of transfer back to [facility]
--- NOTE | 2019-12-26 12:10 | PC.NURSE ---
patient to main entrance via wheel chair with no difficulties
--- NOTE | 2019-12-26 16:46 | PC.RESP ---
PATIENT DOES NOT HAVE A QUALIFYING HX OF LUNG DISEASE AND DOES NOT QUALIFY FOR PULMONARY REHAB.
== END 2019-12-26 12:10 | disposition skilled nursing facility (03) | DRG 187 ==
LOC: MEDSURG 14:27
PROVIDERS: Admitting Provider Thoracic Surgery (Cardiothoracic Vascular Surgery); PCP Electrodiagnostic Medicine; Visit Provider Thoracic Surgery (Cardiothoracic Vascular Surgery)
PROC: 0WH Anatomical Regions, General, Insertion (ICD-10-PCS; CPT 32550; principal; 2019-12-25 16:00)
DX: J90 Pleural effusion, not elsewhere classified (principal); C91.10 Chronic lymphocytic leukemia of B-cell type not having achieved remission; S22.42XD Multiple fractures of ribs, left side, subsequent encounter for fracture with routine healing; J94.2 Hemothorax; E78.5 Hyperlipidemia, unspecified; E78.01 Familial hypercholesterolemia; I12.9 Hypertensive chronic kidney disease with stage 1 through stage 4 chronic kidney disease, or unspecified chronic kidney disease; D63.1 Anemia in chronic kidney disease; M79.7 Fibromyalgia; M81.0 Age-related osteoporosis without current pathological fracture; W19.XXXD Unspecified fall, subsequent encounter
CPT/HCPCS: 12345; 36415; 71045; 75989; 76000; 80053; 85025; 85610; 88112; 88305; 93005; 94664; C1729; J0360; J0690; J2704; J3010; J7030; J7799

== ENCOUNTER 2020-01-15 08:18 | Outpatient (CLI) | payer MEDICARE, OTHER, SELFPAY ==
--- NOTE | 2020-01-18 11:19 | ONC FU_ITS ---
Dr. Peck Patient Follow-Up Note Patient: Carlota Sesay Unit #: [id number]: 1935 Dicatated By: Feroz Peck M.D.Date of Visit:Jan 15, 2020 Onc Med Follow-up/Prog Note Chief Complaint: Chronic lymphocytic leukemia. History of Present Illness: This is an 84 year-old woman with chronic lymphocytic leukemia, Varghese stage 0 at initial diagnosis in December 2008. She had presented with a mild leukocytosis. 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 By clinical evaluation she had early stage disease. Observation/expectant management was recommended. Her other medical illnesses include hypertension, hypercholesterolemia, and mild chronic kidney disease. She also has fibromyalgia and she has osteoporosis with associated kyphosis and scoliosis. A bone density study in May 2014 showed a T score of -3.1 in the lumbar spine, -2.9 in the left femoral neck, and -3.1 in the right femoral neck. She started treatment with Prolia in March 2015. In February 2017 she had presented with fairly acute onset of lower back pain. X-ray of the lumbar spine showed disc space narrowing at L4-L5. MRI of the lumbar spine and 02/22/2017 showed subacute L4 inferior endplate compression fracture of about 50%. There was mild to moderate central canal stenosis L4-L5 secondary to the compression fracture, to disc bulging, and to facet joint and ligamentum flavum hypertrophy. She underwent lumbar laminectomy in March 2017. INTERIM HISTORY: On her followup in April 2017 her white blood cell count had increased to 27,300 and her hemoglobin was down slightly to 11.6 g. She was still recovering from the surgery. She otherwise appeared stable clinically, and I opted to just continue her on observation/expectant management. During subsequent follow-up her blood counts had basically remained stable. As of May 2019 there was again a significant increase in her white blood cell count, to 60,000. Hemoglobin was slightly low at 10.9 g but with normal platelet count of 221,000. As of her follow-up visit in November 2019 the white blood cell count was back down to 18,600. Her hemoglobin remained mildly decreased at 10.4 g with platelet count normal at 171,000. At that point she still had very limited activity, but she otherwise appeared stable clinically, and she continued observation/expectant management. On 12/04/2019 she was admitted to the hospital with multiple left rib fractures, sustained as result of a fall at home. She had gotten up at night and fell after she got her feet tangled up. She had associated hemothorax/pleural effusion. There was also CT evidence of hematoma/contusion in the lateral aspect of the left hip. Initially she was managed conservatively, but she was then readmitted to the hospital on 12/25/2019, which time she underwent placement of a Jerod drain in the left chest. She has been in [facility] for recovery. She is seen for a follow-up visit. She still has very limited activity following her recent injury. She is getting physical therapy. Her ECOG score is 3. She has good appetite. Her weight is up a few pounds. She has not had fever. She had one recent episode of sweating during the night. She does have some shortness of breath, but she says her breathing is okay. She does not complain of cough. She still has stabbing pain in her left upper chest and back. She has no GI/ complaints. She says her bowels are moving about every 2 to 3 days. She also has some chronic pain in the lower back. She does not complain of headache or dizziness. She has no focal neurologic symptoms. Medications: Acetaminophen 2 Tablet (of 325 mg) Oral b.i.d. PRN, AmLODIPine Besylate 10 mg - Take 1 Tablet Oral daily, Atorvastatin Calcium 1 Tablet (of 20 mg) Oral daily, Benicar 1 Tablet (of 40 mg) Oral daily, Chlorthalidone 1 Tablet (of 25 mg) Oral daily, Cholecalciferol 1 (2000 Units) Tablet Oral daily, Dulcolax 1 (10 mg) Suppository Rectal daily PRN, Furosemide 1 Tablet (of 20 mg) Oral daily, Gabapentin 2 Capsule (of 100 mg) Oral t.i.d., Glucosamine Chondr 1500 Complx Take 1 Capsule Oral daily, hydrALAZINE HCl 1 Tablet (of 50 mg) Oral b.i.d., HYDROcodone-Acetaminophen 1 Tablet (of 5-325 mg) Oral q 6 hours PRN, Lidoderm 1 (5 %) Patch Topical q 12 hours, Metoprolol Succinate ER 1 Tablet (of 100 mg) Tablet SR 24 HR Oral daily, Milk of Magnesia 30 mL Suspension Oral PRN, Omeprazole 1 Caplet (of 40 mg) Capsule Delayed Release Oral daily, PreserVision AREDS 1 Tablet Oral b.i.d., Prolia 1 (60 mg/mL) Subcutaneous q 26 weeks Allergies: No Known Allergies. Review of Systems: Constitutional - She has no energy. She is mainly sitting in her chair at home. She has activity restriction due to her leg pain. She ambulates only with a wheeled walker. Her appetite is good and weight is down a few pounds. No fever, night sweats, or hot flashes. ECOG score is 3, ENMT - No sinus congestion/drainage. No mouth sores. No sore throat or difficulty swallowing, Hematologic/Lymphatic - She has some bruising, Respiratory - She does have some shortness of breath, but her breathing has been pretty good. No cough or hemoptysis. She does have some discomfort in the left upper back and upper chest area. She still has a chest tube in place, Cardiovascular - No angina pain. No palpitations, Gastrointestinal - No nausea or vomiting. No heartburn or acid reflux. No diarrhea or constipation. She says her bowels move every 2 to 3 days. No blood in the stool or black stools, Genitourinary (F) - No dysuria or hematuria. No urinary frequency. No urgency or incontinence, Musculoskeletal - She also has some residual back pain. The pain she was having in the lower extremities has improved, Integumentary - No skin rash, Neurologic - No headache or dizziness. No numbness or tingling. No other focal neurologic symptoms, Psychiatric - No anxiety or depression. No insomnia. Vital Signs: Performed on Jan 15, 2020 08:26 Height - 66.50 in Weight - 152.2 lbs (HIGH) BSA - 1.79 sq.m BMI - 24.20 Temperature - 98.3 F (LOW) Pulse - 84 /min Respiration - 20 /min BP - 138/56 mm(hg) O2 Sat - 98 % Pain - 0 Physical Examination: Constitutional - She appears somewhat weak generally., Eyes - Sclerae nonicteric. Conjunctivae clear, ENMT - No lesions noted in the oral cavity, Hematologic/Lymphatic - No cervical, clavicular, or axillary adenopathy, Respiratory - Lungs show slightly diminished air movement on the left. There are a few rales present, Cardiovascular - Heart rhythm is regular. There is no murmur, gallop, or rub noted, Abdomen - Soft. Liver and spleen are not enlarged. There is no abdominal mass or ascites noted and there is no inguinal adenopathy, Extremities - No edema, Neurologic - No focal neurologic deficits noted. Lab/Imaging: Her laboratory studies from 12/25/2019 included CBC showing hemoglobin 10.2 g and hematocrit 34.2%. The red cell indices are at the upper limit of normal. The white blood cell count was 23,700 with an absolute neutrophil count of 14,000. Platelet count was 268,000. Comprehensive metabolic profile was unremarkable except for elevated BUN and creatinine at 24 and 1.4 mg/dL. The bilirubin and liver enzymes were normal. Impression: 1. Patient with early stage chronic lymphocytic leukemia, initially diagnosed in 2008. She has just been followed on observation. Her other medical illnesses include: 2. Hypertension. 3. Hyperlipidemia. 4. Chronic kidney disease. 5. Osteoporosis. 6. Fibromyalgia. A CBC in May 2015 had shown a significant increase in her white blood cell count, to 37,000 compared to white blood cell count of 11,800 in January. The specific cause for that was not determined. As of 09/12/2016 the white blood cell count was back down to 16,000, and she just continued on observation. In February 2017 she suffered an L4 vertebral compression fracture. There was associated disc protrusion and mild to moderate central canal stenosis. She underwent lumbar laminectomy in March 2017. On her followup visit in April her white count had increased to 27,000 and her hemoglobin was slightly low 11.6 g. She otherwise appeared stable clinically, and she continued on observation/expectant management. During subsequent follow-up she had gradual improvement in her clinical status, though she continued to have very limited activity. As of May 2019 there was a significant increase in her white blood cell count, to 60,000, but on subsequent studies it returned to baseline. On 12/04/2019 she was admitted to the hospital with multiple rib fractures which she sustained in a fall at home. She has had associated pleural effusion, requiring placement of Harrison drain. She does appear to be showing recovery from that injury, but at this point her activity is still very limited. The main concern with her blood counts is that she is still mildly anemic. The cause for that is uncertain. There have been no other indications of progression of her chronic lymphocytic leukemia, but that is an obvious concern. Plan: She remains on observation/expectant management for the chronic lymphocytic leukemia. I will see her again in 3 months. Signed By: Feroz Peck M.D. <<Signature on File>>
== END 2020-01-15 08:19 | disposition home or self-care (01) ==
LOC: ONCMED 08:20
PROVIDERS: PCP Electrodiagnostic Medicine; Visit Provider Internal Medicine Medical Oncology
DX: C91.10 Chronic lymphocytic leukemia of B-cell type not having achieved remission (principal); D64.9 Anemia, unspecified; I12.9 Hypertensive chronic kidney disease with stage 1 through stage 4 chronic kidney disease, or unspecified chronic kidney disease; N18.9 Chronic kidney disease, unspecified; E78.5 Hyperlipidemia, unspecified; M81.0 Age-related osteoporosis without current pathological fracture; M79.7 Fibromyalgia
CPT/HCPCS: G0463

== ENCOUNTER 2020-02-02 06:28 | Day surgery (SDC) | payer MEDICARE, OTHER, SELFPAY ==
[2020-01-30 17:06] VITALS: BMI 24.1
[2020-02-01 16:24] LABS: Coronavirus Lab Test PTC Negative
--- NOTE | 2020-02-02 06:34 | XR_ITS ---
WS: [id number] PORTABLE CHEST HISTORY: Preop for left pleural drain removal; status post rib fractures and effusion COMPARISON: 12/26/2019 Left-sided chest tube with tip directed to the apex. Improved aeration throughout the LEFT lung as compared to the prior study. Less atelectasis. Pleural- based density in the lower LEFT thorax is probably loculated effusion which is improved. Minimal blun ting of the LEFT costophrenic angle. No pneumothorax. Cardiac size: Normal. Mediastinum/Aorta: Mild atherosclerosis aorta. Osteopenia. XR/XR chest 1V portable [id number] IMPRESSION: 1. LEFT thoracostomy tube with tip directed superiorly. No pneumothorax. 2. Improved aeration throughout the LEFT lung. Minimal persistent lower thorax pleural-based opacification which may be loculated fluid.
[2020-02-02 07:09] VITALS: BP 158/70; PULSE 80; RESP 18; TEMP 37.1; O2SAT 97
--- NOTE | 2020-02-02 07:11 | ANES.PREANE2 ---
Pre-Anesthetic Assessment Pre-Anesthetic Assessment: Height/Weight: Height 1.65 m Weight 65.771 kg Temp Pulse Resp BP Pulse Ox 98.7 F 80 18 158/70 97 02/02/20 07:09 02/02/20 07:09 02/02/20 07:09 02/02/20 07:09 02/02/20 07:09 Preop Diagnosis: Left pleural Jerod drain removal Proposed Procedure: Operation Date: 02/02/20 08:00 Proposed Procedures p [place] Pleural Catheter Removal(Left) - Ángel Zuleta MD Familial anesthetic complications: None Was Beta Beau taken within 24 hours: Yes Last intake: NPO > 8 hrs Social: Social History: No alcohol and No tobacco Exam: Pre-Anes Outpt Exam: alert, oriented x 3, clear to auscultation bilaterally and regular rate & rhythm Airway: Cervical ROM: WNL MP: 3 Dentition: Full Pulmonary: Pulmonary: None reported CV/HEM: CV/HEM: HTN Anesthetic Plan: ASA status: 2 Anesthesia: MAC Risk of > 500 ml blood loss (7ml/kg in children): No PFSH Anesthesia PFSH: Medical History (Updated 12/27/19 @ 00:00 by ) CKD (chronic kidney disease) CLL (chronic lymphocytic leukemia) Essential hypertension Fibromyalgia Hyperlipidemia Osteoporosis Surgical History Previous back surgery S/P cataract extraction S/P hysterectomy Family History Denies family history of Clotting disorder Hypertension Social History Smoking and tobacco status: never smoked Alcohol intake: never Household members: spouse Marital status: service: No Current occupational status: retired Current gender identity: Female Yuki/Baptist: Roman Catholic Data Anesthesia Other Labs: Laboratory Results - last 48 hr 01/30/20 13:26 Nasal/Oral COVID-19 PCR Negative Cardiac Studies: No Data to Display
[2020-02-02] MEDS: sodium chloride 0.9% 1,000 ML 30 ML IV (07:20)
[2020-02-02 07:28] LABS: Basophils # 0.1 10^3/uL (0.0-0.1); Basophils % 0.2 %; Eosinophils # 0.2 10^3/uL (0.0-0.8); Eosinophils % 0.9 %; Hematocrit 38.4 % (37.0-47.0); Hemoglobin 11.9 g/dL (11.5-15.3); Lymphocytes % 67.6 %; Mean Corpuscular Hemoglobin 28.8 pg (28.0-34.0); Mean Platelet Volume 11.5 fL (7.4-10.4); Monocytes # 0.7 10^3/uL (0.2-0.9); Monocytes % 3.1 %; Neutrophils # 6.26 10^3/uL (1.8-7.7); Nucleated Red Blood Cells % 0 %; Platelet Count 210 10^3/cmm (130-400); Red Blood Count 4.13 10^6/uL (4.1-5.3); White Blood Count 22.3 10^3/uL (4.0-10.0)
[2020-02-02 07:44] LABS: Blood Urea Nitrogen 29 mg/dL (8-23); Calcium 9.2 mg/dL (8.5-10.5); Carbon Dioxide 25 mmol/L (22-29); Chloride 102 mmol/L (98-107); Glucose 103 mg/dL (65-115); Osmolality Calculated 289 mOsm/kg (285-295); Sodium 141 mmol/L (136-145)
[2020-02-02 07:49] LABS: Anion Gap 17.4 (5-19); Potassium 3.4 mmol/L (3.5-5.1)
--- NOTE | 2020-02-02 08:05 | PM.OPSURHP ---
Providers/Chief Complaint Primary Care Provider: Nithin Lin DO Chief Complaint: For left pleural drain removal, status post traumatic effusion, resolved History of Present Illness Carlota Sesay is an 84 year old female status post left pleural drain placement for any delayed serosanguineous effusion following a fall with left-sided rib fractures which occurred on December 03. Her drain was placed December 24. She now has minimal output of the drain. Chest x-ray is markedly improved. She presents today for planned drain removal. Review of Systems Const: Denies: fever(s), chills, change in appetite, change in weight, fatigue or night sweats Eyes: Denies: change in vision or blurry vision ENMT: Denies: odynophagia or hoarseness Card: Denies: chest pain, palpitations, irregular heart rhythm or edema Resp: Denies: dyspnea or productive cough GI: Denies: abdominal pain, nausea, vomiting, dysphagia, heartburn or change in bowel habits : Denies: dysuria, urinary frequency, urinary urgency or urinary hesitancy Musc: Denies: extremity pain or extremity swelling Skin/Breast: Denies: rash Neuro: Denies: headache(s), numbness in extremities, weakness in extremities or sensory changes Psych: Denies: anxiety, depression or change in appetite Endo: Denies: polyuria, polydipsia or cold intolerance Tony/Lymph: Denies: easy bruising, easy bleeding, petechiae or enlarged lymph nodes Medications/Allergies Home Medications Medication Instructions Recorded Confirmed Last Taken Type amlodipine 10 mg tablet 10 mg PO BEDTIME tab 06/18/19 02/02/20 02/02/20 04:30 History atorvastatin 20 mg tablet 20 mg PO DAILY tab 06/18/19 02/02/20 02/01/20 History glucosamine HCl 1,500 mg tablet 1,500 mg PO DAILY tab 06/18/19 02/02/20 02/01/20 History metoprolol succinate 100 mg 100 mg PO DAILY tab 06/18/19 02/02/20 02/02/20 04:30 History tablet,extended release 24 hr vit 1 cap PO DAILY cap 06/18/19 02/02/20 02/01/20 History C,E,zinc,Wp-nhslj-7-lutein-zeaxanthin 250 mg-2.5 mg-0.5 mg capsule furosemide 20 mg tablet 20 mg PO DAILY tab 06/19/19 02/02/20 02/01/20 History hydralazine 50 mg tablet 50 mg PO BID #180 tab 06/19/19 02/02/20 02/02/20 04:30 Rx chlorthalidone 25 mg tablet 25 mg PO DAILY 90 Days #90 tab 07/21/19 02/02/20 02/01/20 Rx Prolia See Rx Instructions .ROUTE .COMPLEX 12/04/19 02/02/20 Unknown History acetaminophen [Tylenol] 650 mg PO BID 12/04/19 02/02/20 02/01/20 History cholecalciferol (vitamin D3) 50 mcg PO DAILY 12/04/19 02/02/20 02/01/20 History [Vitamin D3] gabapentin 200 mg PO TID 12/04/19 02/02/20 02/01/20 History olmesartan [Benicar] 40 mg PO DAILY 12/04/19 02/02/20 02/01/20 History omeprazole 40 mg PO QAM 12/04/19 02/02/20 02/01/20 History Allergies Allergy/AdvReac Type Severity Reaction Status Date / Time No Known Allergies Allergy Verified 02/02/20 07:13 PFSH PFSH: Medical History CKD (chronic kidney disease) CLL (chronic lymphocytic leukemia) Essential hypertension Fibromyalgia Hyperlipidemia Osteoporosis Surgical History Previous back surgery S/P cataract extraction S/P hysterectomy Family History Denies family history of Clotting disorder Hypertension Social History Smoking and tobacco status: never smoked Alcohol intake: never Household members: spouse Marital status: service: No Current occupational status: retired Current gender identity: Female Yuki/Lutheran: Scientology Vital Signs Vitals Signs: Last Vital Signs Temp 98.7 F 02/02/20 07:09 Pulse 80 02/02/20 07:09 Resp 18 02/02/20 07:09 BP 158/70 02/02/20 07:09 Pulse Ox 97 02/02/20 07:09 Physical Exam Chest: COMMONS NORMALS: normal inspection of the chest (Left little drain remains in position. Exit point is clean.) Resp: COMMON NORMALS: normal respiratory effort, No retractions, No use of accessory muscles and clear to auscultation bilaterally (There is minimal decrease in breath sounds laterally in the left base.) EFFORT & INSPECTION: Yes able to speak in complete sentences and Yes symmetric chest movement Cardio: COMMON NORMALS: regular rate, regular rhythm, S1 normal heart sound present, No murmurs present (Cardio) and No rub (Cardio) BRUITS: no carotid bruits Extremity: COMMON NORMALS: no clubbing, cyanosis or edema A&P Assessment and plan (1) Pleural effusion, left: Left pleural effusion status post multiple left-sided rib fractures early December with status post drain placement, now with minimal drain output. Plan: We will plan for left pleural drain removal today. Status: Acute Coding Level of Care Code Acute Product Test Specialist for Raf De La Cruz Diagnoses Pleural effusion, left J90
--- NOTE | 2020-02-02 08:20 | ANE.PACU2 ---
Inpatient post-anesthesia follow up: Airway intact: Yes Vital signs: Temperature 98.7 F Pulse Rate 80 Respiratory Rate 18 Blood Pressure 158/70 Pulse Oximetry 97 Oxygen Delivery Me thod Room Air Oxygen Flow Rate Fraction of Inspir ed Oxygen Hydration adequate: Yes Nausea and vomiting: No Mental status: Baseline
[2020-02-02] MEDS: lidocaine 1% INJ 20 mL SUBCUT (08:26)
--- NOTE | 2020-02-02 08:32 | P.OP_ITS ---
Operative Report Date of procedure: February 02, 2020 Pre-op Diagnosis: Left pleural [place] drain removal Post-op diagnosis: same Procedure Done: Left pleural [place] drain removal Specimens removed/disposition: Left pleural drain removed intact Pathology: none sent Surgeon: Ángel Zuleta Anesthesia: MAC and Local Condition: stable Disposition: same day Brief History: 84-year-old female who developed posttraumatic left pleural effusion after suffering a fall with multiple rib fractures on the left side on December 03. After representing with delayed effusion, pleural drain was placed on December 24 with over 1 L recovered. This is slowly decreased and now there is essentially no output from this drain, therefore she presents for planned removal. Details risk procedure carefully and frankly discussed. Proper consents reviewed and signed. Procedure: Ms. Sesay was brought to the operating room suite and carefully positioned with her left chest wall elevated. She received conscious sedation anesthesia monitoring. Her entire left chest was sterilely prepped and draped. 1% lidocaine was infiltrated at the point of exit from the chest wall of this left pleural drain. Blunt dissection was then performed utilizing a small hemostat removed by adhesions to the Velcro cuff, particularly laterally at the skin level. Inline traction was continued until the drain was released and removed intact. Sterile dressing was then applied to the exit point. She tolerated procedure well with stable vital signs without discomfort. She is awakened from IV conscious sedation and taken to the outpatient surgery department in stable condition. Did education counselor with her at completion of the procedure.
[2020-02-02 08:35] VITALS: BP 178/80; PULSE 78; RESP 18; TEMP 36.5; O2SAT 97
--- NOTE | 2020-02-02 08:58 | ANE.PACU2 ---
Inpatient post-anesthesia follow up: Airway intact: Yes Vital signs: Temperature 97.7 F Pulse Rate 78 Respiratory Rate 18 Blood Pressure 178/80 Pulse Oximetry 97 Oxygen Delivery Me thod Room Air Oxygen Flow Rate Fraction of Inspir ed Oxygen Hydration adequate: Yes Nausea and vomiting: No Pain level: 2 Mental status: Baseline
== END 2020-02-02 09:18 | disposition home or self-care (01) ==
PROVIDERS: PCP Electrodiagnostic Medicine; Visit Provider Thoracic Surgery (Cardiothoracic Vascular Surgery)
PROC: (CPT 32552; principal; 2020-02-02 07:50)
DX: Z48.03 Encounter for change or removal of drains (principal); I12.9 Hypertensive chronic kidney disease with stage 1 through stage 4 chronic kidney disease, or unspecified chronic kidney disease; N18.9 Chronic kidney disease, unspecified; M79.7 Fibromyalgia; E78.5 Hyperlipidemia, unspecified; M81.0 Age-related osteoporosis without current pathological fracture; Z85.6 Personal history of leukemia; Z79.01 Long term (current) use of anticoagulants; Z79.899 Other long term (current) drug therapy; S22.42XD Multiple fractures of ribs, left side, subsequent encounter for fracture with routine healing; W19.XXXD Unspecified fall, subsequent encounter
CPT/HCPCS: 32552; 12345; 36415; 71045; 80048; 85025; 87635; 96365; J0690; J2704; J3010; J7030

== ENCOUNTER 2020-05-19 12:54 | Outpatient (CLI) | payer MEDICARE, OTHER, SELFPAY ==
[2020-05-19 13:31] LABS: Basophils # 0.1 10^3/uL (0.0-0.1); Basophils % 0.3 %; Eosinophils # 0.5 10^3/uL (0.0-0.8); Hematocrit 37.8 % (37.0-47.0); Hemoglobin 11.9 g/dL (11.5-15.3); Lymphocytes # 18.7 10^3/uL (0.8-4.8); Mean Corpuscular HGB Conc 31.5 g/dL (30.0-36.0); Mean Corpuscular Hemoglobin 29.8 pg (28.0-34.0); Mean Corpuscular Volume 94.7 fL (81-99); Monocytes # 0.7 10^3/uL (0.2-0.9); Monocytes % 2.9 %; Neutrophils % 19.7 %; Nucleated Red Blood Cells % 0 %; Platelet Count 211 10^3/cmm (130-400); Red Blood Count 3.99 10^6/uL (4.1-5.3)
[2020-05-19 14:33] LABS: Alanine Aminotransferase 19 U/L (0-33); Albumin Level 4.5 g/dL (3.5-5.2); Alkaline Phosphatase 74 IU/L (35-105); Anion Gap 16.3 (5-19); Aspartate Amino Transferase 20 U/L (0-32); Blood Urea Nitrogen 34 mg/dL (8-23); Calcium 10.2 mg/dL (8.5-10.5); Carbon Dioxide 30 mmol/L (22-29); Chloride 97 mmol/L (98-107); Globulin 2.1 g/dL (1.3-4.6); Glucose 133 mg/dL (65-115); Iron 66 ug/dL (37-145); Lactate Dehydrogenase 192 U/L (135-214); Osmolality Calculated 300 mOsm/kg (285-295); Percent Saturation 21.8 % (20-50); Potassium 3.3 mmol/L (3.5-5.1); Sodium 140 mmol/L (136-145); Total Bilirubin 0.5 mg/dL (0.15-1.2); Total Iron Binding Capacity 302 mcg/dl; Total Protein 6.6 g/dL (6.6-8.7); Unsaturated Iron Binding 236 ug/dL (112-347)
[2020-05-19 14:43] LABS: Vitamin B12 776 pg/mL (232-1245)
== END 2020-05-19 12:55 | disposition home or self-care (01) ==
LOC: LAB 12:58
PROVIDERS: PCP Electrodiagnostic Medicine; Visit Provider Internal Medicine Medical Oncology
DX: C91.10 Chronic lymphocytic leukemia of B-cell type not having achieved remission (principal); D64.9 Anemia, unspecified; M81.0 Age-related osteoporosis without current pathological fracture
CPT/HCPCS: 36415; 80053; 82607; 83010; 83540; 83550; 83615; 85025; 85045

== ENCOUNTER 2020-05-20 09:22 | Outpatient (CLI) | payer MEDICARE, OTHER, SELFPAY ==
[2020-05-20] MEDS: denosumab 60 mg SDV SUBCUT (10:14)
--- NOTE | 2020-05-20 19:37 | ONC FU_ITS ---
Dr. Peck Patient Follow-Up Note Patient: Carlota Sesay Unit #: [id number]: 1935 Dicatated By: Feroz Peck M.D.Date of Visit:May 20, 2020 Onc Med Follow-up/Prog Note Chief Complaint: Chronic lymphocytic leukemia. History of Present Illness: This is an 85 year-old woman with chronic lymphocytic leukemia, Varghese stage 0 at initial diagnosis in December 2008. She had presented with a mild leukocytosis. 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 By clinical evaluation she had early stage disease. Observation/expectant management was recommended. Her other medical illnesses include hypertension, hypercholesterolemia, and mild chronic kidney disease. She also has fibromyalgia and she has osteoporosis with associated kyphosis and scoliosis. A bone density study in May 2014 showed a T score of -3.1 in the lumbar spine, -2.9 in the left femoral neck, and -3.1 in the right femoral neck. She started treatment with Prolia in March 2015. In February 2017 she had presented with fairly acute onset of lower back pain. X-ray of the lumbar spine showed disc space narrowing at L4-L5. MRI of the lumbar spine and 02/22/2017 showed subacute L4 inferior endplate compression fracture of about 50%. There was mild to moderate central canal stenosis L4-L5 secondary to the compression fracture, to disc bulging, and to facet joint and ligamentum flavum hypertrophy. She underwent lumbar laminectomy in March 2017. INTERIM HISTORY: On her followup in April 2017 her white blood cell count had increased to 27,300 and her hemoglobin was down slightly to 11.6 g. She was still recovering from the surgery. She otherwise appeared stable clinically, and I opted to just continue her on observation/expectant management. During subsequent follow-up her blood counts had basically remained stable. As of May 2019 there was again a significant increase in her white blood cell count, to 60,000. Hemoglobin was slightly low at 10.9 g but with normal platelet count of 221,000. As of her follow-up visit in November 2019 the white blood cell count was back down to 18,600. Her hemoglobin remained mildly decreased at 10.4 g with platelet count normal at 171,000. At that point she still had very limited activity, but she otherwise appeared stable clinically, and she continued observation/expectant management. On 12/04/2019 she was admitted to the hospital with multiple left rib fractures, sustained as result of a fall at home. She had gotten up at night and fell after she got her feet tangled up. She had associated hemothorax/pleural effusion. There was also CT evidence of hematoma/contusion in the lateral aspect of the left hip. Initially she was managed conservatively, but she was then readmitted to the hospital on 12/25/2019, which time she underwent placement of a Jerod drain in the left chest. She was admitted to [facility] for recovery. She subsequently was able to return home. She is seen for a follow-up visit. She has been doing a little better generally. She is still slow and she has limited activity, but she is able to ambulate with a walker. ECOG score is 3. Her appetite is good. She has no fever or night sweats. She does not complain of shortness of breath or cough. She still has some discomfort in her upper left chest and upper back. She has no GI/ complaints other than occasional heartburn, which she manages with Tums. She is not having any other significant joint or bone pain at this time. She does complain that her legs are weak. She has some difficulty with balance. She has no focal neurologic symptoms. Medications: Acetaminophen 2 Tablet (of 500 mg) Oral b.i.d. PRN, AmLODIPine Besylate 10 mg - Take 1 Tablet Oral daily, Atorvastatin Calcium 1 Tablet (of 20 mg) Oral daily, Benicar 1 Tablet (of 40 mg) Oral daily, Centrum Silver 1 Tablet Oral daily, Chlorthalidone 1 Tablet (of 25 mg) Oral daily, Cholecalciferol 1 (2000 Units) Tablet Oral daily, Furosemide 1 Tablet (of 20 mg) Oral daily, Gabapentin 2 Capsule (of 100 mg) Oral t.i.d., hydrALAZINE HCl 1 Tablet (of 50 mg) Oral b.i.d., HYDROcodone-Acetaminophen 1 Tablet (of 5-325 mg) Oral q 6 hours PRN, Metoprolol Succinate ER 1 Tablet (of 100 mg) Tablet SR 24 HR Oral daily, Milk of Magnesia 30 mL Suspension Oral PRN, PreserVision AREDS 1 Tablet Oral b.i.d., Prolia 1 (60 mg/mL) Subcutaneous q 26 weeks, Zinc 1 Tablet (of 50 mg) Oral daily Allergies: No Known Allergies. Review of Systems: Constitutional - She still has very limited activity, but she is able to ambulate with a walker. She has good appetite. She has no fever or night sweats. ECOG score is 3, ENMT - No sinus congestion/drainage. No mouth sores. No sore throat or difficulty swallowing, Hematologic/Lymphatic - No abnormal bruising or bleeding, Respiratory - No shortness of breath. No cough. No pleuritic pain or hemoptysis, Cardiovascular - No angina pain. No palpitations, Gastrointestinal - No nausea or vomiting. She has occasional heartburn. She manages it adequately with Tums. No diarrhea or constipation. No blood in the stool or black stools, Genitourinary (F) - No dysuria or hematuria. No urinary frequency. No urgency or incontinence, Musculoskeletal - She still has some pain in her upper chest and upper back. She currently is not having any other joint or bone pain, she does complain that her legs are weak, Integumentary - No skin rash, Neurologic - No headache or dizziness. She does have some difficulty with balance. No numbness or tingling. No other focal neurologic symptoms, Psychiatric - No anxiety. She occasionally has depression. No insomnia. Vital Signs: Performed on May 20, 2020 09:29 Height - 66.50 in Weight - 151.6 lbs (LOW) BSA - 1.79 sq.m BMI - 24.10 Temperature - 99.2 F (HIGH) Pulse - 80 /min Respiration - 18 /min BP - 125/61 mm(hg) O2 Sat - 98 % Pain - 0 Physical Examination: Constitutional - She appears somewhat frail generally, Eyes - Sclerae nonicteric. Conjunctivae clear, ENMT - No lesions noted in the oral cavity, Hematologic/Lymphatic - No cervical, clavicular, or axillary adenopathy, Respiratory - Lungs sound clear, Cardiovascular - Heart rhythm is regular. There is a II/ systolic murmur. There is no gallop or rub noted, Abdomen - Soft. Liver and spleen are not enlarged. There is no abdominal mass or ascites noted and there is no inguinal adenopathy, Extremities - No edema, Neurologic - No focal neurologic deficits noted. Lab/Imaging: CBC shows hemoglobin 11.9 g, white blood cell count 25,000, and platelet count 211,000. The absolute lymphocyte count is 18,700. Comprehensive metabolic profile shows elevated BUN and creatinine at 34 and 1.6 mg/dL. Potassium is slightly low at 3.3 mmol/L. Liver enzymes are normal. LDH is normal at 192 U/L. Her serum iron studies show normal transferrin saturation at 21.8%. Impression: 1. Patient with early stage chronic lymphocytic leukemia, initially diagnosed in 2008. She has just been followed on observation. Her other medical illnesses include: 2. Hypertension. 3. Hyperlipidemia. 4. Chronic kidney disease. 5. Osteoporosis. 6. Fibromyalgia. A CBC in May 2015 had shown a significant increase in her white blood cell count, to 37,000 compared to white blood cell count of 11,800 in January. The specific cause for that was not determined. As of 09/12/2016 the white blood cell count was back down to 16,000, and she just continued on observation. In February 2017 she suffered an L4 vertebral compression fracture. There was associated disc protrusion and mild to moderate central canal stenosis. She underwent lumbar laminectomy in March 2017. On her followup visit in April her white count had increased to 27,000 and her hemoglobin was slightly low 11.6 g. She otherwise appeared stable clinically, and she continued on observation/expectant management. During subsequent follow-up she had gradual improvement in her clinical status, though she continued to have very limited activity. As of May 2019 there was a significant increase in her white blood cell count, to 60,000, but on subsequent studies it returned to baseline. On 12/04/2019 she was admitted to the hospital with multiple rib fractures which she sustained in a fall at home. She had associated pleural effusion, requiring placement of Jerod drain. She did require temporary fdc placement following that injury, but she recovered uneventfully. During follow-up she continued to have very limited activity. She also was noted to be mildly anemic, but that does appear to be improving. Thus far there has still been no indication for treatment of her chronic lymphocytic leukemia. Plan: She remains on observation/expectant management for the chronic lymphocytic leukemia. She will be given Prolia 60 mg by subcutaneous injection for the osteoporosis. I will see her again in 6 months. Signed By: Feroz Peck M.D. <<Signature on File>>
== END 2020-05-20 09:23 | disposition home or self-care (01) ==
LOC: ONCMED 09:25
PROVIDERS: PCP Electrodiagnostic Medicine; Visit Provider Internal Medicine Medical Oncology
DX: Z08 Encounter for follow-up examination after completed treatment for malignant neoplasm (principal); Z85.72 Personal history of non-Hodgkin lymphomas; M81.0 Age-related osteoporosis without current pathological fracture; I10 Essential (primary) hypertension; E78.5 Hyperlipidemia, unspecified; N18.9 Chronic kidney disease, unspecified; M79.7 Fibromyalgia; Z79.899 Other long term (current) drug therapy
CPT/HCPCS: 96372; G0463; J0897

== ENCOUNTER 2020-11-22 10:20 | Outpatient (CLI) | payer MEDICARE, OTHER, SELFPAY ==
[2020-11-22 11:00] LABS: Basophils # 0.1 10^3/uL (0.0-0.1); Basophils % 0.2 %; Eosinophils # 0.3 10^3/uL (0.0-0.8); Eosinophils % 1.2 %; Hemoglobin 12.1 g/dL (11.5-15.3); Lymphocytes # 17.9 10^3/uL (0.8-4.8); Lymphocytes % 71.8 %; Mean Corpuscular HGB Conc 32.7 g/dL (30.0-36.0); Mean Corpuscular Hemoglobin 30.9 pg (28.0-34.0); Mean Corpuscular Volume 94.6 fL (81-99); Mean Platelet Volume 10.8 fL (7.4-10.4); Monocytes # 0.9 10^3/uL (0.2-0.9); Monocytes % 3.6 %; Neutrophils # 5.75 10^3/uL (1.8-7.7); Nucleated Red Blood Cells % 0 %; Platelet Count 200 10^3/cmm (130-400); Red Blood Count 3.91 10^6/uL (4.1-5.3); White Blood Count 24.9 10^3/uL (4.0-10.0)
[2020-11-22 11:26] LABS: Alanine Aminotransferase 12 U/L (0-33); Albumin Level 4.4 g/dL (3.5-5.2); Alkaline Phosphatase 66 IU/L (35-105); Anion Gap 15.6 (5-19); Aspartate Amino Transferase 15 U/L (0-32); Blood Urea Nitrogen 42 mg/dL (8-23); Calcium 9.2 mg/dL (8.5-10.5); Carbon Dioxide 32 mmol/L (22-29); Chloride 96 mmol/L (98-107); Globulin 1.8 g/dL (1.3-4.6); Glucose 83 mg/dL (65-115); Lactate Dehydrogenase 169 U/L (135-214); Osmolality Calculated 300 mOsm/kg (285-295); Potassium 3.6 mmol/L (3.5-5.1); Sodium 140 mmol/L (136-145); Total Bilirubin 0.4 mg/dL (0.15-1.2); Total Protein 6.2 g/dL (6.6-8.7)
[2020-11-22 11:55] LABS: Iron 45 ug/dL (37-145); Percent Saturation 15.5 % (20-50); Total Iron Binding Capacity 290 mcg/dl; Unsaturated Iron Binding 245 ug/dL (112-347)
== END 2020-11-22 10:21 | disposition home or self-care (01) ==
LOC: ONCMED 10:26
PROVIDERS: PCP Electrodiagnostic Medicine; Visit Provider Internal Medicine Medical Oncology
DX: C91.10 Chronic lymphocytic leukemia of B-cell type not having achieved remission (principal); D50.9 Iron deficiency anemia, unspecified; Z79.899 Other long term (current) drug therapy
CPT/HCPCS: 36415; 80053; 83540; 83550; 83615; 85025

== ENCOUNTER 2020-11-23 06:03 | Outpatient (CLI) | payer MEDICARE, OTHER, SELFPAY ==
[2020-11-23] MEDS: denosumab 60 mg SDV SUBCUT (13:10)
--- NOTE | 2020-11-27 13:15 | ONC FU_ITS ---
Dr. Peck Patient Follow-Up Note Patient: Carlota Sesay Unit #: [id number]: 1935 Dicatated By: Feroz Peck M.D.Date of Visit:Nov 23, 2020 Onc Med Follow-up/Prog Note Chief Complaint: Chronic lymphocytic leukemia. History of Present Illness: This is an 85 year-old woman with chronic lymphocytic leukemia, Varghese stage 0 at initial diagnosis in December 2008. She had presented with a mild leukocytosis. 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 By clinical evaluation she had early stage disease and she was followed on bservation/expectant management. In February 2017 she had presented with fairly acute onset of lower back pain. X-ray of the lumbar spine showed disc space narrowing at L4-L5. MRI of the lumbar spine and 02/22/2017 showed subacute L4 inferior endplate compression fracture of about 50%. There was mild to moderate central canal stenosis L4-L5 secondary to the compression fracture, to disc bulging, and to facet joint and ligamentum flavum hypertrophy. She underwent lumbar laminectomy in March 2017. On her followup in April 2017 her white blood cell count had increased to 27,300 and her hemoglobin was down slightly to 11.6 g. She was still recovering from the surgery. She otherwise appeared stable clinically, and I opted to just continue her on observation/expectant management. During subsequent follow-up her blood counts had basically remained stable. As of May 2019 there was again a significant increase in her white blood cell count, to 60,000. Hemoglobin was slightly low at 10.9 g but with normal platelet count of 221,000. As of her follow-up visit in November 2019 the white blood cell count was back down to 18,600. Her hemoglobin remained mildly decreased at 10.4 g with platelet count normal at 171,000. At that point she still had very limited activity, but she otherwise appeared stable clinically, and she continued observation/expectant management. Her other medical illnesses include hypertension, hypercholesterolemia, and mild chronic kidney disease. She also has fibromyalgia and she has osteoporosis with associated kyphosis and scoliosis. A bone density study in May 2014 showed a T score of -3.1 in the lumbar spine, -2.9 in the left femoral neck, and -3.1 in the right femoral neck. She started treatment with Prolia in March 2015. INTERIM HISTORY: On 12/04/2019 she was admitted to the hospital with multiple left rib fractures, sustained as result of a fall at home. She had gotten up at night and fell after she got her feet tangled up. She had associated hemothorax/pleural effusion. There was also CT evidence of hematoma/contusion in the lateral aspect of the left hip. Initially she was managed conservatively, but she subsequently required placement of a [place] drain in the left chest. She was admitted to [facility] for recovery, but she was then able to return home. She is seen for a follow-up visit. She has been feeling pretty good generally, though she still does not have much energy and her activity remains very limited. ECOG score is 2. Her appetite has been down a lot. She complains that nothing tastes right. She has lost about 10 pounds. She does not have fever or night sweats. She has not had sore throat or difficulty swallowing. She has no shortness of breath, cough, or chest pain. She has no GI complaints. She does have some urgency with urination and some associated incontinence. She has lower back pain, which is chronic. She does not complain of headache. She has had ongoing problems with her balance, and she does use a walker for ambulation. She has no numbness/paresthesia or other focal neurologic symptoms. Medications: Acetaminophen 2 Tablet (of 500 mg) Oral b.i.d. PRN, AmLODIPine Besylate 10 mg - Take 1 Tablet Oral daily, Atorvastatin Calcium 1 Tablet (of 20 mg) Oral daily, Benicar 1 Tablet (of 40 mg) Oral daily, Centrum Silver 1 Tablet Oral daily, Chlorthalidone 1 Tablet (of 25 mg) Oral daily, Cholecalciferol 1 (2000 Units) Tablet Oral daily, Furosemide 1 Tablet (of 20 mg) Oral daily, Gabapentin 2 Capsule (of 100 mg) Oral t.i.d., hydrALAZINE HCl 1 Tablet (of 50 mg) Oral b.i.d., HYDROcodone-Acetaminophen 1 Tablet (of 5-325 mg) Oral q 6 hours PRN, Metoprolol Succinate ER 1 Tablet (of 100 mg) Tablet SR 24 HR Oral daily, Milk of Magnesia 30 mL Suspension Oral PRN, PreserVision AREDS 1 Tablet Oral b.i.d., Prolia 1 (60 mg/mL) Subcutaneous q 26 weeks, Zinc 1 Tablet (of 50 mg) Oral daily Allergies: No Known Allergies. Vital Signs: Performed on Nov 23, 2020 14:17 Height - 66.50 in Weight - 141 lbs (LOW) BSA - 1.73 sq.m BMI - 22.42 Temperature - 98.1 F (LOW) Pulse - 63 /min Respiration - 18 /min BP - 179/74 mm(hg) (HIGH) O2 Sat - 98 % Pain - 0 Fatigue - 4 Physical Examination: Constitutional - She appears somewhat frail generally, Eyes - Sclerae nonicteric. Conjunctivae clear, ENMT - No lesions noted in the oral cavity, Hematologic/Lymphatic - No cervical, clavicular, or axillary adenopathy, Respiratory - Lungs sound clear, Cardiovascular - Heart rhythm is regular. There is a II/ systolic murmur. There is no gallop or rub noted, Abdomen - Soft. Liver and spleen are not enlarged. There is no abdominal mass or ascites noted and there is no inguinal adenopathy, Extremities - No edema, Neurologic - No focal neurologic deficits noted. Lab/Imaging: CBC shows hemoglobin 12.1 g, white blood cell count 24,900, and platelet count 200,000. The differential shows 71% lymphocytes, 23% neutrophils, 3% monocytes, and 1% eosinophils. Comprehensive metabolic profile shows elevated BUN and creatinine at 42 and 1.7 mg/dL. Bilirubin and liver enzymes are normal. LDH is normal at 160 9U/L. Problem List: 1. Chronic lymphocytic leukemia, Varghese stage 0 at initial diagnosis in 2008. She has been followed expectantly. 2. Hypertension. 3. Hyperlipidemia. 4. Chronic kidney disease. 5. Osteoporosis. 6. Fibromyalgia. A CBC in May 2015 had shown a significant increase in her white blood cell count, to 37,000 compared to white blood cell count of 11,800 in January. The specific cause for that was not determined. As of 09/12/2016 the white blood cell count was back down to 16,000, and she just continued on observation. In February 2017 she suffered an L4 vertebral compression fracture. There was associated disc protrusion and mild to moderate central canal stenosis. She underwent lumbar laminectomy in March 2017. On her followup visit in April her white count had increased to 27,000 and her hemoglobin was slightly low 11.6 g. She otherwise appeared stable clinically, and she continued on observation/expectant management. During subsequent follow-up she had gradual improvement in her clinical status, though she continued to have very limited activity. As of May 2019 there was a significant increase in her white blood cell count, to 60,000, but on subsequent studies it returned to baseline. On 12/04/2019 she was admitted to the hospital with multiple rib fractures which she sustained in a fall at home. She had associated pleural effusion, requiring placement of [place] drain. She did require temporary intermediate placement following that injury, but she recovered uneventfully. During follow-up she continued to have very limited activity. She also was noted to be mildly anemic, but that does appear to be improving. Thus far there has still been no indication for treatment of her chronic lymphocytic leukemia. Problems Addressed with this Encounter and Plan: 1. Patient with chronic lymphocytic leukemia, Varghese stage 0 at initial diagnosis in 2008. She has been followed expectantly. 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 She then had additional problems with traumatic injuries she sustained as result of a fall at home in December 2019. As such, she has continued to have very limited activity, but thus far there has been no indication for treatment of the chronic lymphocytic leukemia. She remains on observation/expectant management. I will see her again in 6 months. 2. She has osteoporosis. She is due for her scheduled 6-month interval dosage of Prolia, 60 mg administered by subcutaneous injection. Signed By: Feroz Peck M.D. <<Signature on File>>
== END 2020-11-23 06:04 | disposition home or self-care (01) ==
LOC: ONCMED 06:05
PROVIDERS: PCP Electrodiagnostic Medicine; Visit Provider Internal Medicine Medical Oncology
DX: M81.0 Age-related osteoporosis without current pathological fracture (principal)
CPT/HCPCS: 96372; 99214; J0897

== ENCOUNTER 2021-05-12 13:30 | Outpatient (CLI) | payer MEDICARE, OTHER, SELFPAY ==
[2021-05-12 14:24] LABS: Alanine Aminotransferase 14 U/L (0-33); Albumin Level 4.3 g/dL (3.5-5.2); Alkaline Phosphatase 72 IU/L (35-105); Anion Gap 12.9 (5-19); Aspartate Amino Transferase 18 U/L (0-32); Blood Urea Nitrogen 36 mg/dL (8-23); Calcium 8.9 mg/dL (8.5-10.5); Carbon Dioxide 34 mmol/L (22-29); Chloride 97 mmol/L (98-107); Globulin 2.1 g/dL (1.3-4.6); Glucose 83 mg/dL (65-115); Lactate Dehydrogenase 159 U/L (135-214); Osmolality Calculated 297 mOsm/kg (285-295); Potassium 3.9 mmol/L (3.5-5.1); Sodium 140 mmol/L (136-145); Total Bilirubin 0.4 mg/dL (0.15-1.2); Total Protein 6.4 g/dL (6.6-8.7)
[2021-05-12 14:54] LABS: Basophils # 0.1 10^3/uL (0.0-0.1); Basophils % 0.3 %; Eosinophils # 0.2 10^3/uL (0.0-0.8); Eosinophils % 0.9 %; Hematocrit 36.8 % (37.0-47.0); Hemoglobin 12.2 g/dL (11.5-15.3); Lymphocytes # 19.7 10^3/uL (0.8-4.8); Lymphocytes % 76.7 %; Mean Corpuscular HGB Conc 33.2 g/dL (30.0-36.0); Mean Corpuscular Hemoglobin 31.8 pg (28.0-34.0); Mean Corpuscular Volume 95.8 fl (81-99); Mean Platelet Volume 10.9 fL (7.4-10.4); Monocytes # 0.7 10^3/uL (0.2-0.9); Monocytes % 2.7 %; Neutrophils # 4.94 10^3/uL (1.8-7.7); Neutrophils % 19.2 %; Nucleated Red Blood Cells % 0 %; Platelet Count 222 10^3/cmm (130-400); Red Blood Count 3.84 10^6/uL (4.1-5.3); Red Cell Distribution Width 13.2 % (12.1-15.1); White Blood Count 25.7 10^3/uL (4.0-10.0)
[2021-05-12 14:58] LABS: Slide Review Slide Review Perform
== END 2021-05-12 13:31 | disposition home or self-care (01) ==
LOC: ONCMED 13:34
PROVIDERS: Nurse Practitioner; PCP Electrodiagnostic Medicine; Visit Provider Internal Medicine Medical Oncology
DX: C91.10 Chronic lymphocytic leukemia of B-cell type not having achieved remission (principal); D64.9 Anemia, unspecified
CPT/HCPCS: 36415; 80053; 83615; 85025

== ENCOUNTER 2021-05-18 07:12 | Outpatient (CLI) | payer MEDICARE, OTHER, SELFPAY ==
[2021-05-18] MEDS: denosumab 60 mg SDV SUBCUT (16:03)
--- NOTE | 2021-05-22 11:24 | ONC FU_ITS ---
Dr. Peck Patient Follow-Up Note Patient: Carlota Sesay Unit #: [id number]: 1935 Dicatated By: Feroz Peck M.D.Date of Visit:May 18, 2021 Onc Med Follow-up/Prog Note Chief Complaint: Chronic lymphocytic leukemia. History of Present Illness: This is an 86 year-old woman with chronic lymphocytic leukemia, Varghese stage 0 at initial diagnosis in December 2008. She had presented with a mild leukocytosis. 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 By clinical evaluation she had early stage disease and she was followed on bservation/expectant management. In February 2017 she had presented with fairly acute onset of lower back pain. X-ray of the lumbar spine showed disc space narrowing at L4-L5. MRI of the lumbar spine and 02/22/2017 showed subacute L4 inferior endplate compression fracture of about 50%. There was mild to moderate central canal stenosis L4-L5 secondary to the compression fracture, to disc bulging, and to facet joint and ligamentum flavum hypertrophy. She underwent lumbar laminectomy in March 2017. On her followup in April 2017 her white blood cell count had increased to 27,300 and her hemoglobin was down slightly to 11.6 g. She was still recovering from the surgery. She otherwise appeared stable clinically, and I opted to just continue her on observation/expectant management. During subsequent follow-up her blood counts had basically remained stable. As of May 2019 there was again a significant increase in her white blood cell count, to 60,000. Hemoglobin was slightly low at 10.9 g but with normal platelet count of 221,000. As of her follow-up visit in November 2019 the white blood cell count was back down to 18,600. Her hemoglobin remained mildly decreased at 10.4 g with platelet count normal at 171,000. At that point she still had very limited activity, but she otherwise appeared stable clinically, and she continued observation/expectant management. Her other medical illnesses include hypertension, hypercholesterolemia, and mild chronic kidney disease. She also has fibromyalgia and she has osteoporosis with associated kyphosis and scoliosis. A bone density study in May 2014 showed a T score of -3.1 in the lumbar spine, -2.9 in the left femoral neck, and -3.1 in the right femoral neck. She started treatment with Prolia in March 2015. INTERIM HISTORY: On 12/04/2019 she was admitted to the hospital with multiple left rib fractures, sustained as result of a fall at home. She had gotten up at night and fell after she got her feet tangled up. She had associated hemothorax/pleural effusion. There was also CT evidence of hematoma/contusion in the lateral aspect of the left hip. Initially she was managed conservatively, but she subsequently required placement of a [place] drain in the left chest. She was admitted to [facility] for recovery, but she was then able to return home. She is seen for a follow-up visit. She complains that she feels tired all the time, and she says her legs get really weak with activity. She is able to do light housework. ECOG score is 1. She has good appetite. She has no fever or night sweats. She complains that she is always cold. She has not had sore mouth or throat. She has nonproductive cough. She does not complain of shortness of breath or chest pain. She has nausea, but it is adequately managed with medication. She has no other GI complaints. She does have some bladder incontinence. She has no significant joint or bone pain. She does not complain of headache or dizziness, and she has no focal neurologic symptoms. Medications: Acetaminophen 2 Tablet (of 500 mg) Oral b.i.d. PRN, AmLODIPine Besylate 10 mg - Take 1 Tablet Oral daily, Atorvastatin Calcium 1 Tablet (of 20 mg) Oral daily, Benicar 1 Tablet (of 40 mg) Oral daily, Centrum Silver 1 Tablet Oral daily, Chlorthalidone 1 Tablet (of 25 mg) Oral daily, Cholecalciferol 1 (2000 Units) Tablet Oral daily, Furosemide 1 Tablet (of 20 mg) Oral daily, Gabapentin 2 Capsule (of 100 mg) Oral t.i.d., hydrALAZINE HCl 1 Tablet (of 50 mg) Oral b.i.d., HYDROcodone-Acetaminophen 1 Tablet (of 5-325 mg) Oral q 6 hours PRN, Metoprolol Succinate ER 1 Tablet (of 100 mg) Tablet SR 24 HR Oral daily, Milk of Magnesia 30 mL Suspension Oral PRN, Omeprazole 1 Tablet (of 20 mg) Tablet, enteric coated Oral daily, PreserVision AREDS 1 Tablet Oral b.i.d., Prolia 1 (60 mg/mL) Subcutaneous q 26 weeks, Zinc 1 Tablet (of 50 mg) Oral daily Allergies: No Known Allergies. Vital Signs: Performed on May 18, 2021 16:11 Height - 66.50 in Weight - 142.6 lbs (HIGH) BSA - 1.74 sq.m BMI - 22.67 Temperature - 98.6 F Pulse - 71 /min Respiration - 18 /min BP - 137/77 mm(hg) O2 Sat - 97 % Pain - 0 Fatigue - 5 Physical Examination: Constitutional - She appears somewhat frail generally, Eyes - Sclerae nonicteric. Conjunctivae clear, ENMT - No lesions noted in the oral cavity, Hematologic/Lymphatic - No cervical, clavicular, or axillary adenopathy, Respiratory - Lungs sound clear, Cardiovascular - Heart rhythm is regular. There is a II/ systolic murmur. There is no gallop or rub noted, Abdomen - Soft. Liver and spleen are not enlarged. There is no abdominal mass or ascites noted and there is no inguinal adenopathy, Extremities - No edema, but her legs are wrapped, Neurologic - No focal neurologic deficits noted. Lab/Imaging: CBC shows hemoglobin 12.2 g, white blood cell count 25,700, and platelet count 222,000. The differential shows 19% neutrophils, 76% lymphocytes, and 2% monocytes. Comprehensive metabolic profile shows stable renal function with BUN 36 and creatinine 1.5 mg/dL. Bilirubin and liver enzymes are normal. LDH is normal at 159 U/L. Problem List: 1. Chronic lymphocytic leukemia, Varghese stage 0 at initial diagnosis in 2008. She has been followed expectantly. 2. Hypertension. 3. Hyperlipidemia. 4. Chronic kidney disease. 5. Osteoporosis. 6. Fibromyalgia. Problems Addressed with this Encounter and Plan: 1. Patient with chronic lymphocytic leukemia, Varghese stage 0 at initial diagnosis in 2008. She has been followed expectantly. 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 She then had additional problems with traumatic injuries she sustained as result of a fall at home in December 2019. She did show gradual recovery, but during follow-up she has continued to have fairly limited activity. At this point her clinical status appears stable. Thus far there has been no significant progression of the chronic lymphocytic leukemia and no indication for treatment. She continues on observation/expectant management. I will see her again in 6 months. 2. She has osteoporosis. She will be given Prolia 60 mg administered by subcutaneous injection. She will be scheduled for treatment again in 6 months. Signed By: Feroz Peck M.D. <<Signature on File>>
== END 2021-05-18 07:13 | disposition home or self-care (01) ==
LOC: ONCMED 07:13
PROVIDERS: PCP Electrodiagnostic Medicine; Visit Provider Internal Medicine Medical Oncology
DX: Z08 Encounter for follow-up examination after completed treatment for malignant neoplasm (principal); Z85.6 Personal history of leukemia; I12.9 Hypertensive chronic kidney disease with stage 1 through stage 4 chronic kidney disease, or unspecified chronic kidney disease; E78.5 Hyperlipidemia, unspecified; N18.9 Chronic kidney disease, unspecified; M81.0 Age-related osteoporosis without current pathological fracture; M79.7 Fibromyalgia; M51.36 Other intervertebral disc degeneration, lumbar region; M48.061 Spinal stenosis, lumbar region without neurogenic claudication; Z79.899 Other long term (current) drug therapy
CPT/HCPCS: 96372; 99214; J0897

== ENCOUNTER 2021-09-11 07:24 | Emergency (ER) | payer MEDICARE, SELFPAY ==
[2021-09-11 07:36] VITALS: BP 157/78; PULSE 91; RESP 15; O2SAT 96; BMI 23.3
--- NOTE | 2021-09-11 07:52 | XRR_ITS ---
PROCEDURE INFORMATION: Exam: XR Left Ankle Exam date and time: 09/11/2021 8:06 AM Age: 86 years old Clinical indication: Injury or trauma; Fall; Sprain or strain; Ankle; Left; Additional info: Injury/pain TECHNIQUE: Imaging protocol: XR Left ankle. Views: 3 or more views. COMPARISON: No relevant prior studies available. FINDINGS: Bones/joints: Osseous structures are intact. Negative for fracture. Joint spaces are preserved. Soft tissues: Normal. XR/XR ankle LT min 3V* [id number] IMPRESSION: No acute findings.
--- NOTE | 2021-09-11 07:52 | XRR_ITS ---
PROCEDURE INFORMATION: Exam: XR Left Foot Exam date and time: 09/11/2021 8:06 AM Age: 86 years old Clinical indication: Injury or trauma; Fall; Sprain or strain; Foot; Left; Additional info: Injury/pain TECHNIQUE: Imaging protocol: XR Left foot. Views: 3 or more views. COMPARISON: No relevant prior studies available. FINDINGS: Bones/joints: Osseous structures are intact. Negative for fracture. Joint spaces are preserved. Soft tissues: Normal. XR/XR foot LT min 3V* [id number] IMPRESSION: No acute findings.
--- NOTE | 2021-09-11 07:53 | W.ED.LOWEXIN ---
HPI - Extremity Injury (Lower) General: Chief Complaint: Extremity Injury, Lower Stated Complaint: Left Ankle/Foot injury, unable to walk on it Time Seen by Provider: 09/11/21 07:27 Source: patient and family () Mode of arrival: wheelchair Limitations: no limitations History of Present Illness: Patient is a nice 86-year-old female who presents to ED today along with her for concerns of a left foot and ankle injury. Patient states yesterday she was in her bathroom and states her legs buckled causing her to fall. She states she believes the foot and ankle somehow got twisted behind her. She denies any other injuries or complaints related to the fall. She states her bilateral lower extremity weakness has been present for several weeks now. She is following up with her PCP Dr. Lin as she was also having some back pain with this. She recently underwent imaging ordered by him. Patient states she will continue following up with him for this complaint. She is just requesting evaluation for her foot/ankle. MD complaint: ankle injury and foot injury Onset (ago): day(s) (yesterday) Injury: Left: ankle and foot Place: home Relieving factors: immobilization Exacerbating factors: weight bearing, movement and palpation Other symptoms: none Review of Systems Const: Denies: fever(s), chills, body aches or fatigue Card: Denies: chest pain, palpitations, lightheadedness, syncope or pre-syncope Resp: Denies: dyspnea Musc: Reports: back pain (chronic-at baseline), extremity pain (L foot) and joint pain (L ankle); Denies: neck pain, extremity swelling, joint redness or joint warmth Neuro: Reports: weakness in extremities (bilateral LEs); Denies: headache(s), numbness in extremities or sensory changes PFS ED PFSH: Medical History CKD (chronic kidney disease) CLL (chronic lymphocytic leukemia) Essential hypertension Fibromyalgia Hyperlipidemia Osteoporosis Pleural effusion, left Surgical History Previous back surgery S/P cataract extraction S/P hysterectomy Family History Denies family history of Clotting disorder Hypertension Social History Smoking and tobacco status: never smoked Alcohol intake: never Household members: spouse Marital status: service: No Current occupational status: retired Current gender identity: Female Yuki/B[employer]ist: Hinduism Physical Exam Const: COMMON NORMALS: no acute distress, average body habitus, patient oriented x3, no limitations, healthy appearing, alert and well nourished GENERAL APPEARANCE: cooperative ORIENTATION/CONSCIOUSNESS: Yes awake, Yes oriented to person, Yes oriented to place and Yes oriented to time HENMT: COMMON NORMALS: normocephalic and atraumatic HEAD & SCALP: normocephalic and atraumatic Extremity: COMMON NORMALS: normal to inspection GENERAL: Yes normal exam except as noted LEFT LOWER EXTREMITY: Yes ankle joint (TTP and mild swelling noted to lateral ankle w/o bony deformity) Left ankle: Yes neurovascular exam (normal) and Yes foot & digits (mild pain noted to dorsal mid foot w/o swelling or deformity) Neuro: COMMON NORMALS: patient oriented x3, moves all extremities, no focal motor deficits and no sensory deficits noted SENSORIUM/ORIENTATION: Yes alert, Yes oriented to person, Yes oriented to place and Yes oriented to time Skin: COMMON NORMALS: no rashes or lesions noted GENERAL SKIN EXAM: no rashes or lesions noted TRAUMA: no lacerations or abrasions Course Vital Signs: Vital signs: Vital Signs Pulse Rate 82 09/11/21 08:54 Respiratory Rate 16 09/11/21 08:04 Blood Pressure 157/78 09/11/21 08:04 Pulse Oximetry 95 09/11/21 08:54 MDM - Extremity Injury (Lower) Medical Decision Making XRs negative. Discussed weightbearing as tolerated, RICE therapy, and follow-up with Dr. Lin in 1 to 2 weeks if pain does not seem to be improving. Patient has a wheelchair and walker she can use in her home for ambulation. Discharge Plan Discharge Patient Disposition: Home Clinical Impression: Left ankle sprain Qualifiers: Encounter type: initial encounter Involved ligament of ankle: unspecified ligament Qualified Code(s): S93.402A - Sprain of unspecified ligament of left ankle, initial encounter Condition: Stable Prescriptions: No Action amlodipine 10 mg tablet 10 mg PO BEDTIME 0RF metoprolol succinate 100 mg tablet extended release 24 hr 100 mg PO DAILY 0RF atorvastatin 20 mg tablet 20 mg PO DAILY 0RF glucosamine HCl 1,500 mg tablet 1,500 mg PO DAILY 0RF vit C,E,Zn,Fp-[id number]-[id number] 250-2.5-0.5 mg capsule 1 cap PO DAILY 0RF furosemide 20 mg tablet 20 mg PO DAILY 0RF Hold Instructions: Resume on 12/16/19. until creatinine normalizes hydralazine 50 mg tablet 50 mg PO BID Qty: 180 4RF chlorthalidone 25 mg tablet 25 mg PO DAILY 90 Days Qty: 90 3RF olmesartan [Benicar] 40 mg tablet 40 mg PO DAILY Qty: 90 3RF acetaminophen [Tylenol] 325 mg Tablet 650 mg PO BID 0RF omeprazole 40 mg capsule,delayed release(DR/EC) 40 mg PO QAM 0RF gabapentin 100 mg capsule 200 mg PO TID 0RF cholecalciferol (vitamin D3) [Vitamin D3] 50 mcg (2,000 unit) Tablet 50 mcg PO DAILY 0RF Prolia 60 mg/mL Syringe See Rx Instructions .ROUTE .COMPLEX 0RF Rx Instructions: mg subcutaneously PT GETS INJECTION TWICE PER YEAR. Discharge Orders: Discharge ED (Routine); Ordered 09/11/21 Ordered By: Abi Melgar Referrals: Nithin Lin DO [Primary Care Provider] - Patient Instructions: Ankle Sprain (ED), RICE Therapy Activity Restrictions/Additional Instructions: As we discussed-weightbearing as tolerated. You need to ice and elevate the extremity. I have given you a handout sheet on RICE therapy. Please follow-up with Dr. Lin in the next 1 to 2 weeks if ankle does not seem to be improving. Continue to follow-up with him in regards to your back pain and leg weakness. I hope you begin to feel better soon. Coding Level of Care Code ED Director Of Financial Planning for Chg Fwd Exam Detailed
[2021-09-11 08:04] VITALS: BP 157/78; PULSE 85; RESP 16; O2SAT 95
[2021-09-11 08:54] VITALS: PULSE 82; O2SAT 95
== END 2021-09-11 08:56 | disposition home or self-care (01) ==
PROVIDERS: Emergency Provider Physician Assistant; PCP Electrodiagnostic Medicine
DX: S93.402A Sprain of unspecified ligament of left ankle, initial encounter (principal); X50.1XXA Overexertion from prolonged static or awkward postures, initial encounter
CPT/HCPCS: 73610; 73630; 99282

== ENCOUNTER 2021-10-22 08:27 | Inpatient (IN) | payer MEDICARE, SELFPAY ==
--- NOTE | 2021-10-22 08:46 | CTR_ITS ---
PROCEDURE INFORMATION: Exam: CT Lumbar Spine Without Contrast Exam date and time: 10/22/2021 9:04 AM Age: 86 years old Clinical indication: Low back pain; Prior surgery; Surgery date: 6+ months; Additional info: Injury TECHNIQUE: Imaging protocol: Computed tomography images of the lumbar spine without contrast. Radiation optimization: All CT scans at this facility use at least one of these dose optimization techniques: automated exposure control; mA and/or kV adjustment per patient size (includes targeted exams where dose is matched to clinical indication); or iterative reconstruction. COMPARISON: CT lumbar spine wo con* [id number] 12/04/2019 8:43 PM RADIATION DOSE METRICS: Total DLP (mGy-cm): 2132.03 FINDINGS: Vertebrae: Changes of prior posterior keith and pedicle screw fixation spanning L4-L5. Hardware appears intact. Similar appearance of a remote compression fracture of L4 with up to 75% height loss, unchanged in appearance since 12/04/2019. No evidence of progressive height loss. Stable appearance of a remote compression fracture of T11 with near complete vertebra plana. This also appears relatively unchanged from 12/04/2019. No acute fracture. Similar trace anterolisthesis of L3 on L4. Discs/Spinal canal/Neural foramina: There is again moderate to severe spinal canal stenosis at the level of T11 secondary to retropulsed bone, similar to 2020. There is at least moderate spinal canal stenosis at the level of L3 secondary to a large superiorly dissecting disc extrusion, new from 2019. This also effaces the left lateral recess and contributes to moderate left neural foraminal stenosis. There is again severe spinal canal stenosis at the level of L4 secondary to retropulsed bone, similar to 2020. Moderate to severe bilateral neural foraminal stenosis at L4-L5. Vasculature: Calcified splenic granulomas. Soft tissues: Unremarkable. CT/CT lumbar spine wo con* [id number] IMPRESSION: 1. There is at least moderate spinal canal stenosis at the level of L3 secondary to a large superiorly dissecting disc extrusion, new from 2019. 2. Stable appearance of remote T11 and L4 compression fractures with changes of posterior keith and pedicle screw fixation at L4-L5 as detailed above.
[2021-10-22 08:47] VITALS: BP 176/89; PULSE 74; RESP 18; TEMP 37.2; O2SAT 97; BMI 22.6
[2021-10-22] MEDS: diazePAM 2 mg Tablet PO (09:28)
[2021-10-22] MEDS: dexamethasone 10 mg/mL INJ IM (09:28)
--- NOTE | 2021-10-22 10:09 | MRR_ITS ---
PROCEDURE INFORMATION: Exam: MR Lumbar Spine Without Contrast Exam date and time: 10/22/2021 11:51 AM Age: 86 years old Clinical indication: Low back pain; Prior surgery; Surgery date: 6+ months; Additional info: Weakness TECHNIQUE: Imaging protocol: Multiplanar magnetic resonance images of the lumbar spine without intravenous contrast. COMPARISON: CT lumbar spine wo con* [id number] 10/22/2021 9:04 AM FINDINGS: Vertebrae: There are old compression fractures of T11 and L4 which are similar to old examination. Spinal cord: There is spinal stenosis at the level of the T11 compression fracture with stable appearance of fracture retropulsion. There is indentation of the anterior margin of the cord.. L1-L2: No significant disc disease. No significant spinal canal stenosis. No neural foraminal stenosis. L2-L3: There is mild protrusion of the L2-L3 disc but no herniation. There is no significant spinal stenosis or neural foraminal narrowing. L3-L4: There is severe spinal stenosis. There is a large extruded herniated disc fragment from L3-L4 which extends up behind the L3 vertebral body. This fragment measures about 1.8 cm in greatest diameter. There is bilateral facet and ligamentous hypertrophy. L4-L5: Status post L4-L5 lumbar laminectomy and posterior fusion with pedicle screws and rods. There is compression fracture of L4. There is stable appearance of fracture fragment retropulsion at the inferior corner of the L4 vertebral body where there is moderate spinal stenosis L5-S1: No significant disc disease. No significant spinal canal stenosis. No neural foraminal stenosis. Soft tissues: Unremarkable. MR/MR lumbar spine wo con* [id number] IMPRESSION: 1. There is large herniation of the L3-L4 disc with an extruded 1.8 cm fragment extending up behind the L3 vertebral body. There is severe spinal stenosis. 2. Old compression fracture of T11 with stable retropulsion causing moderate spinal stenosis and indentation spinal cord. 3. Status post L4-L5 lumbar laminectomy and fusion. 4. Old compression fracture of L4 with moderate spinal stenosis at L4-L5 due to fracture retropulsion unchanged since previous study.
[2021-10-22 11:18] VITALS: BP 162/93; PULSE 84; RESP 17; O2SAT 94
--- NOTE | 2021-10-22 13:53 | ED_ITS ---
HPI - Back Pain/Injury General: Chief Complaint: Back Pain/Injury Stated Complaint: LOW BACK PAIN Time Seen by Provider: 10/22/21 08:30 History of Present Illness: 86 yo female patient presents to ER with low back pain that radiates down her left leg. Pt states she fell about a month ago and has chronic back pain but pain has progressively worsened. Pt denies any loss of bowel or bladder. Pt states the pain is so severe she cant get out of bed to ambulate to the bathroom. Associated symptoms: Deny abdominal pain, chills, change in bowel habits, difficulty walking, dysuria, fatigue, fever(s), hematuria, nausea, syncope, urinary urgency or vomiting Review of Systems Const: Denies: fever(s), chills, body aches, change in appetite, change in weight, fatigue, malaise or diaphoresis Eyes: Denies: change in vision, blurry vision, blind spots, photophobia, eye discomfort, eye discharge, eye redness, floaters or seeing flashes ENMT: Denies: throat pain, uvular edema, enlarged tonsils, odynophagia, hoarseness, mouth pain, swelling of lips/tongue, oral sores, bleeding gums, dental pain, dry mouth, ear or mastoid pain, ear discharge, change in hearing, tinnitus, disequilibrium, nasal discharge, nasal congestion, post nasal drip or sinus pain Card: Denies: chest pain, palpitations, irregular heart rhythm, edema, swelling of feet/ankles, lightheadedness, syncope, pre-syncope, dyspnea on exertion, orthopnea, leg pain with exertion or acrocyanosis Resp: Denies: dyspnea, productive cough, non-productive cough, wheezing, stridor, pain on inspiration, change in phlegm color, hemoptysis or chest congestion GI: Denies: abdominal pain, nausea, vomiting, hematemesis, dysphagia, diarrhea, constipation, GI cramping, change in bowel habits or rectal pain : Denies: flank pain, difficulty voiding, dysuria, urinary frequency, urinary urgency, urinary hesitancy or hematuria Musc: Denies: neck pain, extremity pain, extremity swelling, joint pain, joint swelling, joint redness, joint warmth or deformity Skin/Breast: Denies: rash, pruritus, erythema, sores, new lesions, changes in skin color or dry skin Neuro: Denies: headache(s), numbness in extremities, weakness in extremities, sensory changes, lack of coordination, difficulty walking, frequent falls, dizziness, vertigo, confusion, behavioral changes, Slurred speech present, difficulty communicating thoughts or seizure-like activity Psych: Denies: anxiety, depression, suicidal ideation or homicidal ideation Endo: Denies: polyuria, polydipsia, tired all the time, cold intolerance, excessive sweating, flushing, hot flashes or heat intolerance Tony/Lymph: Denies: easy bruising, easy bleeding, petechiae, purpura, enlarged lymph nodes or tender lymph nodes All/Imm: Denies: urticaria, throat swelling, tongue swelling, facial swelling, acute wheezing or itchy eyes PFSH ED PFSH: Medical History CKD (chronic kidney disease) CLL (chronic lymphocytic leukemia) Essential hypertension Fibromyalgia Hyperlipidemia Osteoporosis Pleural effusion, left Surgical History Previous back surgery S/P cataract extraction S/P hysterectomy Family History Denies family history of Clotting disorder Hypertension Social History Smoking and tobacco status: never smoked Alcohol intake: never Household members: spouse Marital status: service: No Current occupational status: retired Current gender identity: Female Yuki/Spiritism: Anabaptist Physical Exam Const: COMMON NORMALS: no acute distress, patient oriented x3, healthy appearing, alert and well nourished GENERAL APPEARANCE: cooperative, comfortable, well kempt and well developed; not ill appearing ORIENTATION/CONSCIOUSNESS: Yes awake, Yes oriented to person, Yes oriented to place and Yes oriented to time HENMT: COMMON NORMALS: normocephalic, atraumatic, hearing grossly normal bilaterally, external ears normal, EAC's normal, TM's normal bilaterally, Normal external nose present, Normal nasal mucous membranes and turbinates present and moist oral mucous membranes HEAD & SCALP: normal to inspection, normocephalic and atraumatic FACE & SINUS: normal facial exam, sinuses nontender and face symmetric NOSE: Normal external nose present, Normal nares present, Normal nasal mucous membranes and turbinates present, No nasal discharge present and Abnormal external nose present EXTERNAL EAR: Yes external ears normal and Yes mastoids normal EXTERNAL AUDITORY CANAL: EAC's normal TYMPANIC MEMBRANE: TM's normal bilaterally MOUTH: Normal oral and palatal mucosa present, lip normal, tongue normal and Normal salivary glands and ducts present THROAT: no uvular edema Eye: COMMON NORMALS: Equal, round and reactive pupils present, EOMs intact bilaterally, conjunctivae normal, no scleral icterus and no papilledema GENERAL EYE: appearance normal, both eyes and all related structures EYELID: eyelids normal CONJUNCTIVA: Yes conjunctivae normal SCLERA: sclerae normal CORNEA: Yes corneas normal PUPIL: Yes Equal, round and reactive pupils present DIRECT OPHTHALMOSCOPY: Yes no papilledema Neck/C-Spine: COMMON NORMALS: full ROM, no lymphadenopathy, supple, no meningeal signs, no JVD and Thyroid normal GENERAL: Yes normal visual inspection and Yes trachea midline THYROID: Thyroid normal CERVICAL SPINE: Yes cervical ROM normal Lymph: LYMPHATIC: no lymphadenopathy noted and no lymphedema noted Chest: COMMONS NORMALS: normal inspection of the chest and normal palpation of entire chest wall Resp: COMMON NORMALS: normal respiratory effort, No retractions, No use of a ccessory muscles and clear to auscultation bilaterally EFFORT & INSPECTION: Yes able to speak in complete sentences and Yes symmetric chest movement AUSCULTATION: clear to auscultation bilaterally Cardio: COMMON NORMALS: no JVD, regular rate and regular rhythm RATE: regular rate RHYTHM: regular rhythm GI: COMMON NORMALS: Normal to inspection, nondistended, normoactive bowel sounds present, Soft to palpation, non-tender, No hepatosplenomegaly present, no masses and no bruits INSPECTION: Yes normal to inspection AUSCULTATION: Yes normoactive bowel sounds PALPATION: Yes Soft to palpation and Yes No hepatosplenomegaly present PERCUSSION: normal to percussion RECTAL EXAM: deferred : COMMON NORMALS: Yes no CVA tenderness, Yes normal external appearance, Yes normal appearance of the vagina, Yes normal appearance of the cervix, Yes normal bimanual exam, Yes No adnexal tenderness and Yes no masses BLADDER/KIDNEY EXAM: Yes no CVA tenderness BIMANUAL EXAM - VAGINA & UTERUS: Yes normal bimanual exam Back/Pelvis: COMMON NORMALS: no CVA tenderness, thoracic and lumbar spine normal to inspection, no thoracic nor lumbar tenderness, thoraco-lumbar ROM normal and straight leg raise negative bilaterally THORACIC SPINE/UPPER BACK: Yes normal to inspection LUMBAR SPINE/LOWER BACK: Yes normal to inspection Extremity: COMMON NORMALS: normal to inspection, full ROM and capillary refill normal GENERAL: Yes normal exam except as noted Neuro: COMMON NORMALS: patient oriented x3, CN's II-XII intact bilaterally, moves all extremities, no focal motor deficits, no sensory deficits noted, deep tendon reflexes 2+ bilaterally and gait normal SENSORIUM/ORIENTATION: Yes alert, Yes oriented to person, Yes oriented to place and Yes oriented to time MENINGEAL SIGNS: Yes no meningeal signs CRANIAL NERVES: Yes CN normal except as noted SPEECH: speech normal GAIT: Yes Normal gait present SENSORY EXAM: Yes extremities MOTOR EXAM: 5/5 motor strength present throughout Psych: COMMON NORMALS: mental status grossly normal, Normal thought process present, cooperative, normal affect, speech normal, activity/motor behavior normal, denies hallucinations, denies homicidal ideation and denies suicidal ideation APPEARANCE: Yes grossly normal and Yes well kempt ATTITUDE: Yes calm ACTIVITY/MOTOR BEHAVIOR: Yes appropriate eye contact SPEECH: Yes normal speech THOUGHT PROCESS: Normal thought process present THOUGHT CONTENT: Yes Normal thought content present ATTENTION/CONCENTRATION: Yes attention grossly intact MEMORY/COGNITION: Yes memory grossly intact INSIGHT: Good insight present (Psych) JUDGEMENT: Good judgement present (Psych) Skin: COMMON NORMALS: no rashes or lesions noted, no wounds, turgor normal, no jaundice, no petechiae and no mottling GENERAL SKIN EXAM: no rashes or lesions noted and turgor normal Course Vital Signs: Vital signs: Vital Signs Temperature 98.9 F 10/22/21 08:47 Pulse Rate 84 10/22/21 11:18 Respiratory Rate 17 10/22/21 11:18 Blood Pressure 162/93 10/22/21 11:18 Pulse Oximetry 94 10/22/21 11:18 MDM - Back Pain/Injury Medical Decision Making Patient is well appearing non toxic and in no acute distress. 86 yo female patient presents to ER with low back pain that radiates down her left leg. Pt states she fell about a month ago and has chronic back pain but pain has progressively worsened. Pt denies any loss of bowel or bladder. Pt states the pain is so severe she cant get out of bed to ambulate to the bathroom. Based on CT scan I called and discussed with Dr. Walton. states he can not take her home he has no way to get her home and is too weak to get her up to bathroom and patient states she is in too much pain to get up. I called and discussed with case management specialist who feels she is not appropriate for home health. I will call and discuss with hospitalist for possible admission at this time. Patient will be admitted to Dr. Willis at this time and Dr. Walton will consult Labs Radiology Impressions Lumbar Spine CT 10/22/21 08:46 IMPRESSION: 1. There is at least moderate spinal canal stenosis at the level of L3 secondary to a large superiorly dissecting disc extrusion, new from 2019. 2. Stable appearance of remote T11 and L4 compression fractures with changes of posterior keith and pedicle screw fixation at L4-L5 as detailed above. Lumbar Spine MRI 10/22/21 10:09 IMPRESSION: 1. There is large herniation of the L3-L4 disc with an extruded 1.8 cm fragment extending up behind the L3 vertebral body. There is severe spinal stenosis. 2. Old compression fracture of T11 with stable retropulsion causing moderate spinal stenosis and indentation spinal cord. 3. Status post L4-L5 lumbar laminectomy and fusion. 4. Old compression fracture of L4 with moderate spinal stenosis at L4-L5 due to fracture retropulsion unchanged since previous study. Discharge Plan Discharge Patient Disposition: Admitted As Inpatient Clinical Impression: Lumbar radiculopathy, Sciatica Condition: Stable Prescriptions: No Action amlodipine 10 mg tablet 10 mg PO BEDTIME 0RF metoprolol succinate 100 mg tablet extended release 24 hr 100 mg PO DAILY 0RF atorvastatin 20 mg tablet 20 mg PO DAILY 0RF glucosamine HCl 1,500 mg tablet 1,500 mg PO DAILY 0RF vit C,E,Zn,Pa--rtj-zeax 250-2.5-0.5 mg capsule 1 cap PO DAILY 0RF furosemide 20 mg tablet 20 mg PO DAILY 0RF Hold Instructions: Resume on 12/16/19. until creatinine normalizes hydralazine 50 mg tablet 50 mg PO BID Qty: 180 4RF chlorthalidone 25 mg tablet 25 mg PO DAILY 90 Days Qty: 90 3RF olmesartan [Benicar] 40 mg tablet 40 mg PO DAILY Qty: 90 3RF acetaminophen [Tylenol] 325 mg Tablet 650 mg PO BID 0RF omeprazole 40 mg capsule,delayed release(DR/EC) 40 mg PO QAM 0RF gabapentin 100 mg capsule 200 mg PO TID 0RF cholecalciferol (vitamin D3) [Vitamin D3] 50 mcg (2,000 unit) Tablet 50 mcg PO DAILY 0RF Prolia 60 mg/mL Syringe See Rx Instructions .ROUTE .COMPLEX 0RF Rx Instructions: mg subcutaneously PT GETS INJECTION TWICE PER YEAR. Referrals: Kei Walton DO [Physician] - Nithin Lin DO [Primary Care Provider] - Discharge Diet: Advance as tolerated Discharge Activity: Increase activity as tolerated Patient Instructions: Opioid Safety Activity Restrictions/Additional Instructions: Please continue to take your meds as prescribed Please follow up with Dr. Walton this week. Return to ER with any loss of bowel or bladder, weakness or any other concerning symptoms Coding Level of Care Code ED Porcelain Enamel Sprayer for Raf De La Cruz
[2021-10-22 15:37] VITALS: BP 160/73; PULSE 88; RESP 16; O2SAT 94
--- NOTE | 2021-10-22 16:09 | P.CONIM_ITS ---
Providers/Reason For Consult Consulting Physician/Specialty*: hospitalist Reason for Consult*: Back pain Attending Physician: Bakari Ramsey MD Primary Care Provider: Nithin Lin DO History of Present Illness History of Present Illness Carlota Sesay is a 86 year old female Review of Systems Const: Denies: fever(s), chills, body aches, change in appetite, change in weight, fatigue, malaise or diaphoresis Eyes: Denies: change in vision, blurry vision, blind spots, photophobia, eye discomfort, eye discharge, eye redness, floaters or seeing flashes ENMT: Denies: throat pain, uvular edema, enlarged tonsils, odynophagia, hoarseness, mouth pain, swelling of lips/tongue, oral sores, bleeding gums, dental pain, dry mouth, ear or mastoid pain, ear discharge, change in hearing, tinnitus, disequilibrium, nasal discharge, nasal congestion, post nasal drip or sinus pain Card: Denies: chest pain, palpitations, irregular heart rhythm, edema, swelling of feet/ankles, lightheadedness, syncope, pre-syncope, dyspnea on exertion, orthopnea, leg pain with exertion or acrocyanosis Resp: Denies: dyspnea, productive cough, non-productive cough, wheezing, stridor, pain on inspiration, change in phlegm color, hemoptysis or chest congestion GI: Denies: abdominal pain, nausea, vomiting, hematemesis, dysphagia, diarrhea, constipation, GI cramping, change in bowel habits or rectal pain : Denies: flank pain, difficulty voiding, dysuria, urinary frequency, urinary urgency, urinary hesitancy or hematuria Musc: Denies: neck pain, extremity pain, extremity swelling, joint pain, joint swelling, joint redness, joint warmth or deformity Skin/Breast: Denies: rash, pruritus, erythema, sores, new lesions, changes in skin color or dry skin Neuro: Denies: headache(s), numbness in extremities, weakness in extremities, sensory changes, lack of coordination, difficulty walking, frequent falls, dizziness, vertigo, confusion, behavioral changes, Slurred speech present, difficulty communicating thoughts or seizure-like activity Psych: Denies: anxiety, depression, suicidal ideation or homicidal ideation Endo: Denies: polyuria, polydipsia, tired all the time, cold intolerance, excessive sweating, flushing, hot flashes or heat intolerance Tony/Lymph: Denies: easy bruising, easy bleeding, petechiae, purpura, enlarged lymph nodes or tender lymph nodes All/Imm: Denies: urticaria, throat swelling, tongue swelling, facial swelling, acute wheezing or itchy eyes Medications/Allergies Home Medications Medication Instructions Recorded Confirmed Last Taken Type amlodipine 10 mg tablet 10 mg PO BEDTIME tab 06/18/19 10/22/21 10/21/21 History glucosamine HCl 1,500 mg tablet 1,500 mg PO DAILY tab 06/18/19 10/22/21 10/21/21 History metoprolol succinate 100 mg 100 mg PO DAILY tab 06/18/19 10/22/21 10/21/21 History tablet,extended release 24 hr vit 1 cap PO BID cap 06/18/19 10/22/21 10/21/21 History C,E,zinc,Qi-irxni-6-lutein-zeaxanthin 250 mg-2.5 mg-0.5 mg capsule furosemide 20 mg tablet 20 mg PO DAILY tab 06/19/19 10/22/21 10/21/21 History hydralazine 50 mg tablet 50 mg PO BID #180 tab 06/19/19 10/22/21 10/21/21 Rx acetaminophen 325 mg tablet 650 mg PO BID PRN 12/04/19 10/22/21 02/01/20 History (Tylenol) cholecalciferol (vitamin D3) 50 50 mcg PO DAILY 12/04/19 10/22/21 10/21/21 History mcg (2,000 unit) tablet (Vitamin D3) denosumab 60 mg/mL subcutaneous See Rx Instructions .ROUTE .COMPLEX 12/04/19 10/22/21 Unknown History syringe (Prolia) omeprazole 40 mg capsule,delayed 40 mg PO QAM 12/04/19 10/22/21 10/21/21 History release gabapentin 300 mg capsule 300 mg PO TID 10/22/21 10/22/21 10/21/21 History hydrocodone 5 mg-acetaminophen 325 1 tab PO Q8H PRN 10/22/21 10/22/21 10/22/21 History mg tablet Allergies Allergy/AdvReac Type Severity Reaction Status Date / Time NKDA Allergy Unknown Uncoded 02/03/20 13:43 PFSH Acute PFSH: Medical History CKD (chronic kidney disease) CLL (chronic lymphocytic leukemia) Essential hypertension Fibromyalgia Hyperlipidemia Osteoporosis Pleural effusion, left Surgical History Previous back surgery S/P cataract extraction S/P hysterectomy Family History Denies family history of Clotting disorder Hypertension Social History Smoking and tobacco status: never smoked Alcohol intake: never Household members: spouse Marital status: service: No Current occupational status: retired Current gender identity: Female Yuki/Denominational: Worship Vitals/I&O/Wt Last Vital Signs Temp 98.9 F 10/22/21 08:47 Pulse 88 10/22/21 15:37 Resp 16 10/22/21 15:37 BP 160/73 10/22/21 15:37 Pulse Ox 94 10/22/21 15:37 Weight last 48 hrs Weight 140 lb Physical Exam Narrative: CONSTITUTIONAL: The patient is a normal appearing [] in no apparent distress. GENERAL: Patient in no acute distress. CARDIAC: Regular rate and rhythm. CHEST: Normal inspiratory effort, normal respiratory rate. ABDOMEN: Soft and nontender. SKIN: Clear, warm and intact. NEURO?PSYCH: The patient is alert and oriented to person, place and time. Sensorv /SILT Motor StrengthShoulder abduction C5 5/5Wrist extension C6 5/5Elbow extension C7 5/5Hand Repairer Engine Production C8 5/5Finger abduction T15/5 Radial/ Ulnar/ Median n intact LowerSensory (SILT)Motor StrengthHin flexion L2/3Ant/inner thigh 5/5Hip adduction L2/3 5/5Knee extension L4 Lat thigh, 5/5Toe dorsiflexion L5 5/5Ankle dorsiflexion L5/ N81Emyyugh flexion S1 5/5 DTRBleeps 2+Triceps 2+Brachioradialis 2+Patellar 2+Achilles 2+ MUSCULOSKELETAL: [] UPPEREXTREMITIES: The patient had full active ROM in fingers, wrist, elbow, and shoulder. The patient demonstrated ability to fully flex/extend/abduct/ adduct fingers, make ok sign, cross 2nd/3rd digits, extend 1st digit fully.. Radial pulse 2+, CR<2 seconds. LOWER EXTREMITIES: Pt has full, active ROM of toes, ankle, knee, and hip. Dorsalis pedis/posterior tibialis pulses 2+, CR<2 seconds. SPINE: Skin warm, dry, intact. HENMT: THROAT: no uvular edema A&P Assessment and plan (1) Lumbar radiculopathy: Patient has progressively been getting worsening weakness in bilateral lower extremities. Left leg pain, radiates to her anterior thigh pain. Patient complaining mostly of back pain. At this point patient had a previous L4-5 fusion. She does have what looks to be some instability at L3-4 facets. However I think her biggest problem is the large extruded L3-4 disc herniation. She is complaining more of left-sided pain. At this point I discussed with her her and her daughter the option of doing a fusion versus decompression only versus continuing to do the same treatment versus doing injections. At this point we opted to do the decompression. I would likely do this open because she had the previous fusion. I had an open and honest discussion with the patient about the risks, benefits and alternatives to both surgical and nonsurgical treatment. The patient verbalized understanding of the inherent unpredictability associated with surgery. Risk of surgery were discussed including, but not limited to, infection, bleeding, temporary and permanent nerve damage, continued pain, stiffness, incomplete healing, need for revision surgery, blood clot and other complications. The patient verbalized understanding that there is spine is elective in nature and if they find any of these risks to be unacceptable then they should choose not to have the surgery. The patient verbalized understanding of these risks and elected to proceed with the surgery. My plan is to add her on for surgery on Sunday. At this point she has become so debilitated that she has difficulties getting out of bed. Status: Acute Consult Attestations Medical Necessity Statement: Pain progressive worsening of weakness and pain Coding Level of Care Code Acute Mining Teacher for Raf De La Cruz Diagnoses Lumbar radiculopathy M54.16
[2021-10-22] MEDS: HYDROcodone-acetaminophen 5-325 mg Tablet PO (17:12)
[2021-10-22 18:00] LABS: Add Urine Microscopic? NO; Charge for UA Resulting for Rev
[2021-10-22 18:17] LABS: Bilirubin Urine Neg (Negative); Blood Urine Neg (Negative); Glucose Urine UA Norm (Normal); Ketones Urine Negative (Negative); Leukocyte Esterase Urine Negative (Negative); Nitrate Urine Negative (Negative); Protein Urine Neg (Negative); Specific Gravity, Urine 1.005 (1.005-1.030); Urine Appearance Clear (CLEAR); Urine Color Yellow (Yellow); Urobilinogen Urine Norm (Negative); pH Urine 7 (5-7)
--- NOTE | 2021-10-22 18:18 | PM.HP ---
Providers/Chief Complaint Admitting Physician: Bakari Ramsey MD Primary Care Provider: Nithin Lin DO Chief Complaint: LOW BACK PAIN History of Present Illness Carlota Sesay is a 86 year old female who carries history of hypertension, chronic kidney disease, chronic lymphocytic leukemia follows up with Dr. Peck, presented today for debilitating back pain. Patient is stating that for last few months she has been dealing with worsening for back pain to the point now she is climbing onto the furniture in order to ambulate in her home. She has had multiple falls at home because of her unnatural posture. She is describing her posture as slumping. She has not noted any chest pain, shortness of breath, fever urine incontinence, strokelike features. Her is not able to care for her anymore and today she decided to come to the hospital for further evaluation. Her recent fall was yesterday which she described as knee buckling. She also has history of left pleural Jerod drain which was managed by Dr. Zuleta. MRI in the ER revealed IMPRESSION: 1. There is large herniation of the L3-L4 disc with an extruded 1.8 cm fragment extending up behind the L3 vertebral body. There is severe spinal stenosis. 2. Old compression fracture of T11 with stable retropulsion causing moderate spinal stenosis and indentation spinal cord. 3. Status post L4-L5 lumbar laminectomy and fusion. 4. Old compression fracture of L4 with moderate spinal stenosis at L4-L5 due to fracture retropulsion unchanged since previous study. Dr. Walton saw her and recommended decompression surgery on Sunday At the time of evaluation pain 0/10 Blood pressure 160/73 He does not have typical cauda equina syndrome Review of Systems Const: Denies: fever(s) Eyes: Denies: change in vision ENMT: Denies: throat pain Card: Denies: chest pain Resp: Denies: dyspnea GI: Denies: abdominal pain : Denies: flank pain Musc: Reports: back pain Skin/Breast: Denies: rash Neuro: Denies: headache(s) Psych: Denies: anxiety Endo: Denies: polyuria Tony/Lymph: Denies: easy bruising All/Imm: Denies: urticaria Medications/Allergies Home Medications Medication Instructions Recorded Confirmed Last Taken Type amlodipine 10 mg tablet 10 mg PO BEDTIME tab 06/18/19 10/22/21 10/21/21 History glucosamine HCl 1,500 mg tablet 1,500 mg PO DAILY tab 06/18/19 10/22/21 10/21/21 History metoprolol succinate 100 mg 100 mg PO DAILY tab 06/18/19 10/22/21 10/21/21 History tablet,extended release 24 hr vit 1 cap PO BID cap 06/18/19 10/22/21 10/21/21 History C,E,zinc,Hj-azlnm-4-lutein-zeaxanthin 250 mg-2.5 mg-0.5 mg capsule furosemide 20 mg tablet 20 mg PO DAILY tab 06/19/19 10/22/21 10/21/21 History hydralazine 50 mg tablet 50 mg PO BID #180 tab 06/19/19 10/22/21 10/21/21 Rx acetaminophen 325 mg tablet 650 mg PO BID PRN 12/04/19 10/22/21 02/01/20 History (Tylenol) cholecalciferol (vitamin D3) 50 50 mcg PO DAILY 12/04/19 10/22/21 10/21/21 History mcg (2,000 unit) tablet (Vitamin D3) denosumab 60 mg/mL subcutaneous See Rx Instructions .ROUTE .COMPLEX 12/04/19 10/22/21 Unknown History syringe (Prolia) omeprazole 40 mg capsule,delayed 40 mg PO QAM 12/04/19 10/22/21 10/21/21 History release gabapentin 300 mg capsule 300 mg PO TID 10/22/21 10/22/21 10/21/21 History hydrocodone 5 mg-acetaminophen 325 1 tab PO Q8H PRN 10/22/21 10/22/21 10/22/21 History mg tablet Allergies Allergy/AdvReac Type Severity Reaction Status Date / Time NKDA Allergy Unknown Uncoded 02/03/20 13:43 PFSH Acute PFSH: Medical History CKD (chronic kidney disease) CLL (chronic lymphocytic leukemia) Essential hypertension Fibromyalgia Hyperlipidemia Osteoporosis Pleural effusion, left Surgical History Previous back surgery S/P cataract extraction S/P hysterectomy Family History Denies family history of Clotting disorder Hypertension Social History Smoking and tobacco status: never smoked Alcohol intake: never Household members: spouse Marital status: service: No Current occupational status: retired Current gender identity: Female Yuki/Episcopalian: [employer]ar[employer] Vitals/I&O/Wt Last Vital Signs Temp 98.9 F 10/22/21 08:47 Pulse 88 10/22/21 15:37 Resp 16 10/22/21 15:37 BP 160/73 10/22/21 15:37 Pulse Ox 94 10/22/21 15:37 Weight last 48 hrs Weight 63.503 kg Physical Exam Narrative: No signs of cauda equina Very pleasant cooperative female NIH 0 EOMI, PERRLA Nonfocal neuro exam Saturating well on room air Abdomen soft No active chest pain Daughter at the bedside No signs of cellulitis Sensations intact over the lower extremities She is able to lift her leg about half feet against gravity without excruciating pain A&P Assessment and plan (1) Lumbar radiculopathy: Status: Acute (2) Sciatica: Status: Acute (3) Compression fracture: Status: Acute (4) Essential hypertension: Status: Acute Plan Lumbar radiculopathy Large extruded L3-L4 disc herniation Dr. Walton has evaluated her Plan for decompressive surgery on Sunday Pain management with Dilaudid Bowel regimen senna S Hypertensive urgency: Continue amlodipine, metoprolol and hydralazine For neuropathic pain: Continue gabapentin Chronic leukocytosis: Patient has history of CLL, no acute flare Follows up with Dr. Peck Patient is full code Cardiac diet DVT prophylaxis Heparin for now Will follow up with Dr. Watlon segmentation tomorrow Attestations Medical Necessity Statement*: Anticipating more than 2 midnights in the hospital for management of radiculopathy Time Spent in Patient Care: 35mins Coding Level of Care Code Acute Wireless Operator for Raf De La Cruz Diagnoses Lumbar radiculopathy M54.16 Sciatica M54.30 Compression fracture Essential hypertension I10
[2021-10-22 19:36] LABS: INR 1.03 (0.8-1.2); Partial Thromboplastin Time 27.6 SECONDS (23.9-36.7)
[2021-10-22 19:37] LABS: Fibrinogen 508 mg/dL (174-498)
[2021-10-22 19:39] LABS: Platelet Count 232 10^3/cmm (130-400)
[2021-10-22 19:58] VITALS: BP 156/76; PULSE 85; RESP 20; TEMP 36.6; O2SAT 95
[2021-10-22] MEDS: amlodipine 10 mg Tablet PO (20:10)
[2021-10-22] MEDS: heparin 5,000 unit/mL INJ 1 mL 5000 UNIT SUBCUT (20:11)
[2021-10-22] MEDS: hyDRALAzine 50 mg Tablet PO (20:11)
[2021-10-22] MEDS: gabapentin 300 mg Capsule PO (20:11)
[2021-10-22 20:40] VITALS: PULSE 87; RESP 16; O2SAT 95
[2021-10-23] VITALS (7 sets, daily range): BP systolic 134–157; BP diastolic 70–80; PULSE 73–85; RESP 15–18; TEMP 36.3–37.1; O2SAT 94–96
[2021-10-23] MEDS: heparin 5,000 unit/mL INJ 1 mL 5000 UNIT SUBCUT (02:15)
[2021-10-23] MEDS: HYDROcodone-acetaminophen 5-325 mg Tablet PO ×2 (02:15→17:42)
[2021-10-23 05:22] LABS: Basophils # 0.1 10^3/uL (0.0-0.1); Basophils % 0.2 %; Hematocrit 34.8 % (37.0-47.0); Hemoglobin 11.3 g/dL (11.5-15.3); Lymphocytes # 16.6 10^3/uL (0.8-4.8); Lymphocytes % 52.3 %; Mean Corpuscular HGB Conc 32.5 g/dL (30.0-36.0); Mean Corpuscular Hemoglobin 31.1 pg (28.0-34.0); Mean Corpuscular Volume 95.9 fl (81-99); Monocytes # 1.2 10^3/uL (0.2-0.9); Monocytes % 3.6 %; Neutrophils # 13.77 10^3/uL (1.8-7.7); Neutrophils % 43.4 %; Nucleated Red Blood Cells % 0 %; Platelet Count 235 10^3/cmm (130-400); Red Blood Count 3.63 10^6/uL (4.1-5.3); Red Cell Distribution Width 14.1 % (12.1-15.1)
[2021-10-23 05:36] LABS: Anion Gap 15.3 (5-19); Blood Urea Nitrogen 38 mg/dL (8-23); C Reactive Protein 6.6 mg/L (0.0-4.9); Calcium 8.1 mg/dL (8.5-10.5); Carbon Dioxide 25 mmol/L (22-29); Chloride 100 mmol/L (98-107); Glucose 118 mg/dL (65-115); Osmolality Calculated 292 mOsm/kg (285-295); Potassium 4.3 mmol/L (3.5-5.1); Sodium 136 mmol/L (136-145)
[2021-10-23 05:54] LABS: Slide Review Slide Review Perform
[2021-10-23 05:55] LABS: White Blood Count 31.8 10^3/uL (4.0-10.0)
[2021-10-23] MEDS: pantoprazole DR 40 mg Tablet PO (06:13)
[2021-10-23] MEDS: gabapentin 300 mg Capsule PO ×3 (08:22→20:48)
[2021-10-23] MEDS: metoprolol succinate ER (24 HR) 100 mg Tablet PO (08:22)
[2021-10-23] MEDS: dexamethasone 4 mg Tablet PO ×4 (08:22→20:48)
[2021-10-23] MEDS: sennosides-docusate Tablet 1 TAB PO (08:23)
[2021-10-23] MEDS: hyDRALAzine 50 mg Tablet PO ×2 (08:23→17:40)
--- NOTE | 2021-10-23 09:52 | PM.PN ---
Subjective Subjective: 86-year-old female who presented with chief complaint of worsening of back pain, debilitating radiculopathy, she is not able to get out of bed without any help MRI is showing disc herniation L3-L4 Dr. Walton is planning to do open decompression on Sunday, currently her pain is subsided, no events overnight Very pleasant and cooperative No events overnight Pain under control Bedoya catheter was placed yesterday in order to avoid aggravation of her pain No signs of cauda equina Vitals/I&O/Wt Last Vital Signs Temp 97.9 F 10/23/21 07:35 Pulse 80 10/23/21 08:00 Resp 16 10/23/21 08:00 BP 157/80 10/23/21 07:35 Pulse Ox 95 10/23/21 08:00 10/22/21 10/23/21 10/23/21 22:59 06:59 14:59 Intake Total 240 / 240 200 / 440 Output Total 450 / 450 550 / 1000 Balance -210 / -210 -350 / -560 Weight last 48 hrs Weight 63.503 kg Physical Exam Narrative: Very pleasant cooperative female Laying comfortably in her bed Was not able to sleep well last night Abdomen soft S1, S2 EOMI, PERRLA No signs of cauda equina Sensations intact of lower extremities Saturating well on room air Urinary Catheter Management: Bedoya Latex: Cath Placed During This Visit: yes Reason for Continuing Indwelling Catheter: Other Urinary Catheter Date of Insertion: 10/22/21 Urinary Catheter Time of Insertion: 22:14 Data : 10/23/21 05:00 10/23/21 05:00 A&P Assessment and plan (1) Lumbar radiculopathy: Status: Acute (2) Sciatica: Status: Acute (3) Compression fracture: Status: Acute (4) Essential hypertension: Status: Acute Plan 86-year female who carries history of CLL, presented for debilitating radiculopathy MRI showing large extruded L3-L4 disc herniation Lumbar radiculopathy:- Plan for surgery on Sunday by Dr. Walton N.p.o. after midnight On opioids Bowel regimen added For her neuropathic pain continue gabapentin No signs of cauda equina: Decadron can be discontinued tomorrow Essential hypertension: Resume her antihypertensive regimen, avoid lisinopril CLL chronic leukocytosis, patient is afebrile, Full code N.p.o. after midnight DVT prophylaxis on hold in anticipation of surgery tomorrow Follow-up with Dr. Walton Attestations Medical Necessity Statement*: Surgery tomorrow Time Spent in Patient Care: 30mins Coding Level of Care Code Acute Wallpaper Installer for Chg Fwd Diagnoses Lumbar radiculopathy M54.16 Sciatica M54.30 Compression fracture Essential hypertension I10
[2021-10-23] MEDS: amlodipine 10 mg Tablet PO (20:48)
[2021-10-23] MEDS: ketorolac 30 mg/mL INJ 15 MG IVP (20:49)
[2021-10-24] VITALS (19 sets, daily range): BP systolic 108–174; BP diastolic 56–80; PULSE 57–100; RESP 16–19; TEMP 36.2–37.1; O2SAT 92–98
--- NOTE | 2021-10-24 | SCC_ITS ---
Procedure done: L3/4 laminectomy with partial facetectomy and diskectomy 12.1 seconds of fluoroscopic guidance, for a cumulative dose of 3.0 mGy, was provided to Dr. Walton by the radiology department. C-arm images of the lumbar spine were saved for the patient's permanent record. [facility]
--- NOTE | 2021-10-24 | XR_ITS ---
WS: [id number] Exam: XR lumbar spine 1V [id number] Date/Time of Exam: 10/24/2021 12:00 AM Reason For Exam: low back pain Comparison 09/07/2021. A single anterior posterior C-arm image of the lower lumbar spine is submitted for evaluation. A meta llic port superimposes the L3-4 disc level to the left of midline. Pedicle screws and posterior rods are noted at the L4-5 disc level. No other significant finding on this limited study.
[2021-10-24 04:52] LABS: Basophils # 0.1 10^3/uL (0.0-0.1); Basophils % 0.2 %; Hematocrit 38.2 % (37.0-47.0); Lymphocytes # 22.9 10^3/uL (0.8-4.8); Lymphocytes % 70.5 %; Mean Corpuscular HGB Conc 31.4 g/dL (30.0-36.0); Mean Corpuscular Volume 98.7 fl (81-99); Mean Platelet Volume 10.8 fL (7.4-10.4); Monocytes # 0.4 10^3/uL (0.2-0.9); Monocytes % 1.4 %; Neutrophils # 8.94 10^3/uL (1.8-7.7); Neutrophils % 27.4 %; Nucleated Red Blood Cells % 0 %; Platelet Count 262 10^3/cmm (130-400); Red Blood Count 3.87 10^6/uL (4.1-5.3); Red Cell Distribution Width 14.6 % (12.1-15.1)
[2021-10-24 05:05] LABS: Anion Gap 19.6 (5-19); Blood Urea Nitrogen 45 mg/dL (8-23); Carbon Dioxide 22 mmol/L (22-29); Chloride 96 mmol/L (98-107); Glucose 141 mg/dL (65-115); Osmolality Calculated 290 mOsm/kg (285-295); Potassium 4.6 mmol/L (3.5-5.1); Sodium 133 mmol/L (136-145)
[2021-10-24 05:40] LABS: Slide Review Slide Review Perform; White Blood Count 32.5 10^3/uL (4.0-10.0)
[2021-10-24] MEDS: hyDRALAzine 50 mg Tablet PO (08:11)
[2021-10-24] MEDS: metoprolol succinate ER (24 HR) 100 mg Tablet PO (08:11)
--- NOTE | 2021-10-24 10:27 | PC.CHAP ---
Pastoral Care Encounter/Spiritual Assessment Type of Contact [] Declined manager product visit [] Patient/Family/Request visit [] Outpatient visit [] Follow-up visit [] Physician referral [] Code/Alert [x] Routine visit [] Staff referral [] Actively dying [] Patient sleeping [] Family support [] [] Out of room [] Palliative care [] [] Receiving care in room [] Pre-surgical visit [] Trauma [] Long length of stay [] ICU visit [] Other: Relational/Emotional Strength [x] Patient feels connected with others/family/visitors/staff [] Distress [] Loneliness/isolation [] Abandonment Spirituality of Patient [xc] Person of Yuki [c] Attends Yazidi of their Yuki [c] Believes in Prayer [] Reads Bible or Moravian materials [c] There are Spiritual issues to be addressed Parking Lot Manager Interventions [c] Prayer []c Active listening [c] Non-anxious presence [] Spiritual/emotional support [] Crisis/trauma care [] Spiritual counseling [] Bereavement support [] Provided bereavement packet [] Provided Bible/devotional materials [] Provided toy/stuffed animal, coloring book to patient or family member [] Provided Communion [] Anointing/Era [] Salvation [c] Completed spiritual assessment [] Other: Impact on Illness or Injury [] Angry [] Fearful [] Anxious [] Often cries [] Exhaustion [] Unable to work [] Unable to attend roman catholic [] Unable to walk/stand [] Unable to read [] Unable to drive [] Unable to eat/drink [] Unable to sleep [] Unable to be with family [] Patient intubated [] Other: Summary Time spent with patient 10 min
--- NOTE | 2021-10-24 10:47 | ANES.PREANE2 ---
Pre-Anesthetic Assessment Height/Weight: Height 1.68 m Weight 63.503 kg Temp Pulse Resp BP Pulse Ox 98.7 F 85 18 140/63 94 10/24/21 10:08 10/24/21 10:08 10/24/21 10:08 10/24/21 10:08 10/24/21 10:08 Preop Diagnosis: Left pleural [place] drain removal Operation Date: 10/24/21 10:20 Proposed Procedures p L3/4 Open Lumbar Spine Decompression with Discectomy(Not Applicable) - Kei Walton DO s Discectomy(Not Applicable) - Kei Walton DO Familial anesthetic complications: None Was Beta Beau taken within 24 hours: Yes Was Clonidine taken within 24 hours: N/A Last intake: Intake Last Liquid Date 10/23/21 Last Liquid Time 18:00 Last Solid Date 10/23/21 Last Solid Time 18:00 Social No alcohol and No tobacco Exam alert, oriented x 3, clear to auscultation bilaterally and regular rate & rhythm Airway Submandibular: within normal limits Cervical ROM: within normal limits Mallampati: Class II Dentition: full History/ROS No significant complaints Pulmonary None reported CV/HEM Hypertension CLL Chronic Renal Insufficiency Hepatic None reported GI Gastroesophageal Reflux Disease Metabolic None reported Musc/skel Fibromyalgia, Lower Back Pain and Osteoarthritis/DJD Uses wheelchair due to pain and weakness Compression fx Neuropsych Neuropathy (Radiculopathy) Anesthetic Plan ASA status: 2 Anesthesia: Anesthesia Evaluation and General Other: We discussed risk and benefits of general anesthesia including PONV, sore throat (sometimes severe), corneal abrasion, positioning and peripheral nerve injuries, life threatening allergic reaction, post operative ICU admission requiring prolonged intubation, stroke, heart attack, , and rare incidences of recall. Patient consents to proceed with general anesthesia. Risk of > 500 ml blood loss (7ml/kg in children): No Medications/Allergies Home Medications Medication Instructions Recorded Confirmed Last Taken Type amlodipine 10 mg tablet 10 mg PO BEDTIME tab 06/18/19 10/22/21 10/21/21 History glucosamine HCl 1,500 mg tablet 1,500 mg PO DAILY tab 06/18/19 10/22/21 10/21/21 History metoprolol succinate 100 mg 100 mg PO DAILY tab 06/18/19 10/22/21 10/21/21 History tablet,extended release 24 hr vit 1 cap PO BID cap 06/18/19 10/22/21 10/21/21 History C,E,zinc,Bg-nwexz-2-lutein-zeaxanthin 250 mg-2.5 mg-0.5 mg capsule furosemide 20 mg tablet 20 mg PO DAILY tab 06/19/19 10/22/21 10/21/21 History hydralazine 50 mg tablet 50 mg PO BID #180 tab 06/19/19 10/22/21 10/21/21 Rx acetaminophen 325 mg tablet 650 mg PO BID PRN 12/04/19 10/22/21 02/01/20 History (Tylenol) cholecalciferol (vitamin D3) 50 50 mcg PO DAILY 12/04/19 10/22/21 10/21/21 History mcg (2,000 unit) tablet (Vitamin D3) denosumab 60 mg/mL subcutaneous See Rx Instructions .ROUTE .COMPLEX 12/04/19 10/22/21 Unknown History syringe (Prolia) omeprazole 40 mg capsule,delayed 40 mg PO QAM 12/04/19 10/22/21 10/21/21 History release gabapentin 300 mg capsule 300 mg PO TID 10/22/21 10/22/21 10/21/21 History hydrocodone 5 mg-acetaminophen 325 1 tab PO Q8H PRN 10/22/21 10/22/21 10/22/21 History mg tablet Allergies Allergy/AdvReac Type Severity Reaction Status Date / Time NKDA Allergy Unknown Uncoded 02/03/20 13:43 Current Medications Generic Name Dose Route Start Last Admin Trade Name Freq PRN Reason Stop Dose Admin Hydrocodone Bitart/Acetaminophen 0 tab 10/22/21 16:31 10/23/21 17:42 Hydrocodone-Acetaminophen 5-325 Mg Tablet PO 1 tab Q4H PRN Administration MODERATE PAIN Amlodipine Besylate 10 mg 10/22/21 18:50 10/23/21 20:48 Amlodipine 10 Mg Tablet PO 10 mg BEDTIME SCOTT Administration Gabapentin 300 mg 10/22/21 21:00 10/24/21 08:12 Gabapentin 300 Mg Capsule PO Not Given TID SCOTT Heparin Sodium (Porcine) 5,000 unit 10/22/21 19:00 10/23/21 02:15 Heparin 5,000 Unit/Ml Inj 1 Ml SUBCUT 5,000 unit Q8H SCOTT Administration Hydralazine HCl 50 mg 10/22/21 18:50 10/24/21 08:11 Hydralazine 50 Mg Tablet PO 50 mg BID SCOTT Administration Ketorolac Tromethamine 15 mg 10/22/21 16:50 10/23/21 20:49 Ketorolac 30 Mg/Ml Inj IVP 10/27/21 16:49 15 mg Q6H PRN Administration MODERATE PAIN Metoprolol Succinate 100 mg 10/23/21 09:00 10/24/21 08:11 Metoprolol Succinate Er (24 Hr) 100 Mg Tablet PO 100 mg DAILY SCOTT Administration Pantoprazole Sodium 40 mg 10/23/21 06:00 10/24/21 04:[address] 40 Mg Tablet PO Not Given QAM SCOTT Senna/Docusate Sodium 1 tab 10/23/21 09:00 10/24/21 08:12 Sennosides-Docusate Tablet PO Not Given DAILY SCOTT PFSH Anesthesia Medical History CKD (chronic kidney disease) CLL (chronic lymphocytic leukemia) Essential hypertension Fibromyalgia Hyperlipidemia Osteoporosis Pleural effusion, left Surgical History Previous back surgery S/P cataract extraction S/P hysterectomy Family History Denies family history of Clotting disorder Hypertension Social History Smoking and tobacco status: never smoked Alcohol intake: never Household members: spouse Marital status: service: No Current occupational status: retired Current gender identity: Female Yuki/Rastafari: Scientology Data Anesthesia : 10/24/21 04:14 10/24/21 04:14 Short CBC 10/22/21 10/23/21 10/24/21 Range/Units 19:00 05:00 04:14 WBC 31.8 H* 32.5 H* (4.0-10.0) 10^3/uL Hgb 11.3 L 12.0 (11.5-15.3) g/dL Hct 34.8 L 38.2 (37.0-47.0) % MCV 95.9 98.7 (81-99) fl Plt Count 232 235 262 (130-400) 10^3/cmm Neut % (Auto) 43.4 27.4 % Neut # (Auto) 13.77 H 8.94 H (1.8-7.7) 10^3/uL BMP 10/23/21 10/24/21 05:00 04:14 Sodium 136 133 L Potassium 4.3 4.6 Chloride 100 96 L Carbon Dioxide 25 22 BUN 38 H 45 H Creatinine 1.3 H 1.3 H Glucose 118 H 141 H Calcium 8.1 L 8.0 L Urine 10/22/21 Range/Units 17:20 Urine Color Yellow (Yellow) Urine Appearance Clear (CLEAR) Urine pH 7 (5-7) Ur Specific [place] 1.005 (1.005-1.030) Urine Protein Neg (Negative) Urine Glucose (UA) Norm (Normal) Urine Ketones Negative (Negative) Urine Nitrate Negative (Negative) Urine Bilirubin Neg (Negative) Ur Leukocyte Esterase Negative (Negative) Coags 10/22/21 10/23/21 19:00 05:00 PT 13.80 INR 1.03 APTT 27.6 Fibrinogen 508 H C-Reactive Protein 6.6 H Cardiac Studies: No Data to Display
[2021-10-24] MEDS: sodium chloride 0.9% 1,000 ML 30 ML (10:54)
--- NOTE | 2021-10-24 11:20 | P.HPUD_ITS ---
Surgery/Procedure H&P Update DATE OF PROCEDURE: October 24, 2021 DATE H&P PERFORMED: 10/22/21 H&P UPDATE INFORMATION: I have reviewed H&P completed within last 30 days, I have examined patient prior to procedure and No changes to prior documentation PREOP DIAGNOSIS: Left pleural [place] drain removal PLANNED PROCEDURE: Operation Date: 10/24/21 10:20 Proposed Procedures p L3/4 Open Lumbar Spine Decompression with Discectomy(Not Applicable) - DO marilia Bernal Discectomy(Not Applicable) - Kei Walton DO
--- NOTE | 2021-10-24 12:49 | SUR.OPER ---
family updated of surgical status
--- NOTE | 2021-10-24 13:37 | PM.OP ---
Operative Report Date of procedure: October 24, 2021 Pre-op diagnosis: Preop Diagnosis L3/4 disk hernation with radiculopathyl Post-op diagnosis: same Procedure done: L3/4 laminectomy with partial facetectomy and diskectomy Surgeon: Kei Walton Anesthesia: General Estimated blood loss (mL): 5 Procedure: 1. L3/4 laminectomy with partial facetectomy Patient is brought to the operative suite. After undergoing anesthesia they are placed in the prone position. All areas of impingement are well padded. Patient is then prepped and draped in the normal sterile fashion. A skin incision is made over the L3/4 level. This is confirmed under c-arm guidance. A series of dilators are passed and the tubular retractor is docked on the L3 lamina. A bovie is used to clear the soft tissue off the lamina and the L 3/4 facet joint. A high speed ashley is then used to perform the laminectomy and take down the medial aspect of the L 3/4 facet joint. A kerrison rongeure was then used to take down the remaining lamina and smooth the edge of the laminectomy up to the point where the ligamentum flavum attaches. Attention was then brought to the medial aspect of the facet joint. The remaining medial aspect of the superior and inferior aspect of the facet joint were taken down with the kerrison from the pedicle of L3 to L 4. The facet joint had significant hypertrophy. Attention was then brought to the Ligamentum Flavum. The ligament was taken down from the lamina of L3 to L4 and out medially to the remaining facet joint. The ligament was thick. The dura was then exposed. The dura was in good repair. The L3 nerve was then traced with a curette out the L3/4 foramen and found to be adequately decompressed. The L4 nerve was traced with a curette around the L4 pedicle. The lateral recess was opened with a kerrison helping to further decompress the L4 nerve. Nerve root retractor retracted the L4 nerve root. The disc was identified small curved curette was used to rupture through the capsule of the disc where it was extruded. And fragments of disc were removed in piecemeal with a pituitary. The disc space was irrigated and a free fragments were removed with a pituitary. Wound is then irrigated copiously with saline and surgiflo is used to stop any bleeding. The tubular retractor is removed and the wound is closed with vicryl and monocryl suture. Glue is then used to protect the wound. A sterile dressing is then placed. Patient was then placed in the supine position and transferred to the PACU in stable condition.
--- NOTE | 2021-10-24 13:51 | PM.PN ---
Subjective Subjective: Patient was seen and examined this morning, no acute events overnight, currently pain is well controlled. Due for 3/4 laminectomy with partial facetectomy and diskectomy. Medications: Medication Review Details: Generic Name Dose Route Start Last Admin Trade Name Freq PRN Reason Stop Dose Admin Hydrocodone Bitart /Acetaminophen 0 tab 10/22/21 16:31 10/23/21 17:42 Hydrocodone-Acet aminophen 5-325 Mg Tablet PO 1 tab Q4H PRN Administration MODERATE PAIN Amlodipine Besylat e 10 mg 10/22/21 18:50 10/23/21 20:48 Amlodipine 10 Mg Tablet PO 10 mg BEDTIME SCOTT Administration Gabapentin 300 mg 10/22/21 21:00 10/24/21 08:12 Gabapentin 300 M g Capsule PO Not Given TID SCOTT Heparin Sodium (Po rcine) 5,000 unit 10/22/21 19:00 10/23/21 02:15 Heparin 5,000 Un it/Ml Inj 1 Ml SUBCUT 5,000 unit Q8H SCOTT Administration Hydralazine HCl 50 mg 10/22/21 18:50 10/24/21 08:11 Hydralazine 50 M g Tablet PO 50 mg BID SCOTT Administration Ketorolac Trometha mine 15 mg 10/22/21 16:50 10/23/21 20:49 Ketorolac 30 Mg/ Ml Inj IVP 10/27/21 16:49 15 mg Q6H PRN Administration MODERATE PAIN Metoprolol Succina te 100 mg 10/23/21 09:00 10/24/21 08:11 Metoprolol Succi veronica Er (24 Hr) 10 0 Mg Tablet PO 100 mg DAILY SCOTT Administration Pantoprazole Sodiu m 40 mg 10/23/21 06:00 10/24/21 04:[address] 40 Mg Tablet PO Not Given QAM SCOTT Senna/Docusate Sod ium 1 tab 10/23/21 09:00 10/24/21 08:12 Sennosides-Docus ate Tablet PO Not Given DAILY SCOTT Vitals/I&O/Wt Last Vital Signs Temp 97.2 F L 10/24/21 13:33 Pulse 85 10/24/21 13:33 Resp 18 10/24/21 13:33 BP 142/72 10/24/21 13:33 Pulse Ox 96 10/24/21 13:33 10/23/21 10/24/21 10/24/21 22:59 06:59 14:59 Intake Total 540 / 1020 950 / 950 Output Total 750 / 750 500 / 1250 325 / 325 Balance -210 / 270 -500 / -230 625 / 625 Physical Exam Const: COMMON NORMALS: patient oriented x3 HENMT: COMMON NORMALS: normocephalic and atraumatic HEAD & SCALP: normocephalic and atraumatic Chest: CHEST: Yes Symmetrical chest wall rise Resp: COMMON NORMALS: clear to auscultation bilaterally EFFORT & INSPECTION: Yes symmetric chest movement AUSCULTATION: clear to auscultation bilaterally Cardio: COMMON NORMALS: regular rate, regular rhythm, S1 normal heart sound present, S2 normal heart sound present, No gallops present (Cardio), No murmurs present (Cardio), No rub (Cardio) and Peripheral pulses 2+ throughout RATE: regular rate RHYTHM: regular rhythm HEART SOUNDS: S1 normal heart sound present and S2 normal heart sound present PERIPHERAL PULSES: Peripheral pulses 2+ throughout GI: COMMON NORMALS: Normal to inspection, nondistended, normoactive bowel sounds present, Soft to palpation, non-tender, No hepatosplenomegaly present and no masses AUSCULTATION: Yes normoactive bowel sounds PALPATION: Yes Soft to palpation and Yes No hepatosplenomegaly present RECTAL EXAM: deferred Extremity: COMMON NORMALS: no clubbing, cyanosis or edema and no pedal edema Neuro: COMMON NORMALS: patient oriented x3 Urinary Catheter Management: Bedoya Latex: Cath Placed During This Visit: yes Reason for Continuing Indwelling Catheter: Acute Urinary Retention or Obstruction Urinary Catheter Date of Insertion: 10/22/21 Urinary Catheter Time of Insertion: 22:14 Data : 10/24/21 04:14 10/24/21 04:14 A&P Assessment and plan (1) Lumbar radiculopathy: Status: Acute (2) Sciatica: Status: Acute (3) Compression fracture: Status: Acute (4) Essential hypertension: Status: Acute Plan 86-year female who carries history of CLL, presented for debilitating radiculopathy MRI showing large extruded L3-L4 disc herniation Lumbar radiculopathy:- Pain control, bowel regimen Currently n.p.o. Orthopedic on board Essential hypertension: Resume her antihypertensive regimen, avoid lisinopril. CLL: chronic leukocytosis, patient is afebrile. DVT prophylaxis: On Lovenox Attestations Medical Necessity Statement*: Patient is to be in hospital for management of lumbar radiculopathy. Coding Level of Care Code Acute Civil Engineering Project Manager for Raf De La Cruz Diagnoses Lumbar radiculopathy M54.16 Sciatica M54.30 Compression fracture Essential hypertension I10
--- NOTE | 2021-10-24 15:18 | ANE.PACU2 ---
Inpatient post-anesthesia follow up: Airway intact: Yes Vital signs: Temperature 97.6 F Pulse Rate 76 Respiratory Rate 18 Blood Pressure 169/60 Pulse Oximetry 93 Oxygen Delivery Me thod Room Air Oxygen Flow Rate Fraction of Inspir ed Oxygen Hydration adequate: Yes Nausea and vomiting: No Pain level: 1 Mental status: Baseline
[2021-10-24] MEDS: docusate sodium 100 mg Capsule PO (18:32)
[2021-10-25 04:00] VITALS: BP 147/64; PULSE 73; RESP 17; TEMP 36.7; O2SAT 94
[2021-10-25 05:26] LABS: Basophils % 0.2 %; Eosinophils # 0.4 10^3/uL (0.0-0.8); Eosinophils % 1.4 %; Hematocrit 32.3 % (37.0-47.0); Hemoglobin 9.8 g/dL (11.5-15.3); Lymphocytes # 14.4 10^3/uL (0.8-4.8); Lymphocytes % 59.2 %; Mean Corpuscular HGB Conc 30.3 g/dL (30.0-36.0); Mean Corpuscular Hemoglobin 30.4 pg (28.0-34.0); Mean Corpuscular Volume 100.3 fl (81-99); Mean Platelet Volume 11.1 fL (7.4-10.4); Monocytes # 1.4 10^3/uL (0.2-0.9); Monocytes % 5.6 %; Neutrophils # 8.07 10^3/uL (1.8-7.7); Neutrophils % 33.1 %; Nucleated Red Blood Cells % 0 %; Platelet Count 206 10^3/cmm (130-400); Red Blood Count 3.22 10^6/uL (4.1-5.3); Red Cell Distribution Width 14.8 % (12.1-15.1); White Blood Count 24.3 10^3/uL (4.0-10.0)
[2021-10-25 05:57] LABS: Anion Gap 15.4 (5-19); Blood Urea Nitrogen 51 mg/dL (8-23); Calcium 7.7 mg/dL (8.5-10.5); Carbon Dioxide 23 mmol/L (22-29); Chloride 101 mmol/L (98-107); Glucose 92 mg/dL (65-115); Osmolality Calculated 293 mOsm/kg (285-295); Potassium 4.4 mmol/L (3.5-5.1); Sodium 135 mmol/L (136-145)
[2021-10-25] MEDS: pantoprazole DR 40 mg Tablet PO (06:15)
[2021-10-25 06:17] LABS: Slide Review Slide Review Perform
--- NOTE | 2021-10-25 07:53 | PM.PN ---
Subjective Subjective: POD 1 Patient slightly confused reports back and leg pain have improved. Family is present. Patient denies any shortness of breath, chest pain or headaches. Vitals/I&O/Wt Last Vital Signs Temp 98.0 F 10/25/21 04:00 Pulse 73 10/25/21 04:00 Resp 17 10/25/21 04:00 BP 147/64 10/25/21 04:00 Pulse Ox 94 10/25/21 04:00 10/24/21 10/25/21 10/25/21 22:59 06:59 14:59 Intake Total 350 / 1300 50 / 1350 Output Total 850 / 1175 Balance 350 / 975 -800 / 175 Physical Exam Narrative: Patient presents alert and oriented x3 with a good general appearance normal mood and affect. Normal coordination normal stability. Mild tenderness around the incisional site with the incision appear to be healing nicely. No signs of erythema or drainage. No signs of infection. Patient denies any fevers or chills. 4/5 motor strength both lower extremities with negative straight leg raise bilaterally. Calves are supple no medial thigh tenderness. Pulses are 2+ at the dorsalis pedis and posterior tibial region. Good capillary refill throughout normal sensation light touch both lower extremities. Urinary Catheter Management: Bedoya Latex: Cath Placed During This Visit: yes, but has since been removed by the nurse Reason for Continuing Indwelling Catheter: Required Immobilization for Trauma or Surgery or Anesthesia Urinary Catheter Date of Insertion: 10/22/21 Urinary Catheter Time of Insertion: 22:14 Date Urinary Catheter Removed: 10/25/21 Time Urinary Catheter Discontinued: 06:15 Data : 10/25/21 04:33 10/25/21 04:33 A&P Assessment and plan (1) Lumbar radiculopathy: Physical therapy evaluate for continue walking program. From orthopedic standpoint okay to discharge when stable. We will see her back in the office in 2 weeks time for a wound check. Status: Acute (2) Status post lumbar laminectomy: Status: Acute Attestations Medical Necessity Statement*: defer to medical team Coding Level of Care Code Acute Instructional Support Assistant for [facility] La [facility] Diagnoses Lumbar radiculopathy M54.16 Status post lumbar laminectomy Z98.890
[2021-10-25 08:00] VITALS: BP 166/77; PULSE 79; PULSE 86; RESP 17; RESP 18; TEMP 36.7; O2SAT 94; O2SAT 96
[2021-10-25] MEDS: hyDRALAzine 50 mg Tablet PO ×2 (08:30→18:41)
[2021-10-25] MEDS: metoprolol succinate ER (24 HR) 100 mg Tablet PO (08:31)
[2021-10-25] MEDS: docusate sodium 100 mg Capsule PO ×2 (08:31→18:41)
[2021-10-25] MEDS: acetaminophen 500 mg Tablet PO ×3 (08:31→18:40)
[2021-10-25] MEDS: gabapentin 300 mg Capsule PO (08:31)
[2021-10-25] MEDS: sennosides-docusate Tablet 1 TAB PO (08:31)
--- NOTE | 2021-10-25 11:03 | PC.SOCIAL ---
IMM Update Pg. 2of IMM updated and reviewed with patient, who verbalized understanding. Copy provided.
--- NOTE | 2021-10-25 11:11 | PC.SOCIAL ---
IMM Update Pg. 2of IMM updated and reviewed with patient, who verbalized understanding. Copy provided.
[2021-10-25 11:44] VITALS: BP 136/70; PULSE 79; RESP 18; TEMP 37; O2SAT 97
--- NOTE | 2021-10-25 12:09 | P.PN_ITS ---
Subjective Subjective: Patient was seen and examined this morning, she was complaining of lower back pain, no other acute events. Medications: Medication Review Details: Generic Name Dose Route Start Last Admin Trade Name Oz PRN Reason Stop Dose Admin Hydrocodone Bitart /Acetaminophen 0 tab 10/22/21 16:31 10/23/21 17:42 Hydrocodone-Acet aminophen 5-325 Mg Tablet PO 1 tab Q4H PRN Administration MODERATE PAIN Amlodipine Besylat e 10 mg 10/22/21 18:50 10/23/21 20:48 Amlodipine 10 Mg Tablet PO 10 mg BEDTIME SCOTT Administration Gabapentin 300 mg 10/22/21 21:00 10/24/21 08:12 Gabapentin 300 M g Capsule PO Not Given TID SCOTT Heparin Sodium (Po rcine) 5,000 unit 10/22/21 19:00 10/23/21 02:15 Heparin 5,000 Un it/Ml Inj 1 Ml SUBCUT 5,000 unit Q8H SCOTT Administration Hydralazine HCl 50 mg 10/22/21 18:50 10/24/21 08:11 Hydralazine 50 M g Tablet PO 50 mg BID SCOTT Administration Ketorolac Trometha mine 15 mg 10/22/21 16:50 10/23/21 20:49 Ketorolac 30 Mg/ Ml Inj IVP 10/27/21 16:49 15 mg Q6H PRN Administration MODERATE PAIN Metoprolol Succina te 100 mg 10/23/21 09:00 10/24/21 08:11 Metoprolol Succi veronica Er (24 Hr) 10 0 Mg Tablet PO 100 mg DAILY SCOTT Administration Pantoprazole Sodiu m 40 mg 10/23/21 06:00 10/24/21 04:[address] 40 Mg Tablet PO Not Given QAM SCOTT Senna/Docusate Sod ium 1 tab 10/23/21 09:00 10/24/21 08:12 Sennosides-Docus ate Tablet PO Not Given DAILY [facility] Vitals/I&O/Wt Last Vital Signs Temp 98.6 F 10/25/21 11:44 Pulse 79 10/25/21 11:44 Resp 18 10/25/21 11:44 BP 136/70 10/25/21 11:44 Pulse Ox 97 10/25/21 11:44 10/24/21 10/25/21 10/25/21 22:59 06:59 14:59 Intake Total 350 / 1300 50 / 1350 236 / 236 Output Total 850 / 1175 Balance 350 / 975 -800 / 175 236 / 236 Physical Exam Const: COMMON NORMALS: patient oriented x3 HENMT: COMMON NORMALS: normocephalic and atraumatic HEAD & SCALP: normocephalic and atraumatic Chest: CHEST: Yes Symmetrical chest wall rise Resp: COMMON NORMALS: clear to auscultation bilaterally EFFORT & INSPECTION: Yes symmetric chest movement AUSCULTATION: clear to auscultation bilaterally Cardio: COMMON NORMALS: regular rate, regular rhythm, S1 normal heart sound pr esent, S2 normal heart sound present, No gallops present (Cardio), No murmurs present (Cardio), No rub (Cardio) and Peripheral pulses 2+ throughout RATE: regular rate RHYTHM: regular rhythm HEART SOUNDS: S1 normal heart sound present and S2 normal heart sound present PERIPHERAL PULSES: Peripheral pulses 2+ throughout GI: COMMON NORMALS: Normal to inspection, nondistended, normoactive bowel sounds present, Soft to palpation, non-tender, No hepatosplenomegaly present and no masses AUSCULTATION: Yes normoactive bowel sounds PALPATION: Yes Soft to palpation and Yes No hepatosplenomegaly present RECTAL EXAM: deferred Extremity: COMMON NORMALS: no clubbing, cyanosis or edema and no pedal edema Neuro: COMMON NORMALS: patient oriented x3 Urinary Catheter Management: Bedoya Latex: Cath Placed During This Visit: yes, but has since been removed by the nurse Reason for Continuing Indwelling Catheter: Required Immobilization for Trauma or Surgery or Anesthesia Urinary Catheter Date of Insertion: 10/22/21 Urinary Catheter Time of Insertion: 22:14 Date Urinary Catheter Removed: 10/25/21 Time Urinary Catheter Discontinued: 06:15 Data : 10/25/21 04:33 10/25/21 04:33 A&P Assessment and plan (1) Lumbar radiculopathy: Status: Acute (2) Sciatica: Status: Acute (3) Compression fracture: Status: Acute (4) Essential hypertension: Status: Acute Plan 86-year female who carries history of CLL, presented for debilitating radiculopathy MRI showing large extruded L3-L4 disc herniation Lumbar radiculopathy:- S/P: L3/4 laminectomy with partial facetectomy and diskectomy Pain control, bowel regimen Orthopedic on board Essential hypertension: Resume her antihypertensive regimen, avoid lisinopril. CLL: chronic leukocytosis, patient is afebrile. DVT prophylaxis: On Lovenox Disposition: SNF placement Attestations Medical Necessity Statement*: Patient is currently awaiting SNF placement. Coding Level of Care Code Acute Slag Mixer for [facility] Fwd Diagnoses Lumbar radiculopathy M54.16 Sciatica M54.30 Compression fracture Essential hypertension I10
[2021-10-25] MEDS: enoxaparin 30 mg/0.3 mL Syringe SUBCUT (12:22)
[2021-10-25 15:57] VITALS: BP 115/61; PULSE 65; RESP 20; TEMP 37.1; O2SAT 96
[2021-10-25 20:00] VITALS: BP 102/55; PULSE 62; PULSE 66; RESP 16; RESP 20; TEMP 37.3; O2SAT 94; O2SAT 95
[2021-10-26] VITALS (11 sets, daily range): BP systolic 125–188; BP diastolic 55–74; PULSE 69–86; RESP 15–18; TEMP 36.4–37.8; O2SAT 93–97
[2021-10-26] MEDS: magnesium hydroxide 30 mL UDC PO (00:32)
[2021-10-26] MEDS: HYDROcodone-acetaminophen 5-325 mg Tablet PO ×5 (00:32→23:55)
[2021-10-26] MEDS: zolpidem 5 mg Tablet PO (00:32)
[2021-10-26 05:20] LABS: Basophils # 0.1 10^3/uL (0.0-0.1); Basophils % 0.2 %; Eosinophils # 0.1 10^3/uL (0.0-0.8); Eosinophils % 0.2 %; Hemoglobin 9.9 g/dL (11.5-15.3); Lymphocytes % 69.2 %; Mean Corpuscular HGB Conc 30.9 g/dL (30.0-36.0); Mean Corpuscular Hemoglobin 30.9 pg (28.0-34.0); Mean Platelet Volume 10.9 fL (7.4-10.4); Monocytes # 1.7 10^3/uL (0.2-0.9); Neutrophils # 6.59 10^3/uL (1.8-7.7); Nucleated Red Blood Cells % 0 %; Platelet Count 197 10^3/cmm (130-400); Red Cell Distribution Width 14.7 % (12.1-15.1); White Blood Count 27.5 10^3/uL (4.0-10.0)
[2021-10-26 05:44] LABS: Blood Urea Nitrogen 46 mg/dL (8-23); Calcium 7.7 mg/dL (8.5-10.5); Carbon Dioxide 22 mmol/L (22-29); Chloride 100 mmol/L (98-107); Glucose 91 mg/dL (65-115); Osmolality Calculated 289 mOsm/kg (285-295); Sodium 134 mmol/L (136-145)
[2021-10-26] MEDS: pantoprazole DR 40 mg Tablet PO (05:52)
[2021-10-26] MEDS: metoprolol succinate ER (24 HR) 100 mg Tablet PO (09:47)
[2021-10-26] MEDS: hyDRALAzine 50 mg Tablet PO ×2 (09:47→17:58)
[2021-10-26] MEDS: sennosides-docusate Tablet 1 TAB PO (09:47)
[2021-10-26] MEDS: docusate sodium 100 mg Capsule PO ×2 (09:47→17:58)
--- NOTE | 2021-10-26 11:06 | PM.PN ---
Subjective Subjective: No acute events overnight working with physical therapy. Medications: Medication Review Details: Generic Name Dose Route Start Last Admin Trade Name Freq PRN Reason Stop Dose Admin Hydrocodone Bitart /Acetaminophen 0 tab 10/22/21 16:31 10/23/21 17:42 Hydrocodone-Acet aminophen 5-325 Mg Tablet PO 1 tab Q4H PRN Administration MODERATE PAIN Amlodipine Besylat e 10 mg 10/22/21 18:50 10/23/21 20:48 Amlodipine 10 Mg Tablet PO 10 mg BEDTIME SCOTT Administration Gabapentin 300 mg 10/22/21 21:00 10/24/21 08:12 Gabapentin 300 M g Capsule PO Not Given TID SCOTT Heparin Sodium (Po rcine) 5,000 unit 10/22/21 19:00 10/23/21 02:15 Heparin 5,000 Un it/Ml Inj 1 Ml SUBCUT 5,000 unit Q8H SCOTT Administration Hydralazine HCl 50 mg 10/22/21 18:50 10/24/21 08:11 Hydralazine 50 M g Tablet PO 50 mg BID SCOTT Administration Ketorolac Trometha mine 15 mg 10/22/21 16:50 10/23/21 20:49 Ketorolac 30 Mg/ Ml Inj IVP 10/27/21 16:49 15 mg Q6H PRN Administration MODERATE PAIN Metoprolol Succina te 100 mg 10/23/21 09:00 10/24/21 08:11 Metoprolol Succi veronica Er (24 Hr) 10 0 Mg Tablet PO 100 mg DAILY SCOTT Administration Pantoprazole Sodiu m 40 mg 10/23/21 06:00 10/24/21 04:[address] 40 Mg Tablet PO Not Given QAM [facility] Senna/Docusate Sod ium 1 tab 10/23/21 09:00 10/24/21 08:12 Sennosides-Docus ate Tablet PO Not Given DAILY [facility] Vitals/I&O/Wt Last Vital Signs Temp 100.1 F H 10/26/21 08:00 Pulse 69 10/26/21 09:35 Resp 16 10/26/21 09:35 BP 145/66 10/26/21 08:00 Pulse Ox 93 10/26/21 09:35 10/25/21 10/26/21 10/26/21 22:59 06:59 14:59 Intake Total 1250 / 1786 0 / 1786 360 / 360 Output Total 300 / 300 590 / 890 Balance 950 / 1486 -590 / 896 360 / 360 Physical Exam Const: COMMON NORMALS: patient oriented x3 HENMT: COMMON NORMALS: normocephalic and atraumatic HEAD & SCALP: normocephalic and atraumatic Chest: CHEST: Yes Symmetrical chest wall rise Resp: COMMON NORMALS: clear to auscultation bilaterally EFFORT & INSPECTION: Yes symmetric chest movement AUSCULTATION: clear to auscultation bilaterally Cardio: COMMON NORMALS: regular rate, regular rhythm, S1 normal heart sound present, S2 normal heart sound present, No gallops present (Cardio), No murmurs present (Cardio), No rub (Cardio) and Peripheral pulses 2+ throughout RATE: regular rate RHYTHM: regular rhythm HEART SOUNDS: S1 normal heart sound present and S2 normal heart sound present PERIPHERAL PULSES: Peripheral pulses 2+ throughout GI: COMMON NORMALS: Normal to inspection, nondistended, normoactive bowel sounds present, Soft to palpation, non-tender, No hepatosplenomegaly present and no masses AUSCULTATION: Yes normoactive bowel sounds PALPATION: Yes Soft to palpation and Yes No hepatosplenomegaly present RECTAL EXAM: deferred Extremity: COMMON NORMALS: no clubbing, cyanosis or edema and no pedal edema Neuro: COMMON NORMALS: patient oriented x3 Urinary Catheter Management: Bedoya Latex: Cath Placed During This Visit: yes, but has since been removed by the nurse Reason for Continuing Indwelling Catheter: Required Immobilization for Trauma or Surgery or Anesthesia Urinary Catheter Date of Insertion: 10/22/21 Urinary Catheter Time of Insertion: 22:14 Date Urinary Catheter Removed: 10/25/21 Time Urinary Catheter Discontinued: 06:15 Data : 10/26/21 04:50 10/26/21 04:50 A&P Assessment and plan (1) Lumbar radiculopathy: Status: Acute (2) Sciatica: Status: Acute (3) Compression fracture: Status: Acute (4) Essential hypertension: Status: Acute Plan 86-year female who carries history of CLL, presented for debilitating radiculopathy MRI showing large extruded L3-L4 disc herniation Lumbar radiculopathy:- S/P: L3/4 laminectomy with partial facetectomy and diskectomy Pain control, bowel regimen Orthopedic on board Essential hypertension: Resume her antihypertensive regimen, avoid lisinopril. CLL: chronic leukocytosis, patient is afebrile. DVT prophylaxis: On Lovenox Disposition: SNF placement Attestations Medical Necessity Statement*: Patient is currently awaiting placement Coding Level of Care Code Acute Acquisition Advisor for [facility] Fwd Diagnoses Lumbar radiculopathy M54.16 Sciatica M54.30 Compression fracture Essential hypertension I10
[2021-10-26] MEDS: enoxaparin 30 mg/0.3 mL Syringe SUBCUT (11:56)
[2021-10-26] MEDS: amlodipine 10 mg Tablet PO (22:16)
[2021-10-27] MEDS: HYDROcodone-acetaminophen 5-325 mg Tablet PO ×4 (03:55→20:22)
[2021-10-27 04:00] VITALS: BP 182/71; PULSE 85; RESP 18; TEMP 37; O2SAT 94
[2021-10-27 04:59] LABS: Hematocrit 29.7 % (37.0-47.0); Hemoglobin 9.2 g/dL (11.5-15.3); Mean Corpuscular Hemoglobin 30.7 pg (28.0-34.0); Mean Platelet Volume 10.9 fL (7.4-10.4); Platelet Count 194 10^3/cmm (130-400); Red Cell Distribution Width 14.3 % (12.1-15.1); White Blood Count 29.3 10^3/uL (4.0-10.0)
[2021-10-27 05:17] LABS: Anion Gap 13.2 (5-19); Blood Urea Nitrogen 30 mg/dL (8-23); Calcium 7.6 mg/dL (8.5-10.5); Carbon Dioxide 24 mmol/L (22-29); Chloride 98 mmol/L (98-107); Glucose 106 mg/dL (65-115); Osmolality Calculated 279 mOsm/kg (285-295); Potassium 4.2 mmol/L (3.5-5.1); Sodium 131 mmol/L (136-145)
[2021-10-27 05:33] LABS: Absolute Segmented Neutrophil 7.9 10/cmm (1.6-7.1); Eosinophils 0 %; Lymphocytes 65 %; Lymphocytes Absolute 20.2 10^3/cmm (1.2-3.4); Monocytes Absolute 1.2 10^3/cmm (0.1-0.6); Segmented Neutrophils 27 %; Total Cells Counted 100 (0-100)
[2021-10-27 05:34] LABS: Absolute Neutrophil 7.9 10^3/cmm (1.4-6.5); Platelet Estimate Normal (Normal); Smudge Cells Trace
[2021-10-27] MEDS: pantoprazole DR 40 mg Tablet PO (06:22)
[2021-10-27 08:00] VITALS: BP 186/85; PULSE 86; PULSE 96; RESP 17; TEMP 36.7; O2SAT 94; O2SAT 95
[2021-10-27] MEDS: sennosides-docusate Tablet 1 TAB PO (08:15)
[2021-10-27] MEDS: gabapentin 300 mg Capsule PO ×2 (08:15→17:00)
[2021-10-27] MEDS: metoprolol succinate ER (24 HR) 100 mg Tablet PO (08:15)
[2021-10-27] MEDS: docusate sodium 100 mg Capsule PO ×2 (08:15→17:00)
[2021-10-27] MEDS: hyDRALAzine 50 mg Tablet PO ×2 (08:16→17:00)
--- NOTE | 2021-10-27 10:42 | PC.SOCIAL ---
IMM Update Pg. 2 of IMM updated and reviewed with patient, who verbalized understanding. Copy provided.
--- NOTE | 2021-10-27 11:57 | P.PN_ITS ---
Subjective Subjective: Patient was seen and examined this morning slightly drowsy, likely secondary to [place]. No other acute events. Medications: Medication Review Details: Generic Name Dose Route Start Last Admin Trade Name Freq PRN Reason Stop Dose Admin Hydrocodone Bitart /Acetaminophen 0 tab 10/22/21 16:31 10/23/21 17:42 Hydrocodone-Acet aminophen 5-325 Mg Tablet PO 1 tab Q4H PRN Administration MODERATE PAIN Amlodipine Besylat e 10 mg 10/22/21 18:50 10/23/21 20:48 Amlodipine 10 Mg Tablet PO 10 mg BEDTIME SCOTT Administration Gabapentin 300 mg 10/22/21 21:00 10/24/21 08:12 Gabapentin 300 M g Capsule PO Not Given TID SCOTT Heparin Sodium (Po rcine) 5,000 unit 10/22/21 19:00 10/23/21 02:15 Heparin 5,000 Un it/Ml Inj 1 Ml SUBCUT 5,000 unit Q8H SCOTT Administration Hydralazine HCl 50 mg 10/22/21 18:50 10/24/21 08:11 Hydralazine 50 M g Tablet PO 50 mg BID SCOTT Administration Ketorolac Trometha mine 15 mg 10/22/21 16:50 10/23/21 20:49 Ketorolac 30 Mg/ Ml Inj IVP 10/27/21 16:49 15 mg Q6H PRN Administration MODERATE PAIN Metoprolol Succina te 100 mg 10/23/21 09:00 10/24/21 08:11 Metoprolol Succi veronica Er (24 Hr) 10 0 Mg Tablet PO 100 mg DAILY SCOTT Administration Pantoprazole Sodiu m 40 mg 10/23/21 06:00 10/24/21 04:[address] 40 Mg Tablet PO Not Given QAM [facility] Senna/Docusate Sod ium 1 tab 10/23/21 09:00 10/24/21 08:12 Sennosides-Docus ate Tablet PO Not Given DAILY [facility] Vitals/I&O/Wt Last Vital Signs Temp 98.0 F 10/27/21 08:00 Pulse 86 10/27/21 08:00 Resp 17 10/27/21 08:00 BP 186/85 10/27/21 08:00 Pulse Ox 94 10/27/21 08:00 10/26/21 10/27/21 10/27/21 22:59 06:59 14:59 Intake Total 240 / 600 320 / 920 120 / 120 Output Total 400 / 850 300 / 300 Balance 240 / 150 -80 / 70 -180 / -180 Physical Exam Const: COMMON NORMALS: patient oriented x3 HENMT: COMMON NORMALS: normocephalic and atraumatic HEAD & SCALP: normocephalic and atraumatic Chest: CHEST: Yes Symmetrical chest wall rise Resp: COMMON NORMALS: clear to auscultation bilaterally EFFORT & INSPECTION: Yes symmetric chest movement AUSCULTATION: clear to auscultation bilaterally Cardio: COMMON NORMALS: regular rate, regular rhythm, S1 normal heart sound present, S2 normal heart sound present, No gallops present (Cardio), No murmurs present (Cardio), No rub (Cardio) and Peripheral pulses 2+ throughout RATE: regular rate RHYTHM: regular rhythm HEART SOUNDS: S1 normal heart sound present and S2 normal heart sound present PERIPHERAL PULSES: Peripheral pulses 2+ throughout GI: COMMON NORMALS: Normal to inspection, nondistended, normoactive bowel sounds present, Soft to palpation, non-tender, No hepatosplenomegaly present and no masses AUSCULTATION: Yes normoactive bowel sounds PALPATION: Yes Soft to palpation and Yes No hepatosplenomegaly present RECTAL EXAM: deferred Extremity: COMMON NORMALS: no clubbing, cyanosis or edema and no pedal edema Neuro: COMMON NORMALS: patient oriented x3 Urinary Catheter Management: Bedoya Latex: Cath Placed During This Visit: yes, but has since been removed by the nurse Reason for Continuing Indwelling Catheter: Required Immobilization for Trauma or Surgery or Anesthesia Urinary Catheter Date of Insertion: 10/22/21 Urinary Catheter Time of Insertion: 22:14 Date Urinary Catheter Removed: 10/25/21 Time Urinary Catheter Discontinued: 06:15 Data : 10/27/21 04:34 10/27/21 04:34 A&P Assessment and plan (1) Lumbar radiculopathy: Status: Acute (2) Sciatica: Status: Acute (3) Compression fracture: Status: Acute (4) Essential hypertension: Status: Acute Plan 86-year female who carries history of CLL, presented for debilitating radiculopathy MRI showing large extruded L3-L4 disc herniation Lumbar radiculopathy:- S/P: L3/4 laminectomy with partial facetectomy and diskectomy Pain control, bowel regimen Orthopedic on board Essential hypertension: Resume her antihypertensive regimen, avoid lisinopril. CLL: chronic leukocytosis, patient is afebrile. DVT prophylaxis: On Lovenox Disposition: SNF placement Attestations Medical Necessity Statement*: Awaiting assisted placement. 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
[2021-10-27 12:00] VITALS: BP 182/63; PULSE 82; RESP 17; TEMP 36.9; O2SAT 91
[2021-10-27] MEDS: enoxaparin 30 mg/0.3 mL Syringe SUBCUT (12:57)
[2021-10-27 16:00] VITALS: BP 160/61; PULSE 80; RESP 16; TEMP 37.1; O2SAT 92
--- NOTE | 2021-10-27 18:22 | PC.NURSE ---
Patient alert and oriented to self and sometimes place. She is confused most of the time. Family feel it is from pain medications and her sleeping meds. Doctor d/c'd sleeping aid and decreased to least amount of pain tablet ordered. Patient continues to have confusion. She refuses turns because it hurts and patient keep legs bent to chest. This nurse educated importance of moving in bed, straightening her legs and getting OOBT bedside commode. She said it caused her to much anxiety and is refusing. Patient has depends on and is have good UOP incontinent episodes. She has been changed multiple times throughout the day. Patient wants to only be turned if staff uses shes to turn her. Patient is pleasant but does c/o pain with all movement. Daughter and at bedside most of shift and supportive. Spoke to receiving facility today they plan to get patient tomorrow and would like us to fax discharge papers when we get them. Room clean and clutter free with call light in reach. Will give bedside report to oncoming nurse at shift change.
[2021-10-27 20:00] VITALS: BP 151/73; PULSE 77; PULSE 85; RESP 16; RESP 18; TEMP 37.3; O2SAT 95; O2SAT 97
[2021-10-27] MEDS: amlodipine 10 mg Tablet PO (20:17)
[2021-10-27 23:36] VITALS: BP 123/68; PULSE 84; RESP 19; TEMP 36.9; O2SAT 93
[2021-10-28] MEDS: acetaminophen 500 mg Tablet PO (02:57)
[2021-10-28 04:00] VITALS: BP 160/69; PULSE 84; RESP 18; TEMP 36.8; O2SAT 95
[2021-10-28] MEDS: HYDROcodone-acetaminophen 5-325 mg Tablet PO ×4 (05:04→18:57)
[2021-10-28] MEDS: pantoprazole DR 40 mg Tablet PO (05:04)
[2021-10-28 08:00] VITALS: PULSE 82; RESP 16; O2SAT 97
[2021-10-28 08:24] VITALS: BP 169/70; PULSE 94; RESP 17; TEMP 36.7; O2SAT 95
[2021-10-28] MEDS: gabapentin 300 mg Capsule PO ×2 (08:52→18:14)
[2021-10-28] MEDS: hyDRALAzine 50 mg Tablet PO ×2 (08:52→18:14)
[2021-10-28] MEDS: metoprolol succinate ER (24 HR) 100 mg Tablet PO (08:52)
[2021-10-28] MEDS: docusate sodium 100 mg Capsule PO ×2 (08:52→18:14)
[2021-10-28] MEDS: sennosides-docusate Tablet 1 TAB PO (08:52)
[2021-10-28] MEDS: nystatin powder 15 gm Btl 1 APPLIC TOPICAL (08:59)
[2021-10-28 09:50] LABS: SARS Covid-2 Antigen Negative (Negative)
[2021-10-28] MEDS: enoxaparin 30 mg/0.3 mL Syringe SUBCUT (11:40)
--- NOTE | 2021-10-28 14:43 | PM.PN ---
Subjective Subjective: Patient continue to complain of lower extremity pain and respond well to norco. Medications: Medication Review Details: Generic Name Dose Route Start Last Admin Trade Name Freq PRN Reason Stop Dose Admin Hydrocodone Bitart /Acetaminophen 0 tab 10/22/21 16:31 10/23/21 17:42 Hydrocodone-Acet aminophen 5-325 Mg Tablet PO 1 tab Q4H PRN Administration MODERATE PAIN Amlodipine Besylat e 10 mg 10/22/21 18:50 10/23/21 20:48 Amlodipine 10 Mg Tablet PO 10 mg BEDTIME SCOTT Administration Gabapentin 300 mg 10/22/21 21:00 10/24/21 08:12 Gabapentin 300 M g Capsule PO Not Given TID SCOTT Heparin Sodium (Po rcine) 5,000 unit 10/22/21 19:00 10/23/21 02:15 Heparin 5,000 Un it/Ml Inj 1 Ml SUBCUT 5,000 unit Q8H SCOTT Administration Hydralazine HCl 50 mg 10/22/21 18:50 10/24/21 08:11 Hydralazine 50 M g Tablet PO 50 mg BID SCOTT Administration Ketorolac Trometha mine 15 mg 10/22/21 16:50 10/23/21 20:49 Ketorolac 30 Mg/ Ml Inj IVP 10/27/21 16:49 15 mg Q6H PRN Administration MODERATE PAIN Metoprolol Succina te 100 mg 10/23/21 09:00 10/24/21 08:11 Metoprolol Succi veronica Er (24 Hr) 10 0 Mg Tablet PO 100 mg DAILY SCOTT Administration Pantoprazole Sodiu m 40 mg 10/23/21 06:00 10/24/21 04:[address] 40 Mg Tablet PO Not Given QAM SCOTT Senna/Docusate Sod ium 1 tab 10/23/21 09:00 10/24/21 08:12 Sennosides-Docus ate Tablet PO Not Given DAILY [facility] Vitals/I&O/Wt Last Vital Signs Temp 98.1 F 10/28/21 08:24 Pulse 94 10/28/21 08:24 Resp 17 10/28/21 08:24 BP 169/70 10/28/21 08:24 Pulse Ox 95 10/28/21 08:24 05/26/22 05/27/22 05/27/22 22:59 06:59 14:59 Intake Total 320 / 540 600 / 1140 340 / 340 Output Total 450 / 750 300 / 300 Balance 320 / 240 150 / 390 40 / 40 Physical Exam Const: COMMON NORMALS: patient oriented x3 HENMT: COMMON NORMALS: normocephalic and atraumatic HEAD & SCALP: normocephalic and atraumatic Chest: CHEST: Yes Symmetrical chest wall rise Resp: COMMON NORMALS: clear to auscultation bilaterally EFFORT & INSPECTION: Yes symmetric chest movement AUSCULTATION: clear to auscultation bilaterally Cardio: COMMON NORMALS: regular rate, regular rhythm, S1 normal heart sound present, S2 normal heart sound present, No gallops present (Cardio), No murmurs present (Cardio), No rub (Cardio) and Peripheral pulses 2+ throughout RATE: regular rate RHYTHM: regular rhythm HEART SOUNDS: S1 normal heart sound present and S2 normal heart sound present PERIPHERAL PULSES: Peripheral pulses 2+ throughout GI: COMMON NORMALS: Normal to inspection, nondistended, normoactive bowel sounds present, Soft to palpation, non-tender, No hepatosplenomegaly present and no masses AUSCULTATION: Yes normoactive bowel sounds PALPATION: Yes Soft to palpation and Yes No hepatosplenomegaly present RECTAL EXAM: deferred Extremity: COMMON NORMALS: no clubbing, cyanosis or edema and no pedal edema Neuro: COMMON NORMALS: patient oriented x3 Urinary Catheter Management: Bedoya Latex: Cath Placed During This Visit: yes, but has since been removed by the nurse Reason for Continuing Indwelling Catheter: Required Immobilization for Trauma or Surgery or Anesthesia Urinary Catheter Date of Insertion: 10/22/21 Urinary Catheter Time of Insertion: 22:14 Date Urinary Catheter Removed: 10/25/21 Time Urinary Catheter Discontinued: 06:15 Data : 10/27/21 04:34 10/27/21 04:34 A&P Assessment and plan (1) Lumbar radiculopathy: Status: Acute (2) Sciatica: Status: Acute (3) Compression fracture: Status: Acute (4) Essential hypertension: Status: Acute Plan 86-year female who carries history of CLL, presented for debilitating radiculopathy MRI showing large extruded L3-L4 disc herniation Lumbar radiculopathy:- S/P: L3/4 laminectomy with partial facetectomy and diskectomy Pain control, bowel regimen Orthopedic on board Essential hypertension: Resume her antihypertensive regimen, avoid lisinopril. CLL: chronic leukocytosis, patient is afebrile. DVT prophylaxis: On Lovenox Disposition: SNF placement Attestations Medical Necessity Statement*: Currently awaiting placement. Coding Level of Care Code Acute Water [employer] Business Segment Leader for [facility] Fwd Diagnoses Lumbar radiculopathy M54.16 Sciatica M54.30 Compression fracture Essential hypertension I10
[2021-10-28 15:13] VITALS: BP 137/66; PULSE 86; RESP 17; TEMP 37; O2SAT 96
--- NOTE | 2021-10-28 18:27 | PC.NURSE ---
end of shift : Pt ambulated to commode today and used bedside commode. patient is requesting needs met, eating full meal, and voicing concerns. No complaints or concerns at this time.
[2021-10-28 20:00] VITALS: BP 128/66; PULSE 70; PULSE 77; RESP 15; RESP 19; TEMP 36.8; O2SAT 96; O2SAT 97
[2021-10-28] MEDS: amlodipine 10 mg Tablet PO (20:58)
[2021-10-29] VITALS (9 sets, daily range): BP systolic 119–168; BP diastolic 60–94; PULSE 68–102; RESP 12–19; TEMP 36.5–37.2; O2SAT 93–98
[2021-10-29] MEDS: HYDROcodone-acetaminophen 5-325 mg Tablet PO ×5 (00:50→22:07)
[2021-10-29] MEDS: pantoprazole DR 40 mg Tablet PO (05:48)
[2021-10-29] MEDS: gabapentin 300 mg Capsule PO ×2 (08:23→17:35)
[2021-10-29] MEDS: nystatin powder 15 gm Btl 1 APPLIC TOPICAL (08:23)
[2021-10-29] MEDS: docusate sodium 100 mg Capsule PO ×2 (08:23→17:35)
[2021-10-29] MEDS: hyDRALAzine 50 mg Tablet PO ×2 (08:23→17:35)
[2021-10-29] MEDS: sennosides-docusate Tablet 1 TAB PO (08:23)
[2021-10-29] MEDS: metoprolol succinate ER (24 HR) 100 mg Tablet PO (08:23)
--- NOTE | 2021-10-29 11:01 | PC.SOCIAL ---
IMM Update pg 2 of IMM updated and reviewed w/ patient. Copy provided and Copy in chart updated.
--- NOTE | 2021-10-29 11:31 | PM.PN ---
Subjective Subjective: Patient was seen and examined this morning.No acute events.Muscle relaxant has been added. Medications: Medication Review Details: Generic Name Dose Route Start Last Admin Trade Name Freq PRN Reason Stop Dose Admin Hydrocodone Bitart /Acetaminophen 0 tab 10/22/21 16:31 10/23/21 17:42 Hydrocodone-Acet aminophen 5-325 Mg Tablet PO 1 tab Q4H PRN Administration MODERATE PAIN Amlodipine Besylat e 10 mg 10/22/21 18:50 10/23/21 20:48 Amlodipine 10 Mg Tablet PO 10 mg BEDTIME SCOTT Administration Gabapentin 300 mg 10/22/21 21:00 10/24/21 08:12 Gabapentin 300 M g Capsule PO Not Given TID SCOTT Heparin Sodium (Po rcine) 5,000 unit 10/22/21 19:00 10/23/21 02:15 Heparin 5,000 Un it/Ml Inj 1 Ml SUBCUT 5,000 unit Q8H SCOTT Administration Hydralazine HCl 50 mg 10/22/21 18:50 10/24/21 08:11 Hydralazine 50 M g Tablet PO 50 mg BID SCOTT Administration Ketorolac Trometha mine 15 mg 10/22/21 16:50 10/23/21 20:49 Ketorolac 30 Mg/ Ml Inj IVP 10/27/21 16:49 15 mg Q6H PRN Administration MODERATE PAIN Metoprolol Succina te 100 mg 10/23/21 09:00 10/24/21 08:11 Metoprolol Succi veronica Er (24 Hr) 10 0 Mg Tablet PO 100 mg DAILY SCOTT Administration Pantoprazole Sodiu m 40 mg 10/23/21 06:00 10/24/21 04:[address] 40 Mg Tablet PO Not Given QAM SCOTT Senna/Docusate Sod ium 1 tab 10/23/21 09:00 10/24/21 08:12 Sennosides-Docus ate Tablet PO Not Given DAILY SCOTT Vitals/I&O/Wt Last Vital Signs Temp 98.9 F 10/29/21 04:00 Pulse 84 10/29/21 08:00 Resp 17 10/29/21 08:00 BP 141/69 10/29/21 04:00 Pulse Ox 98 10/29/21 08:00 10/28/21 10/29/21 10/29/21 22:59 06:59 14:59 Intake Total 840 / 1180 520 / 1700 200 / 200 Output Total 300 / 600 Balance 840 / 880 220 / 1100 200 / 200 Physical Exam Const: COMMON NORMALS: patient oriented x3 HENMT: COMMON NORMALS: normocephalic and atraumatic HEAD & SCALP: normocephalic and atraumatic Chest: CHEST: Yes Symmetrical chest wall rise Resp: COMMON NORMALS: clear to auscultation bilaterally EFFORT & INSPECTION: Yes symmetric chest movement AUSCULTATION: clear to auscultation bilaterally Cardio: COMMON NORMALS: regular rate, regular rhythm, S1 normal heart sound present, S2 normal heart sound present, No gallops present (Cardio), No murmurs present (Cardio), No rub (Cardio) and Peripheral pulses 2+ throughout RATE: regular rate RHYTHM: regular rhythm HEART SOUNDS: S1 normal heart sound present and S2 normal heart sound present PERIPHERAL PULSES: Peripheral pulses 2+ throughout GI: COMMON NORMALS: Normal to inspection, nondistended, normoactive bowel sounds present, Soft to palpation, non-tender, No hepatosplenomegaly present and no masses AUSCULTATION: Yes normoactive bowel sounds PALPATION: Yes Soft to palpation and Yes No hepatosplenomegaly present RECTAL EXAM: deferred Extremity: COMMON NORMALS: no clubbing, cyanosis or edema and no pedal edema Neuro: COMMON NORMALS: patient oriented x3 Urinary Catheter Management: Bedoya Latex: Cath Placed During This Visit: yes, but has since been removed by the nurse Reason for Continuing Indwelling Catheter: Required Immobilization for Trauma or Surgery or Anesthesia Urinary Catheter Date of Insertion: 10/22/21 Urinary Catheter Time of Insertion: 22:14 Date Urinary Catheter Removed: 10/25/21 Time Urinary Catheter Discontinued: 06:15 Data : 10/30/21 12:10 10/30/21 12:10 A&P Assessment and plan (1) Lumbar radiculopathy: Status: Acute (2) Sciatica: Status: Acute (3) Compression fracture: Status: Acute (4) Essential hypertension: Status: Acute Plan 86-year female who carries history of CLL, presented for debilitating radiculopathy MRI showing large extruded L3-L4 disc herniation Lumbar radiculopathy:- S/P: L3/4 laminectomy with partial facetectomy and diskectomy Pain control, bowel regimen Orthopedic on board Essential hypertension: Resume her antihypertensive regimen, avoid lisinopril. CLL: chronic leukocytosis, patient is afebrile. DVT prophylaxis: On Lovenox Disposition: SNF placement Attestations Medical Necessity Statement*: Patient is currently awaiting SNF placement. Coding Level of Care Code Acute Rubber Cutter And Shape Carver for [facility] Fwd Exam Detailed Diagnoses Lumbar radiculopathy M54.16 Sciatica M54.30 Compression fracture Essential hypertension I10
[2021-10-29] MEDS: enoxaparin 30 mg/0.3 mL Syringe SUBCUT (11:46)
--- NOTE | 2021-10-29 13:40 | PM.PN ---
Subjective Subjective: Patient has been doing well since surgery. At this point she had a good session of physical therapy. She is a bit sore but otherwise has been doing great since surgery. Vitals/I&O/Wt Last Vital Signs Temp 98.9 F 10/29/21 04:00 Pulse 84 10/29/21 08:00 Resp 17 10/29/21 08:00 BP 141/69 10/29/21 04:00 Pulse Ox 98 10/29/21 08:00 10/28/21 10/29/21 10/29/21 22:59 06:59 14:59 Intake Total 840 / 1180 520 / 1700 200 / 200 Output Total 300 / 600 Balance 840 / 880 220 / 1100 200 / 200 Physical Exam Narrative: Patient is in bed however she is more alert than she was couple days ago when I saw her. Urinary Catheter Management: Bedoya Latex: Cath Placed During This Visit: yes, but has since been removed by the nurse Reason for Continuing Indwelling Catheter: Required Immobilization for Trauma or Surgery or Anesthesia Urinary Catheter Date of Insertion: 10/22/21 Urinary Catheter Time of Insertion: 22:14 Date Urinary Catheter Removed: 10/25/21 Time Urinary Catheter Discontinued: 06:15 Data : 10/27/21 04:34 10/27/21 04:34 A&P Assessment and plan (1) Status post lumbar laminectomy: P postop day #6. Lumbar decompression. Status: Acute Attestations Medical Necessity Statement*: Per primary service. Coding Level of Care Code Acute Training Administrator for Raf De La Cruz Diagnoses Status post lumbar laminectomy Z98.890
[2021-10-29] MEDS: cyclobenzaprine 10 mg Tablet 5 MG PO (14:31)
--- NOTE | 2021-10-29 18:37 | PC.NURSE ---
Patient remained alert and oriented x 4 throughout shift. Patient worked with PT. Was up to chair for meals and used BSC. Patient complained of pain in legs throughout shift and pain medicine given. Continues to c/o spasms in legs with muscle relaxer not helping. Remains naomi legs to chest with education to straighten and exercise legs throughout day. Room clean and clutter free with call light in reach and frequent turns throughout day while agreeable. Bedside report given to oncoming nurse.
[2021-10-29] MEDS: amlodipine 10 mg Tablet PO (20:32)
[2021-10-30] MEDS: HYDROcodone-acetaminophen 5-325 mg Tablet PO ×3 (02:21→19:29)
[2021-10-30 03:58] VITALS: BP 142/63; PULSE 68; RESP 18; TEMP 36.9; O2SAT 94
[2021-10-30] MEDS: cyclobenzaprine 10 mg Tablet 5 MG PO ×2 (04:31→14:34)
[2021-10-30] MEDS: pantoprazole DR 40 mg Tablet PO (05:42)
[2021-10-30 07:55] VITALS: PULSE 70; RESP 18; O2SAT 96
[2021-10-30] MEDS: docusate sodium 100 mg Capsule PO ×2 (09:29→18:37)
[2021-10-30] MEDS: hyDRALAzine 50 mg Tablet PO ×2 (09:30→18:37)
[2021-10-30] MEDS: metoprolol succinate ER (24 HR) 100 mg Tablet PO (09:30)
[2021-10-30] MEDS: nystatin powder 15 gm Btl 1 APPLIC TOPICAL ×2 (09:30→18:37)
[2021-10-30] MEDS: sennosides-docusate Tablet 1 TAB PO (09:30)
--- NOTE | 2021-10-30 11:37 | PM.PN ---
Subjective Subjective: Patient was seen this morning daughter is at bedside, she according to daughter has been having episodes of confusion, like last night she had episodes of hallucinations, the patient denies this, she also had episodes of pain during the night, requiring an extra dose of hydrocodone, she did receive Ambien the last few nights, the family felt made her increasingly confused, she had no trouble falling asleep her last night, denies any dysuria, is working with physical therapy, she has been accepted at [facility], no fevers, no shortness of breath, not requiring any oxygen, no calf pain, no calf swelling, Vitals/I&O/Wt Last Vital Signs Temp 98.4 F 10/30/21 03:58 Pulse 70 10/30/21 07:55 Resp 18 10/30/21 07:55 BP 142/63 10/30/21 03:58 Pulse Ox 96 10/30/21 07:55 10/29/21 10/30/21 10/30/21 22:59 06:59 14:59 Intake Total 480 / 980 Balance 480 / 980 Physical Exam Const: COMMON NORMALS: no acute distress and patient oriented x3 Resp: COMMON NORMALS: normal respiratory effort, No retractions, No use of accessory muscles and clear to auscultation bilaterally AUSCULTATION: clear to auscultation bilaterally Cardio: COMMON NORMALS: regular rate, regular rhythm, S1 normal heart sound present and S2 normal heart sound present RATE: regular rate RHYTHM: regular rhythm HEART SOUNDS: S1 normal heart sound present and S2 normal heart sound present GI: COMMON NORMALS: Normal to inspection, nondistended, normoactive bowel sounds present, Soft to palpation and non-tender PALPATION: Yes Soft to palpation Extremity: COMMON NORMALS: no pedal edema Neuro: COMMON NORMALS: patient oriented x3 Psych: COMMON NORMALS: mental status grossly normal Urinary Catheter Management: Bedoya Latex: Cath Placed During This Visit: yes, but has since been removed by the nurse Reason for Continuing Indwelling Catheter: Required Immobilization for Trauma or Surgery or Anesthesia Urinary Catheter Date of Insertion: 10/22/21 Urinary Catheter Time of Insertion: 22:14 Date Urinary Catheter Removed: 10/25/21 Time Urinary Catheter Discontinued: 06:15 Data : 10/27/21 04:34 10/27/21 04:34 A&P Assessment and plan (1) Lumbar radiculopathy: Status: Acute (2) Sciatica: Status: Acute (3) Compression fracture: Status: Acute (4) Essential hypertension: Status: Acute Plan 86-year female who carries history of CLL, presented for debilitating radiculopathy MRI showing large extruded L3-L4 disc herniation Lumbar radiculopathy:- S/P: L3/4 laminectomy with partial facetectomy and diskectomy Pain control, bowel regimen Orthopedic on board Encephalopathy -In the afternoon and evening she does have waxing and waning mentation -Currently alert oriented x3, following all commands -No dysuria, no fevers, shortness of breath, no cough, no chest pain, shortness of breath, no calf pain, hemoptysis -Confusion has been associate with Ambien, Ambien has been stopped -She is on gabapentin 300 twice daily, she has been chronically on this -Also she is on hydrocodone, there is concerns that this might be exacerbating her confusion episodes -Creatinine was 1.1 on admission, -We will do CBC, BMP, repeat UA, chest x-ray -Likely she has some component of owning, will continue to monitor, avoid psychotropic agents -Monitor mentation Essential hypertension: Resume her antihypertensive regimen, avoid lisinopril. CLL: chronic leukocytosis, patient is afebrile. DVT prophylaxis: On Lovenox Disposition: SNF placement Attestations Medical Necessity Statement*: Patient requires hospital admission for status post laminectomy, now with postsurgical confusion Coding Level of Care Code Acute Extrusion Supervisor for Raf De La Cruz Diagnoses Lumbar radiculopathy M54.16 Sciatica M54.30 Compression fracture Essential hypertension I10
--- NOTE | 2021-10-30 11:41 | XRR_ITS ---
PROCEDURE INFORMATION: Exam: XR Chest Exam date and time: 10/30/2021 12:37 PM Age: 86 years old Clinical indication: Other: AMS TECHNIQUE: Imaging protocol: XR of the chest. Views: 1 view. COMPARISON: CR XR chest 1V portable [id number] 02/02/2020 6:35 AM FINDINGS: Lungs: There are pulmonary parenchymal calcifications consistent with remote granulomatous organism exposure. Pleural spaces: Unremarkable. No pleural effusion. No pneumothorax. Heart/Mediastinum: Unremarkable. No cardiomegaly. Vasculature: There is calcified plaque in the aortic arch. Bones/joints: Multiple chronic left rib fracture sites. These were seen on the prior study as well. XR/XR chest 1V portable [id number] IMPRESSION: No evidence for acute cardiopulmonary disease.
[2021-10-30] MEDS: enoxaparin 30 mg/0.3 mL Syringe SUBCUT (12:48)
[2021-10-30 12:52] LABS: Basophils # 0.1 10^3/uL (0.0-0.1); Basophils % 0.3 %; Eosinophils # 0.2 10^3/uL (0.0-0.8); Eosinophils % 0.4 %; Hematocrit 34.1 % (37.0-47.0); Hemoglobin 10.9 g/dL (11.5-15.3); Lymphocytes # 38.5 10^3/uL (0.8-4.8); Lymphocytes % 81.3 %; Mean Corpuscular Volume 96.9 fl (81-99); Mean Platelet Volume 10.7 fL (7.4-10.4); Monocytes # 1.2 10^3/uL (0.2-0.9); Monocytes % 2.4 %; Neutrophils # 7.19 10^3/uL (1.8-7.7); Neutrophils % 15.2 %; Nucleated Red Blood Cells % 0 %; Platelet Count 340 10^3/cmm (130-400); Red Blood Count 3.52 10^6/uL (4.1-5.3); Red Cell Distribution Width 14.2 % (12.1-15.1)
[2021-10-30 12:56] LABS: White Blood Count 47.4 10^3/uL (4.0-10.0)
[2021-10-30 13:12] LABS: Anion Gap 17.3 (5-19); Blood Urea Nitrogen 31 mg/dL (8-23); C Reactive Protein 22.9 mg/L (0.0-4.9); Calcium 8.1 mg/dL (8.5-10.5); Carbon Dioxide 23 mmol/L (22-29); Chloride 94 mmol/L (98-107); Glucose 121 mg/dL (65-115); Magnesium 3.6 mg/dL (1.7-2.3); Osmolality Calculated 278 mOsm/kg (285-295); Phosphorus 2.6 mg/dL (2.5-4.5); Potassium 4.3 mmol/L (3.5-5.1); Sodium 130 mmol/L (136-145)
[2021-10-30 13:19] LABS: Procalcitonin 0.19 ng/mL (0-0.5)
[2021-10-30 15:47] VITALS: BP 150/70; PULSE 90; O2SAT 94
[2021-10-30 20:00] VITALS: BP 123/70; PULSE 79; PULSE 85; RESP 18; TEMP 36.8; O2SAT 95
[2021-10-30 20:00] LABS: Add Urine Microscopic? YES; Bilirubin Urine Neg (Negative); Blood Urine Neg (Negative); Glucose Urine UA Norm (Normal); Ketones Urine Negative (Negative); Leukocyte Esterase Urine 1+ (Negative); Nitrate Urine Negative (Negative); Protein Urine Neg (Negative); Specific Gravity, Urine 1.025 (1.005-1.030); Urine Appearance Clear (CLEAR); Urine Color Yellow (Yellow); Urobilinogen Urine Norm (Negative); pH Urine 5 (5-7)
[2021-10-30 20:01] LABS: Bacteria Urine TRACE /hpf; RBC Urine 0-4 /hpf (0-2); Squamous Epithelial Cell Urine 0-4 /hpf (0-5)
[2021-10-30 20:02] LABS: Add Urine Culture? No
[2021-10-30] MEDS: amlodipine 10 mg Tablet PO (20:38)
[2021-10-31] VITALS (7 sets, daily range): BP systolic 125–170; BP diastolic 56–74; PULSE 73–84; RESP 16–18; TEMP 36.4–36.9; O2SAT 93–97
[2021-10-31] MEDS: HYDROcodone-acetaminophen 5-325 mg Tablet PO (04:06)
[2021-10-31] MEDS: pantoprazole DR 40 mg Tablet PO (05:23)
[2021-10-31] MEDS: sodium chloride 0.9% 1,000 ML 50 ML IV (10:42)
[2021-10-31] MEDS: hyDRALAzine 50 mg Tablet PO ×2 (10:42→18:15)
[2021-10-31] MEDS: sennosides-docusate Tablet 1 TAB PO (10:43)
[2021-10-31] MEDS: metoprolol succinate ER (24 HR) 100 mg Tablet PO (10:43)
[2021-10-31] MEDS: docusate sodium 100 mg Capsule PO ×2 (10:43→18:15)
[2021-10-31] MEDS: nystatin powder 15 gm Btl 1 APPLIC TOPICAL ×2 (10:43→18:15)
--- NOTE | 2021-10-31 10:57 | PC.SOCIAL ---
IMM Update pg 2 of IMM updated and reviewed w/ patients daughter. Copy provided and Copy in chart updated.
[2021-10-31] MEDS: enoxaparin 30 mg/0.3 mL Syringe SUBCUT (12:43)
[2021-10-31] MEDS: gabapentin 100 mg Capsule PO ×2 (14:08→20:20)
[2021-10-31] MEDS: acetaminophen 500 mg Tablet PO (14:11)
--- NOTE | 2021-10-31 15:03 | P.PN_ITS ---
Subjective Subjective: Hospital course, lab work appreciated. No acute events overnight. Currently at bedside. Patient awake and alert sitting in chair. Worked with physical therapy. Denies any new complaint. Vitals/I&O/Wt Last Vital Signs Temp 98.1 F 10/31/21 11:55 Pulse 75 10/31/21 11:55 Resp 17 10/31/21 11:55 BP 125/63 10/31/21 12:59 Pulse Ox 97 10/31/21 11:55 10/31/21 10/31/21 10/31/21 06:59 14:59 22:59 Output Total 0 / 0 300 / 300 Balance 0 / 240 -300 / -300 Physical Exam Narrative: Very pleasant cooperative female Laying comfortably in her bed Was not able to sleep well last night Abdomen soft S1, S2 EOMI, PERRLA No signs of cauda equina Sensations intact of lower extremities Saturating well on room air Urinary Catheter Management: Bedoya Latex: Cath Placed During This Visit: yes, but has since been removed by the nurse Reason for Continuing Indwelling Catheter: Required Immobilization for Trauma or Surgery or Anesthesia Urinary Catheter Date of Insertion: 10/22/21 Urinary Catheter Time of Insertion: 22:14 Date Urinary Catheter Removed: 10/25/21 Time Urinary Catheter Discontinued: 06:15 Data : 10/30/21 12:10 10/30/21 12:10 A&P Assessment and plan (1) Lumbar radiculopathy: Status: Acute (2) Sciatica: Status: Acute (3) Compression fracture: Status: Acute (4) Essential hypertension: Status: Acute Plan 86-year female who carries history of CLL, presented for debilitating r adiculopathy MRI showing large extruded L3-L4 disc herniation Lumbar radiculopathy:-S/P: L3/4 laminectomy with partial facetectomy and diskectomy Pain control, bowel regimen. Physical therapy. [place] 5 mg every 12 hours as needed. Continue gabapentin 100 mg 3 times a day. Essential hypertension: Goal pressure less than 140/90 mmHg. Restart home antihypertensives. Leukocytosis: Most likely secondary to CLL along with active inflammation in postoperative status. UA, chest x-ray done yesterday showing no acute infection. CLL: chronic leukocytosis, patient is afebrile. DVT prophylaxis: On Lovenox Regular diet. Protonix for PUD prophylaxis. Discharge planning: Patient has been accepted at [facility]. Awaiting bed assignment. Attestations Medical Necessity Statement*: Requires further hospitalization in setting of lumbar radiculopathy post L3/L4 laminectomy in a patient with CLL while safe discharge planning is sought. Time Spent in Patient Care: 16 - 35 minutes Coding Level of Care Code Acute Field Hockey And Lacrosse Coach for g Fwd Diagnoses Lumbar radiculopathy M54.16 Sciatica M54.30 Compression fracture Essential hypertension I10
[2021-10-31] MEDS: HYDROcodone-acetaminophen 5-325 mg Tablet 1 TAB PO (16:10)
[2021-10-31 18:44] LABS: SARS Covid-2 Antigen Negative (Negative)
[2021-10-31] MEDS: amlodipine 10 mg Tablet PO (20:20)
[2021-11-01] VITALS: BP 162/67; PULSE 70; RESP 14; TEMP 36.4; O2SAT 94
[2021-11-01] MEDS: HYDROcodone-acetaminophen 5-325 mg Tablet 1 TAB PO ×2 (00:10→09:59)
[2021-11-01] MEDS: cyclobenzaprine 10 mg Tablet 5 MG PO ×3 (00:11→15:25)
[2021-11-01 04:00] VITALS: BP 150/70; PULSE 76; RESP 16; TEMP 36.3; O2SAT 96
--- NOTE | 2021-11-01 05:05 | NUR.SHIFT ---
Patient alert most of this shift. Oriented to person but has some general confusion. Pain not well controlled on current pain medications with patient asking for PRN medicine a few hours prior to next administration time, flexeril and hydrocodone given together with no significant improvement in pain. Confusion not changed prior or post medication administration, consistent all night. Did ring call light to void x2 but was unable to go. Incontinent with bed linens and pericares provided. IV in right hand infusing iv fluids as ordered.
[2021-11-01] MEDS: sodium chloride 0.9% 1,000 ML 50 ML IV (05:48)
[2021-11-01] MEDS: pantoprazole DR 40 mg Tablet PO (05:48)
--- NOTE | 2021-11-01 05:50 | PC.NURSE ---
Refused to get to chair at this time.
[2021-11-01 06:05] LABS: Basophils # 0.1 10^3/uL (0.0-0.1); Basophils % 0.2 %; Eosinophils # 0.2 10^3/uL (0.0-0.8); Eosinophils % 0.7 %; Hematocrit 29.9 % (37.0-47.0); Hemoglobin 9.5 g/dL (11.5-15.3); Lymphocytes # 23.2 10^3/uL (0.8-4.8); Lymphocytes % 82.7 %; Mean Corpuscular HGB Conc 31.8 g/dL (30.0-36.0); Mean Corpuscular Hemoglobin 30.6 pg (28.0-34.0); Mean Corpuscular Volume 96.5 fl (81-99); Mean Platelet Volume 10.6 fL (7.4-10.4); Monocytes # 0.8 10^3/uL (0.2-0.9); Monocytes % 2.7 %; Neutrophils # 3.71 10^3/uL (1.8-7.7); Neutrophils % 13.3 %; Nucleated Red Blood Cells % 0 %; Platelet Count 259 10^3/cmm (130-400); Red Cell Distribution Width 14.2 % (12.1-15.1)
[2021-11-01 06:30] LABS: Alanine Aminotransferase 50 U/L (0-33); Albumin Level 3.3 g/dL (3.5-5.2); Alkaline Phosphatase 133 IU/L (35-105); Anion Gap 15.7 (5-19); Aspartate Amino Transferase 37 U/L (0-32); Blood Urea Nitrogen 23 mg/dL (8-23); Calcium 7.6 mg/dL (8.5-10.5); Carbon Dioxide 21 mmol/L (22-29); Chloride 104 mmol/L (98-107); Globulin 2.2 g/dL (1.3-4.6); Glucose 94 mg/dL (65-115); Osmolality Calculated 285 mOsm/kg (285-295); Potassium 4.7 mmol/L (3.5-5.1); Sodium 136 mmol/L (136-145); Total Bilirubin 0.3 mg/dL (0.15-1.2); Total Protein 5.5 g/dL (6.6-8.7)
[2021-11-01 08:00] VITALS: BP 159/70; PULSE 80; PULSE 81; RESP 16; RESP 18; TEMP 36.8; O2SAT 95; O2SAT 96
[2021-11-01] MEDS: gabapentin 100 mg Capsule PO ×2 (09:58→15:25)
[2021-11-01] MEDS: docusate sodium 100 mg Capsule PO (09:58)
[2021-11-01] MEDS: sennosides-docusate Tablet 1 TAB PO (09:58)
[2021-11-01] MEDS: nystatin powder 15 gm Btl 1 APPLIC TOPICAL (09:59)
[2021-11-01] MEDS: metoprolol succinate ER (24 HR) 100 mg Tablet PO (09:59)
[2021-11-01] MEDS: hyDRALAzine 50 mg Tablet PO (09:59)
[2021-11-01 11:49] VITALS: BP 130/67; PULSE 87; RESP 16; TEMP 36.9; O2SAT 96
[2021-11-01] MEDS: enoxaparin 30 mg/0.3 mL Syringe SUBCUT (12:14)
--- NOTE | 2021-11-01 13:42 | PM.DCS ---
Discharge Providers Date of Admission: 10/22/21 16:07 Date of Discharge: November 01, 2021 Attending Provider at Admission: Bakari Ramsey MD Attending Provider at Discharge: Jose D Mueller MD Consults: Orthopedic/spine surgery: Dr. Walton Primary Care Provider: Nithin Lin DO Diagnoses at Discharge Discharge Diagnosis (1) Lumbar radiculopathy: Status: Acute (2) Sciatica: Status: Acute (3) Compression fracture: Status: Acute (4) Essential hypertension: Status: Acute Reason for Visit Reason for Visit: LOW BACK PAIN Brief History: History as per HPI: Carlota Sesay is a 86 year old female who carries history of hypertension, chronic kidney disease, chronic lymphocytic leukemia follows up with Dr. Peck, presented today for debilitating back pain.? Patient is stating that for last few months she has been dealing with worsening for back pain to the point now she is climbing onto the furniture in order to ambulate in her home.? She has had multiple falls at home because of her unnatural posture.? She is describing her posture as slumping.? She has not noted any chest pain, shortness of breath, fever urine incontinence, strokelike features.? Her is not able to care for her anymore and today she decided to come to the hospital for further evaluation.? Her recent fall was yesterday which she described as knee buckling. She also has history of left pleural [place] drain which was managed by Dr. Zuleta. Hospital Course Hospital Course Patient admitted to the hospital further evaluation and management of lumbar radiculopathy. MRI back was done which showed large herniation at L3-L4 disc with extruded 1.8 cm risk fragment extending up behind L3 vertebral body along with severe spinal stenosis. Orthopedics was consulted and she underwent L3/L4 laminectomy with partial for facetectomy and discectomy. Patient tolerated the procedure well. Postoperative care was uncomplicated other than patient developing episodes of confusion which is most likely secondary to excessive pain medication and . Infectious pathology was ruled out. Her antihypertensives were adjusted. She is doing well with physical therapy. Safe discharge plan were discussed in detail with family and they wanted patient to be placed to SNF. Patient is being discharged to [facility] for further rehabitation. Physical Exam Const: COMMON NORMALS: no acute distress and patient oriented x3 HENMT: COMMON NORMALS: normocephalic and atraumatic HEAD & SCALP: normocephalic and atraumatic Chest: CHEST: Yes Symmetrical chest wall rise Resp: COMMON NORMALS: normal respiratory effort, No retractions, No use of accessory muscles and clear to auscultation bilaterally EFFORT & INSPECTION: Yes symmetric chest movement AUSCULTATION: clear to auscultation bilaterally Cardio: COMMON NORMALS: regular rate, regular rhythm, S1 normal heart sound present, S2 normal heart sound present, No gallops present (Cardio), No murmurs present (Cardio), No rub (Cardio) and Peripheral pulses 2+ throughout RATE: regular rate RHYTHM: regular rhythm HEART SOUNDS: S1 normal heart sound present and S2 normal heart sound present PERIPHERAL PULSES: Peripheral pulses 2+ throughout GI: COMMON NORMALS: Normal to inspection, nondistended, normoactive bowel sounds present, Soft to palpation, non-tender, No hepatosplenomegaly present and no masses AUSCULTATION: Yes normoactive bowel sounds PALPATION: Yes Soft to palpation and Yes No hepatosplenomegaly present RECTAL EXAM: deferred Extremity: COMMON NORMALS: no clubbing, cyanosis or edema and no pedal edema Neuro: COMMON NORMALS: patient oriented x3 Psych: COMMON NORMALS: mental status grossly normal Urinary Catheter Management: Bedoya Latex: Cath Placed During This Visit: yes, but has since been removed by the nurse Reason for Continuing Indwelling Catheter: Required Immobilization for Trauma or Surgery or Anesthesia Urinary Catheter Date of Insertion: 10/22/21 Urinary Catheter Time of Insertion: 22:14 Date Urinary Catheter Removed: 10/25/21 Time Urinary Catheter Discontinued: 06:15 Discharge Data Studies Completed and Pending Completed Studies During Hospitalization Category Date Time Status CT lumbar spine wo con* [id number] Urgent Cat Scan 10/22/21 08:46 Completed XR chest 1V portable [id number] Routine Exams 10/30/21 11:41 Completed XR lumbar spine 1V [id number] Routine Exams 10/24/21 Completed MR lumbar spine wo con* [id number] Urgent MRI 10/22/21 10:09 Completed Radiology Impressions Lumbar Spine CT 10/22/21 08:46 IMPRESSION: 1. There is at least moderate spinal canal stenosis at the level of L3 secondary to a large superiorly dissecting disc extrusion, new from 2019. 2. Stable appearance of remote T11 and L4 compression fractures with changes of posterior keith and pedicle screw fixation at L4-L5 as detailed above. Lumbar Spine MRI 10/22/21 10:09 IMPRESSION: 1. There is large herniation of the L3-L4 disc with an extruded 1.8 cm fragment extending up behind the L3 vertebral body. There is severe spinal stenosis. 2. Old compression fracture of T11 with stable retropulsion causing moderate spinal stenosis and indentation spinal cord. 3. Status post L4-L5 lumbar laminectomy and fusion. 4. Old compression fracture of L4 with moderate spinal stenosis at L4-L5 due to fracture retropulsion unchanged since previous study. Chest X-Ray 10/30/21 11:41 IMPRESSION: No evidence for acute cardiopulmonary disease. Laboratory Results WBC 28.0 10^3/uL (4.0-10.0) H 11/01/21 05:08 RBC 3.10 10^6/uL (4.1-5.3) L 11/01/21 05:08 Hgb 9.5 g/dL (11.5-15.3) L 11/01/21 05:08 Hct 29.9 % (37.0-47.0) L 11/01/21 05:08 MCV 96.5 fl (81-99) 11/01/21 05:08 MCH 30.6 pg (28.0-34.0) 11/01/21 05:08 MCHC 31.8 g/dL (30.0-36.0) 11/01/21 05:08 RDW 14.2 % (12.1-15.1) 11/01/21 05:08 Plt Count 259 10^3/cmm (130-400) 11/01/21 05:08 MPV 10.6 fL (7.4-10.4) H 11/01/21 05:08 Neut % (Auto) 13.3 % 11/01/21 05:08 Lymph % (Auto) 82.7 % 11/01/21 05:08 [place] % (Auto) 2.7 % 11/01/21 05:08 Eos % (Auto) 0.7 % 11/01/21 05:08 Baso % (Auto) 0.2 % 11/01/21 05:08 Neut # (Auto) 3.71 10^3/uL (1.8-7.7) 11/01/21 05:08 Lymph # (Auto) 23.2 10^3/uL (0.8-4.8) H 11/01/21 05:08 [place] # (Auto) 0.8 10^3/uL (0.2-0.9) 11/01/21 05:08 Eos # (Auto) 0.2 10^3/uL (0.0-0.8) 11/01/21 05:08 Baso # (Auto) 0.1 10^3/uL (0.0-0.1) 11/01/21 05:08 Nucleated RBC % (auto) 0 % 11/01/21 05:08 Total Counted 100 (0-100) 10/27/21 04:34 Atypical Lymphs % 4.0 % (0-5) 10/27/21 04:34 Absolute Neutrophils 7.9 10^3/cmm (1.4-6.5) H 10/27/21 04:34 Segmented Neutrophils 27 % 10/27/21 04:34 Abs Segm Neuts (Man) 7.9 10/cmm (1.6-7.1) H 10/27/21 04:34 Band Neutrophils 0.0 % 10/27/21 04:34 Abs Band Neuts (Man) 0.0 10^3/cmm (0.0-1.2) 10/27/21 04:34 Absolute Lymphocytes 20.2 10^3/cmm (1.2-3.4) H 10/27/21 04:34 Lymphocytes (Manual) 65 % 10/27/21 04:34 Monocytes (Manual) 4.0 % 10/27/21 04:34 Absolute Monocytes 1.2 10^3/cmm (0.1-0.6) H 10/27/21 04:34 Eosinophils (Manual) 0 % 10/27/21 04:34 Absolute Eosinophils 0.0 10^3/cmm (0.0-0.7) 10/27/21 04:34 Basophils (Manual) 0.0 % 10/27/21 04:34 Absolute Basophils 0.0 10^3/cmm (0.0-0.2) 10/27/21 04:34 Nucleated RBCs # 0.0 /100WBC 11/01/21 05:08 Smudge Cells Trace 10/27/21 04:34 Platelet Estimate Normal (Normal) 10/27/21 04:34 PT 13.80 SECONDS (12.1-14.9) 10/22/21 19:00 INR 1.03 (0.8-1.2) 10/22/21 19:00 APTT 27.6 SECONDS (23.9-36.7) 10/22/21 19:00 Fibrinogen 508 mg/dL (174-498) H 10/22/21 19:00 Sodium 136 mmol/L (136-145) 11/01/21 05:08 Potassium 4.7 mmol/L (3.5-5.1) 11/01/21 05:08 Chloride 104 mmol/L (98-107) 11/01/21 05:08 Carbon Dioxide 21 mmol/L (22-29) L 11/01/21 05:08 Anion Gap 15.7 (5-19) 11/01/21 05:08 BUN 23 mg/dL (8-23) 11/01/21 05:08 Creatinine 1.3 mg/dL (0.5-0.9) H 11/01/21 05:08 GFR Calculation Not Reportable 11/01/21 05:08 Glucose 94 mg/dL (65-115) 11/01/21 05:08 Calculated Osmolality 285 mOsm/kg (285-295) 11/01/21 05:08 Calcium 7.6 mg/dL (8.5-10.5) L 11/01/21 05:08 Phosphorus 2.6 mg/dL (2.5-4.5) 10/30/21 12:10 Magnesium 3.6 mg/dL (1.7-2.3) H 10/30/21 12:10 Total Bilirubin 0.3 mg/dL (0.15-1.2) 11/01/21 05:08 AST 37 U/L (0-32) H 11/01/21 05:08 ALT 50 U/L (0-33) H 11/01/21 05:08 Alkaline Phosphatase 133 IU/L (35-105) H 11/01/21 05:08 C-Reactive Protein 22.9 mg/L (0.0-4.9) H 10/30/21 12:10 Total Protein 5.5 g/dL (6.6-8.7) L 11/01/21 05:08 Albumin 3.3 g/dL (3.5-5.2) L 11/01/21 05:08 Globulin 2.2 g/dL (1.3-4.6) 11/01/21 05:08 Procalcitonin 0.19 ng/mL (0-0.5) 10/30/21 12:10 Urine Color Yellow (Yellow) 10/30/21 19:15 Urine Appearance Clear (CLEAR) 10/30/21 19:15 Urine pH 5 (5-7) 10/30/21 19:15 Ur Specific [place] 1.025 (1.005-1.030) 10/30/21 19:15 Urine Protein Neg (Negative) 10/30/21 19:15 Urine Glucose (UA) Norm (Normal) 10/30/21 19:15 Urine Ketones Negative (Negative) 10/30/21 19:15 Urine Blood Neg (Negative) 10/30/21 19:15 Urine Nitrate Negative (Negative) 10/30/21 19:15 Urine Bilirubin Neg (Negative) 10/30/21 19:15 Urine Urobilinogen Norm mg/dL (Negative) 10/30/21 19:15 Ur Leukocyte Esterase 1+ (Negative) H 10/30/21 19:15 Urine RBC 0-4 /hpf (0-2) H 10/30/21 19:15 Urine WBC 5-10 /hpf (0-5) H 10/30/21 19:15 Ur Squamous Epith Cells 0-4 /hpf (0-5) H 10/30/21 19:15 Amorphous Sediment Not Reportable 10/30/21 19:15 Urine Bacteria Trace /hpf (NONE) 10/30/21 19:15 SARS-CoV-2 Ag (Rapid) Negative (Negative) 10/31/21 18:10 Vitals Last Vital Signs Temp 98.4 F 11/01/21 11:49 Pulse 87 11/01/21 11:49 Resp 16 11/01/21 11:49 BP 130/67 11/01/21 11:49 Pulse Ox 96 11/01/21 11:49 Discharge Plan Discharge Patient Disposition: Home Condition: Stable Prescriptions: New cyclobenzaprine 10 mg Tablet 5 mg PO TID PRN (Reason: Spasms) Qty: 10 0RF docusate sodium 100 mg Capsule 100 mg PO BID Qty: 20 0RF gabapentin 100 mg Capsule 100 mg PO TID 30 Days Qty: 90 0RF Continued amlodipine 10 mg tablet 10 mg PO BEDTIME 0RF metoprolol succinate 100 mg tablet extended release 24 hr 100 mg PO DAILY 0RF glucosamine HCl 1,500 mg tablet 1,500 mg PO DAILY 0RF vit C,E,Zn,Qt-jchhe3-smb-zeax 250-2.5-0.5 mg capsule 1 cap PO BID 0RF furosemide 20 mg tablet 20 mg PO DAILY 0RF Hold Instructions: Resume on 12/16/19. until creatinine normalizes hydralazine 50 mg tablet 50 mg PO BID Qty: 180 4RF acetaminophen [Tylenol] 325 mg Tablet 650 mg PO BID PRN (Reason: Pain) 0RF omeprazole 40 mg capsule,delayed release(DR/EC) 40 mg PO QAM 0RF cholecalciferol (vitamin D3) [Vitamin D3] 50 mcg (2,000 unit) Tablet 50 mcg PO DAILY 0RF Prolia 60 mg/mL Syringe See Rx Instructions .ROUTE .COMPLEX 0RF Rx Instructions: 60 mg subcutaneously every 6 months hydrocodone-acetaminophen 5-325 mg Tablet 1 tab PO Q8H PRN (Reason: Pain) 0RF Discontinued gabapentin 300 mg capsule 300 mg PO TID 0RF Discharge Orders: Discharge Order (Routine); Ordered 11/01/21 Ordered By: Jose D Mueller Referrals: [facility] [Outside] Kei Walton DO [Physician] - 2 weeks Nithin Lin DO [Primary Care Provider] - 7-10 days Discharge Diet: Advance as tolerated Discharge Activity: Increase activity as tolerated Patient Instructions: Opioid Safety Activity Restrictions/Additional Instructions: Thank you for choosing [facility] for your care! The following is a list of instructions, from your provider, to follow upon your discharge to ensure you have the optimal recovery from your recent injury orsurgery. Follow-up care is a morelos part of your treatment and safety. Be sure to make and go to all appointments, and call your doctor if you are having problems. If you do not already have a follow-up appointment made, call Dr. Walton office in the next 1-3 days to make follow up appointment for 2 weeks at [phone]. It is also a good idea to know your test results and keep a list of the medicines you take. Medications will be prescribed for you at your provider's discretion. These medications are to be used as instructed; if they are taken more often that prescribed they will not be refilled early and in most cases will not be refilled at all. > When a refill is needed,you should contact jessica perez 2-3 business days before your prescription runs out. Medications will NOT be refilled by communications coordinator providers after hours! > Many pain medications contain Tylenol (Acetaminophen). Do not consume more than 4,000 mg of Tylenol per day in total with any combination ofmedications. > Pain medications can cause constipation. Please use an over the counter stool softener as directed, while taking pain medications. Consulty our local pharmacist with questions or recommendations on stool softeners. If constipation persists, contact our office or your primary care provider. > While under our care,you are not to receive pain medications or other controlled substances from any other provider unless our office is notified and approves. Any attempts to do so will result in refusal to prescribe any further pain medications and possible dismissal from our practice. ? Your wound and/or dressing should remain clean and dry for 2 days after surgery. On postoperative day 2 (48 hours after your surgery) the dressing (if present) should be removed and it is okay to shower and get the incision wet. Pad dry afterwards. No further dressing should be required from that point on. Do not put any creams or ointments on theincision > It is normal for there to be a small amount of discharge (bloody or blood tinged) present from a surgical wound for the first 1-3days. > The wound should be examined twice a day for signs of infection. Mild redness or bruising is to be expected but indications that an infection maybe starting would include; An increase in redness, swelling, or discharge, a foul odor present around the incision, and/or a fever greater than 101 ?F ? Showering is permitted, however we ask that you do not take a bath, sit in a whirlpool / Jacuzzi, or go swimming for 1 month. For only the first 2 days after surgery, lt wilt be necessary for you to cover your wound/dressing with plastic and tape to keep it dry. ? Walking is essential for the healing process after surgery. We would like you to slowly advance your walking. This should be done on relatively flat clear ground (inside or out) or can be done on a treadmill. Remember this goal does not have to happen all at once, slowly increase your distance and duration. This can be broken into more more than one walk per day as tolerated. Patients who walk as directed after surgery rarely require Physical Therapy. In the unlikely event this issue arises your provider will direct hospital staff to make the appropriate arrangements. ? No lifting over 5 pounds {a gallon of milk) or bending/twisting until further notice. Each of these activities places an unnecessary amount of stress onto the body and can impede the delicate healing process. > Instead of bending at the waist, keep your back straight and bend at the knees. > Instead of twisting your torso, keep your back straight and turn your entire body with your feet. ? You may sleep in any position which makes you comfortable. Many patients find comfort sleeping in a reclining chair. It is not abnormal to have difficulty sleeping for the first several weeks following your surgery. We recommend trying Benadry! or Tylenol PM as directed to help with your sleeping difficulties. Both medications are over the counter and available withoutprescription. ? NO SMOKING!!! Smoking dramatically increases the probability of developing postoperative wound infections. ? Common complaints after lumbar and/or thoracic spine surgery include, but are not limited to: numbness and/or tingling in the legs, pain around the incision and surrounding tissues, muscle spasms, or stiffness of the middle to low back. Contact our office if these symptoms persist or if an acute change occurs. ? No driving for the first 3-5days, and not while taking narcotics until seen at your follow-up appointment and cleared. There are no restrictions for riding on short trips, however if you take a longer trip, arrangements should be made to make regular stops to get out of the vehicle and stretch . ? Swelling is an unfortunate event that will take place with any surgery and is the primary source of your postoperative discomfort. While walking and regular approved activities helps control inflammation, there are additional steps you can take to minimizeswelling. > Place ice over the surgical site and surrounding tissue for twenty minutes, followed by applying a low/medium heat (heating pad) for an additional twenty minutes every 1-2 hours as needed for painrelief. > You may use of over the counter anti-inflammatory medications (Ibuprofen, Motrin, Aleve, Advil, etc) as directed on the package label. These types of medicines wm significantly reduce the amount of discomfort you experience after surgery from swelling. It should be noted that if you have and allergy to any of these medications, or a history of ulcers or kidney disease you should consult you primary care provider prior to starting these medications. Discharge Attestations Time Spent in Discharge Care*: greater than 30 min Specific Discharge Activities: educating patient, educating and/or supporting family/caregiver, discussing with pcp/other providers, discussing with case briefer/social workers/dc planners, documenting/other paperwork and evaluating patient/reviewing data Status at Discharge: Cognitive status at discharge: cognitively intact, Behavioral status at discharge: cooperative, Functional status at discharge: uses cane/walker, Overall status at discharge: patient is progressing back to baseline Quality Metrics Clinical Quality Measures [ No reported AMI, CVA or VTE this stay] Coding Level of Care Code Acute Chg DC note Diagnoses Lumbar radiculopathy M54.16 Sciatica M54.30 Compression fracture Essential hypertension I10
== END 2021-11-01 16:03 | disposition home or self-care (01) | DRG 519 ==
LOC: ER 14:06 → MEDSURG 16:10
PROVIDERS: Family Medicine; Internal Medicine; Orthopaedic Surgery; Admitting Provider Internal Medicine; Emergency Provider Registered Nurse; PCP Electrodiagnostic Medicine; Visit Provider Student in an Organized Health Care Education/Training Program
PROC: 0SB20ZZ Excision of Lumbar Vertebral Disc, Open Approach (ICD-10-PCS; CPT 63005; principal; 2021-10-24 09:50)
PROC: 0SB20ZZ Excision of Lumbar Vertebral Disc, Open Approach (ICD-10-PCS; 2021-10-24 09:50)
DX: M51.16 Intervertebral disc disorders with radiculopathy, lumbar region (principal); C91.10 Chronic lymphocytic leukemia of B-cell type not having achieved remission; F05 Delirium due to known physiological condition; E78.5 Hyperlipidemia, unspecified; N18.9 Chronic kidney disease, unspecified; Z87.81 Personal history of (healed) traumatic fracture; I12.9 Hypertensive chronic kidney disease with stage 1 through stage 4 chronic kidney disease, or unspecified chronic kidney disease
CPT/HCPCS: 36415; 51702; 71045; 72020; 72131; 72148; 76000; 80048; 80053; 81001; 81003; 83735; 84100; 84145; 85007; 85025; 85049; 85384; 85610; 85730; 86140; 87426; 96372; 97110; 97116; 97161; 97530; 99285; J0690; J1100; J1644; J1650; J1885; J2405; J2704; J2710; J3010; J3490; J7030; J8540

== ENCOUNTER → 2021-11-15 09:32 | Outpatient (BNVA) | payer MEDICARE, SELFPAY | PROVIDERS: PCP Electrodiagnostic Medicine; Visit Provider Orthopaedic Surgery | DX: Z47.89 Encounter for other orthopedic aftercare (principal) | CPT/HCPCS: 99024 ==

== ENCOUNTER → 2021-12-06 08:51 | Outpatient (BNVA) | payer MEDICARE, OTHER, SELFPAY | PROVIDERS: PCP Electrodiagnostic Medicine; Visit Provider Orthopaedic Surgery | DX: Z47.89 Encounter for other orthopedic aftercare (principal); Z98.890 Other specified postprocedural states; Z98.1 Arthrodesis status | CPT/HCPCS: 99024 ==

== ENCOUNTER 2022-01-11 11:13 | Outpatient (RCR) | payer MEDICARE, SELFPAY | END 2022-02-01 23:59 | disposition home or self-care (01) | LOC: SPT 11:13 | PROVIDERS: PCP Electrodiagnostic Medicine; Referring Provider Electrodiagnostic Medicine; Visit Provider Electrodiagnostic Medicine | DX: R29.898 Other symptoms and signs involving the musculoskeletal system (principal) | CPT/HCPCS: 97110; 97162 ==

== ENCOUNTER → 2022-01-24 07:50 | Outpatient (BNVA) | payer MEDICARE, OTHER, SELFPAY | PROVIDERS: PCP Electrodiagnostic Medicine; Visit Provider Physician Assistant | DX: M70.72 Other bursitis of hip, left hip (principal) | CPT/HCPCS: 20610; 99213; J1100; J2795 ==

== ENCOUNTER 2022-02-01 12:07 | Oncology outpatient (recurring) (ONCR) | payer MEDICARE, SELFPAY ==
[2022-02-01 12:48] LABS: Basophils # 0.1 10^3/uL (0.0-0.1); Basophils % 0.2 %; Eosinophils # 0.2 10^3/uL (0.0-0.8); Eosinophils % 0.5 %; Hematocrit 39.4 % (37.0-47.0); Hemoglobin 12.4 g/dL (11.5-15.3); Lymphocytes # 21.4 10^3/uL (0.8-4.8); Lymphocytes % 75.1 %; Mean Corpuscular HGB Conc 31.5 g/dL (30.0-36.0); Mean Corpuscular Hemoglobin 28.5 pg (28.0-34.0); Mean Corpuscular Volume 90.6 fl (81-99); Mean Platelet Volume 11.1 fL (7.4-10.4); Monocytes # 0.8 10^3/uL (0.2-0.9); Monocytes % 2.6 %; Neutrophils # 6.08 10^3/uL (1.8-7.7); Neutrophils % 21.4 %; Nucleated Red Blood Cells % 0 %; Platelet Count 278 10^3/cmm (130-400); Red Blood Count 4.35 10^6/uL (4.1-5.3); Red Cell Distribution Width 14.9 % (12.1-15.1); White Blood Count 28.5 10^3/uL (4.0-10.0)
[2022-02-01 13:00] LABS: Slide Review Slide Review Perform
[2022-02-01 13:35] LABS: 25 Hydroxy Vitamin D 68 ng/mL (30-100); Alanine Aminotransferase 17 U/L (0-33); Albumin Level 4.7 g/dL (3.5-5.2); Alkaline Phosphatase 80 U/L (35-105); Blood Urea Nitrogen 40 mg/dL (8-23); Calcium 10.6 mg/dL (8.5-10.5); Carbon Dioxide 32 mmol/L (22-29); Chloride 94 mmol/L (98-107); Globulin 2.1 g/dL (1.3-4.6); Glucose 116 mg/dL (65-115); Osmolality Calculated 301 mOsm/kg (285-295); Sodium 140 mmol/L (136-145); Thyroid Stimulating Hormone 1.13 uIU/mL (0.27-4.20); Total Bilirubin 0.6 mg/dL (0.15-1.2); Total Protein 6.8 g/dL (6.6-8.7)
[2022-02-01 13:55] LABS: Aspartate Amino Transferase 22 U/L (0-32); Lactate Dehydrogenase 238 U/L (135-214)
== END 2022-02-01 23:59 | disposition home or self-care (01) ==
PROVIDERS: PCP Electrodiagnostic Medicine; Visit Provider Internal Medicine Medical Oncology
DX: C91.10 Chronic lymphocytic leukemia of B-cell type not having achieved remission (principal); M81.0 Age-related osteoporosis without current pathological fracture; R53.83 Other fatigue
CPT/HCPCS: 36415; 80053; 82306; 83615; 84443; 85025

== ENCOUNTER 2022-02-02 06:00 | Outpatient (RCR) | payer MEDICARE, SELFPAY | END 2022-03-03 23:59 | disposition home or self-care (01) | LOC: SPT 06:00 | PROVIDERS: PCP Electrodiagnostic Medicine; Visit Provider Electrodiagnostic Medicine | DX: R53.1 Weakness (principal) | CPT/HCPCS: 97110; 97112; 99214 ==

== ENCOUNTER 2022-02-02 16:00 | Oncology outpatient (recurring) (ONCR) | payer MEDICARE, SELFPAY ==
[2022-02-02] MEDS: denosumab 60 mg SDV SUBCUT (16:45)
== END 2022-03-03 23:59 | disposition home or self-care (01) ==
PROVIDERS: PCP Electrodiagnostic Medicine; Visit Provider Internal Medicine Medical Oncology
DX: C91.10 Chronic lymphocytic leukemia of B-cell type not having achieved remission (principal); M50.30 Other cervical disc degeneration, unspecified cervical region; M48.02 Spinal stenosis, cervical region; E87.6 Hypokalemia; M81.0 Age-related osteoporosis without current pathological fracture; Z79.899 Other long term (current) drug therapy
CPT/HCPCS: 96372; 99214; J0897

== ENCOUNTER → 2022-03-09 10:39 | Outpatient (BNVA) | payer MEDICARE, SELFPAY | PROVIDERS: PCP Electrodiagnostic Medicine; Visit Provider Orthopaedic Surgery | DX: M48.062 Spinal stenosis, lumbar region with neurogenic claudication (principal) | CPT/HCPCS: 99214 ==

== ENCOUNTER 2022-06-30 13:21 | Emergency (ER) | payer MEDICARE, SELFPAY ==
[2022-06-30 13:27] VITALS: BP 193/71; PULSE 76; RESP 18; TEMP 36.5; O2SAT 91
--- NOTE | 2022-06-30 14:13 | ECG_ITS ---
[facility] Test Date: 2022-06-30 Pat Name: Carlota Sesay Department: Room: Gender: Female Inlayer: : 1935 Requested By: Abi Melgar Order Number: [id number] Stephanie MD: Sherine London M.D. Measurements Intervals [place] Rate: 76 P: 64 WI: 120 QRS: 70 QRSD: 85 T: 54 QT: 395 QTc: 445 Interpretive Statements SINUS RHYTHM Compared to ECG 12/25/2019 12:38:33 No significant changes Electronically Signed On 06-30-2022 21:51:21 COUNSELOR EDUCATION PROFESSOR by Sherine London M.D. [email or web address]
[2022-06-30 14:52] LABS: Basophils # 0.1 10^3/uL (0.0-0.1); Basophils % 0.2 %; Eosinophils # 0.3 10^3/uL (0.0-0.8); Eosinophils % 0.8 %; Hematocrit 33.8 % (37.0-47.0); Hemoglobin 10.7 g/dL (11.5-15.3); Mean Corpuscular HGB Conc 31.7 g/dL (30.0-36.0); Mean Corpuscular Hemoglobin 30.1 pg (28.0-34.0); Mean Corpuscular Volume 95.2 fl (81-99); Mean Platelet Volume 10.1 fL (7.4-10.4); Monocytes % 2.7 %; Neutrophils # 6.63 10^3/uL (1.8-7.7); Nucleated Red Blood Cells % 0 %; Platelet Count 251 10^3/cmm (130-400); Red Blood Count 3.55 10^6/uL (4.1-5.3); Red Cell Distribution Width 16.3 % (12.1-15.1)
[2022-06-30 15:11] LABS: Lactic Sepsis W/Reflex 0.8 mmol/L (0.5-2.2)
[2022-06-30 15:15] LABS: Troponin(5th) Baseline 34 ng/L (0-10)
[2022-06-30 15:18] VITALS: BP 193/95; PULSE 72; RESP 14; O2SAT 91
[2022-06-30 15:21] LABS: NT Pro B Type Natriuretic Pept 4332 pg/mL (0-450); Procalcitonin 0.15 ng/mL (0-0.5)
[2022-06-30 15:32] LABS: Alanine Aminotransferase 14 U/L (0-33); Albumin Level 4.1 g/dL (3.5-5.2); Alkaline Phosphatase 90 U/L (35-105); Anion Gap 19.4 (5-19); Aspartate Amino Transferase 18 U/L (0-32); Blood Urea Nitrogen 28 mg/dL (8-23); Calcium 9.2 mg/dL (8.5-10.5); Carbon Dioxide 23 mmol/L (22-29); Chloride 102 mmol/L (98-107); Globulin 2.3 g/dL (1.3-4.6); Glucose 100 mg/dL (65-115); Osmolality Calculated 298 mOsm/kg (285-295); Potassium 3.4 mmol/L (3.5-5.1); Sodium 141 mmol/L (136-145); Total Bilirubin 0.6 mg/dL (0.15-1.2); Total Protein 6.4 g/dL (6.6-8.7)
[2022-06-30 15:45] LABS: Slide Review Slide Review Perform; White Blood Count 35.1 10^3/uL (4.0-10.0)
--- NOTE | 2022-06-30 15:57 | ED_ITS ---
HPI - SOB/Dyspnea General: Chief Complaint: Shortness of Breath/Dyspnea Stated Complaint: Nolan Barba sent for fluid on lungs Time Seen by Provider: 06/30/22 14:35 Source: patient Mode of arrival: ambulatory History of Present Illness: HPI Narrative: 87-year-old female presents to the emergency room complaining of shortness of breath. For the last week she been increasing shortness of breath with exertion and developing orthopnea she normally is able to sleep laying flat but last night had to use several pillows which did relieve her orthopnea to the extent that she could sleep. She denies any chest pain. Blood pressures been markedly elevated as well. She has hypertension chronic kidney disease and chronic lymphocytic leukemia. MD elicited complaint: shortness of breath and cough Pertinent past history: congestive heart failure Onset (ago): week(s) (1) Context: occurred during exertion Timing: intermittent Severity: moderate Exacerbating factors: lying flat and exertion Relieving factors: rest Known history of: congestive heart failure Associated symptoms: Deny abdominal pain, chest congestion, chest pain, cough, diaphoresis, dizziness, extremity pain, fever(s), hemoptysis, lightheadedness, myalgias, nausea, orthopnea, palpitations, paresthesias, polydipsia, polyuria, rash, sense of impending doom, syncope or vomiting Review of Systems Const: Denies: fever(s), chills, fatigue, malaise or diaphoresis ENMT: Denies: throat pain, ear or mastoid pain, nasal discharge or nasal congestion Card: Denies: chest pain, palpitations, lightheadedness, syncope or orthopnea Resp: Denies: hemoptysis or chest congestion GI: Denies: abdominal pain, nausea or vomiting : Denies: flank pain, difficulty voiding, dysuria, urinary frequency or urinary urgency Musc: Denies: extremity pain Skin/Breast: Denies: rash or pruritus Neuro: Denies: dizziness Endo: Denies: polyuria or polydipsia PFS ED PFSH: Medical History CKD (chronic kidney disease) CLL (chronic lymphocytic leukemia) Compression fracture Essential hypertension Fibromyalgia Hyperlipidemia Osteoporosis Pleural effusion, left Surgical History History of laminectomy (10/24/21) L3/4 laminectomy with facetectomy Previous back surgery (03/2017) Lumbar laminectomy S/P cataract extraction S/P hysterectomy Family History Denies family history of Clotting disorder Hypertension Social History Smoking and tobacco status: never smoked Alcohol intake: never Household members: spouse Marital status: service: No Current occupational status: retired Current gender identity: Female Yuki/Jehovah'S Witness: [employer] Physical Exam Const: COMMON NORMALS: no acute distress GENERAL APPEARANCE: cooperative and comfortable ORIENTATION/CONSCIOUSNESS: Yes awake, Yes oriented to person, Yes oriented to place and Yes oriented to time HENMT: COMMON NORMALS: normocephalic, atraumatic and hearing grossly normal bilaterally HEAD & SCALP: normocephalic and atraumatic Resp: COMMON NORMALS: normal respiratory effort, No retractions and No use of accessory muscles AUSCULTATION: crackles Cardio: COMMON NORMALS: regular rate, regular rhythm and No murmurs present (Cardio) RATE: regular rate RHYTHM: regular rhythm GI: COMMON NORMALS: Soft to palpation and No hepatosplenomegaly present AUSCULTATION: Yes normoactive bowel sounds PALPATION: Yes Soft to palpation, No Tenderness to palpation present (GI), No Guarding due to palpation present (GI) and Yes No hepatosplenomegaly present Extremity: COMMON NORMALS: normal to inspection, capillary refill normal and no calf tenderness GENERAL: Yes edema Neuro: SENSORIUM/ORIENTATION: Yes oriented to person, Yes oriented to place and Yes oriented to time Skin: COMMON NORMALS: no rashes or lesions noted GENERAL SKIN EXAM: no rashes or lesions noted Course Vital Signs: Vital signs: Vital Signs Temperature 97.7 F 06/30/22 13:27 Pulse Rate 83 06/30/22 17:43 Respiratory Rate 14 06/30/22 17:43 Blood Pressure 178/76 06/30/22 17:43 Pulse Oximetry 93 06/30/22 17:43 Oxygen Delivery Me thod 06/30/22 17:43 MDM - SOB/Dyspnea Medical Decision Making Patient feeling much better with diuresis in the emergency room we will discharge patient home. Blood pressure control also did improve her symptoms. We will increase her Lasix to 40 mg daily and also increase the hydralazine to 50 mg 3 times a day follow-up with her primary care doctor within the next week. Medical Records I reviewed the patient's medical records. Lab Data I reviewed the patient's lab results. 06/30/22 14:41 06/30/22 14:41 Labs/Radiology: Laboratory Results WBC 35.1 10^3/uL (4.0-10.0) H* 06/30/22 14:41 RBC 3.55 10^6/uL (4.1-5.3) L 06/30/22 14:41 Hgb 10.7 g/dL (11.5-15.3) L 06/30/22 14:41 Hct 33.8 % (37.0-47.0) L 06/30/22 14:41 MCV 95.2 fl (81-99) 06/30/22 14:41 MCH 30.1 pg (28.0-34.0) 06/30/22 14:41 MCHC 31.7 g/dL (30.0-36.0) 06/30/22 14:41 RDW 16.3 % (12.1-15.1) H 06/30/22 14:41 Plt Count 251 10^3/cmm (130-400) 06/30/22 14:41 MPV 10.1 fL (7.4-10.4) 06/30/22 14:41 Neut % (Auto) 19.0 % 06/30/22 14:41 Lymph % (Auto) 77.0 % 06/30/22 14:41 [place] % (Auto) 2.7 % 06/30/22 14:41 Eos % (Auto) 0.8 % 06/30/22 14:41 Baso % (Auto) 0.2 % 06/30/22 14:41 Neut # (Auto) 6.63 10^3/uL (1.8-7.7) 06/30/22 14:41 Lymph # (Auto) 27.0 10^3/uL (0.8-4.8) H 06/30/22 14:41 [place] # (Auto) 1.0 10^3/uL (0.2-0.9) H 06/30/22 14:41 Eos # (Auto) 0.3 10^3/uL (0.0-0.8) 06/30/22 14:41 Baso # (Auto) 0.1 10^3/uL (0.0-0.1) 06/30/22 14:41 Nucleated RBC % (auto) 0 % 06/30/22 14:41 Nucleated RBCs # 0.0 /100WBC 06/30/22 14:41 Sodium 141 mmol/L (136-145) 06/30/22 14:41 Potassium 3.4 mmol/L (3.5-5.1) L 06/30/22 14:41 Chloride 102 mmol/L (98-107) 06/30/22 14:41 Carbon Dioxide 23 mmol/L (22-29) 06/30/22 14:41 Anion Gap 19.4 (5-19) H 06/30/22 14:41 BUN 28 mg/dL (8-23) H 06/30/22 14:41 Creatinine 1.7 mg/dL (0.5-0.9) H 06/30/22 14:41 GFR Calculation Not Reportable 06/30/22 14:41 Glucose 100 mg/dL (65-115) 06/30/22 14:41 Calculated Osmolality 298 mOsm/kg (285-295) H 06/30/22 14:41 Lactic Acid 0.8 mmol/L (0.5-2.2) 06/30/22 14:41 Calcium 9.2 mg/dL (8.5-10.5) 06/30/22 14:41 Total Bilirubin 0.6 mg/dL (0.15-1.2) 06/30/22 14:41 AST 18 U/L (0-32) 06/30/22 14:41 ALT 14 U/L (0-33) 06/30/22 14:41 Alkaline Phosphatase 90 U/L (35-105) 06/30/22 14:41 Troponin T Baseline 34 ng/L (0-10) H 06/30/22 14:41 Troponin T 120 Minute 32.33 ng/L (0-10) H 06/30/22 16:33 Delta Troponin T -1.67 ABS# (0-10) L 06/30/22 16:33 NT-Pro-B Natriuret Pep 4332 pg/mL (0-450) H 06/30/22 14:41 Total Protein 6.4 g/dL (6.6-8.7) L 06/30/22 14:41 Albumin 4.1 g/dL (3.5-5.2) 06/30/22 14:41 Globulin 2.3 g/dL (1.3-4.6) 06/30/22 14:41 Procalcitonin 0.15 ng/mL (0-0.5) 06/30/22 14:41 Discharge Plan Discharge Patient Disposition: Home Clinical Impression: Congestive heart failure, Hypertension, CLL (chronic lymphocytic leukemia) Condition: Stable Prescriptions: Changed hydralazine 50 mg tablet 50 mg PO TID Qty: 180 4RF furosemide 20 mg tablet 40 mg PO DAILY Qty: 60 0RF No Action amlodipine 10 mg tablet 10 mg PO BEDTIME metoprolol succinate 100 mg tablet extended release 24 hr 100 mg PO DAILY glucosamine HCl 1,500 mg tablet 1,500 mg PO DAILY hydrocodone-acetaminophen 5-325 mg tablet 1 - 2 tab PO Q4H PRN (Reason: pain) 5 Days Qty: 40 0RF acetaminophen [Tylenol] 325 mg Tablet 650 mg PO BID PRN (Reason: Pain) omeprazole 40 mg capsule,delayed release(DR/EC) 40 mg PO QAM cholecalciferol (vitamin D3) [Vitamin D3] 50 mcg (2,000 unit) Tablet 50 mcg PO DAILY Prolia 60 mg/mL Syringe See Rx Instructions .ROUTE .COMPLEX Rx Instructions: 60 mg subcutaneously every 6 months cyclobenzaprine 10 mg Tablet 5 mg PO TID PRN (Reason: Spasms) Qty: 10 0RF Discharge Orders: Discharge ED (Routine); Ordered 06/30/22 Ordered By: Ezekiel Romero Referrals: Nithin Lin DO [Primary Care Provider] - Discharge Diet: Usual diet Discharge Activity: Resume usual activity and Limit activity as instructed Patient Instructions: Opioid Safety, Pain Management Activity Restrictions/Additional Instructions: You were seen today with elevated blood pressure and mild congestive heart failure. Recommend that you increase your Lasix to 40 mg daily and increase your hydralazine to 50 mg 3 times daily you should follow-up with your primary care provider next week and reevaluate. Coding Level of Care Code ED Rv Repair Technician for Raf De La Cruz
--- NOTE | 2022-06-30 16:14 | ECG_ITS ---
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 Measurements Intervals [place] Rate: 80 P: 54 SD: 122 QRS: 62 QRSD: 90 T: 50 QT: 395 QTc: 458 Interpretive Statements SINUS RHYTHM Compared to ECG 06/30/2022 14:47:09 No significant changes Electronically Signed On 06-30-2022 22:09:46 TRACK LAYING SUPERVISOR by Sherine London M.D. [id number]
[2022-06-30 17:08] LABS: Troponin 5 2HR 32.33 ng/L (0-10)
[2022-06-30 17:09] LABS: Troponin 5 2HR Delta -1.67 ABS# (0-10)
[2022-06-30 17:19] VITALS: BP 205/80; PULSE 82; RESP 14; O2SAT 96
[2022-06-30] MEDS: FUROsemide 10 mg/mL SDV 4mL 40 MG IVP (17:26)
[2022-06-30] MEDS: hyDRALAzine 20 mg/mL INJ 1 mL IVP (17:26)
[2022-06-30 17:43] VITALS: BP 178/76; PULSE 83; RESP 14; O2SAT 93
== END 2022-06-30 18:19 | disposition home or self-care (01) ==
PROVIDERS: Physician Assistant; Emergency Provider Family Medicine; PCP Electrodiagnostic Medicine
DX: C91.10 Chronic lymphocytic leukemia of B-cell type not having achieved remission (principal); I13.0 Hypertensive heart and chronic kidney disease with heart failure and stage 1 through stage 4 chronic kidney disease, or unspecified chronic kidney disease; N18.9 Chronic kidney disease, unspecified; I50.9 Heart failure, unspecified; E78.5 Hyperlipidemia, unspecified
CPT/HCPCS: 36415; 80053; 83605; 83880; 84145; 84484; 85025; 93005; 96374; 96375; 99285; J0360; J1940

== ENCOUNTER → 2022-07-06 14:49 | Outpatient (BNVA) | payer MEDICARE, SELFPAY | PROVIDERS: PCP Electrodiagnostic Medicine; Visit Provider Internal Medicine Medical Oncology | DX: C91.10 Chronic lymphocytic leukemia of B-cell type not having achieved remission (principal); M51.36 Other intervertebral disc degeneration, lumbar region; M48.061 Spinal stenosis, lumbar region without neurogenic claudication; I50.9 Heart failure, unspecified; N28.89 Other specified disorders of kidney and ureter; R60.0 Localized edema; Z79.899 Other long term (current) drug therapy; R06.2 Wheezing | CPT/HCPCS: 99215 ==

== ENCOUNTER 2022-07-07 12:12 | Outpatient (CLI) | payer MEDICARE, SELFPAY ==
--- NOTE | 2022-07-07 12:00 | CTR_ITS ---
PROCEDURE INFORMATION: Exam: CT Chest Without Contrast; Diagnostic Exam date and time: 07/07/2022 12:20 PM Age: 87 years old Clinical indication: Condition or disease; Lung condition and disease; Other: Pulmonary nodules; Primary cancer: Chronic lymphocytic leukemia, wick stage 0 at initial diagnosis in December 2008; Patient HX: ? Surgery sternal for rib FX; Additional info: Pulmonary nodules seen on recent chest xrays, SOB, cough, wheezing, chf TECHNIQUE: Imaging protocol: Diagnostic computed tomography of the chest without contrast. Radiation optimization: All CT scans at this facility use at least one of these dose optimization techniques: automated exposure control; mA and/or kV adjustment per patient size (includes targeted exams where dose is matched to clinical indication); or iterative reconstruction. Other protocol: This patient has received [address] and 0 known cardiac nuclear medicine studies in the 12 months prior to the current study. COMPARISON: CT chest abd pel wo con 12/04/2019 8:48 PM RADIATION DOSE METRICS: Total DLP (mGy-cm): 290.11 FINDINGS: Lungs: Patchy bilateral largely left upper lobe somewhat nodular airspace opacifications measuring up to 7.9 mm in the left upper lobe, perhaps reflecting an infectious process, malignancy is not excluded, consider short-term 1 month follow-up exam. Pleural spaces: Moderate bilateral pleural effusions. Heart: Cardiomegaly. Trace pericardial effusion. Coronary arteries: Coronary artery atherosclerotic calcifications. Lymph nodes: Scattered prominent subcentimeter nonspecific mediastinal lymph nodes. Vasculature: Ascending thoracic aorta is dilated to 3.7 cm. Liver: Several left hepatic lobe cysts. Spleen: Benign splenic calcifications. Bones/joints: T11 vertebral body chronic compression fracture with of retropulsion bony fragments and mild spinal canal narrowing, similar to prior exam. Soft tissues: Unremarkable. CT/CT chest wo con [id number] IMPRESSION: 1. Patchy bilateral largely left upper lobe somewhat nodular airspace opacifications measuring up to 7.9 mm in the left upper lobe, perhaps reflecting an infectious process, malignancy is not excluded, consider short-term 1 month follow-up exam. 2. Ascending thoracic aorta is dilated to 3.7 cm. 3. Moderate bilateral pleural effusions. 4. Cardiomegaly. 5. Trace pericardial effusion. 6. Coronary artery atherosclerotic calcifications. 7. Scattered prominent subcentimeter nonspecific mediastinal lymph nodes. 8. Several left hepatic lobe cysts. 9. Benign splenic calcifications. 10. T11 vertebral body chronic compression fracture with of retropulsion bony fragments and mild spinal canal narrowing, similar to prior exam.
== END 2022-07-07 12:13 | disposition home or self-care (01) ==
LOC: RAD 12:13
PROVIDERS: PCP Electrodiagnostic Medicine; Visit Provider Internal Medicine Medical Oncology
DX: R91.8 Other nonspecific abnormal finding of lung field (principal); I31.39 Other pericardial effusion (noninflammatory); I51.7 Cardiomegaly; J90 Pleural effusion, not elsewhere classified; I25.10 Atherosclerotic heart disease of native coronary artery without angina pectoris; K76.89 Other specified diseases of liver; D73.89 Other diseases of spleen; M48.54XA Collapsed vertebra, not elsewhere classified, thoracic region, initial encounter for fracture
CPT/HCPCS: 71250

== ENCOUNTER 2022-07-11 10:16 | Outpatient (CLI) | payer OTHER, MEDICARE, SELFPAY ==
--- NOTE | 2022-07-11 10:15 | USCV_ITS ---
Carlota Sesay Age: 87 Gender: F : 1935 Exam Date: 07/11/2022 11:03 Ordering Phys: Feroz Peck MD Technologist: ADINA Exam Location: [facility] [place] Indication: SHORTNESS OF BREATH, WHEEZING, ELEVATED BNP BP: 178 / 76 HR: 86 Rhythm: Sinus Technical Quality: Adequate MEASUREMENTS (Male / Female) Normal Values 2D ECHO LV Diastolic Diameter PLAX 3.3 cm 4.2 - 5.9 / 3.9 - 5.3 cm LV Systolic Diameter PLAX 2.1 cm IVS Diastolic Thickness 1.0 cm 0.6 - 1.0 / 0.6 - 0.9 cm IVS Systolic Thickness 1.3 cm LVPW Diastolic Thickness 1.5 cm 0.6 - 1.0 / 0.6 - 0.9 cm LVPW Systolic Thickness 2.0 cm LVOT Diameter 2.0 cm LV Ejection Fraction 2D Teich 68.3 % LV Ejection Fraction MOD 2C 53.4 % LV Ejection Fraction 2C AL 52.9 % LA Diameter 3.5 cm LA Width 4.6 cm LA Height 5.2 cm RA Width 4.3 cm RA Height 4.5 cm Aorta at Sinotubular Diameter 2.3 cm IVC Diameter 1.6 cm M-MODE Aortic Annulus Diameter 2.6 cm LA Ao Ratio MM 1.3 MV E Point Septal Separation 0.7 cm DOPPLER AV Peak Velocity 127.3 cm/s LVOT Peak Velocity 111.0 cm/s AV Area Cont Eq vti 2.9 cm squared AV Area Cont Eq pk 2.8 cm squared MV Peak Velocity 144.0 cm/s MV Area PHT 5.0 cm squared Mitral E to A Ratio 0.9 MV E' Velocity 44.5 cm/s Mitral E to MV E' Ratio 10.7 Mitral E to LV E' Lateral Ratio 10.4 Mitral E to LV E' Septal Ratio 11.0 TR Peak Velocity 395.8 cm/s TR Peak Gradient 62.7 mmHg TR Mean Velocity 318.2 cm/s TR Mean Gradient 42.1 mmHg TR Velocity Time Integral 108.0 cm Right Atrial Pressure 3.0 mmHg Pulmonary Artery Systolic Pressu 65.7 mmHg PV Peak Velocity 99.7 cm/s RV Acceleration Time 0.1 s RV Ejection Time 0.3 s RV AcT/ET 0.3 FINDINGS Left Ventricle Normal LV size with borderline low ejection fraction of 53%. Mild hypokinesia of the basal inferior wall segment.Grade I/IV diastolic dysfunction (abnormal relaxation filling pattern), normal to mildly elevated filling pressures. Mild hypokinesia of the inferolateral wall segment Right Ventricle The right ventricle is normal in size and function. Right Atrium The right atrium is normal in size. Left Atrium Mildly increased left atrial size. Mitral Valve Thickened mitral valve. Mild-moderate mitral valve regurgitation. Aortic Valve Thickened aortic valve. Trace aortic valve regurgitation. Tricuspid Valve Mild tricuspid valve regurgitation. Pulmonic Valve Trace pulmonary valve regurgitation. Pericardium Normal pericardium without effusion. Aorta Normal ascending aorta dimension. IVC Inferior vena cava not visualized. CONCLUSIONS Normal LV size with borderline low ejection fraction of 53%. Mild hypokinesia of the basal inferior wall segment.Grade I/IV diastolic dysfunction (abnormal relaxation filling pattern), normal to mildly elevated filling pressures. Mild hypokinesia of the inferolateral wall segment. Thickened mitral valve. Mild-moderate mitral valve regurgitation. Mildly increased left atrial size. Thickened aortic valve. Trace aortic valve regurgitation. Mild tricuspid valve regurgitation. Estimated pulmonary artery peak systolic pressure of 66 mmHg- moderate pulmonary hypertension There is no pericardial effusion. There are no intracardiac masses. No similar previous studies are available for comparison Dr Saji Urbina MD [facility] (Electronically Signed) Final Date: 12 July 2022 07:01 S
[2022-07-11 11:55] LABS: Basophils % 0.2 %; Hematocrit 30.5 % (37.0-47.0); Hemoglobin 9.6 g/dL (11.5-15.3); Lymphocytes # 7.1 10^3/uL (0.8-4.8); Lymphocytes % 54.5 %; Mean Corpuscular HGB Conc 31.5 g/dL (30.0-36.0); Mean Corpuscular Hemoglobin 29.9 pg (28.0-34.0); Monocytes # 0.5 10^3/uL (0.2-0.9); Monocytes % 3.7 %; Neutrophils # 5.35 10^3/uL (1.8-7.7); Neutrophils % 41.3 %; Nucleated Red Blood Cells % 0 %; Platelet Count 151 10^3/cmm (130-400); Red Blood Count 3.21 10^6/uL (4.1-5.3); Red Cell Distribution Width 15.1 % (12.1-15.1); White Blood Count 12.9 10^3/uL (4.0-10.0)
[2022-07-11 12:13] LABS: Alanine Aminotransferase 30 U/L (0-33); Albumin Level 3.2 g/dL (3.5-5.2); Alkaline Phosphatase 60 U/L (35-105); Anion Gap 13.4 (5-19); Aspartate Amino Transferase 40 U/L (0-32); Blood Urea Nitrogen 29 mg/dL (8-23); Calcium 8.2 mg/dL (8.5-10.5); Carbon Dioxide 32 mmol/L (22-29); Chloride 95 mmol/L (98-107); Globulin 2.1 g/dL (1.3-4.6); Glucose 110 mg/dL (65-115); Lactate Dehydrogenase 304 U/L (135-214); Osmolality Calculated 290 mOsm/kg (285-295); Potassium 3.4 mmol/L (3.5-5.1); Sodium 137 mmol/L (136-145); Total Bilirubin 0.5 mg/dL (0.15-1.2); Total Protein 5.3 g/dL (6.6-8.7)
[2022-07-11 12:20] LABS: Slide Review Slide Review Perform
== END 2022-07-11 10:17 | disposition home or self-care (01) ==
LOC: RAD 10:18
PROVIDERS: Internal Medicine Medical Oncology; PCP Electrodiagnostic Medicine; Visit Provider Electrodiagnostic Medicine
DX: C91.10 Chronic lymphocytic leukemia of B-cell type not having achieved remission (principal); E78.01 Familial hypercholesterolemia; I21.9 Acute myocardial infarction, unspecified; N17.9 Acute kidney failure, unspecified; M18.9 Osteoarthritis of first carpometacarpal joint, unspecified; J18.9 Pneumonia, unspecified organism; R06.02 Shortness of breath; I08.3 Combined rheumatic disorders of mitral, aortic and tricuspid valves
CPT/HCPCS: 36415; 80053; 83615; 85025; 93306; 99204

== ENCOUNTER 2022-07-12 11:01 | Observation (INO) | payer MEDICARE, SELFPAY ==
[2022-07-12] VITALS (9 sets, daily range): BP systolic 155–182; BP diastolic 69–93; PULSE 76–99; RESP 16–22; TEMP 36.8–37.2; O2SAT 92–100; BMI 22.6
--- NOTE | 2022-07-12 11:29 | W.ED.RECABL ---
HPI - Recheck/Abnormal Lab/Rx General: Chief Complaint: Recheck/Abnormal Lab/Rx Stated Complaint: abnormal labs Time Seen by Provider: 07/12/22 11:29 History of Present Illness: Ms Sesay is an 87-year-old lady with significant past medical history of leukemia presented to the emergency department for worsening labs and shortness of breath. She is fairly new diagnosis of toxic respiratory failure with only recent development and now on home oxygen. She endorses shortness of breath for quite some time however it has been progressively worsening especially with exertion. She previously was evaluated and had recent cardiology evaluation with a cardiac etiology not clearly identified as the root cause. She was increased on Lasix and due to abnormal renal function referred to the emergency department for further evaluation. Patient herself feels generally unwell however no focality. No nausea or vomiting, no abdominal symptoms, no changes in urine output. She has not noticed significant edema. She has been compliant with her medication regimen. Intensity symptoms is moderate however breathing becomes worse with exertion. No other specific changes in health, exacerbating, or alleviating factors identified. She was recently on a course of Levaquin for pneumonia. Initial visit (ago): day(s) Initial visit for: other Returns today for: called because of abnormal lab/test Symptoms since prior visit: no new symptoms Context: called for abnormal lab result and other Associated symptoms: shortness of breath and malaise Review of Systems General: Reports: 10 or more systems reviewed and unremarkable except in HPI and below PFSH ED PFSH: Medical History (Updated 07/21/22 @ 15:31 by [place]in [place] M.D) Acute kidney injury superimposed on chronic kidney disease YARITZA (acute kidney injury) CKD (chronic kidney disease) CLL (chronic lymphocytic leukemia) Compression fracture Essential hypertension Fibromyalgia Goals of care, counseling/discussion Hyperlipidemia Hypokalemia Osteoporosis Pleural effusion Pleural effusion, left Pneumonia Surgical History History of laminectomy (10/24/21) L3/4 laminectomy with facetectomy Previous back surgery (03/2017) Lumbar laminectomy S/P cataract extraction S/P hysterectomy Family History Denies family history of Clotting disorder Hypertension Social History (Reviewed 07/21/22 @ 15:28 by August Ramires Smoking and tobacco status: never smoked Alcohol intake: never Household members: spouse Marital status: service: No Current occupational status: retired Current gender identity: Female Yuki/Hindu: Cheondoism Physical Exam Const: COMMON NORMALS: alert GENERAL APPEARANCE: cooperative, well developed and ill appearing (Mildly) HENMT: COMMON NORMALS: normocephalic and atraumatic HEAD & SCALP: normocephalic and atraumatic THROAT: posterior oropharynx normal Eye: COMMON NORMALS: conjunctivae normal CONJUNCTIVA: Yes conjunctivae normal SCLERA: sclerae normal Neck/C-Spine: COMMON NORMALS: supple GENERAL: Yes trachea midline Resp: EFFORT & INSPECTION: Yes able to speak in complete sentences and Yes tachypneic AUSCULTATION: crackles (Bases bilaterally, mild) Cardio: COMMON NORMALS: regular rate and regular rhythm RATE: regular rate RHYTHM: regular rhythm GI: COMMON NORMALS: Soft to palpation PALPATION: Yes Soft to palpation and No Tenderness to palpation present (GI) Extremity: GENERAL: Yes normal exam except as noted and Yes edema (1+) Neuro: COMMON NORMALS: moves all extremities SENSORIUM/ORIENTATION: Yes alert and No Orientation impaired Psych: COMMON NORMALS: mental status grossly normal and Normal thought process present THOUGHT PROCESS: Normal thought process present Course Vital Signs: Vital signs: Vital Signs Temperature 98.5 F 07/13/22 20:00 Pulse Rate 104 H 07/14/22 08:00 Respiratory Rate 18 07/14/22 11:38 Blood Pressure 167/66 07/13/22 20:00 Pulse Oximetry 96 07/14/22 11:38 Oxygen Delivery Ky thod 07/14/22 08:00 Oxygen Flow Rate 3 07/14/22 08:00 MDM - Recheck/Abnormal Lab/Rx Medical Decision Making 87-year-old lady presenting for abnormal labs in the context of respiratory symptoms and heart failure. Exam as above. Patient has increased respiratory effort and new oxygen requirement. Labs notable for leukocytosis though this is improved from prior, normocytic anemia, normal platelet count. Metabolic panel with hypokalemia and elevated creatinine compared to baseline. Human metapneumovirus positive.\ Chest x-ray with lobar consolidation in the left lower lobe. This is concerning for pneumonia. There are also pleural effusions on CT. Patient treated with potassium supplementation, antibiotics for community-acquired pneumonia. Most likely etiology of symptoms is multifactorial including pneumonia, YARITZA, hypokalemia. Given oxygen requirement and pathology not related to underlying leukemia patient is appropriate for inpatient management. The results of ED evaluation were discussed with the patient including plan for admission due to requirement for level of care not available if discharged to prevent significant worsening/deterioration. Patient agreeable with plan. Discussed with hospitalist service who was agreeable to admit patient. Medical Records I reviewed the patient's medical records. Lab Data I reviewed the patient's lab results. 07/12/22 12:10 07/12/22 12:10 Radiology Impressions Chest X-Ray 07/12/22 11:40 IMPRESSION: Worsening consolidation left lower lobe likely secondary to pneumonia Chest CT 07/12/22 13:10 IMPRESSION: 1. Small LEFT greater than RIGHT pleural effusions. LEFT pleural effusion is stable. RIGHT pleural effusion has improved. 2. More shallow inspiration noted today with stable consolidative atelectasis in the LEFT lower lobe extending into the lingula with associated pleural thickening. 3. Previously described micronodular infiltrates more prominent in the upper lobes have slightly improved compared to previous. 4. No other significant interval changes. Pulmonary Perfusion Imaging 07/13/22 07:53 IMPRESSION: 1. Low probability for pulmonary embolus. Laboratory Results WBC 7.9 10^3/uL (4.0-10.0) 07/12/22 12:10 RBC 3.46 10^6/uL (4.1-5.3) L 07/12/22 12:10 Hgb 10.4 g/dL (11.5-15.3) L 07/12/22 12:10 Hct 33.4 % (37.0-47.0) L 07/12/22 12:10 MCV 96.5 fl (81-99) 07/12/22 12:10 MCH 30.1 pg (28.0-34.0) 07/12/22 12:10 MCHC 31.1 g/dL (30.0-36.0) 07/12/22 12:10 RDW 14.9 % (12.1-15.1) 07/12/22 12:10 Plt Count 147 10^3/cmm (130-400) 07/12/22 12:10 MPV 10.9 fL (7.4-10.4) H 07/12/22 12:10 Neut % (Auto) 48.7 % 07/12/22 12:10 Lymph % (Auto) 46.3 % 07/12/22 12:10 [place] % (Auto) 4.4 % 07/12/22 12:10 Eos % (Auto) 0.3 % 07/12/22 12:10 Baso % (Auto) 0.0 % 07/12/22 12:10 Neut # (Auto) 3.86 10^3/uL (1.8-7.7) 07/12/22 12:10 Lymph # (Auto) 3.7 10^3/uL (0.8-4.8) 07/12/22 12:10 [place] # (Auto) 0.4 10^3/uL (0.2-0.9) 07/12/22 12:10 Eos # (Auto) 0.0 10^3/uL (0.0-0.8) 07/12/22 12:10 Baso # (Auto) 0.0 10^3/uL (0.0-0.1) 07/12/22 12:10 Nucleated RBC % (auto) 0 % 07/12/22 12:10 Nucleated RBCs # 0.0 /100WBC 07/12/22 12:10 D-Dimer 6.19 ug/mIFEU (0-0.59) H 07/12/22 12:10 Sodium 136 mmol/L (136-145) 07/12/22 12:10 Potassium 2.7 mmol/L (3.5-5.1) L* 07/12/22 12:10 Chloride 94 mmol/L (98-107) L 07/12/22 12:10 Carbon Dioxide 28 mmol/L (22-29) 07/12/22 12:10 Anion Gap 16.7 (5-19) 07/12/22 12:10 BUN 26 mg/dL (8-23) H 07/12/22 12:10 Creatinine 2.2 mg/dL (0.5-0.9) H 07/12/22 12:10 GFR Calculation Not Reportable 07/12/22 12:10 Glucose 103 mg/dL (65-115) 07/12/22 12:10 Calculated Osmolality 287 mOsm/kg (285-295) 07/12/22 12:10 Calcium 8.4 mg/dL (8.5-10.5) L 07/12/22 12:10 Total Bilirubin 0.5 mg/dL (0.15-1.2) 07/12/22 12:10 AST 39 U/L (0-32) H 07/12/22 12:10 ALT 30 U/L (0-33) 07/12/22 12:10 Alkaline Phosphatase 64 U/L (35-105) 07/12/22 12:10 NT-Pro-B Natriuret Pep 7553 pg/mL (0-450) H 07/12/22 12:10 Total Protein 5.9 g/dL (6.6-8.7) L 07/12/22 12:10 Albumin 3.3 g/dL (3.5-5.2) L 07/12/22 12:10 Globulin 2.6 g/dL (1.3-4.6) 07/12/22 12:10 Procalcitonin 0.24 ng/mL (0-0.5) 07/12/22 12:10 TSH 1.58 uIU/mL (0.27-4.20) 07/12/22 12:10 Urine Color Yellow (Yellow) 07/12/22 14:05 Urine Appearance Clear (CLEAR) 07/12/22 14:05 Urine pH 6 (5-7) 07/12/22 14:05 Ur Specific [place] 1.015 (1.005-1.030) 07/12/22 14:05 Urine Protein 3+ (Negative) H 07/12/22 14:05 Urine Glucose (UA) Norm (Normal) 07/12/22 14:05 Urine Ketones Negative (Negative) 07/12/22 14:05 Urine Blood Neg (Negative) 07/12/22 14:05 Urine Nitrate Negative (Negative) 07/12/22 14:05 Urine Bilirubin Neg (Negative) 07/12/22 14:05 Urine Urobilinogen Neg mg/dL (Negative) 07/12/22 14:05 Ur Leukocyte Esterase Negative (Negative) 07/12/22 14:05 Urine RBC Rare /hpf (0-2) 07/12/22 14:05 Urine WBC Rare /hpf (0-5) 07/12/22 14:05 Ur Squamous Epith Cells 0-4 /hpf (0-5) H 07/12/22 14:05 Amorphous Sediment Not Reportable 07/12/22 14:05 Urine Bacteria None /hpf (NONE) 07/12/22 14:05 Coronavirus 229E (PCR) Not detected (NOT DETECT) 07/12/22 11:50 Human Metapneumovir PCR Detected (NOT DETECT) A 07/12/22 14:07 Entero/Rhino (PCR) Not detected (NOT DETECT) 07/12/22 14:07 SARS-CoV-2 (PCR) Not detected (NOT DETECT) 07/12/22 11:50 Discharge Plan Discharge Patient Disposition: Placed in Observation Admit Provider: Bakari Ramsey Clinical Impression: Pneumonia, AYRITZA (acute kidney injury), Hypokalemia, Pleural effusion Coding Level of Care Code ED Metallurgy Laboratory Technician for Raf De La Cruz
--- NOTE | 2022-07-12 11:40 | XRR_ITS ---
PROCEDURE INFORMATION: Exam: XR Chest Exam date and time: 07/12/2022 11:47 AM Age: 87 years old Clinical indication: Shortness of breath; Additional info: SOB TECHNIQUE: Imaging protocol: Radiologic exam of the chest. Views: 1 view. COMPARISON: CT chest wo con [id number] 07/07/2022 12:20 PM FINDINGS: Lungs: There is increasing consolidation present peripherally left lower lung zone likely in part secondary to pneumonia. There is superimposed left basilar pleural effusion and atelectasis that is relatively stable. There are multiple calcifications within the mediastinum and hilum secondary to old granulomatous disease. Pleural spaces: See Lungs finding. Heart/Mediastinum: Cardiac silhouette is mildly enlarged but stable. Bones/joints: There are multiple old fractures left ribcage. XR/XR chest 1V portable [id number] IMPRESSION: Worsening consolidation left lower lobe likely secondary to pneumonia
[2022-07-12 12:22] LABS: Eosinophils % 0.3 %; Hematocrit 33.4 % (37.0-47.0); Hemoglobin 10.4 g/dL (11.5-15.3); Lymphocytes # 3.7 10^3/uL (0.8-4.8); Lymphocytes % 46.3 %; Mean Corpuscular HGB Conc 31.1 g/dL (30.0-36.0); Mean Corpuscular Hemoglobin 30.1 pg (28.0-34.0); Mean Corpuscular Volume 96.5 fl (81-99); Mean Platelet Volume 10.9 fL (7.4-10.4); Monocytes # 0.4 10^3/uL (0.2-0.9); Monocytes % 4.4 %; Neutrophils # 3.86 10^3/uL (1.8-7.7); Neutrophils % 48.7 %; Nucleated Red Blood Cells % 0 %; Platelet Count 147 10^3/cmm (130-400); Red Blood Count 3.46 10^6/uL (4.1-5.3); Red Cell Distribution Width 14.9 % (12.1-15.1); White Blood Count 7.9 10^3/uL (4.0-10.0)
[2022-07-12 12:47] LABS: Alanine Aminotransferase 30 U/L (0-33); Albumin Level 3.3 g/dL (3.5-5.2); Alkaline Phosphatase 64 U/L (35-105); Aspartate Amino Transferase 39 U/L (0-32); Blood Urea Nitrogen 26 mg/dL (8-23); Calcium 8.4 mg/dL (8.5-10.5); Carbon Dioxide 28 mmol/L (22-29); Chloride 94 mmol/L (98-107); Globulin 2.6 g/dL (1.3-4.6); Glucose 103 mg/dL (65-115); NT Pro B Type Natriuretic Pept 7553 pg/mL (0-450); Osmolality Calculated 287 mOsm/kg (285-295); Sodium 136 mmol/L (136-145); Total Bilirubin 0.5 mg/dL (0.15-1.2); Total Protein 5.9 g/dL (6.6-8.7)
[2022-07-12 12:49] LABS: Anion Gap 16.7 (5-19); Potassium 2.7 mmol/L (3.5-5.1)
--- NOTE | 2022-07-12 13:10 | CT_ITS ---
WS: [id number] CT CHEST TECHNIQUE: Noncontrast CT of the chest with coronal and sagittal reformatted images. CLINICAL INFORMATION: sob, characterize cxr abnormality COMPARISON: None. DLP: 246.[address] scans at [facility] use at least one of these dose optimization techniques: automated e xposure control; mA and/or kV adjustment per patient size (includes targeted exams where dose is matc hed to clinical indication); or iterative reconstruction. FINDINGS: Advanced chronic emphysematous changes. Small LEFT greater than RIGHT pleural effusions sim ilar to previous. RIGHT pleural effusion has improved. Consolidative atelectasis LEFT lower lobe. Con solidative atelectasis in the LEFT lower lobe laterally extending into the lingula is unchanged. Volu me loss LEFT lung. Patchy micronodular infiltrates more prominent in the upper lobes bilaterally have improved slightly compared to previous. Cardiomegaly. Aortic calcification. Reactive anterior mediastinal and AP window lymph nodes. Coronary calcification. No axillary lymphadenopathy. Splenic granulomas. Splenomegaly. Incidental hepatic cys ts. Adrenal glands are normal. Small esophageal hiatal hernia. Surgical clips at the GE junction. No axillary lymphadenopathy. Chronic compression fracture with vertebral plana deformity at T11 unchange d with retropulsion and moderate central canal stenosis CT/CT chest wo con [id number] IMPRESSION: 1. Small LEFT greater than RIGHT pleural effusions. LEFT pleural effusion is s table. RIGHT pleural effusion has improved. 2. More shallow inspiration noted today with stable consolidative atelectasis in the LEFT lower lobe extending into the lingula with associated pleural thick ening. 3. Previously described micronodular infiltrates more prominent in the upper l obes have slightly improved compared to previous. 4. No other significant interval changes.
[2022-07-12] MEDS: potassium chloride ER 20 mEq Tablet 40 MEQ PO (13:15)
[2022-07-12 14:02] LABS: Adenovirus Not Detected (NOT DETECT); Chlamydia Pneumoniae Not Detected (NOT DETECT); Coronavirus 229E,HKU1,NL63,OC4 Not Detected (NOT DETECT); Human Metapneumovirus Detected (NOT DETECT); Human Rhinovirus/Enterovirus Not Detected (NOT DETECT); Influenza A Not Detected (NOT DETECT); Influenza A H1 Not Detected (NOT DETECT); Influenza A H1-2009 Not Detected (NOT DETECT); Influenza A H3 Not Detected (NOT DETECT); Influenza B Not Detected (NOT DETECT); Mycoplasma Pneumoniae Not Detected (NOT DETECT); Parainfluenza Virus Type 1 Not Detected (NOT DETECT); Parainfluenza Virus Type 2 Not Detected (NOT DETECT); Parainfluenza Virus Type 3 Not Detected (NOT DETECT); Parainfluenza Virus Type 4 Not Detected (NOT DETECT); Respiratory Syncytial Virus A Not Detected (NOT DETECT); Respiratory Syncytial Virus B Not Detected (NOT DETECT); SARS-COV-2 Not Detected (NOT DETECT)
[2022-07-12 14:11] LABS: Human Metapneumovirus Detected (NOT DETECT); Human Rhinovirus/Enterovirus Not Detected (NOT DETECT); Results from Genmark
[2022-07-12 14:43] LABS: Add Urine Microscopic? YES; Bilirubin Urine Neg (Negative); Blood Urine Neg (Negative); Glucose Urine UA Norm (Normal); Ketones Urine Negative (Negative); Leukocyte Esterase Urine Negative (Negative); Nitrate Urine Negative (Negative); Protein Urine 3+ (Negative); RBC Urine RARE /hpf (0-2); Specific Gravity, Urine 1.015 (1.005-1.030); Squamous Epithelial Cell Urine 0-4 /hpf (0-5); Urine Appearance Clear (CLEAR); Urine Color Yellow (Yellow); Urobilinogen Urine Neg (Negative); WBC Urine RARE /hpf (0-5); pH Urine 6 (5-7)
[2022-07-12 14:44] LABS: Add Urine Culture? No
[2022-07-12] MEDS: cefTRIAXone 1,000 MG in sodium chloride 0.9% (plus) 50 ML 100 MG IV (15:23)
--- NOTE | 2022-07-12 15:23 | PM.HP ---
Providers/Chief Complaint Primary Care Provider: Nithin Lin DO Chief Complaint: abnormal labs History of Present Illness Carlota Sesay is a 87 year old female who carries history of leukemia, requires 4 L of oxygen at home, on hospice as per Dr. Peck's recommendation, was sent because of abnormal labs, recently she was asked to stop taking Lasix. Patient is stating that today she is feeling the best she is able to eat her energy is better. She has not noticed significant weight gain. She is denying chest pain however endorsing productive cough, low-grade fever, greenish-yellow sputum production recent echo showed diastolic dysfunction grade 153% EF In the ER she was replenished for hypokalemia and given ceftriaxone for possible pneumonia Review of Systems Const: Reports: chills, body aches and malaise; Denies: fever(s) Eyes: Denies: change in vision ENMT: Denies: throat pain Card: Denies: chest pain Resp: Reports: dyspnea and productive cough GI: Denies: abdominal pain : Denies: flank pain Musc: Denies: neck pain Skin/Breast: Denies: rash Neuro: Denies: headache(s) Psych: Reports: anxiety Endo: Denies: polyuria Tony/Lymph: Denies: easy bruising All/Imm: Denies: urticaria Medications/Allergies Home Medications Medication Instructions Recorded Confirmed Last Taken Type amlodipine 10 mg tablet 10 mg PO BEDTIME 06/18/19 07/12/22 07/11/22 History glucosamine HCl 1,500 mg tablet 1,500 mg PO DAILY 06/18/19 07/12/22 07/11/22 History metoprolol succinate 100 mg 100 mg PO DAILY 06/18/19 07/12/22 07/11/22 History tablet,extended release 24 hr acetaminophen 325 mg tablet 650 mg PO BID PRN Pain 12/04/19 07/12/22 02/01/20 History (Tylenol) cholecalciferol (vitamin D3) 50 50 mcg PO DAILY 12/04/19 07/12/22 07/11/22 History mcg (2,000 unit) tablet (Vitamin D3) denosumab 60 mg/mL subcutaneous See Rx Instructions .Route .COMPLEX 12/04/19 07/12/22 Unknown History syringe (Prolia) omeprazole 40 mg capsule,delayed 40 mg PO QAM 07/07/2407/12/22 07/11/22 History release hydrocodone 5 mg-acetaminophen 325 1 - 2 tab PO Q4H PRN pain 5 days 12/06/21 07/12/22 Unknown Rx mg tablet #40 tabs hydralazine 50 mg tablet 50 mg PO TID #180 tabs 06/30/22 07/12/22 07/11/22 Rx ipratropium 0.5 mg-albuterol 3 mg 3 ml inhalation QID PRN wheezing 07/06/22 07/12/22 Unknown Rx (2.5 mg base)/3 mL nebulization #180 mL soln lorazepam 2 mg/mL oral concentrate 0.5 - 2 mg PO Q1H PRN Anxiety 07/12/22 07/12/22 Unknown History morphine concentrate 100 mg/5 mL 5 - 20 mg PO Q1H PRN Pain 07/12/22 07/12/22 Unknown History (20 mg/mL) oral solution Allergies Allergy/AdvReac Type Severity Reaction Status Date / Time No Known Allergies Allergy Verified 07/11/22 15:01 PFSH Acute PFSH: Medical History CKD (chronic kidney disease) CLL (chronic lymphocytic leukemia) Compression fracture Essential hypertension Fibromyalgia Hyperlipidemia Osteoporosis Pleural effusion, left Surgical History History of laminectomy (10/24/21) L3/4 laminectomy with facetectomy Previous back surgery (03/2017) Lumbar laminectomy S/P cataract extraction S/P hysterectomy Family History Denies family history of Clotting disorder Hypertension Social History Smoking and tobacco status: never smoked Alcohol intake: never Household members: spouse Marital status: service: No Current occupational status: retired Current gender identity: Female Yuki/Adventist: Restorationism Vitals/I&O/Wt Last Vital Signs Temp 98.3 F 07/12/22 11:15 Pulse 92 07/12/22 14:07 Resp 17 07/12/22 11:23 BP 172/79 07/12/22 14:07 Pulse Ox 97 07/12/22 14:30 O2 Del Method 07/12/22 14:30 O2 Flow Rate 3 07/12/22 14:30 Weight last 48 hrs Weight 63.503 kg Physical Exam Narrative: Patient is laying supine Currently on 2 to 3 L of oxygen Positive crackles with mild wheezing Clinically does look dehydrated No signs of congestive heart failure S1, S2 Abdomen soft Pleasant cooperative Nonfocal neuro exam Family is at the bedside Appears stated age Data 07/12/22 12:10 07/12/22 12:10 Micro: Microbiology 07/12/22 13:02 Blood Culture - Preliminary Blood SPECIMEN COLLECTED 07/12/22 12:45 Blood Culture - Preliminary Blood SPECIMEN COLLECTED A&P Assessment and plan (1) Pneumonia: (2) Acute kidney injury superimposed on chronic kidney disease: (3) CLL (chronic lymphocytic leukemia): (4) Goals of care, counseling/discussion: (5) Hypokalemia: (6) Pleural effusion: Plan Hypoxia with community-acquired pneumonia Continue ceftriaxone and azithromycin No respiratory distress Patient has been using 4 L of oxygen at home currently on 2 L Diastolic CHF without acute exacerbation Hold off on Lasix Hypokalemia: Repleted Check magnesium Acute on chronic kidney disease, creatinine slightly improving after she stopped taking Lasix Requested PT evaluation Patient is on hospice service at home CLL: Follows with Dr. Peck No acute exacerbation DNR/DNI Attestations Medical Necessity Statement*: Patient will need less than 2 midnights Coding Level of Care Code 40882 Diagnoses Pneumonia J18.9 Acute kidney injury superimposed on chronic kidney disease N17.9; N18.9 CLL (chronic lymphocytic leukemia) C91.10 Goals of care, counseling/discussion Z71.89 Hypokalemia E87.6 Pleural effusion J90
[2022-07-12] MEDS: doxycycline 100 MG in sodium chloride 0.9% (plus) 100 ML IV (15:44)
[2022-07-12 16:05] LABS: Procalcitonin 0.24 ng/mL (0-0.5); Thyroid Stimulating Hormone 1.58 uIU/mL (0.27-4.20)
[2022-07-12 16:11] LABS: D Dimer 6.19 ug/mIFEU (0-0.59)
[2022-07-12] MEDS: heparin 5,000 unit/mL INJ 1 mL 5000 UNIT SUBCUT (16:23)
[2022-07-12] MEDS: lidocaine 1% 5 ML in potassium chloride premix 100 ML 26.25 ML IV (16:55)
[2022-07-12] MEDS: sodium chloride 0.9% 1,000 ML 75 ML IV (18:50)
[2022-07-12] MEDS: ipratropium-albuterol 3 mL Neb INHALATION (20:00)
[2022-07-12] MEDS: hyDRALAzine 50 mg Tablet PO (21:44)
[2022-07-12] MEDS: amlodipine 10 mg Tablet PO (21:44)
[2022-07-13] VITALS (8 sets, daily range): BP systolic 164–187; BP diastolic 61–94; PULSE 98–112; RESP 15–20; TEMP 36.8–37.8; O2SAT 92–96
[2022-07-13] MEDS: FUROsemide 10 mg/mL SDV 2mL 20 MG IVP (00:04)
[2022-07-13] MEDS: heparin 5,000 unit/mL INJ 1 mL 5000 UNIT SUBCUT ×2 (04:25→15:34)
[2022-07-13 05:22] LABS: Basophils % 0.1 %; Eosinophils % 0.2 %; Hematocrit 28.4 % (37.0-47.0); Hemoglobin 9.1 g/dL (11.5-15.3); Lymphocytes # 4.8 10^3/uL (0.8-4.8); Lymphocytes % 57.8 %; Mean Corpuscular Hemoglobin 30.3 pg (28.0-34.0); Mean Corpuscular Volume 94.7 fl (81-99); Mean Platelet Volume 11.1 fL (7.4-10.4); Monocytes # 0.4 10^3/uL (0.2-0.9); Monocytes % 4.6 %; Neutrophils # 3.07 10^3/uL (1.8-7.7); Neutrophils % 36.9 %; Nucleated Red Blood Cells % 0 %; Platelet Count 146 10^3/cmm (130-400); Red Cell Distribution Width 14.8 % (12.1-15.1); White Blood Count 8.3 10^3/uL (4.0-10.0)
[2022-07-13 05:49] LABS: Anion Gap 13.2 (5-19); Blood Urea Nitrogen 24 mg/dL (8-23); Calcium 8.3 mg/dL (8.5-10.5); Carbon Dioxide 31 mmol/L (22-29); Chloride 100 mmol/L (98-107); Glucose 94 mg/dL (65-115); Magnesium 1.8 mg/dL (1.7-2.3); Osmolality Calculated 296 mOsm/kg (285-295); Phosphorus 2.6 mg/dL (2.5-4.5); Potassium 3.2 mmol/L (3.5-5.1); Sodium 141 mmol/L (136-145)
--- NOTE | 2022-07-13 07:53 | NM_ITS ---
WS: [id number] NUCLEAR MEDICINE LUNG VENTILATION AND PERFUSION CLINICAL INFORMATION: hypoxia TECHNIQUE: Ventilation/perfusion lung scan with 29.1 mCi technetium 99m DTPA. 4.8 mCi technetium 99m MAA COMPARISON: CT chest July 12, 2022 and radiograph FINDINGS: Advanced chronic emphysematous changes with fibrosis. Shallow inspiration. Cardiomegaly. Diffuse patchy radiotracer activity on the ventilatory images compatible with advanced chronic emphys ematous changes. Relatively symmetric perfusion on the anterior and posterior perfusion images. Areas of patchy matched defects in both lungs RIGHT greater than LEFT. No mismatched ventilation/perfusion defects or lobar defects to indicate pulmonary embolus. NM/NM pul vent and perfus* [id number] IMPRESSION: 1. Low probability for pulmonary embolus.
[2022-07-13] MEDS: azithromycin 250 mg Tablet 500 MG PO (07:59)
[2022-07-13] MEDS: cefTRIAXone 1,000 MG in sodium chloride 0.9% (plus) 50 ML 100 MG IV (07:59)
[2022-07-13] MEDS: potassium chloride ER 20 mEq Tablet PO (08:00)
[2022-07-13] MEDS: sennosides-docusate Tablet 1 TAB PO (08:00)
[2022-07-13] MEDS: hyDRALAzine 50 mg Tablet PO ×3 (08:00→20:38)
--- NOTE | 2022-07-13 09:40 | PM.PN ---
Subjective Subjective: Patient is very fatigued and lethargic however still on 3 L of oxygen Afebrile Tachycardia High D-dimer Requested perfusion scan and venous Doppler Labs reviewed hemoglobin 9.1, D-dimer 6.1 Potassium 3.2 Creatinine stable at 2.2 Urine output has not been calculated appropriately To family meetings after this morning TSH 1.5 Vitals/I&O/Wt Last Vital Signs Temp 98.3 F 07/13/22 08:00 Pulse 112 H 07/13/22 08:00 Resp 18 07/13/22 08:00 BP 186/94 07/13/22 08:00 Pulse Ox 95 07/13/22 08:00 O2 Del Method 07/13/22 08:00 O2 Flow Rate 3 07/13/22 03:36 07/12/22 07/13/22 07/13/22 22:59 06:59 14:59 Intake Total 518.75 / 518.75 Output Total 300 / 300 Balance 218.75 / 218.75 Weight last 48 hrs Weight 63.503 kg Physical Exam Narrative: Patient is fatigue lethargic however able to answer my question She wanted to go home Mild wheezing on lung auscultation Currently on 3 L No edema of legs No active chest pain Awake and alert nonfocal neuro exam Abdomen soft Data 07/13/22 05:06 07/13/22 05:06 Micro: Microbiology 07/12/22 13:02 Blood Culture - Preliminary Blood SPECIMEN COLLECTED 07/12/22 12:45 Blood Culture - Preliminary Blood SPECIMEN COLLECTED A&P Assessment and plan (1) Goals of care, counseling/discussion: (2) Acute kidney injury superimposed on chronic kidney disease: (3) Pneumonia: (4) Hypokalemia: (5) Pleural effusion: (6) CLL (chronic lymphocytic leukemia): Plan Community-acquired pneumonia Continue ceftriaxone azithromycin Chronic hypoxia patient has been requiring 3 L of oxygen at home uses 4 L For her active wheezing I will add steroids High D-dimer: Requested VQ scan rule out PE requested venous Doppler Patient is fatigued and lethargic, I would like to keep her here 1 more day continue physical therapy CHF without acute exacerbation Hypokalemia: Replenish potassium Hypomagnesemia: Repleted DNR/DNI Plan to discharge her by tomorrow Attestations Medical Necessity Statement*: Discharge tomorrow Time Spent in Patient Care: 30 Coding Level of Care Code 81098 Diagnoses Goals of care, counseling/discussion Z71.89 Acute kidney injury superimposed on chronic kidney disease N17.9; N18.9 Pneumonia J18.9 Hypokalemia E87.6 Pleural effusion J90 CLL (chronic lymphocytic leukemia) C91.10
[2022-07-13] MEDS: budesonide 0.5 mg/2 mL Neb INHALATION ×2 (10:07→19:44)
[2022-07-13] MEDS: ipratropium-albuterol 3 mL Neb INHALATION (10:07)
--- NOTE | 2022-07-13 10:18 | USCV_ITS ---
Carlota Sesay Age: 87 Gender: F : 1935 Exam Date: 07/13/2022 10:47 Ordering Phys: Bakari Ramsey MD Technologist: Rakan Carney Exam Location: [facility] [place]_ Indication: bilat edema PROCEDURES: The venous duplex Doppler examination of both lower extremities was performed in the standard fashion. The following venous structures were evaluated: common femoral vein, profunda vein, proximal portion of the greater saphenous vein, superficial femoral vein, and the popliteal vein. In addition, the posterior tibial and peroneal trunk were evaluated. FINDINGS: Normal 2-D Doppler and augmentation and compressibility throughout the lower extremity venous structures. Additional imaging through the proximal calf veins also reveals no thrombus. Limited evaluation of the greater saphenous vein is patent with no thrombus.. CONCLUSIONS No evidence of right lower extremity DVT. No evidence of left lower extremity DVT. Michael Yi MD (Electronically Signed) Final Date: 13 July 2022 18:00 S
--- NOTE | 2022-07-13 10:48 | PC.CHAP ---
Pastoral Care Encounter/Spiritual Assessment Type of Contact [] Declined teacher elementary school visit [] Patient/Family/Request visit [] Outpatient visit [] Follow-up visit [] Physician referral [] Code/Alert [x] Routine visit [] Staff referral [] Actively dying [] Patient sleeping [] Family support [] [] Out of room [] Palliative care [] [x] Receiving care in room [] Pre-surgical visit [] Trauma [x] Long length of stay [] ICU visit [] Other: Relational/Emotional Strength [x] Patient feels connected with others/family/visitors/staff [] Distress [] Loneliness/isolation [] Abandonment Spirituality of Patient [x] Person of Yuki [x] Attends Muslim of their Yuki [x] Believes in Prayer [] Reads Bible or Synagogue materials [] There are Spiritual issues to be addressed Etl Tester Interventions [x] Prayer [x] Active listening [x] Non-anxious presence [x] Spiritual/emotional support [] Crisis/trauma care [x] Spiritual counseling [] Bereavement support [] Provided bereavement packet [] Provided Bible/devotional materials [] Provided toy/stuffed animal, coloring book to patient or family member [] Provided Communion [] Anointing/[place] [] Salvation [x] Completed spiritual assessment [] Other: Impact on Illness or Injury [] Angry [] Fearful [] Anxious [] Often cries [] Exhaustion [] Unable to work [] Unable to attend restorationism [] Unable to walk/stand [] Unable to read [] Unable to drive [] Unable to eat/drink [] Unable to sleep [] Unable to be with family [] Patient intubated [] Other: Summary abnorl degestive system feeling better has family with her + 3 well get to go home at some point Time spent with patient 10 mins
[2022-07-13] MEDS: predniSONE 20 mg Tablet PO (12:10)
[2022-07-13] MEDS: acetaminophen 500 mg Tablet PO (15:34)
[2022-07-13] MEDS: amlodipine 10 mg Tablet PO (20:38)
[2022-07-14 08:00] VITALS: PULSE 104; RESP 18; O2SAT 96
[2022-07-14] MEDS: hyDRALAzine 50 mg Tablet PO (08:16)
[2022-07-14] MEDS: predniSONE 20 mg Tablet PO (08:16)
[2022-07-14] MEDS: LORazepam 0.5 mg Tablet PO (08:16)
[2022-07-14] MEDS: ondansetron 2 mg/ML SDV 2 mL 4 MG IVP (09:03)
--- NOTE | 2022-07-14 10:05 | P.DS_ITS ---
Discharge Providers Date of Admission: 07/12/22 15:23 Date of Discharge: July 14, 2022 Attending Provider at Admission: Bakari Ramsey MD Attending Provider at Discharge: Bakari Ramsey MD Primary Care Provider: Nithin Lin DO Diagnoses at Discharge Discharge Diagnosis (1) Goals of care, counseling/discussion: Status: Acute (2) Acute kidney injury superimposed on chronic kidney disease: Status: Acute (3) Pneumonia: Status: Acute (4) Hypokalemia: Status: Acute (5) Pleural effusion: Status: Acute (6) CLL (chronic lymphocytic leukemia): Status: Acute Reason for Visit Reason for Visit: abnormal labs Hospital Course Hospital Course 87-year female who was on hospice at home for worsening of functional status, she has history of CLL, presented to hospital for worsening of creatinine, creatinine has remained stable, IV fluid hydration was given, clinically she looks dehydrated, she has poor appetite, functional status has worsened significantly, family has remained at the bedside throughout her hospitalization, multiple family meetings conducted, they have decided to pursue comfort measures/hospice at [facility], 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 Throughout hospitalization patient required 2 to 3 L of oxygen however at [facility] she was using 4 L before she came in, she remained afebrile, no significant leukocytosis, cultures negative, she was treated for community-acquired pneumonia with antibiotics, Her prognosis is guarded considering the fact her appetite is poor and functional status is worsening, she had high D-dimer, VQ scan and venous Doppler did not show any signs of clot, her hypoxia is related to hypoventilation, muscle mass loss. They have opted for [facility], Physical Exam Narrative: Awake and alert Pleasant and cooperative No audible stridor have mild wheezing and requires 2 to 3 L of oxygen Abdomen soft Clinically looks dehydrated Pleasant and cooperative able to answer my questions In good spirits today Discharge Data Studies Completed and Pending Completed Studies During Hospitalization Category Date Time Status CT chest wo con [id number] Stat Cat Scan 07/12/22 13:10 Completed XR chest 1V portable [id number] Stat Exams 07/12/22 11:40 Completed NM pulmonary ventilation and perfusion [NM pul vent and Nuc Med 07/13/22 07:53 Completed perfus* [id number]] [place] [id number] Routine Ultrasound 07/13/22 10:18 Completed Pending at discharge Category Date Time Status Blood Culture Stat Lab 07/12/22 13:02 Results Radiology Impressions Chest X-Ray 07/12/22 11:40 IMPRESSION: Worsening consolidation left lower lobe likely secondary to pneumonia Chest CT 07/12/22 13:10 IMPRESSION: 1. Small LEFT greater than RIGHT pleural effusions. LEFT pleural effusion is stable. RIGHT pleural effusion has improved. 2. More shallow inspiration noted today with stable consolidative atelectasis in the LEFT lower lobe extending into the lingula with associated pleural thickening. 3. Previously described micronodular infiltrates more prominent in the upper lobes have slightly improved compared to previous. 4. No other significant interval changes. Pulmonary Perfusion Imaging 07/13/22 07:53 IMPRESSION: 1. Low probability for pulmonary embolus. Laboratory Results WBC 8.3 10^3/uL (4.0-10.0) 07/13/22 05:06 RBC 3.00 10^6/uL (4.1-5.3) L 07/13/22 05:06 Hgb 9.1 g/dL (11.5-15.3) L 07/13/22 05:06 Hct 28.4 % (37.0-47.0) L 07/13/22 05:06 MCV 94.7 fl (81-99) 07/13/22 05:06 MCH 30.3 pg (28.0-34.0) 07/13/22 05:06 MCHC 32.0 g/dL (30.0-36.0) 07/13/22 05:06 RDW 14.8 % (12.1-15.1) 07/13/22 05:06 Plt Count 146 10^3/cmm (130-400) 07/13/22 05:06 MPV 11.1 fL (7.4-10.4) H 07/13/22 05:06 Neut % (Auto) 36.9 % 07/13/22 05:06 Lymph % (Auto) 57.8 % 07/13/22 05:06 [place] % (Auto) 4.6 % 07/13/22 05:06 Eos % (Auto) 0.2 % 07/13/22 05:06 Baso % (Auto) 0.1 % 07/13/22 05:06 Neut # (Auto) 3.07 10^3/uL (1.8-7.7) 07/13/22 05:06 Lymph # (Auto) 4.8 10^3/uL (0.8-4.8) 07/13/22 05:06 [place] # (Auto) 0.4 10^3/uL (0.2-0.9) 07/13/22 05:06 Eos # (Auto) 0.0 10^3/uL (0.0-0.8) 07/13/22 05:06 Baso # (Auto) 0.0 10^3/uL (0.0-0.1) 07/13/22 05:06 Nucleated RBC % (auto) 0 % 07/13/22 05:06 Nucleated RBCs # 0.0 /100WBC 07/13/22 05:06 D-Dimer 6.19 ug/mIFEU (0-0.59) H 07/12/22 12:10 Sodium 141 mmol/L (136-145) 07/13/22 05:06 Potassium 3.2 mmol/L (3.5-5.1) L 07/13/22 05:06 Chloride 100 mmol/L (98-107) 07/13/22 05:06 Carbon Dioxide 31 mmol/L (22-29) H 07/13/22 05:06 Anion Gap 13.2 (5-19) 07/13/22 05:06 BUN 24 mg/dL (8-23) H 07/13/22 05:06 Creatinine 2.2 mg/dL (0.5-0.9) H 07/13/22 05:06 GFR Calculation Not Reportable 07/13/22 05:06 Glucose 94 mg/dL (65-115) 07/13/22 05:06 Calculated Osmolality 296 mOsm/kg (285-295) H 07/13/22 05:06 Calcium 8.3 mg/dL (8.5-10.5) L 07/13/22 05:06 Phosphorus 2.6 mg/dL (2.5-4.5) 07/13/22 05:06 Magnesium 1.8 mg/dL (1.7-2.3) 07/13/22 05:06 Total Bilirubin 0.5 mg/dL (0.15-1.2) 07/12/22 12:10 AST 39 U/L (0-32) H 07/12/22 12:10 ALT 30 U/L (0-33) 07/12/22 12:10 Alkaline Phosphatase 64 U/L (35-105) 07/12/22 12:10 C-Reactive Protein 60.0 mg/L (0.0-4.9) H 07/13/22 05:06 NT-Pro-B Natriuret Pep 7553 pg/mL (0-450) H 07/12/22 12:10 Total Protein 5.9 g/dL (6.6-8.7) L 07/12/22 12:10 Albumin 3.3 g/dL (3.5-5.2) L 07/12/22 12:10 Globulin 2.6 g/dL (1.3-4.6) 07/12/22 12:10 Procalcitonin 0.24 ng/mL (0-0.5) 07/12/22 12:10 TSH 1.58 uIU/mL (0.27-4.20) 07/12/22 12:10 Urine Color Yellow (Yellow) 07/12/22 14:05 Urine Appearance Clear (CLEAR) 07/12/22 14:05 Urine pH 6 (5-7) 07/12/22 14:05 Ur Specific [place] 1.015 (1.005-1.030) 07/12/22 14:05 Urine Protein 3+ (Negative) H 07/12/22 14:05 Urine Glucose (UA) Norm (Normal) 07/12/22 14:05 Urine Ketones Negative (Negative) 07/12/22 14:05 Urine Blood Neg (Negative) 07/12/22 14:05 Urine Nitrate Negative (Negative) 07/12/22 14:05 Urine Bilirubin Neg (Negative) 07/12/22 14:05 Urine Urobilinogen Neg mg/dL (Negative) 07/12/22 14:05 Ur Leukocyte Esterase Negative (Negative) 07/12/22 14:05 Urine RBC Rare /hpf (0-2) 07/12/22 14:05 Urine WBC Rare /hpf (0-5) 07/12/22 14:05 Ur Squamous Epith Cells 0-4 /hpf (0-5) H 07/12/22 14:05 Amorphous Sediment Not Reportable 07/12/22 14:05 Urine Bacteria None /hpf (NONE) 07/12/22 14:05 Coronavirus 229E (PCR) Not detected (NOT DETECT) 07/12/22 11:50 Human Metapneumovir PCR Detected (NOT DETECT) A 07/12/22 14:07 Entero/Rhino (PCR) Not detected (NOT DETECT) 07/12/22 14:07 SARS-CoV-2 (PCR) Not detected (NOT DETECT) 07/12/22 11:50 Vitals Last Vital Signs Temp 98.5 F 07/13/22 20:00 Pulse 104 H 07/13/22 20:00 Resp 16 07/13/22 20:00 BP 167/66 07/13/22 20:00 Pulse Ox 92 07/13/22 20:00 O2 Del Method 07/13/22 20:00 O2 Flow Rate 3 07/14/22 08:00 Discharge Plan Discharge Patient Disposition: Hospice - Medical Facility Condition: Stable Prescriptions: Continued amlodipine 10 mg tablet 10 mg PO BEDTIME metoprolol succinate 100 mg tablet extended release 24 hr 100 mg PO DAILY ipratropium-albuterol 0.5 mg-3 mg(2.5 mg base)/3 mL solution for nebulization 3 ml inhalation QID PRN (Reason: wheezing) Qty: 180 2RF hydrocodone-acetaminophen 5-325 mg tablet 1 - 2 tab PO Q4H PRN (Reason: pain) 5 Days Qty: 40 0RF acetaminophen [Tylenol] 325 mg Tablet 650 mg PO BID PRN (Reason: Pain) omeprazole 40 mg capsule,delayed release(DR/EC) 40 mg PO QAM cholecalciferol (vitamin D3) [Vitamin D3] 50 mcg (2,000 unit) Tablet 50 mcg PO DAILY hydralazine 50 mg tablet 50 mg PO TID Qty: 180 4RF morphine concentrate 100 mg/5 mL (20 mg/mL) solution 5 - 20 mg PO Q1H PRN (Reason: Pain) lorazepam 2 mg/mL concentrate 0.5 - 2 mg PO Q1H PRN (Reason: Anxiety) Discontinued glucosamine HCl 1,500 mg tablet 1,500 mg PO DAILY Prolia 60 mg/mL Syringe See Rx Instructions .ROUTE .COMPLEX Rx Instructions: 60 mg subcutaneously every 6 months Discharge Orders: Discharge Order (Routine); Ordered 07/14/22 Ordered By: Bakari Ramsey Referrals: [facility] [Outside] [facility] [Outside] Nithin Lin DO [Primary Care Provider] - Discharge Attestations Time Spent in Discharge Care*: less than 30 min Status at Discharge: Cognitive status at discharge: cognitively intact , Behavioral status at discharge: cooperative , Quality Metrics Clinical Quality Measures [ No reported AMI, CVA or VTE this stay] Coding Level of Care Code 86509 Diagnoses Goals of care, counseling/discussion Z71.89 Acute kidney injury superimposed on chronic kidney disease N17.9; N18.9 Pneumonia J18.9 Hypokalemia E87.6 Pleural effusion J90 CLL (chronic lymphocytic leukemia) C91.10
[2022-07-14 11:38] VITALS: RESP 18; O2SAT 96
[2022-07-14] MEDS: morphine IR 15 mg Tablet PO (11:38)
[2022-07-14 14:14] LABS: SARS Covid-2 Antigen negative (Negative)
--- NOTE | 2022-07-14 14:19 | PC.NURSE ---
Report given to Samantha Meyer LPN at [facility] via telephone.
== END 2022-07-14 16:00 | disposition hospice, inpatient (51) ==
LOC: ER 15:31 → MEDSURG 17:47
PROVIDERS: Admitting Provider Internal Medicine; Emergency Provider Emergency Medicine; PCP Electrodiagnostic Medicine; Visit Provider Internal Medicine
DX: J18.9 Pneumonia, unspecified organism (principal); N17.9 Acute kidney failure, unspecified; I12.9 Hypertensive chronic kidney disease with stage 1 through stage 4 chronic kidney disease, or unspecified chronic kidney disease; N18.9 Chronic kidney disease, unspecified; E87.6 Hypokalemia; J90 Pleural effusion, not elsewhere classified; C91.10 Chronic lymphocytic leukemia of B-cell type not having achieved remission; Z99.81 Dependence on supplemental oxygen; R09.02 Hypoxemia; R79.1 Abnormal coagulation profile; Z66 Do not resuscitate; M79.7 Fibromyalgia
CPT/HCPCS: 36415; 71045; 71250; 78014; 80048; 80053; 81001; 83735; 83880; 84100; 84145; 84443; 85025; 85378; 86140; 86403; 87040; 87426; 87635; 87801; 93970; 94640; 94664; 96365; 96366; 96367; 96372; 96375; 97161; 97530; 99285; A9540; A9567; G0378; J0696; J1644; J1940; J2405; J3480; J3490; J7030; J7512; J7626; Q0144